=== PATIENT | male | born 1975 | race Caucasian/White ===

== ENCOUNTER → 2016-10-25 | Outpatient (REF) | payer OTHER ==
[2016-10-25 12:16] LABS: BASO % 0.5 % (0.0-1.0); EOS # 0.6 K/mm3 (0.0-0.50); EOS % 6.1 % (0.0-3.0); LARGE UNSTAINED CELL # 0.3 K/mm3 (0.0-0.4); LARGE UNSTAINED CELL % 3.2 % (0.0-4.0); LYMPH % 32.3 % (24.0-44.0); MEAN CORPUSCULAR HEMOGLOBIN 33.5 pg (27.0-33.0); MEAN CORPUSCULAR HGB CONC 34.2 g/dl (32.0-36.5); MEAN CORPUSCULAR VOLUME 98.1 fl (80.0-96.0); MONO # 0.6 K/mm3 (0.0-0.8); MONO % 6.5 % (0.0-5.0); NEUTROPHILS # 4.7 K/mm3 (1.8-7.7); NEUTROPHILS % 51.5 % (36.0-66.0); PLATELET COUNT, AUTOMATED 271 k/mm3 (150-450); RED CELL DISTRIBUTION WIDTH 12.9 % (11.5-14.5); WHITE BLOOD COUNT 9.1 K/mm3 (4.0-10.0)
[2016-10-25 12:41] LABS: ALBUMIN 3.9 GM/DL (3.2-5.2); ALBUMIN/GLOBULIN RATIO 1.11 (1.00-1.93); ALKALINE PHOSPHATASE 77 U/L (45-117); ALT/SGPT 35 U/L (12-78); ANION GAP 8 MEQ/L (8-16); AST/SGOT 20 U/L (15-37); BILIRUBIN,TOTAL 0.8 MG/DL (0.2-1.0); BLOOD UREA NITROGEN 13 MG/DL (7-18); CALCIUM LEVEL 8.9 MG/DL (8.5-10.1); CARBON DIOXIDE LEVEL 29 MEQ/L (21-32); CHLORIDE LEVEL 105 MEQ/L (98-107); CREATININE FOR GFR 0.96 MG/DL (0.70-1.30); GLOMERULAR FILTRATION RATE > 60.0 (>60); GLUCOSE, FASTING 80 MG/DL (70-105); POTASSIUM SERUM 4.5 MEQ/L (3.5-5.1); SODIUM LEVEL 142 MEQ/L (136-145); TOTAL PROTEIN 7.4 GM/DL (6.4-8.2)
== END ==
LOC: M SFHCPLAZ 08:46
PROVIDERS: ATTEND Internal Medicine Infectious Disease
DX: B00.9 Herpesviral infection, unspecified (principal)

== ENCOUNTER → 2017-03-18 | Outpatient (REF) | payer OTHER ==
[2017-03-20 00:08] LABS: HSV-1 DNA Negative (Negative); HSV-2 DNA Positive (Negative)
== END ==
LOC: M SFHCPLAZ 11:34
DX: B00.9 Herpesviral infection, unspecified (principal)
CPT/HCPCS: 87483

== ENCOUNTER → 2017-07-05 | Outpatient (CLI) | payer OTHER | LOC: M ADAMS 10:16 | DX: M25.561 Pain in right knee (principal) | CPT/HCPCS: 73564 ==

== ENCOUNTER → 2017-08-26 | Outpatient (CLI) | payer OTHER ==
[2017-08-26 20:20] LABS: BASO # 0.1 10^3/uL (0.0-0.2); BASO % 0.3 % (0.0-1.0); EOS # 0.1 10^3/uL (0.0-0.50); EOS % 0.4 % (0.0-3.0); HEMATOCRIT 44.8 % (42.0-52.0); HEMOGLOBIN 15.4 g/dl (13.5-17.5); IMMATURE GRANULOCYTE % 0.5 % (0-3.0); LYMPH # 1.8 10^3/uL (1.5-4.5); LYMPH % 11.1 % (24.0-44.0); MEAN CORPUSCULAR HEMOGLOBIN 32.7 pg (27.0-33.0); MEAN CORPUSCULAR HGB CONC 34.4 g/dl (32.0-36.5); MEAN CORPUSCULAR VOLUME 95.1 fl (80.0-96.0); MONO # 1.2 10^3/uL (0.0-0.8); MONO % 7.3 % (0.0-5.0); NEUTROPHILS # 12.9 10^3/uL (1.8-7.7); NEUTROPHILS % 80.4 % (36.0-66.0); PLATELET COUNT, AUTOMATED 238 10^3/uL (150-450); RED BLOOD COUNT 4.71 10^6/uL (4.30-6.10); RED CELL DISTRIBUTION WIDTH 13.5 % (11.5-14.5)
[2017-08-26 21:18] LABS: ALBUMIN 3.4 GM/DL (3.2-5.2); ALBUMIN/GLOBULIN RATIO 0.79 (1.00-1.93); ALKALINE PHOSPHATASE 99 U/L (45-117); ALT/SGPT 58 U/L (12-78); AMYLASE 51 U/L (25-115); ANION GAP 9 MEQ/L (8-16); AST/SGOT 46 U/L (7-37); BILIRUBIN,TOTAL 1.2 MG/DL (0.2-1.0); BLOOD UREA NITROGEN 13 MG/DL (7-18); CALCIUM LEVEL 8.4 MG/DL (8.5-10.1); CARBON DIOXIDE LEVEL 27 MEQ/L (21-32); CHLORIDE LEVEL 100 MEQ/L (98-107); GLOMERULAR FILTRATION RATE > 60.0 (>60); GLUCOSE, FASTING 101 MG/DL (70-100); LIPASE 86 U/L (73-393); POTASSIUM SERUM 4.2 MEQ/L (3.5-5.1); SODIUM LEVEL 136 MEQ/L (136-145); TOTAL PROTEIN 7.7 GM/DL (6.4-8.2)
== END ==
LOC: M ADAMS 18:22
DX: R91.8 Other nonspecific abnormal finding of lung field (principal); R14.0 Abdominal distension (gaseous); R19.7 Diarrhea, unspecified; R50.9 Fever, unspecified; R06.2 Wheezing
CPT/HCPCS: 82150

== ENCOUNTER 2018-04-04 10:34 | Emergency (ER) | payer MEDICAID, OTHER, SELFPAY ==
[~2018-04-04] VITALS: Ht 188 cm; Wt 159.1 kg
[2018-04-04 11:37] LABS: BASO % 0.3 % (0.0-1.0); EOS # 0.3 10^3/uL (0.0-0.50); EOS % 1.9 % (0.0-3.0); HEMATOCRIT 45.6 % (42.0-52.0); LYMPH # 2.6 10^3/uL (1.5-4.5); LYMPH % 16.7 % (24.0-44.0); MEAN CORPUSCULAR HEMOGLOBIN 32.3 pg (27.0-33.0); MEAN CORPUSCULAR HGB CONC 35.1 g/dl (32.0-36.5); MEAN CORPUSCULAR VOLUME 92.1 fl (80.0-96.0); MONO # 1.1 10^3/uL (0.0-0.8); MONO % 7.3 % (0.0-5.0); NEUTROPHILS # 11.3 10^3/uL (1.8-7.7); NEUTROPHILS % 73.4 % (36.0-66.0); PLATELET COUNT, AUTOMATED 128 10^3/uL (150-450); RED BLOOD COUNT 4.95 10^6/uL (4.30-6.10); WHITE BLOOD COUNT 15.4 10^3/uL (4.0-10.0)
[2018-04-04 11:47] LABS: INR 1.06; PROTHROMBIN TIME 13.9 SECONDS (12.1-14.4)
[2018-04-04 12:03] LABS: BLOOD UREA NITROGEN 11 MG/DL (7-18); CALCIUM LEVEL 8.7 MG/DL (8.5-10.1); CARBON DIOXIDE LEVEL 24 MEQ/L (21-32); CHLORIDE LEVEL 103 MEQ/L (98-107); CREATININE FOR GFR 0.92 MG/DL (0.70-1.30); GLOMERULAR FILTRATION RATE > 60.0 (>60); GLUCOSE, FASTING 131 MG/DL (70-100); SODIUM LEVEL 136 MEQ/L (136-145)
[2018-04-04] MEDS ORDERED: MORPHINE 4 MG/ML 1ML VIAL/SYRINGE (J2270) IV ONE (12:30)
[2018-04-04] MEDS ORDERED: ELIQ5TAB PO (12:57)
[2018-04-04] MEDS ORDERED: PERC5TAB12 PO (12:57)
[2018-04-04 13:10] VITALS: BP 114/67
[2018-04-04] MEDS ORDERED: APIXABAN 5 MG TAB (ELIQUIS) PO ONE (13:15)
--- NOTE | 2018-04-04 14:37 | REP ---
Clinical: Left lower extremity pain and swelling . Technique: Ferreira scale and color Doppler evaluation using linear high frequency transducer. Findings: Ultrasound examination of the left lower extremity deep venous structures from the common femoral vein to the popliteal vein demonstrates occlusive thrombus from the common femoral vein to the proximal superficial femoral vein with extension into the greater saphenous vein along with partially occlusive thrombus in the proximal to distal superficial femoral vein. Impression: Positive for acute occlusive/nonocclusive thrombus extending from the common femoral vein through the distal superficial femoral vein with extension into the proximal greater saphenous vein as well. Electronically Signed by Ricardo Adam MD 04/04/2018 12:07 P
== END 2018-04-04 13:16 | disposition home or self-care (01) ==
LOC: M ED 10:34
DX: I82.412 Acute embolism and thrombosis of left femoral vein (principal); Z88.0 Allergy status to penicillin
CPT/HCPCS: 80048; 85025; 85610; 85730; 93971; 96374; 99284; J2270

== ENCOUNTER 2018-04-07 00:45 | Inpatient (IN) | payer OTHER, SELFPAY ==
[~2018-04-07] VITALS: Ht 188 cm; Wt 157.1 kg
[~2018-04-07 00:45] MED LIST: ELIQ5TAB PO; PERC5TAB12 PO
[2018-04-07] MEDS ORDERED: VALA1TAB2 PO (00:51)
[2018-04-07] MEDS ORDERED: MORPHINE 10 MG/ML 1ML VIAL (J2270) IV ONE (01:15)
[2018-04-07 01:35] LABS: BASO % 0.3 % (0.0-1.0); EOS # 0.2 10^3/uL (0.0-0.50); EOS % 1.3 % (0.0-3.0); HEMATOCRIT 40.7 % (42.0-52.0); HEMOGLOBIN 14.2 g/dl (13.5-17.5); LYMPH # 2.4 10^3/uL (1.5-4.5); LYMPH % 15.6 % (24.0-44.0); MEAN CORPUSCULAR HEMOGLOBIN 32.5 pg (27.0-33.0); MEAN CORPUSCULAR HGB CONC 34.9 g/dl (32.0-36.5); MEAN CORPUSCULAR VOLUME 93.1 fl (80.0-96.0); MONO # 1.7 10^3/uL (0.0-0.8); MONO % 11.1 % (0.0-5.0); NEUTROPHILS # 11.1 10^3/uL (1.8-7.7); NEUTROPHILS % 70.9 % (36.0-66.0); PLATELET COUNT, AUTOMATED 167 10^3/uL (150-450); RED BLOOD COUNT 4.37 10^6/uL (4.30-6.10); WHITE BLOOD COUNT 15.7 10^3/uL (4.0-10.0)
[2018-04-07 02:10] LABS: BLOOD UREA NITROGEN 19 MG/DL (7-18); CALCIUM LEVEL 8.1 MG/DL (8.5-10.1); CARBON DIOXIDE LEVEL 26 MEQ/L (21-32); CHLORIDE LEVEL 100 MEQ/L (98-107); CREATININE FOR GFR 0.97 MG/DL (0.70-1.30); GLOMERULAR FILTRATION RATE > 60.0 (>60); GLUCOSE, FASTING 120 MG/DL (70-100); POTASSIUM SERUM 3.7 MEQ/L (3.5-5.1); SODIUM LEVEL 135 MEQ/L (136-145)
[2018-04-07] MEDS ORDERED: ISOVUE-370 76% 100ML VIAL (Q9967) As Ordered ONE (02:23)
[2018-04-07] MEDS ORDERED: NS 1,000 ML IV ONE (02:30)
--- NOTE | 2018-04-07 02:52 | REPVR ---
EXAM: CT Angiography Chest With Contrast EXAM DATE/TIME: 04/07/2018 2:35 AM CLINICAL HISTORY: 42 years old, male; Pain; Chest pain; Additional info: Eval for pe/dvt present TECHNIQUE: Axial computed tomographic angiography images of the chest with intravenous contrast using CT angiography protocol. All CT scans at this facility use at least one of these dose optimization techniques: automated exposure control; mA and/or kV adjustment per patient size (includes targeted exams where dose is matched to clinical indication); or iterative reconstruction. Coronal and sagittal reformatted images were created and reviewed. MIP reconstructed images were created and reviewed. CONTRAST: 75 ml of iso 370 administered intravenously. COMPARISON: DX CHEST 2 VIEW 08/26/2017 6:16 PM FINDINGS: Limitations: Examination is limited by motion artifact. Pulmonary arteries: Suboptimal opacification of the pulmonary arteries. Large pulmonary emboli in the right lower lobe. Suspect multifocal moderate pulmonary emboli in the left upper lobe, left lower lobe and lingula. No saddle pulmonary emboli. Evaluation of the segmental arteries are suboptimal. Aorta: Suboptimal contrast opacification of the aorta. No aortic aneurysm. No aortic dissection. Great vessels off aortic arch: Incidental aberrant right subclavian vein. Lungs: Scattered linear atelectasis. No acute consolidation. Few scattered lung nodules measuring up to 4 mm. Pleural space: Normal. No pneumothorax. No pleural effusion. Heart: Heart size is within normal limits. RV/LV ratio is 0.8. Liver: Fatty infiltration of the liver. Lymph nodes: Unremarkable. No enlarged lymph nodes. Bones/joints: Unremarkable. No acute fracture. Soft tissues: Unremarkable. IMPRESSION: Suboptimal evaluation. Positive for bilateral pulmonary emboli. No evidence of right ventricular cardiac strain. Few scattered lung nodules. For patients at low risk (minimal or absent history of smoking and of other known risk factors), no routine follow-up is indicated. For patients at high risk (history of smoking or of other known risk factors), consider optional CT at 12 months. (Brit et al., Fleischner Society, 2017) Fatty infiltration of the liver. Additional findings as described. COMMENT: THIS REPORT CONTAINS FINDINGS THAT MAY BE CRITICAL TO PATIENT CARE. The findings were verbally communicated via telephone conference with Dr. GUNDERSON at 2:49 AM EST on 04/07/2018. The findings were acknowledged and understood. Electronically signed by: Basim Ortiz On 04/07/2018 02:51:28 AM
--- NOTE | 2018-04-07 02:53 | REPVR ---
EXAM: US Duplex Left Lower Extremity Veins, Limited EXAM DATE/TIME: 04/07/2018 2:08 AM CLINICAL HISTORY: 42 years old, male; Condition or disease; Embolism or thrombosis; Lower extremity, left; Additional info: Reeval of dvt TECHNIQUE: Real-time Duplex ultrasound of the Left Lower Extremity with 2-D oliva scale, color Doppler flow and spectral waveform analysis. Limited exam focused on the left lower extremity veins. COMPARISON: US Duplex, Ext,LOWER veins,unilat 04/04/2018 11:55 AM FINDINGS: Left deep veins: Occlusive DVT in the left common femoral vein and femoral vein. Occlusive DVT in the left deep femoral vein. Proximal extent of the thrombus is not seen. Iliac veins are not imaged on this study. Left superficial veins: Occlusive DVT in the left greater saphenous vein in the proximal thigh. Soft tissues: Unremarkable. IMPRESSION: Diffuse occlusive DVT in left lower extremity. Unchanged from prior. COMMENT: THIS REPORT CONTAINS FINDINGS THAT MAY BE CRITICAL TO PATIENT CARE. The findings were verbally communicated via telephone conference with Dr. GUNDERSON at 2:52 AM EST on 04/07/2018. The findings were acknowledged and understood. Electronically signed by: Basim Ortiz On 04/07/2018 02:52:58 AM
[2018-04-07] MEDS ORDERED: HEPARIN DRIP 25,000 UNITS in APPROPRIATE DILUENT 1 EA IV SCH ×3 (03:13→09:00)
[2018-04-07] MEDS ORDERED: HEPARIN SOD (PORCINE) 5000 UNITS/ML VIAL IV ONE (03:15)
[2018-04-07 03:55] LABS: TROPONIN I < 0.02 NG/ML (< 0.10)
[2018-04-07 03:56] LABS: INR 1.37; PROTHROMBIN TIME 17.1 SECONDS (12.1-14.4)
[2018-04-07 03:57] LABS: PARTIAL THROMBOPLASTIN TIME 33.8 SECONDS (25.4-37.6)
[2018-04-07] MEDS ORDERED: ELIQ5TAB PO (04:07)
[2018-04-07] MEDS ORDERED: OXYC1TAB23 PO (04:07)
[2018-04-07] MEDS ORDERED: DOXY100T16 PO (04:07)
[2018-04-07] MEDS ORDERED: VENTAER INH (04:09)
[2018-04-07] MEDS ORDERED: NICOTINE 21MG/24HR 1 EA TRANSDERMAL TD PRN (04:15)
[2018-04-07] MEDS: PERCOCET 5MG/325MG TAB PO PRN ×3 (05:14→21:07)
[2018-04-07] MEDS: HEPARIN DRIP 25,000 UNITS in APPROPRIATE DILUENT 1 EA IV SCH ×2 (07:33→21:57)
[2018-04-07] MEDS: DOXYCYCLINE HYCLATE 100 MG TAB PO SCH ×2 (08:18→21:06)
[2018-04-07] MEDS: valACYclovir HCL 500 MG TAB PO SCH ×2 (08:20→21:06)
[2018-04-07] MEDS: IPRATROPIUM 0.5MG/ALBUTEROL 2.5MG INH SOL UD 3ML (DUONEB)(J7620) NEB SCH ×4 (08:49→20:00)
[2018-04-07 09:42] VITALS: BP 130/80
--- NOTE | 2018-04-07 11:03 | HPE ---
DATE OF ADMISSION: 04/07/2018 CHIEF COMPLAINT: Worsening swelling and pain in the left lower extremity and mild dyspnea on exertion. HISTORY OF PRESENT ILLNESS: The patient is a 43-year-old male. He has significant past medical history of morbid obesity, also ongoing treatment for herpetic lesion on his ear with possible skin fold bacterial infection. He is on Valtrex one a day and doxycycline. He is a heavy smoker. He presented to the emergency room with worsening pain, swelling, erythema in his left lower extremity and some mild dyspnea on exertion. He was recently seen in the emergency room here at [facility] on 04/04/2018 for lower extremity swelling and he as diagnosed with a deep vein thrombosis (DVT). He was discharged on Eliquis. He returns today with worsening pain and swelling of the left lower extremity and some mild dyspnea on exertion. Imaging in the emergency room, CT angio was completed, which showed positive bilateral pulmonary emboli. No evidence of right heart strain. Few scattered lung nodules. Ultrasound of the lower extremities showed occlusive DVT in the left common femoral vein and left femoral vein. Occlusive DVT in the left deep femoral vein. Iliac veins are not imaged in this study. Left superficial vein occlusive DVT in the left greater saphenous vein. 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 He denies any history of recent surgeries or immobility. Appropriate screening for this patient would be a low dose CT, which he already had performed. He had a CT angio for lung cancer. PAST MEDICAL HISTORY: See history of present illness. PAST SURGICAL HISTORY: He has had surgery for torsion of the testes. HOME MEDICATIONS: - Valtrex - doxycycline - albuterol as needed for what he states is an episode of bronchitis - Eliquis was recently started - Percocet ALLERGIES: PENICILLIN, he gets hives. SOCIAL HISTORY: He is a current smoker, smokes two to three packs a day. Denies alcohol or illicit drug use. FAMILY HISTORY: No family history of blood clots. REVIEW OF SYSTEMS: 12-point review of systems was completed, all of which are negative except those listed in the history of present illness. VITAL SIGNS: On admission, temperature 99.3, pulse 90, respiratory rate of 22, saturating 95% on room air. Blood pressure 135/77. PHYSICAL EXAMINATION: GENERAL: He is obese. No apparent distress. Head is normocephalic, atraumatic. Eyes: Extraocular movements are intact. Pupils are equal, round and reactive to light. NECK: Supple with no jugular venous distention (JVD). LUNGS: Clear to auscultation. No crackles, wheezes, rales or rhonchi. CARDIOVASCULAR: Regular rate and rhythm. Normal S1, S2. No murmurs, gallops or rubs. ABDOMEN: Soft, nontender, nondistended. Positive bowel sounds. No rebound or guarding. EXTREMITIES: Erythema on the left lower extremity with 1+ pitting edema extending up beyond his knee, up into the lower portion of his thigh. SKIN: Intact. No rashes, lesions or breakdown. NEUROLOGIC: Alert and oriented times three. No focal deficits. LABORATORIES/IMAGING: Completed in the emergency room: White count 15, hemoglobin and hematocrit 14/40, platelet count of 167. Coags: PT of 17, INR 1.37, PTT 33. BUN and creatinine of 19 and 0.97. Electrocardiogram (EKG) shows no ischemic changes. We will send a troponin and admit the patient to telemetry. ASSESSMENT AND PLAN: 1. Deep vein thrombosis (DVT) and pulmonary embolus, possibly failed anticoagulation. The patient did take his dose of Eliquis tonight and so we will defer starting heparin drip until right before his next dose of Eliquis is due. Eliquis has not been studied in patient's with a Body Mass Index (BMI) greater than 40, so this patient was likely under anticoagulated based on his body habitus. Indications for thrombectomy would be complete occlusion of the iliofemoral system, as per the DVT Doppler report, unable to access the iliac vein. We will consider a vascular consult in the morning to see if the patient may be a candidate for thrombectomy. We will place him on a heparin drip. He will likely need to be bridged with Coumadin. Oxygen as needed. Place the patient on telemetry. We will cycle his troponins. For his herpetic lesion, possible skin fold infection, we will continue his Valtrex and doxycycline. 2. Tobacco abuse. Nicotine replacement patch. The patient is also notably wheezing on examination. We will place him on DuoNeb standing. He is not officially diagnosed with obstructive lung disease, chronic obstructive pulmonary disease (COPD) or asthma, but he has a long-standing smoking history, possibly will need outpatient pulmonary function tests. 3. Lung nodules. The patient will need followup study. Based on Fleischner criteria, repeat CT in 6 to 12 months, as he has a strong smoking history. MTDD
[2018-04-07 11:30] VITALS: BP 145/82
[2018-04-07] MEDS: HEPARIN SOD (PORCINE) 5000 UNITS/ML VIAL IV PRN ×2 (14:48→21:55)
--- NOTE | 2018-04-07 17:54 | IPNPDOC ---
Subjective Date Seen The patient was seen on 04/07/18. Subjective Chief Complaint/HPI Worsening swelling and pain in left lower extremity Events since last encounter Patient notes he has had better pain control. Denies any changes since admission. Would like to discuss treatment options with vascular surgery. Denies fevers, palpitations or current shortness of breath. Denies chest pain. Constitutional: Denies: Chills, Fever ENT: Denies: Head Aches Pulmonary: Denies: Dyspnea, Cough Cardiovascular: Denies: Chest Pain Objective Physical Examination General Exam: Positive: Alert, Cooperative Eye Exam: Positive: PERRLA ENT Exam: Positive: Atraumatic Neck Exam: Positive: Supple; Negative: JVD Chest Exam: Positive: Wheezing Heart Exam: Positive: Rate Normal Abdomen Exam: Positive: Normal bowel sounds Extremity Exam: Positive: Clubbing, Edema (Left lower extremity swelling); Negative: Cyanosis Assessment /Plan Problems (1) Pulmonary emboli Status: Acute Problem Text: Multiple pulmonary emboli noted on CT scan chest. On heparin at this point. No chest pain, SOB currently. Monitor for now. (2) Deep vein thrombosis (DVT) of distal vein of left lower extremity Status: Acute Problem Text: Vascular surgery consult placed. Dr. Lino with discuss with patient later about options. On heparin at this point for treatment. Continue pain medication as needed. (3) Nicotine dependence Problem Text: Continue nicotine patch. (4) Lung nodules Problem Text: Noted on CT scan. May need follow up outpatient. (5) Recurrent HSV (herpes simplex virus) Problem Text: Last dose of 5 day course of doxycycline and Valtrex given today. Patient has history of recurrent episodes and takes a 5 days course when they occur. Plan/VTE VTE Prophylaxis Ordered?: Yes VS, I&O, 24H, Fishbone Vital Signs/I&O Vital Signs Date Time Temp Pulse Resp B/P (MAP) Pulse Ox O2 Delivery O2 Flow Rate FiO2 04/07/18 15:19 20 04/07/18 13:15 80 95 04/07/18 13:00 132/77 (95) Room Air 04/07/18 09:42 2.0 04/07/18 09:00 99.3 Laboratory Data 24H LABS Laboratory Tests 2 04/07/18 01:27: Immature Granulocyte % (Auto) 0.8, White Blood Count 15.7H, Red Blood Count 4.37, Hemoglobin 14.2, Hematocrit 40.7L, Mean Corpuscular Volume 93.1, Mean Corpuscular Hemoglobin 32.5, Mean Corpuscular Hemoglobin Concent 34.9, Red Cell Distribution Width 13.2, Platelet Count 167, Neutrophils (%) (Auto) 70.9H, Lymphocytes (%) (Auto) 15.6L, Monocytes (%) (Auto) 11.1H, Eosinophils (%) (Auto) 1.3, Basophils (%) (Auto) 0.3, Neutrophils # (Auto) 11.1H, Lymphocytes # (Auto) 2.4, Monocytes # (Auto) 1.7H, Eosinophils # (Auto) 0.2, Basophils # (Auto) 0.0, Nucleated Red Blood Cells % (auto) 0.0, Anion Gap 9, Glomerular Filtration Rate > 60.0, Blood Urea Nitrogen 19#H, Creatinine 0.97, Sodium Level 135L, Potassium Level 3.7, Chloride Level 100, Carbon Dioxide Level 26, Calcium Level 8.1L, Troponin I < 0.02 04/07/18 03:40: Prothrombin Time 17.1H, Prothromb Time International Ratio 1.37, Activated Partial Thromboplast Time 33.8 04/07/18 03:41: Troponin I < 0.02 04/07/18 09:42: Troponin I < 0.02, Activated Partial Thromboplast Time 36.5 04/07/18 13:15: Activated Partial Thromboplast Time 34.4 CBC/BMP Laboratory Tests 04/07/18 01:27 Red Blood Count 4.37, Mean Corpuscular Volume 93.1, Mean Corpuscular Hemoglobin 32.5, Mean Corpuscular Hemoglobin Concent 34.9, Red Cell Distribution Width 13.2, Neutrophils (%) (Auto) 70.9 H, Lymphocytes (%) (Auto) 15.6 L, Monocytes (%) (Auto) 11.1 H, Eosinophils (%) (Auto) 1.3, Basophils (%) (Auto) 0.3, Neutrophils # (Auto) 11.1 H, Lymphocytes # (Auto) 2.4, Monocytes # (Auto) 1.7 H, Eosinophils # (Auto) 0.2, Basophils # (Auto) 0.0, Calcium Level 8.1 L GME ATTESTATION GME ATTESTATION My faculty preceptor for this patient encounter was physically present during the encounter and was fully available. All aspects of the patient interview, examination, medical decision making process, and medical care plan development were reviewed and approved by the faculty preceptor. The faculty preceptor is aware and concurs with the plan as stated in the body of this note and will attest to such by his/her cosignature. MARYAM ESTRELLA DO Apr 07, 2018 17:26
--- NOTE | 2018-04-07 21:47 | CR.PDOC ---
General Date of Admission Apr 07, 2018 at 03:39 Chief Complaint Vascular surgical consultation was requested regarding this 42-year-old male adm itted with bilateral pulmonary embolus, left lower extremity swelling and pain secondary to diffuse left lower extremity deep venous thrombosis. Source: Patient, Family, Old records Exam Limitations: No limitations Severity: Severe History of Present Illness Patient is a 42-year-old male who was admitted with severe left lower extremity pain and swelling with a known history of extensive left lower extremity DVT. Patient was also found to have bilateral pulmonary embolus on a CT angiogram of his chest. Patient was initially seen and discharged on Eliquis and now on a second visit to the emergency room has been admitted and placed on heparin drip and request has been made to evaluate the patient for possible left lower extremity venous thrombolysis. CT scan of the chest and ultrasound of the left lower extremity were reviewed by myself. Home Medications Scheduled Enoxaparin Sodium (Lovenox) 40 Mg/0.4 Ml Inj, 150 MG SC BID Valacyclovir HCl (Valacyclovir HCl) 1 Gm Tab, 1 GM PO Q12H, (Reported) TAKE FOR 10 DAYS. STARTED 03/28/2018 Warfarin Sod (Coumadin) 5 Mg Tab, 10 MG PO DAILY@1700 Scheduled PRN Acetaminophen/Hydrocodone ([place], [place] 5/325) 1 Tab Tab, 2 TAB PO Q4HP PRN for SEVERE PAIN (PS 8-10) Albuterol Sulfate (Ventolin Hfa) 108 Mcg/Act Aer, 2 PUFF INH Q4-6HP PRN for wheezing, (Reported) Nicotine (Nicotine Transdermal Syst) 21 Mg/24 Hr Dis, 1 PATCH TD DAILYPRN PRN for NICOTINE WITHDRAWAL Allergies Coded Allergies: Penicillins (Verified Allergy, Intermediate, hives, 04/04/18) Past Medical History Medical History Herpetic lesions on his ear Tobacco use Surgical History Surgery for torsion of the testes Family History Significant Family History: No pertinent family hx No family history of DVT, pulmonary embolus or blood dyscrasias. Social History * Smoker: current smoker, greater than 1 pack/day Alcohol: Denies Drugs: denies Recent Travel/Sick Contacts: Denies: Recent travel, Recent sick contacts Psychosocial History: No pertinent psych hx Patient smokes approximately 2-3 packs per day Review of Systems Review of Systems General: Reports: Normal Appetite; Denies: Chills, Night Sweats, Fatigue, Malaise Constitutional: Denies: Chills, Fever, Malaise, Night Sweats, Weakness, Fatigue, Weight Loss, Lethargy Eyes: Denies: Pain, Vision change, Conjunctivae inflammation, Eyelid inflammation, Redness HEENT: Denies: Head Aches, Ear Pain, Dysphagia, Sinus Congestion, Post Nasal Drip, Sore Throat, Epistaxis Skin: Denies: Rash, Lesions, Jaundice, Bruising, Itching, Dry, Breakdown, Nail Changes Pulmonary: Reports: Dyspnea, Pleuritic Chest Pain; Denies: Cough Cardiovascular: Denies: Chest Pain, Palpitations, Orthopnea, Paroxysmal Noc. Dyspnea, Edema, Lt Headedness Gastrointestinal: Denies: Nausea, Vomiting, Abdominal Pain, Diarrhea, Constipation, Melena, Hematochezia Genitourinary: Denies: Dysuria, Frequency, Incontinence, Hematuria, Retention Hematologic: Denies: Bruising, Bleeding Excessively, Petecchia, Purpura, Enlarged Lymph Nodes ENDOCRINE: Reports: Other Endocrine Sx; Denies: Polydipsia, Polyphagia, Polyuria, Heat Intolerance, Cold Intolerance Musculoskeletal: Denies: Neck Pain, Back Pain, Shoulder Pain, Arm Pain, Hand Pain, Leg Pain, Foot Pain, Joint Pain, Muscle Pain, Spasms Neurological: Denies: Weakness, Numbness, Incoordination, Change in speech, Confusion, Seizures Psych: Reports: Mood Normal; Denies: Anxiety, Depression, Memory Issues, Thoughts of Self Harm, Anger, Thoughts of Harming Other VITAL SIGNS VITAL SIGNS Vital Signs Date Time Temp Pulse Resp B/P (MAP) Pulse Ox O2 Delivery O2 Flow Rate FiO2 04/07/18 21:07 18 04/07/18 15:19 20 04/07/18 14:49 18 04/07/18 13:15 80 95 04/07/18 13:00 76 18 132/77 (95) 95 Room Air 04/07/18 12:45 74 127/81 (96) 93 04/07/18 12:30 76 18 123/78 (93) 95 Room Air 04/07/18 12:15 71 132/82 (99) 96 Room Air 04/07/18 12:00 73 18 131/83 (99) 94 Room Air 04/07/18 11:45 72 122/75 (91) 99 04/07/18 11:30 97.7 84 18 145/82 (103) 94 04/07/18 11:30 76 16 127/79 (95) 95 Room Air 04/07/18 11:15 81 137/79 (98) 04/07/18 11:00 75 16 129/75 (93) 96 Room Air 04/07/18 10:45 73 129/78 (95) 96 04/07/18 10:30 74 16 127/71 (89) 96 Room Air 04/07/18 10:15 77 125/77 (93) 95 04/07/18 10:00 73 16 127/77 (94) 95 Room Air 04/07/18 09:45 77 135/75 (95) 95 04/07/18 09:42 76 14 130/80 96 2.0 04/07/18 09:30 76 14 130/81 (97) 95 Room Air 04/07/18 09:15 78 114/69 (84) 95 04/07/18 09:00 70 14 118/76 (90) 96 Room Air 04/07/18 09:00 99.3 04/07/18 08:45 71 123/81 (95) 96 04/07/18 08:30 65 14 122/77 (92) 96 Room Air 04/07/18 08:15 67 124/79 (94) 95 04/07/18 08:00 65 16 126/82 (97) 97 Room Air 04/07/18 07:45 76 132/86 (101) 93 04/07/18 07:30 75 131/80 (97) 96 04/07/18 07:15 67 115/67 (83) 96 04/07/18 07:00 69 120/70 (87) 96 04/07/18 06:45 70 19 135/78 (97) 96 04/07/18 06:30 73 18 131/69 (89) 97 04/07/18 06:15 71 17 128/68 (88) 95 04/07/18 06:00 71 18 125/63 (83) 96 04/07/18 05:45 75 18 121/58 (79) 95 04/07/18 05:30 74 19 133/63 (86) 96 04/07/18 05:16 138/67 (90) 04/07/18 05:15 75 96 04/07/18 05:14 16 04/07/18 05:00 79 18 142/61 (88) 95 04/07/18 04:45 81 19 141/66 (91) 94 04/07/18 04:30 82 19 139/69 (92) 96 04/07/18 04:15 88 18 139/63 (88) 97 04/07/18 04:00 87 17 154/73 (100) 96 04/07/18 03:45 91 18 147/69 (95) 94 04/07/18 03:30 85 18 151/70 (97) 96 04/07/18 03:15 90 19 154/69 (97) 95 04/07/18 03:00 85 20 145/75 (98) 95 04/07/18 02:45 82 18 142/62 (88) 96 04/07/18 02:37 143/76 (98) 04/07/18 01:43 18 04/07/18 01:30 87 17 129/60 (83) 93 04/07/18 01:15 20 04/07/18 01:15 85 18 134/72 (92) 96 04/07/18 01:02 04/07/18 01:00 94 19 148/78 (101) 96 04/07/18 00:59 137/79 (98) 04/07/18 00:45 99.3 22 90 135/77 (96) 95 Room Air Laboratory Tests 04/07/18 01:27: White Blood Count 15.7H, Red Blood Count 4.37, Hemoglobin 14.2, Hematocrit 40.7L, Mean Corpuscular Volume 93.1, Mean Corpuscular Hemoglobin 32.5, Mean Corpuscular Hemoglobin Concent 34.9, Red Cell Distribution Width 13.2, Platelet Count 167, Neutrophils (%) (Auto) 70.9H, Lymphocytes (%) (Auto) 15.6L, Monocytes (%) (Auto) 11.1H, Eosinophils (%) (Auto) 1.3, Basophils (%) (Auto) 0.3, Neutrophils # (Auto) 11.1H, Lymphocytes # (Auto) 2.4, Monocytes # (Auto) 1.7H, Eosinophils # (Auto) 0.2, Basophils # (Auto) 0.0, Immature Granulocyte % (Auto) 0.8, Nucleated Red Blood Cells % (auto) 0.0, Blood Urea Nitrogen 19#H, Creatinine 0.97, Sodium Level 135L, Potassium Level 3.7, Chloride Level 100, Carbon Dioxide Level 26, Calcium Level 8.1L, Anion Gap 9, Glomerular Filtration Rate > 60.0, Fasting Glucose 120H, Troponin I < 0.02 04/07/18 03:40: Prothrombin Time 17.1H, Prothromb Time International Ratio 1.37, Activated Partial Thromboplast Time 33.8 04/07/18 03:41: Troponin I < 0.02 04/07/18 09:42: Troponin I < 0.02, Activated Partial Thromboplast Time 36.5 04/07/18 13:15: Activated Partial Thromboplast Time 34.4 04/07/18 20:55: Activated Partial Thromboplast Time 45.0H Current Medications Medications (Trade) Dose Ordered Sig/Jer Route PRN Reason Start Time Stop Time Status Last Admin Dose Admin Albuterol/ Ipratropium (Duoneb (Ipr 0.5mg/Alb 2.5mg)) 3 ml RQ4H NEB 04/07/18 08:00 04/07/18 15:47 3 ML Heparin Sodium (Porcine) (Heparin) ASDIRECTED PRN IV SEE LABEL COMMENTS 04/07/18 03:45 04/07/18 14:48 11,932 UNITS Heparin Sodium (Porcine) 92266 units/IV Miscellaneous Supplies 250 ml @ 0 mls/hr Q0M IV 04/07/18 07:30 04/07/18 07:33 10 MLS/HR Non-Formulary Medication (Heparin Iv Rate Change Documentation ml/ Hr) ASDIRECTED XX 04/07/18 03:45 04/12/18 03:44 04/07/18 14:48 1,590 Oxycodone/ Acetaminophen (Percocet 5mg/ 325mg Tablet) 1 tab Q6H PRN PO PAIN 04/07/18 04:00 04/07/18 21:07 1 TAB Laboratory Tests 04/07/18 01:27 Red Blood Count 4.37, Mean Corpuscular Volume 93.1, Mean Corpuscular Hemoglobin 32.5, Mean Corpuscular Hemoglobin Concent 34.9, Red Cell Distribution Width 13.2, Neutrophils (%) (Auto) 70.9 H, Lymphocytes (%) (Auto) 15.6 L, Monocytes (%) (Auto) 11.1 H, Eosinophils (%) (Auto) 1.3, Basophils (%) (Auto) 0.3, Neutrophils # (Auto) 11.1 H, Lymphocytes # (Auto) 2.4, Monocytes # (Auto) 1.7 H, Eosinophils # (Auto) 0.2, Basophils # (Auto) 0.0, Calcium Level 8.1 L Objective Physical Examination General Exam: Positive: Alert, Cooperative, Mild Distress Eye Exam: Positive: PERRLA ENT Exam: Positive: Atraumatic, Mucous membr. moist/pink, Pharynx Normal, Tongue Midline, Nares Patent Neck Exam: Positive: Supple, +2 carotid pulse wo bruit; Negative: JVD Chest Exam: Positive: Clear to auscultation, Normal air movement, Wheezing Heart Exam: Positive: Rate Normal Telemetry: Positive: No significant arrhythmia Abdomen Exam: Positive: Normal bowel sounds, Soft Male Exam: Positive: Normal Genital Exam Extremity Exam: Positive: Clubbing, Edema (Left lower extremity swelling), Normal pulses; Negative: Cyanosis Skin Exam: Positive: Nl turgor and temperature Neuro Exam: Positive: Normal Gait, Normal Speech, Strength at 5/5 X4 ext, Normal Tone, Sensation Intact, Cranial Nerves 3-12 NL, Reflexes 2+ Psych Exam: Positive: Mental status NL, Mood NL, Memory Intact, Oriented x 3 NOTE NAME: JARAD LAI DATE OF : 1975 BUSINESS NUMBER: [id number] AGE: 42 SEX: M REPORT #: [id number] ROOM: M ED TECHNOLOGIST: GWEN DOCTOR: KOFI GUNDERSON DO Ordered for Date&Time: 04/07/18216 cc: [~ rep ct ivnm] Service Date&Time: 04/07/18 0235 EXAMINATION REQUESTED: CT ANGIO CHEST REASON FOR PATIENT VISIT: EXTREMIETY PAIN REASON FOR EXAMINATION: EVAL FOR PE/DVT PRESENT EXAM: CT Angiography Chest With Contrast EXAM DATE/TIME: 04/07/2018 2:35 AM CLINICAL HISTORY: 42 years old, male; Pain; Chest pain; Additional info: Eval for pe/dvt present TECHNIQUE: Axial computed tomographic angiography images of the chest with intravenous contrast using CT angiography protocol. All CT scans at this facility use at least one of these dose optimization techniques: automated exposure control; mA and/or kV adjustment per patient size (includes targeted exams where dose is matched to clinical indication); or iterative reconstruction. Coronal and sagittal reformatted images were created and reviewed. MIP reconstructed images were created and reviewed. CONTRAST: 75 ml of iso 370 administered intravenously. COMPARISON: DX CHEST 2 VIEW 08/26/2017 6:16 PM FINDINGS: Limitations: Examination is limited by motion artifact. Pulmonary arteries: Suboptimal opacification of the pulmonary arteries. Large pulmonary emboli in the right lower lobe. Suspect multifocal moderate pulmonary emboli in the left upper lobe, left lower lobe and lingula. No saddle pulmonary emboli. Evaluation of the segmental arteries are suboptimal. Aorta: Suboptimal contrast opacification of the aorta. No aortic aneurysm. No aortic dissection. Great vessels off aortic arch: Incidental aberrant right subclavian vein. Lungs: Scattered linear atelectasis. No acute consolidation. Few scattered lung nodules measuring up to 4 mm. Pleural space: Normal. No pneumothorax. No pleural effusion. Heart: Heart size is within normal limits. RV/LV ratio is 0.8. Liver: Fatty infiltration of the liver. Lymph nodes: Unremarkable. No enlarged lymph nodes. Bones/joints: Unremarkable. No acute fracture. Soft tissues: Unremarkable. IMPRESSION: Suboptimal evaluation. Positive for bilateral pulmonary emboli. No evidence of right ventricular cardiac strain. Few scattered lung nodules. For patients at low risk (minimal or absent history of smoking and of other known risk factors), no routine follow-up is indicated. For patients at high risk (history of smoking or of other known risk factors), consider optional CT at 12 months. (Brit et al., Fleischner Society, 2017) Fatty infiltration of the liver. Additional findings as described. COMMENT: THIS REPORT CONTAINS FINDINGS THAT MAY BE CRITICAL TO PATIENT CARE. The findings were verbally communicated via telephone conference with Dr. GUNDERSON at 2:49 AM EST on 04/07/2018. The findings were acknowledged and understood. Electronically signed by: Basim Ortiz On 04/07/2018 02:51:28 AM NAME: JARAD LAI DATE OF : 1975 BUSINESS NUMBER: [id number] AGE: 42 SEX: M REPORT #: [id number] ROOM: ED TECHNOLOGIST: ASHA DOCTOR: KOFI GUNDERSON DO Ordered for Date&Time: 04/07/18 0111 cc: [~ rep ct ivnm] Service Date&Time: 04/07/18 0208 EXAMINATION REQUESTED: Duplex, Ext,LOWER veins,unilat LEFT REASON FOR PATIENT VISIT: EXTREMIETY PAIN REASON FOR EXAMINATION: reeval of DVT EXAM: US Duplex Left Lower Extremity Veins, Limited EXAM DATE/TIME: 04/07/2018 2:08 AM CLINICAL HISTORY: 42 years old, male; Condition or disease; Embolism or thrombosis; Lower extremity, left; Additional info: Reeval of dvt TECHNIQUE: Real-time Duplex ultrasound of the Left Lower Extremity with 2-D ferreira scale, color Doppler flow and spectral waveform analysis. Limited exam focused on the left lower extremity veins. COMPARISON: US Duplex, Ext,LOWER veins,unilat 04/04/2018 11:55 AM FINDINGS: Left deep veins: Occlusive DVT in the left common femoral vein and femoral vein. Occlusive DVT in the left deep femoral vein. Proximal extent of the thrombus is not seen. Iliac veins are not imaged on this study. Left superficial veins: Occlusive DVT in the left greater saphenous vein in the proximal thigh. Soft tissues: Unremarkable. IMPRESSION: Diffuse occlusive DVT in left lower extremity. Unchanged from prior. COMMENT: THIS REPORT CONTAINS FINDINGS THAT MAY BE CRITICAL TO PATIENT CARE. The findings were verbally communicated via telephone conference with Dr. GUNDERSON at 2:52 AM EST on 04/07/2018. The findings were acknowledged and understood. Electronically signed by: Basim Ortiz On 04/07/2018 02:52:58 AM NAME: JARAD LAI DATE OF : 1975 AGE: 42 SEX: M REPORT #: [id number] ROOM: ED TECHNOLOGIST: JORDIN DOCTOR: STACY SIMPSON [employer] Ordered for Date&Time: 04/04/18 1058 cc: [~ rep ct ivnm] Service Date&Time: 04/04/18 1237 EXAMINATION REQUESTED: Duplex, Ext,LOWER veins,unilat LEFT REASON FOR PATIENT VISIT: LEG SWELLING REASON FOR EXAM/COMMENT: left lower leg swelling; r/o DVT Clinical: Left lower extremity pain and swelling . Technique: Ferreira scale and color Doppler evaluation using linear high frequency transducer. Findings: Ultrasound examination of the left lower extremity deep venous structures from the common femoral vein to the popliteal vein demonstrates occlusive thrombus from the common femoral vein to the proximal superficial femoral vein with extension into the greater saphenous vein along with partially occlusive thrombus in the proximal to distal superficial femoral vein. Impression: Positive for acute occlusive/nonocclusive thrombus extending from the common femoral vein through the distal superficial femoral vein with extension into the proximal greater saphenous vein as well. Electronically Signed by Ricardo Adam MD 04/04/2018 12:07 P Assessment/Plan Assessment 42-year-old male with extensive left lower extremity deep venous thrombosis and severe swelling and pain in the left lower extremity with skin changes in the left calf secondary to the swelling and DVT. Patient also has a CT angiogram showing bilateral pulmonary embolus. Plan Patient will continue on a heparin drip and will consider the possibility of performing a left lower extremity venous thrombolysis. Patient will discuss with his and decide whether he wishes to proceed with thrombolysis or continue with conservative treatment with heparin and conversion to Coumadin. Xander Lino MD Apr 07, 2018 21:47
[2018-04-07 22:00] VITALS: BP 129/86
[2018-04-08] MEDS: IPRATROPIUM 0.5MG/ALBUTEROL 2.5MG INH SOL UD 3ML (DUONEB)(J7620) NEB SCH ×7 (00:01→23:27)
[2018-04-08] MEDS: PERCOCET 5MG/325MG TAB PO PRN ×4 (03:27→20:32)
[2018-04-08 04:30] VITALS: BP 145/87
[2018-04-08] MEDS ORDERED: PERCOCET 5MG/325MG TAB PO ONE (04:45)
[2018-04-08 05:01] LABS: HEMATOCRIT 39.1 % (42.0-52.0); HEMOGLOBIN 13.8 g/dl (13.5-17.5); MEAN CORPUSCULAR HEMOGLOBIN 32.7 pg (27.0-33.0); MEAN CORPUSCULAR HGB CONC 35.3 g/dl (32.0-36.5); MEAN CORPUSCULAR VOLUME 92.7 fl (80.0-96.0); PLATELET COUNT, AUTOMATED 186 10^3/uL (150-450); RED BLOOD COUNT 4.22 10^6/uL (4.30-6.10); WHITE BLOOD COUNT 13.5 10^3/uL (4.0-10.0)
[2018-04-08 05:10] LABS: INR 1.12; PROTHROMBIN TIME 14.6 SECONDS (12.1-14.4)
[2018-04-08 05:12] LABS: PARTIAL THROMBOPLASTIN TIME 55.5 SECONDS (25.4-37.6)
[2018-04-08 05:23] LABS: BLOOD UREA NITROGEN 15 MG/DL (7-18); CALCIUM LEVEL 7.9 MG/DL (8.5-10.1); CARBON DIOXIDE LEVEL 26 MEQ/L (21-32); CHLORIDE LEVEL 101 MEQ/L (98-107); CREATININE FOR GFR 0.92 MG/DL (0.70-1.30); GLOMERULAR FILTRATION RATE > 60.0 (>60); GLUCOSE, FASTING 117 MG/DL (70-100); POTASSIUM SERUM 3.7 MEQ/L (3.5-5.1); SODIUM LEVEL 136 MEQ/L (136-145)
[2018-04-08] MEDS: HEPARIN SOD (PORCINE) 5000 UNITS/ML VIAL IV PRN ×2 (05:37→20:13)
[2018-04-08 06:00] VITALS: BP 145/87
[2018-04-08] MEDS: HEPARIN DRIP 25,000 UNITS in APPROPRIATE DILUENT 1 EA IV SCH ×2 (09:48→20:15)
[2018-04-08] MEDS ORDERED: PERCOCET 5MG/325MG TAB PO PRN (11:15)
[2018-04-08 11:50] LABS: INR 1.11; PROTHROMBIN TIME 14.5 SECONDS (12.1-14.4)
[2018-04-08 11:52] LABS: PARTIAL THROMBOPLASTIN TIME 66.4 SECONDS (25.4-37.6)
[2018-04-08 14:00] VITALS: BP 135/78
--- NOTE | 2018-04-08 16:09 | IPNPDOC ---
Subjective Date Seen The patient was seen on 04/08/18. Subjective Chief Complaint/HPI see HPI Constitutional: Denies: Chills ENT: Denies: Head Aches Pulmonary: Denies: Dyspnea Cardiovascular: Denies: Chest Pain, Orthopnea Gastrointestinal: Denies: Nausea, Vomiting Hematologic: Reports: Petecchia Musculoskeletal: Reports: Leg Pain (left medial thigh pain.); Denies: Neck Pain Psych: Reports: Mood Normal Objective Physical Examination General Exam: Positive: Alert, Cooperative, Mild Distress Eye Exam: Positive: PERRLA ENT Exam: Positive: Atraumatic Neck Exam: Positive: Supple; Negative: JVD Chest Exam: Positive: Wheezing Heart Exam: Positive: Rate Normal Abdomen Exam: Positive: Normal bowel sounds Extremity Exam: Positive: Clubbing, Edema (Left lower extremity swelling), Tenderness (left calf and left medial thigh); Negative: Cyanosis Skin Exam: Positive: Other skin issue (petechial rash on left calf) Assessment /Plan Problems (1) Pulmonary emboli Status: Acute Problem Text: Multiple pulmonary emboli noted on CT scan chest. On heparin at this point. No chest pain, SOB currently. Monitor for now. (2) Deep vein thrombosis (DVT) of distal vein of left lower extremity Status: Acute Problem Text: 04/08: to have thrombolysis tomorrow. delayed due to no available ICU bed. analgesic titrated up due to pain Vascular surgery consult placed. Dr. Lino with discuss with patient later about options. On heparin at this point for treatment. Continue pain medication as needed. (3) Nicotine dependence Problem Text: Continue nicotine patch. (4) Lung nodules Problem Text: Noted on CT scan. May need follow up outpatient. (5) Recurrent HSV (herpes simplex virus) Problem Text: Last dose of 5 day course of doxycycline and Valtrex given today. Patient has history of recurrent episodes and takes a 5 days course when they occur. Plan/VTE VTE Prophylaxis Ordered?: Yes VS, I&O, 24H, Fishbone Vital Signs/I&O Vital Signs Date Time Temp Pulse Resp B/P (MAP) Pulse Ox O2 Delivery O2 Flow Rate FiO2 04/08/18 14:00 97.9 80 18 135/78 (97) 93 04/07/18 13:00 Room Air 04/07/18 09:42 2.0 I&O- Last 24 Hours up to 6 AM 04/08/18 05:59 Intake Total 106.4 ml Output Total 375 ml Balance -268.6 ml Laboratory Data 24H LABS Laboratory Tests 2 04/07/18 20:55: Activated Partial Thromboplast Time 45.0H 04/08/18 04:37: Activated Partial Thromboplast Time 55.5H, Nucleated Red Blood Cells % (auto) 0.0, Prothrombin Time 14.6H, Prothromb Time International Ratio 1.12, Anion Gap 9, Glomerular Filtration Rate > 60.0, Blood Urea Nitrogen 15, Creatinine 0.92, Sodium Level 136, Potassium Level 3.7, Chloride Level 101, Carbon Dioxide Level 26, Calcium Level 7.9L, Magnesium Level 2.0, C-Reactive Protein, Quantitative 21.60H 04/08/18 11:30: Activated Partial Thromboplast Time 66.4H, Prothrombin Time 14.5H, Prothromb Time International Ratio 1.11 CBC/BMP Laboratory Tests 04/08/18 04:37 Red Blood Count 4.22 L, Mean Corpuscular Volume 92.7, Mean Corpuscular Hemog lobin 32.7, Mean Corpuscular Hemoglobin Concent 35.3, Red Cell Distribution Width 13.4, Calcium Level 7.9 L Osvaldo Acosta MD Apr 08, 2018 16:09
[2018-04-08 19:24] LABS: INR 1.09; PROTHROMBIN TIME 14.2 SECONDS (12.1-14.4)
[2018-04-08 19:25] LABS: PARTIAL THROMBOPLASTIN TIME 55.3 SECONDS (25.4-37.6)
--- NOTE | 2018-04-08 20:52 | IPNPDOC ---
Subjective General Date/Time Seen The patient was seen on 04/08/18 at 11:03. Subject Chief Complaint/History The patient is a 42-year-old male with bilateral pulmonary embolus and extensive left lower extremity DVT with severe left lower extremity pain and swelling. Patient continues to complain of 10 out of 10 pain in his left lower extremity even with substantial amount of narcotics for pain relief. Patient states that he has difficulty ambulating due to the pain in his left lower extremity. Patient has been on a heparin drip for 24 hours and has noted no real improvement in his symptoms in his left lower extremity since starting heparin. Patient denies nausea, vomiting, fevers, chills, chest pain, shortness of breath, headache or visual changes. Current Medications Current Medications Current Medications Albuterol/ Ipratropium (Duoneb (Ipr 0.5mg/Alb 2.5mg)) 3 ml RQ4H NEB Last administered on 04/08/18at 20:03; Start 04/07/18 at 08:00 Doxycycline Hyclate (Vibramycin) 100 mg BID PO Last administered on 04/07/18at 21:06; Start 04/07/18 at 09:00; Stop 04/07/18 at 21:01; Status DC Heparin Sodium (Porcine) (Heparin) ASDIRECTED PRN IV SEE LABEL COMMENTS Last administered on 04/08/18at 20:13; Start 04/07/18 at 03:45 Heparin Sodium (Porcine) 89223 units/IV Miscellaneous Supplies 250 ml @ 9.99 mls/hr Q24H IV ; Start 04/07/18 at 03:13; Stop 04/07/18 at 03:37; Status DC Heparin Sodium (Porcine) 99198 units/IV Miscellaneous Supplies 250 ml @ 0 mls/hr Q0M IV ; Start 04/07/18 at 03:31; Stop 04/07/18 at 04:05; Status DC Heparin Sodium (Porcine) 38315 units/IV Miscellaneous Supplies 250 ml @ 0 mls/hr Q0M IV Last administered on 04/08/18at 20:15; Start 04/07/18 at 07:30 Heparin Sodium (Porcine) 16856 units/IV Miscellaneous Supplies 250 ml @ 0 mls/hr Q0M IV ; Start 04/07/18 at 09:00; Stop 04/07/18 at 09:00; Status DC Home Med (Med Rec Complete!) ASDIRECTED XX ; Start 04/07/18 at 04:15; Stop 04/07/18 at 04:15; Status DC Nicotine (Nicoderm Cq 21mg) 1 patch DAILYPRN PRN TD NICOTINE WITHDRAWAL; Start 04/07/18 at 04:15 Non-Formulary Medication (Heparin Iv Rate Change Documentation ml/ Hr) ASDIRECTED XX Last administered on 04/08/18at 05:38; Start 04/07/18 at 03:45; Stop 04/12/18 at 03:44 Oxycodone/ Acetaminophen (Percocet 5mg/ 325mg Tablet) 1 tab Q4HP PRN PO MILD/MODERATE PAIN (PS 1-7); Start 04/08/18 at 16:15 Oxycodone/ Acetaminophen (Percocet 5mg/ 325mg Tablet) 1 tab Q6H PRN PO PAIN Last administered on 04/08/18at 10:57; Start 04/07/18 at 04:00; Stop 04/08/18 at 16:37; Status DC Oxycodone/ Acetaminophen (Percocet 5mg/ 325mg Tablet) 2 tab Q4HP PRN PO SEVERE PAIN (PS 8-10) Last administered on 04/08/18at 16:27; Start 04/08/18 at 16:15 Oxycodone/ Acetaminophen (Percocet 5mg/ 325mg Tablet) 2 tab Q6HP PRN PO SEVERE PAIN (PS 8-10); Start 04/08/18 at 11:15; Stop 04/08/18 at 16:10; Status DC Valacyclovir HCl (Valtrex) 1,000 mg Q12H PO Last administered on 04/07/18at 21:06; Start 04/07/18 at 09:00; Stop 04/07/18 at 21:01; Status DC Allergies Coded Allergies: Penicillins (Verified Allergy, Intermediate, hives, 04/04/18) VITAL SIGNS VITAL SIGNS Vital Signs Date Time Temp Pulse Resp B/P (MAP) Pulse Ox O2 Delivery O2 Flow Rate FiO2 04/08/18 17:00 20 04/08/18 16:27 28 04/08/18 14:00 97.9 80 18 135/78 (97) 93 04/08/18 11:30 20 04/08/18 10:57 24 04/08/18 06:00 96.8 87 16 145/87 (106) 97 04/08/18 05:29 18 04/08/18 04:59 19 04/08/18 04:30 97.0 87 18 145/87 (106) 97 04/08/18 03:27 19 04/07/18 22:00 99.3 99 19 129/86 (100) 95 04/07/18 21:07 18 Intake & Output 04/08/18 05:59 Intake Total 106.4 ml Output Total 375 ml Balance -268.6 ml Laboratory Tests 04/07/18 20:55: Activated Partial Thromboplast Time 45.0H 04/08/18 04:37: Activated Partial Thromboplast Time 55.5H, White Blood Count 13.5H, Red Blood C ount 4.22L, Hemoglobin 13.8, Hematocrit 39.1L, Mean Corpuscular Volume 92.7, Mean Corpuscular Hemoglobin 32.7, Mean Corpuscular Hemoglobin Concent 35.3, Red Cell Distribution Width 13.4, Platelet Count 186, Nucleated Red Blood Cells % (auto) 0.0, Prothrombin Time 14.6H, Prothromb Time International Ratio 1.12, Blood Urea Nitrogen 15, Creatinine 0.92, Sodium Level 136, Potassium Level 3.7, Chloride Level 101, Carbon Dioxide Level 26, Calcium Level 7.9L, Anion Gap 9, Glomerular Filtration Rate > 60.0, Fasting Glucose 117H, Magnesium Level 2.0, C- Reactive Protein, Quantitative 21.60H 04/08/18 11:30: Activated Partial Thromboplast Time 66.4H, Prothrombin Time 14.5H, Prothromb Time International Ratio 1.11 04/08/18 17:40: Activated Partial Thromboplast Time 55.3H, Prothrombin Time 14.2, Prothromb Time International Ratio 1.09 Current Medications Medications (Trade) Dose Ordered Sig/Jer Route PRN Reason Start Time Stop Time Status Last Admin Dose Admin Albuterol/ Ipratropium (Duoneb (Ipr 0.5mg/Alb 2.5mg)) 3 ml RQ4H NEB 04/07/18 08:00 04/08/18 20:03 Heparin Sodium (Porcine) (Heparin) ASDIRECTED PRN IV SEE LABEL COMMENTS 04/07/18 03:45 04/08/18 20:13 Heparin Sodium (Porcine) 74149 units/IV Miscellaneous Supplies 250 ml @ 0 mls/hr Q0M IV 04/07/18 07:30 04/08/18 20:15 Non-Formulary Medication (Heparin Iv Rate Change Documentation ml/ Hr) ASDIRECTED XX 04/07/18 03:45 04/12/18 03:44 04/08/18 05:38 Oxycodone/ Acetaminophen (Percocet 5mg/ 325mg Tablet) 2 tab Q4HP PRN PO SEVERE PAIN (PS 8-10) 04/08/18 16:15 04/08/18 16:27 Laboratory Tests 04/07/18 01:27 Red Blood Count 4.37, Mean Corpuscular Volume 93.1, Mean Corpuscular Hemoglobin 32.5, Mean Corpuscular Hemoglobin Concent 34.9, Red Cell Distribution Width 13.2, Neutrophils (%) (Auto) 70.9 H, Lymphocytes (%) (Auto) 15.6 L, Monocytes (%) (Auto) 11.1 H, Eosinophils (%) (Auto) 1.3, Basophils (%) (Auto) 0.3, Neutrophils # (Auto) 11.1 H, Lymphocytes # (Auto) 2.4, Monocytes # (Auto) 1.7 H, Eosinophils # (Auto) 0.2, Basophils # (Auto) 0.0, Calcium Level 8.1 L 04/08/18 04:37 Red Blood Count 4.22 L, Mean Corpuscular Volume 92.7, Mean Corpuscular H emoglobin 32.7, Mean Corpuscular Hemoglobin Concent 35.3, Red Cell Distribution Width 13.4, Calcium Level 7.9 L Objective Physical Examination General Exam: Positive: Alert, Cooperative, Moderate Distress Eye Exam: Positive: PERRLA, Conjunctiva & lids normal, EOMI ENT Exam: Positive: Atraumatic, Mucous membr. moist/pink, Pharynx Normal, Tongue Midline, Nares Patent, Ext Auditory Canal Nml, Pinna Normal Neck Exam: Positive: Supple, +2 carotid pulse wo bruit; Negative: JVD, thyromegaly, Lymphadenopathy Chest Exam: Positive: Clear to auscultation, Normal air movement, Wheezing; Negative: Rales, Rhonchi, Diminished Heart Exam: Positive: Rate Normal, Regular Rhythm; Negative: Tachycardic, Bradycardic, Irregular Rhythm, Gallops, Murmurs, Rubs Telemetry: Positive: No significant arrhythmia, Sinus Abdomen Exam: Positive: Normal bowel sounds, Soft; Negative: BS Hyperactive, BS Hypoactive, Tenderness, Hepatospenomegaly, Mass, Hernia Male Exam: Positive: Normal Genital Exam Extremity Exam: Positive: Cyanosis, Edema (Left lower extremity swelling), Normal pulses, Tenderness (left calf and left medial thigh), Swelling, Other; Negative: Clubbing Skin Exam: Positive: Nl turgor and temperature, Other skin issue (petechial rash on left calf) Neuro Exam: Positive: Normal Gait, Normal Speech, Strength at 5/5 X4 ext, Normal Tone, Sensation Intact, Cranial Nerves 3-12 NL, Reflexes 2+ Psych Exam: Positive: Mental status NL, Mood NL, Memory Intact, Oriented x 3; Negative: Anxiety Assessment/Plan Assessment 42-year-old male with extensive left lower extremity DVT with severe pain and swelling and inability to ambulate due to the swelling and pain in his left lower extremity. Patient also has bilateral pulmonary embolus. Plan Plan venous thrombolysis of the left lower extremity, IVC filter placement and right upper extremity PICC line placement for left lower extremity venous thrombolysis. The risks, benefits and alternative treatment options were discussed with the patient and his . The procedures were explained and described to the patient and his in detail including drawing of pictures de monstrating the procedures and pertinent anatomy. Alternative treatment options included but were not limited to no intervention. Risks included but were not limited to infection, bleeding, renal failure requiring hemodialysis, possible need for open surgical intervention, allergic and or adverse reaction to the prepping and draping materials, allergic and poor adverse reaction to the local and IV anesthetics, allergic and or adverse reaction to the contrast dye, nerve injury, bruising, scarring, intracerebral bleeding, cerebrovascular accident, myocardial infarction, pulmonary embolus, deep venous thrombosis, hemothorax, catastrophic life-threatening hemorrhage, loss of limb, loss of life, poor satisfaction, poor results, and poor outcome. Risks of not performing the procedure included but were not limited to continued left lower extremity swelling and pain with possibility of lifelong disability and ulcer formation. Benefits included but were not limited to reduction in pain and swelling in the left lower extremity. The patient and his 's questions were all answered. There were no guarantees or promises made to the patient or his regarding the procedure results and/or outcome. Patient voices acceptance and understanding of these risks benefits and alternative treatment options and wishes to proceed with a left lower extremity venous thrombolysis, placement of an inferior vena cava filter and placement of a right upper extremity PICC line. Plan was for thrombolysis today but the availability of ICU beds was limited and the procedure cannot be performed until an ICU bed is available. Attempts will be made to perform the left lower extremity venous thrombolysis, IVC filter and right upper extremity PICC line on 04/09/2018 if an ICU bed is available. Patient will continue on IV heparin drip and will be made nothing by mouth after midnight in preparation for procedure on 04/09/2018. Xander Lino MD Apr 08, 2018 20:52
[2018-04-08 22:00] VITALS: BP 131/70
[2018-04-09] VITALS (10 sets, daily range): BP systolic 106–137; BP diastolic 59–90
[2018-04-09] MEDS: PERCOCET 5MG/325MG TAB PO PRN ×6 (00:42→23:16)
[2018-04-09 02:22] LABS: INR 1.05; PROTHROMBIN TIME 13.8 SECONDS (12.1-14.4)
[2018-04-09 02:24] LABS: PARTIAL THROMBOPLASTIN TIME 74.6 SECONDS (25.4-37.6)
[2018-04-09] MEDS: IPRATROPIUM 0.5MG/ALBUTEROL 2.5MG INH SOL UD 3ML (DUONEB)(J7620) NEB SCH ×6 (04:00→23:14)
[2018-04-09] MEDS: HEPARIN DRIP 25,000 UNITS in APPROPRIATE DILUENT 1 EA IV SCH ×3 (06:06→17:20)
[2018-04-09 06:09] LABS: HEMATOCRIT 37.9 % (42.0-52.0); HEMOGLOBIN 12.9 g/dl (13.5-17.5); MEAN CORPUSCULAR HEMOGLOBIN 32.3 pg (27.0-33.0); MEAN CORPUSCULAR VOLUME 94.8 fl (80.0-96.0); PLATELET COUNT, AUTOMATED 208 10^3/uL (150-450); WHITE BLOOD COUNT 11.1 10^3/uL (4.0-10.0)
[2018-04-09 06:28] LABS: BLOOD UREA NITROGEN 13 MG/DL (7-18); CALCIUM LEVEL 8.2 MG/DL (8.5-10.1); CARBON DIOXIDE LEVEL 31 MEQ/L (21-32); CHLORIDE LEVEL 100 MEQ/L (98-107); CREATININE FOR GFR 0.92 MG/DL (0.70-1.30); GLOMERULAR FILTRATION RATE > 60.0 (>60); GLUCOSE, FASTING 88 MG/DL (70-100); MAGNESIUM LEVEL 2.1 MG/DL (1.8-2.4); POTASSIUM SERUM 3.7 MEQ/L (3.5-5.1); SODIUM LEVEL 137 MEQ/L (136-145)
[2018-04-09 06:30] LABS: INR 1.05; PROTHROMBIN TIME 13.8 SECONDS (12.1-14.4)
--- NOTE | 2018-04-09 08:34 | ECGEPIP ---
Stationary ECG Study [facility] - ED Test Date: 2018-04-07 Pat Name: JARAD LAI Department: Room: [facility] Gender: M [employer]: VAL : 1975 Requested By: KOFI GUNDERSON Order Number: [id number] Reading MD: Charley Reis Measurements Intervals [place] Rate: 89 P: 37 UT: 155 QRS: 21 QRSD: 104 T: 31 QT: 356 QTc: 433 Interpretive Statements SINUS RHYTHM POSSIBLE RIGHT VENTRICULAR CONDUCTION DELAY INCREASED RATE 07/18/11 Electronically Signed On 04-09-2018 8:34:11 EST by Charley Reis
[2018-04-09 09:30] LABS: INR 1.03; PROTHROMBIN TIME 13.6 SECONDS (12.1-14.4)
[2018-04-09 09:31] LABS: PARTIAL THROMBOPLASTIN TIME 66.8 SECONDS (25.4-37.6)
[2018-04-09] MEDS ORDERED: ISOVUE-300 61% 50ML VIAL (Q9967) As Ordered ONE (11:21)
[2018-04-09] MEDS ORDERED: LIDOCAINE 2% MDV 20 ML VIAL As Ordered ONE (11:21)
[2018-04-09] MEDS ORDERED: MIDAZOLAM INJ 2 MG/2 ML VIAL (J2250) As Ordered ONE (11:23)
[2018-04-09] MEDS ORDERED: HEPARIN 1,000 UNITS/ML 10ML VIAL (FOR RADIOLOGY& DIALYSIS ONLY) As Ordered ONE (11:23)
[2018-04-09] MEDS ORDERED: fentaNYL 100 MCG/2 ML INJECTION (J3010) As Ordered ONE (11:23)
[2018-04-09] MEDS ORDERED: ALTEPLASE 2 MG/2 ML VIAL (J2997 PER 1MG) As Ordered ONE (11:25)
[2018-04-09] MEDS: ALTEPLASE RECOMBINANT 25 MG in NS 225 ML IV SCH (14:45)
[2018-04-09 15:40] LABS: INR 1.04; PROTHROMBIN TIME 13.7 SECONDS (12.1-14.4)
[2018-04-09] MEDS ORDERED: fentaNYL 100 MCG/2 ML INJECTION (J3010) IV ONE (16:00)
[2018-04-09] MEDS ORDERED: MIDAZOLAM INJ 2 MG/2 ML VIAL (J2250) IV ONE (16:00)
[2018-04-09] MEDS: SODIUM CHLORIDE 0.9% INJ 10 ML SYR IV SCH (18:00)
[2018-04-09 18:05] LABS: HEMOGLOBIN 12.6 g/dl (13.5-17.5)
[2018-04-09 18:27] LABS: PARTIAL THROMBOPLASTIN TIME 35.4 SECONDS (25.4-37.6)
--- NOTE | 2018-04-09 22:06 | IPNPDOC ---
Subjective General Date/Time Seen The patient was seen on 04/09/18 at 8:04. Subject Chief Complaint/History The patient is a 42-year-old male admitted with bilateral pulmonary embolus and extensive left lower extremity DVT with severe swelling and pain in the left lower extremity. Patient notes he has had no change in the swelling in his left lower extremity since admission and being on heparin drip. Current Medications Current Medications Current Medications Albuterol/ Ipratropium (Duoneb (Ipr 0.5mg/Alb 2.5mg)) 3 ml RQ4H NEB Last administered on 04/09/18at 19:45; Start 04/07/18 at 08:00 Alteplase, Recombinant 25 mg/ Sodium Chloride 250 ml @ 10 mls/hr Q24H IV Last administered on 04/09/18at 14:45; Start 04/09/18 at 15:00 Doxycycline Hyclate (Vibramycin) 100 mg BID PO Last administered on 04/07/18at 21:06; Start 04/07/18 at 09:00; Stop 04/07/18 at 21:01; Status DC Heparin Sodium (Heparin (Flush)) 200 units ASDIRECTED PRN IV SEE LABEL COMMENTS; Start 04/09/18 at 15:15 Heparin Sodium (Heparin (Flush)) 200 units PICC IV Last administered on 04/09/18at 18:00; Start 04/09/18 at 18:00 Heparin Sodium (Porcine) (Heparin) ASDIRECTED PRN IV SEE LABEL COMMENTS Last administered on 04/08/18at 20:13; Start 04/07/18 at 03:45; Stop 04/09/18 at 13:20; Status DC Heparin Sodium (Porcine) 23474 units/IV Miscellaneous Supplies 250 ml @ 9.99 mls/hr Q24H IV ; Start 04/07/18 at 03:13; Stop 04/07/18 at 03:37; Status DC Heparin Sodium (Porcine) 83779 units/IV Miscellaneous Supplies 250 ml @ 16 mls/hr [id number] IV Last administered on 04/09/18at 17:20; Start 04/09/18 at 13:30 Heparin Sodium (Porcine) 36484 units/IV Miscellaneous Supplies 250 ml @ 0 mls/hr Q0M IV ; Start 04/07/18 at 03:31; Stop 04/07/18 at 04:05; Status DC Heparin Sodium (Porcine) 06650 units/IV Miscellaneous Supplies 250 ml @ 0 mls/hr Q0M IV Last administered on 04/09/18at 06:06; Start 04/07/18 at 07:30; Stop 04/09/18 at 13:20; Status DC Heparin Sodium (Porcine) 06619 units/IV Miscellaneous Supplies 250 ml @ 0 mls/hr Q0M IV ; Start 04/07/18 at 09:00; Stop 04/07/18 at 09:00; Status DC Home Med (Med Rec Complete!) ASDIRECTED XX ; Start 04/07/18 at 04:15; Stop 04/07/18 at 04:15; Status DC Nicotine (Nicoderm Cq 21mg) 1 patch DAILYPRN PRN TD NICOTINE WITHDRAWAL; Start 04/07/18 at 04:15 Non-Formulary Medication (Heparin Iv Rate Change Documentation ml/ Hr) ASDIRECTED XX Last administered on 04/08/18at 05:38; Start 04/07/18 at 03:45; Stop 04/09/18 at 13:20; Status DC Oxycodone/ Acetaminophen (Percocet 5mg/ 325mg Tablet) 1 tab Q4HP PRN PO MILD/MODERATE PAIN (PS 1-7); Start 04/08/18 at 16:15 Oxycodone/ Acetaminophen (Percocet 5mg/ 325mg Tablet) 1 tab Q6H PRN PO PAIN Last administered on 04/08/18at 10:57; Start 04/07/18 at 04:00; Stop 04/08/18 at 16:37; Status DC Oxycodone/ Acetaminophen (Percocet 5mg/ 325mg Tablet) 2 tab Q4HP PRN PO SEVERE PAIN (PS 8-10) Last administered on 04/09/18at 19:10; Start 04/08/18 at 16:15 Oxycodone/ Acetaminophen (Percocet 5mg/ 325mg Tablet) 2 tab Q6HP PRN PO SEVERE PAIN (PS 8-10); Start 04/08/18 at 11:15; Stop 04/08/18 at 16:10; Status DC Sodium Chloride (Saline Lock Flush) 10 ML PICC IV Last administered on 04/09/18at 18:00; Start 04/09/18 at 18:00 Sodium Chloride (Saline Lock Flush) 10ML ASDIRECTED PRN IV SEE LABEL COMMENTS; Start 04/09/18 at 15:15 Valacyclovir HCl (Valtrex) 1,000 mg Q12H PO Last administered on 04/07/18at 21:06; Start 04/07/18 at 09:00; Stop 04/07/18 at 21:01; Status DC Allergies Coded Allergies: Penicillins (Verified Allergy, Intermediate, hives, 04/04/18) VITAL SIGNS VITAL SIGNS Vital Signs Date Time Temp Pulse Resp B/P (MAP) Pulse Ox O2 Delivery O2 Flow Rate FiO2 04/09/18 22:00 78 20 114/72 (86) 93 04/09/18 21:00 84 20 109/60 (76) 92 04/09/18 20:00 98.0 81 20 106/64 (78) 92 04/09/18 19:40 20 04/09/18 19:10 21 95 04/09/18 19:00 70 20 116/64 (81) 94 04/09/18 17:00 81 22 131/63 (85) 94 04/09/18 16:00 79 22 125/70 (88) 95 04/09/18 15:30 71 22 137/90 (106) 95 04/09/18 15:17 18 96 04/09/18 15:00 98.9 63 20 121/78 (92) 96 04/09/18 09:27 18 04/09/18 06:00 96.1 63 18 111/59 (76) 98 04/09/18 04:57 18 04/09/18 00:42 20 Intake & Output 04/09/18 06:00 Intake Total 3288 ml Output Total 950 ml Balance 2338 ml Laboratory Tests 04/09/18 02:06: Prothrombin Time 13.8, Prothromb Time International Ratio 1.05, Activated Partial Thromboplast Time 74.6H 04/09/18 05:52: Prothrombin Time 13.8, Prothromb Time International Ratio 1.05, White Blood Count 11.1H, Red Blood Count 4.00L, Hemoglobin 12.9L, Hematocrit 37.9L, Mean Corpuscular Volume 94.8, Mean Corpuscular Hemoglobin 32.3, Mean Corpuscular Hemoglobin Concent 34.0, Red Cell Distribution Width 13.4, Platelet Count 208, Nucleated Red Blood Cells % (auto) 0.0, Blood Urea Nitrogen 13, Creatinine 0.92, Sodium Level 137, Potassium Level 3.7, Chloride Level 100, Carbon Dioxide Level 31, Calcium Level 8.2L, Anion Gap 6L, Glomerular Filtration Rate > 60.0, Fasting Glucose 88, Magnesium Level 2.1 04/09/18 08:07: Prothrombin Time 13.6, Prothromb Time International Ratio 1.03, Activated Partial Thromboplast Time 66.8H 04/09/18 15:05: Prothrombin Time 13.7, Prothromb Time International Ratio 1.04, Fibrinogen 738H 04/09/18 17:51: Hemoglobin 12.6L, Hematocrit 37.0L, Activated Partial Thromboplast Time 35.4, Fibrinogen 706H Current Medications Medications (Trade) Dose Ordered Sig/Jer Route PRN Reason Start Time Stop Time Status Last Admin Dose Admin Albuterol/ Ipratropium (Duoneb (Ipr 0.5mg/Alb 2.5mg)) 3 ml RQ4H NEB 04/07/18 08:00 04/09/18 19:45 Alteplase, Recombinant 25 mg/ Sodium Chloride 250 ml @ 10 mls/hr Q24H IV 04/09/18 15:00 04/09/18 14:45 Heparin Sodium (Heparin (Flush)) 200 units PICC IV 04/09/18 18:00 04/09/18 18:00 Heparin Sodium (Porcine) 28789 units/IV Miscellaneous Supplies 250 ml @ 16 mls/hr [id number] IV 04/09/18 13:30 04/09/18 17:20 Oxycodone/ Acetaminophen (Percocet 5mg/ 325mg Tablet) 2 tab Q4HP PRN PO SEVERE PAIN (PS 8-10) 04/08/18 16:15 04/09/18 19:10 Sodium Chloride (Saline Lock Flush) 10 ML PICC IV 04/09/18 18:00 04/09/18 18:00 Laboratory Tests 04/08/18 04:37 Red Blood Count 4.22 L, Mean Corpuscular Volume 92.7, Mean Corpuscular Hemoglobin 32.7, Mean Corpuscular Hemoglobin Concent 35.3, Red Cell Distribution Width 13.4, Calcium Level 7.9 L 04/09/18 05:52 Red Blood Count 4.00 L, Mean Corpuscular Volume 94.8, Mean Corpuscular Hemoglobin 32.3, Mean Corpuscular Hemoglobin Concent 34.0, Red Cell Distribution Width 13.4, Calcium Level 8.2 L 04/09/18 17:51 Laboratory Tests 04/07/18 01:27 Red Blood Count 4.37, Mean Corpuscular Volume 93.1, Mean Corpuscular Hemoglobin 32.5, Mean Corpuscular Hemoglobin Concent 34.9, Red Cell Distribution Width 13.2, Neutrophils (%) (Auto) 70.9, Lymphocytes (%) (Auto) 15.6, Monocytes (%) (Auto) 11.1, Eosinophils (%) (Auto) 1.3, Basophils (%) (Auto) 0.3, Neutrophils # (Auto) 11.1, Lymphocytes # (Auto) 2.4, Monocytes # (Auto) 1.7, Eosinophils # (Auto) 0.2, Basophils # (Auto) 0.0, Calcium Level 8.1 04/08/18 04:37 Red Blood Count 4.22, Mean Corpuscular Volume 92.7, Mean Corpuscular Hemoglobin 32.7, Mean Corpuscular Hemoglobin Concent 35.3, Red Cell Distribution Width 13.4, Calcium Level 7.9 04/09/18 05:52 Red Blood Count 4.00, Mean Corpuscular Volume 94.8, Mean Corpuscular Hemoglobin 32.3, Mean Corpuscular Hemoglobin Concent 34.0, Red Cell Distribution Width 13.4, Calcium Level 8.2 04/09/18 17:51 Objective Physical Examination General Exam: Positive: Alert, Cooperative, Mild Distress Eye Exam: Positive: PERRLA ENT Exam: Positive: Atraumatic Neck Exam: Positive: Supple; Negative: JVD Chest Exam: Positive: Wheezing Heart Exam: Positive: Rate Normal Telemetry: Positive: No significant arrhythmia, Sinus Abdomen Exam: Positive: Normal bowel sounds Male Exam: Positive: Normal Genital Exam Extremity Exam: Positive: Clubbing, Edema (Left lower extremity swelling); Negative: Cyanosis Skin Exam: Positive: Nl turgor and temperature, Other skin issue (petechial rash on left calf) Neuro Exam: Positive: Normal Gait, Normal Speech, Strength at 5/5 X4 ext, Normal Tone, Sensation Intact, Cranial Nerves 3-12 NL, Reflexes 2+ Psych Exam: Positive: Mental status NL, Mood NL, Memory Intact, Oriented x 3; Negative: Anxiety Assessment/Plan Assessment Patient with bilateral pulmonary embolus and extensive left lower extremity DVT with swelling and pain who is undergoing left lower extremity venous thrombolysis with placement of an inferior vena cava filter which is retrievable and a PICC line. Plan Patient will undergo a left lower extremity venous thrombolysis with placement of an inferior vena cava filter and PICC line. Patient will continue on heparin drip for now. Patient was counseled on the need to stop tobacco use. Xander Lino MD Apr 09, 2018 22:06
[2018-04-09] MEDS ORDERED: MORPHINE 4 MG/ML 1ML VIAL/SYRINGE (J2270) IV ONE (22:30)
[2018-04-10] VITALS (25 sets, daily range): BP systolic 116–140; BP diastolic 57–85
[2018-04-10] MEDS: SODIUM CHLORIDE 0.9% INJ 10 ML SYR IV PRN (00:22)
[2018-04-10 00:33] LABS: HEMATOCRIT 36.1 % (42.0-52.0); HEMOGLOBIN 12.5 g/dl (13.5-17.5)
[2018-04-10 00:45] LABS: PARTIAL THROMBOPLASTIN TIME 39.7 SECONDS (25.4-37.6)
[2018-04-10] MEDS: MORPHINE 4 MG/ML 1ML VIAL/SYRINGE (J2270) IV PRN ×6 (02:32→23:28)
[2018-04-10] MEDS: IPRATROPIUM 0.5MG/ALBUTEROL 2.5MG INH SOL UD 3ML (DUONEB)(J7620) NEB SCH ×6 (03:40→23:52)
[2018-04-10] MEDS: PERCOCET 5MG/325MG TAB PO PRN ×6 (03:46→22:15)
[2018-04-10] MEDS: SODIUM CHLORIDE 0.9% INJ 10 ML SYR IV SCH ×2 (05:28→17:54)
[2018-04-10 05:53] LABS: HEMATOCRIT 36.4 % (42.0-52.0); HEMOGLOBIN 12.5 g/dl (13.5-17.5); MEAN CORPUSCULAR HEMOGLOBIN 32.2 pg (27.0-33.0); MEAN CORPUSCULAR HGB CONC 34.3 g/dl (32.0-36.5); MEAN CORPUSCULAR VOLUME 93.8 fl (80.0-96.0); PLATELET COUNT, AUTOMATED 179 10^3/uL (150-450); RED BLOOD COUNT 3.88 10^6/uL (4.30-6.10); WHITE BLOOD COUNT 9.6 10^3/uL (4.0-10.0)
[2018-04-10 06:07] LABS: INR 1.23; PROTHROMBIN TIME 15.7 SECONDS (12.1-14.4)
[2018-04-10 06:08] LABS: PARTIAL THROMBOPLASTIN TIME 42.1 SECONDS (25.4-37.6)
[2018-04-10 06:14] LABS: BLOOD UREA NITROGEN 12 MG/DL (7-18); CALCIUM LEVEL 8.3 MG/DL (8.5-10.1); CARBON DIOXIDE LEVEL 29 MEQ/L (21-32); CHLORIDE LEVEL 100 MEQ/L (98-107); CREATININE FOR GFR 0.98 MG/DL (0.70-1.30); GLOMERULAR FILTRATION RATE > 60.0 (>60); GLUCOSE, FASTING 138 MG/DL (70-100); MAGNESIUM LEVEL 2.2 MG/DL (1.8-2.4); POTASSIUM SERUM 3.5 MEQ/L (3.5-5.1); SODIUM LEVEL 136 MEQ/L (136-145)
[2018-04-10] MEDS: HEPARIN DRIP 25,000 UNITS in APPROPRIATE DILUENT 1 EA IV SCH ×2 (08:32→22:18)
[2018-04-10 12:26] LABS: HEMATOCRIT 38.5 % (42.0-52.0); HEMOGLOBIN 13.2 g/dl (13.5-17.5)
--- NOTE | 2018-04-10 12:45 | IPNPDOC ---
Subjective Date Seen The patient was seen on 04/10/18. Subjective Chief Complaint/HPI leg pain and swelling, LEFT Constitutional: Denies: Chills ENT: Denies: Head Aches, Dysphagia Pulmonary: Denies: Dyspnea, Cough Cardiovascular: Denies: Chest Pain, Orthopnea Gastrointestinal: Denies: Nausea, Abdominal Pain Genitourinary: Denies: Dysuria, Frequency Hematologic: Denies: Bruising, Bleeding Excessively Neurological: Denies: Weakness, Numbness, Change in speech Psych: Reports: Mood Normal Objective Physical Examination General Exam: Positive: Alert, Cooperative, Mild Distress Eye Exam: Positive: PERRLA ENT Exam: Positive: Atraumatic Neck Exam: Positive: Supple; Negative: JVD Chest Exam: Positive: Wheezing Heart Exam: Positive: Rate Normal Telemetry: Positive: No significant arrhythmia, Sinus Abdomen Exam: Positive: Normal bowel sounds Male Exam: Positive: Normal Genital Exam Extremity Exam: Positive: Clubbing, Edema (Left lower extremity swelling), Tenderness (pain and tenderness in left thigh has essentially resolved. some tenderness and ache remains in calf); Negative: Cyanosis Skin Exam: Positive: Nl turgor and temperature, Other skin issue (petechial rash on left calf) Neuro Exam: Positive: Normal Gait, Normal Speech, Strength at 5/5 X4 ext, Normal Tone, Sensation Intact, Cranial Nerves 3-12 NL, Reflexes 2+ Psych Exam: Positive: Mental status NL, Mood NL, Memory Intact, Oriented x 3; Negative: Anxiety Assessment /Plan Problems (1) Pulmonary emboli Status: Acute Problem Text: Continue IV heparin and tPA as ordered by Dr. Lino (for DVT) Multiple pulmonary emboli noted on CT scan chest. On heparin at this point. No chest pain, SOB currently. (2) Deep vein thrombosis (DVT) of distal vein of left lower extremity Status: Acute Problem Text: 04/10: thrombolysis inititated. continues on IV tPA and heparin. 04/08: to have thrombolysis tomorrow. delayed due to no available ICU bed. analgesic titrated up due to pain Vascular surgery consult placed. Dr. Lino with discuss with patient later about options. On heparin at this point for treatment. Continue pain medication as needed. (3) Nicotine dependence Problem Text: Continue nicotine patch. (4) Lung nodules Problem Text: Noted on CT scan. May need follow up outpatient. 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 Patient has history of recurrent episodes and takes a 5 days course when they occur. Plan/VTE VTE Prophylaxis Ordered?: Yes Plan Anticipated Discharge: Home VS, I&O, 24H, Fishbone Vital Signs/I&O Vital Signs Date Time Temp Pulse Resp B/P (MAP) Pulse Ox O2 Delivery O2 Flow Rate FiO2 04/10/18 12:08 69 20 132/73 96 2.0 04/10/18 08:00 99.8 04/07/18 13:00 Room Air I&O- Last 24 Hours up to 6 AM 04/10/18 06:00 Intake Total 1718 ml Output Total 550 ml Balance 1168 ml Laboratory Data 24H LABS Laboratory Tests 2 04/09/18 15:05: Prothrombin Time 13.7, Prothromb Time International Ratio 1.04, Fibrinogen 738H 04/09/18 17:51: Fibrinogen 706H, Activated Partial Thromboplast Time 35.4 04/10/18 00:21: Fibrinogen 516H, Activated Partial Thromboplast Time 39.7H 04/10/18 05:30: Prothrombin Time 15.7H, Prothromb Time International Ratio 1.23, Fibrinogen 468H, Activated Partial Thromboplast Time 42.1H, Nucleated Red Blood Cells % (auto) 0.0, Anion Gap 7L, Glomerular Filtration Rate > 60.0, Blood Urea Nitrogen 12, Creatinine 0.98, Sodium Level 136, Potassium Level 3.5, Chloride Level 100, Carbon Dioxide Level 29, Calcium Level 8.3L, Magnesium Level 2.2 04/10/18 12:11: CBC/BMP Laboratory Tests 04/09/18 17:51 04/10/18 00:21 04/10/18 05:30 Red Blood Count 3.88 L, Mean Corpuscular Volume 93.8, Mean Corpuscular Hemoglobin 32.2, Mean Corpuscular Hemoglobin Concent 34.3, Red Cell Distribution Width 13.6, Calcium Level 8.3 L 04/10/18 12:11 Osvaldo Acosta MD Apr 10, 2018 12:44
[2018-04-10 12:50] LABS: PARTIAL THROMBOPLASTIN TIME 42.3 SECONDS (25.4-37.6)
[2018-04-10] MEDS: ALTEPLASE RECOMBINANT 25 MG in NS 225 ML IV SCH (13:29)
--- NOTE | 2018-04-10 17:50 | IPNPDOC ---
Subjective Date Seen The patient was seen on 04/10/18. Subjective Chief Complaint/HPI Patient had his procedure. Notes improvement in pain in his leg. Still swollen. Able to tolerate oral intake. Objective Physical Examination General Exam: Positive: Alert, Cooperative Eye Exam: Positive: PERRLA ENT Exam: Positive: Atraumatic Neck Exam: Positive: Supple; Negative: JVD Chest Exam: Positive: Clear to auscultation Heart Exam: Positive: Rate Normal; Negative: Tachycardic, Bradycardic Telemetry: Positive: No significant arrhythmia, Sinus Abdomen Exam: Positive: Normal bowel sounds Male Exam: Positive: Normal Genital Exam Extremity Exam: Positive: Clubbing, Edema (Left lower extremity swelling), Tenderness (pain and tenderness in left thigh has essentially resolved. some tenderness and ache remains in calf); Negative: Cyanosis Skin Exam: Positive: Nl turgor and temperature, Other skin issue (petechial rash on left calf) Neuro Exam: Positive: Normal Gait, Normal Tone Psych Exam: Positive: Mental status NL; Negative: Anxiety Assessment /Plan Problems (1) Pulmonary emboli Status: Acute Problem Text: Continue IV heparin and tPA as ordered by Dr. Lino (for DVT) Multiple pulmonary emboli noted on CT scan chest. On heparin at this point. No chest pain, SOB currently. (2) Deep vein thrombosis (DVT) of distal vein of left lower extremity Status: Acute Problem Text: 04/10: thrombolysis inititated. continues on IV tPA and heparin. 04/08: to have thrombolysis tomorrow. delayed due to no available ICU bed. analgesic titrated up due to pain Vascular surgery consult placed. Dr. Lino with discuss with patient later about options. On heparin at this point for treatment. Continue pain medication as needed. (3) Nicotine dependence Problem Text: Continue nicotine patch. (4) Lung nodules Problem Text: Noted on CT scan. May need follow up outpatient. 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 Patient has history of recurrent episodes and takes a 5 days course when they occur. Plan/VTE VTE Prophylaxis Ordered?: Yes Plan Anticipated Discharge: Home VS, I&O, 24H, Fishbone Vital Signs/I&O Vital Signs Date Time Temp Pulse Resp B/P (MAP) Pulse Ox O2 Delivery O2 Flow Rate FiO2 04/10/18 14:00 84 18 122/67 (85) 92 2.0 04/10/18 12:00 98.5 04/07/18 13:00 Room Air I&O- Last 24 Hours up to 6 AM 04/10/18 06:00 Intake Total 1718 ml Output Total 550 ml Balance 1168 ml Laboratory Data 24H LABS Laboratory Tests 2 04/09/18 17:51: Activated Partial Thromboplast Time 35.4, Fibrinogen 706H 04/10/18 00:21: Activated Partial Thromboplast Time 39.7H, Fibrinogen 516H 04/10/18 05:30: Activated Partial Thromboplast Time 42.1H, Fibrinogen 468H, Nucleated Red Blood Cells % (auto) 0.0, Prothrombin Time 15.7H, Prothromb Time International Ratio 1.23, Anion Gap 7L, Glomerular Filtration Rate > 60.0, Blood Urea Nitrogen 12, Creatinine 0.98, Sodium Level 136, Potassium Level 3.5, Chloride Level 100, Carbon Dioxide Level 29, Calcium Level 8.3L, Magnesium Level 2.2 04/10/18 12:11: Activated Partial Thromboplast Time 42.3H, Fibrinogen 371 CBC/BMP Laboratory Tests 04/09/18 17:51 04/10/18 00:21 04/10/18 05:30 Red Blood Count 3.88 L, Mean Corpuscular Volume 93.8, Mean Corpuscular Hemoglobin 32.2, Mean Corpuscular Hemoglobin Concent 34.3, Red Cell Distribution Width 13.6, Calcium Level 8.3 L 04/10/18 12:11 GME ATTESTATION GME ATTESTATION My faculty preceptor for this patient encounter was physically present during the encounter and was fully available. All aspects of the patient interview, examination, medical decision making process, and medical care plan development were reviewed and approved by the faculty preceptor. The faculty preceptor is aware and concurs with the plan as stated in the body of this note and will attest to such by his/her cosignature. MARYAM ESTRELLA DO Apr 10, 2018 15:10
[2018-04-10] MEDS: NYSTATIN 100,000 UNITS/GM TOPICAL PWD 15 GM TOP SCH ×2 (17:52→20:49)
[2018-04-10 18:13] LABS: HEMATOCRIT 37.5 % (42.0-52.0); HEMOGLOBIN 12.9 g/dl (13.5-17.5)
[2018-04-10 18:29] LABS: PARTIAL THROMBOPLASTIN TIME 36.2 SECONDS (25.4-37.6)
[2018-04-10] MEDS: SENOKOT S TAB PO SCH (20:49)
[2018-04-10] MEDS: MIRALAX *UNIT DOSE* 17GM PACKET PO SCH (20:49)
--- NOTE | 2018-04-10 22:01 | IPNPDOC ---
Subjective General Date/Time Seen The patient was seen on 04/10/18 at 22:00. Subject Chief Complaint/History The patient is a 42-year-old male admitted with bilateral pulmonary embolus and left lower extremity extensive DVT. Patient has been undergoing left lower extremity venous thrombolysis and notes that he does have some decreased swelling in his left lower extremity as well as decreased pain in his left lower extremity and hip region. Current Medications Current Medications Current Medications Albuterol/ Ipratropium (Duoneb (Ipr 0.5mg/Alb 2.5mg)) 3 ml RQ4H NEB Last administered on 04/10/18at 20:02; Start 04/07/18 at 08:00 Alteplase, Recombinant 25 mg/ Sodium Chloride 250 ml @ 10 mls/hr Q24H IV Last administered on 04/10/18 13:29; Start 04/09/18 at 15:00 Clotrimazole (Lotrimin) Apply to affected groin area. DAILY@0800 TOP ; Start 04/11/18 at 08:00 Doxycycline Hyclate (Vibramycin) 100 mg BID PO Last administered on 04/07/18at 21:06; Start 04/07/18 at 09:00; Stop 04/07/18 at 21:01; Status DC Heparin Sodium (Heparin (Flush)) 200 units ASDIRECTED PRN IV SEE LABEL COMMENTS Last administered on 04/10/18at 00:22; Start 04/09/18 at 15:15 Heparin Sodium (Heparin (Flush)) 200 units PICC IV Last administered on 04/10/18 17:52; Start 04/09/18 at 18:00 Heparin Sodium (Porcine) (Heparin) ASDIRECTED PRN IV SEE LABEL COMMENTS Last administered on 04/08/18at 20:13; Start 04/07/18 at 03:45; Stop 04/09/18 at 13:20; Status DC Heparin Sodium (Porcine) 81823 units/IV Miscellaneous Supplies 250 ml @ 9.99 mls/hr Q24H IV ; Start 04/07/18 at 03:13; Stop 04/07/18 at 03:37; Status DC Heparin Sodium (Porcine) 78350 units/IV Miscellaneous Supplies 250 ml @ 16 mls/hr [id number] IV Last administered on 04/10/18at 08:32; Start 04/09/18 at 13:30 Heparin Sodium (Porcine) 99614 units/IV Miscellaneous Supplies 250 ml @ 0 mls/hr Q0M IV ; Start 04/07/18 at 03:31; Stop 04/07/18 at 04:05; Status DC Heparin Sodium (Porcine) 17866 units/IV Miscellaneous Supplies 250 ml @ 0 mls/hr Q0M IV Last administered on 04/09/18at 06:06; Start 04/07/18 at 07:30; Stop 04/09/18 at 13:20; Status DC Heparin Sodium (Porcine) 43459 units/IV Miscellaneous Supplies 250 ml @ 0 mls/hr Q0M IV ; Start 04/07/18 at 09:00; Stop 04/07/18 at 09:00; Status DC Home Med (Med Rec Complete!) ASDIRECTED XX ; Start 04/07/18 at 04:15; Stop 04/07/18 at 04:15; Status DC Morphine Sulfate (Morphine Sulfate Inj) 2 mg Q30MP PRN IV PAIN Last administered on 04/10/18at 15:30; Start 04/09/18 at 22:30 Nicotine (Nicoderm Cq 21mg) 1 patch DAILYPRN PRN TD NICOTINE WITHDRAWAL; Start 04/07/18 at 04:15 Non-Formulary Medication (Heparin Iv Rate Change Documentation ml/ Hr) ASDIRECTED XX Last administered on 04/08/18at 05:38; Start 04/07/18 at 03:45; Stop 04/09/18 at 13:20; Status DC Nystatin (Mycostatin Powder, Nystop) To be applied to affec... QID TOP Last administered on 04/10/18at 20:49; Start 04/10/18 at 17:00 Oxycodone/ Acetaminophen (Percocet 5mg/ 325mg Tablet) 1 tab Q4HP PRN PO MILD/MODERATE PAIN (PS 1-7) Last administered on 04/10/18at 17:53; Start 04/08/18 at 16:15 Oxycodone/ Acetaminophen (Percocet 5mg/ 325mg Tablet) 1 tab Q6H PRN PO PAIN Last administered on 04/08/18at 10:57; Start 04/07/18 at 04:00; Stop 04/08/18 at 16:37; Status DC Oxycodone/ Acetaminophen (Percocet 5mg/ 325mg Tablet) 2 tab Q4HP PRN PO SEVERE PAIN (PS 8-10) Last administered on 04/10/18at 12:08; Start 04/08/18 at 16:15 Oxycodone/ Acetaminophen (Percocet 5mg/ 325mg Tablet) 2 tab Q6HP PRN PO SEVERE PAIN (PS 8-10); Start 04/08/18 at 11:15; Stop 04/08/18 at 16:10; Status DC Polyethylene Glycol (Miralax) 1 pkt BID PO Last administered on 04/10/18 20:49; Start 04/10/18 at 21:00 Senna/Docusate Sodium (Senokot S) 1 tab BID PO Last administered on 04/10/18 20:49; Start 04/10/18 at 21:00 Sodium Chloride (Saline Lock Flush) 10 ML PICC IV Last administered on 04/10/18 17:54; Start 04/09/18 at 18:00 Sodium Chloride (Saline Lock Flush) 10ML ASDIRECTED PRN IV SEE LABEL COMMENTS Last administered on 04/10/18 00:22; Start 04/09/18 at 15:15 Valacyclovir HCl (Valtrex) 1,000 mg Q12H PO Last administered on 04/07/18 21:06; Start 04/07/18 at 09:00; Stop 04/07/18 at 21:01; Status DC Allergies Coded Allergies: Penicillins (Verified Allergy, Intermediate, hives, 04/04/18) VITAL SIGNS VITAL SIGNS Vital Signs Date Time Temp Pulse Resp B/P (MAP) Pulse Ox O2 Delivery O2 Flow Rate FiO2 04/10/18 20:00 98.7 77 20 125/60 (81) 94 04/10/18 19:00 82 136/79 (98) 95 2.0 04/10/18 18:23 68 18 140/71 96 2.0 04/10/18 18:00 77 18 140/71 (94) 97 2.0 04/10/18 17:53 18 139/81 94 2.0 04/10/18 17:00 80 20 139/81 (100) 97 2.0 04/10/18 16:00 2.0 2/7/19 16:00 98.2 73 18 138/85 (102) 96 2.0 04/10/18 15:45 83 18 138/85 96 2.0 04/10/18 15:30 77 18 133/80 97 2.0 04/10/18 15:00 76 18 133/80 (97) 94 2.0 04/10/18 14:00 84 18 122/67 (85) 92 2.0 04/10/18 13:00 80 18 136/70 (92) 93 04/10/18 12:38 20 04/10/18 12:08 69 20 132/73 96 2.0 04/10/18 12:00 2.0 04/10/18 12:00 98.5 78 18 132/73 (92) 94 2.0 04/10/18 11:00 68 18 129/58 (81) 97 2.0 04/10/18 10:00 72 18 128/77 (94) 97 2.0 04/10/18 09:00 69 18 118/74 (89) 95 2.0 04/10/18 08:03 20 125/71 96 04/10/18 08:00 99.8 63 20 125/71 (89) 97 2.0 04/10/18 08:00 2.0 04/10/18 07:00 65 20 122/76 (91) 95 2.0 04/10/18 06:00 73 18 118/63 (81) 95 2.0 04/10/18 05:27 18 96 2.0 04/10/18 05:00 66 20 123/65 (84) 96 2.0 04/10/18 04:16 95 2.0 04/10/18 04:00 98.8 79 20 122/67 (85) 96 2.0 04/10/18 04:00 2.0 04/10/18 03:46 20 95 2.0 04/10/18 03:07 22 95 2.0 04/10/18 03:00 74 24 116/71 (86) 95 2.0 04/10/18 02:32 26 97 2.0 04/10/18 02:00 83 20 121/70 (87) 96 2.0 04/10/18 01:00 81 18 117/61 (79) 93 2.0 04/10/18 00:00 99.2 78 18 121/65 (83) 94 2.0 04/10/18 00:00 2.0 04/09/18 23:16 73 20 126/70 98 2.0 04/09/18 23:00 78 18 126/70 (88) 94 2.0 04/09/18 22:41 18 04/09/18 22:31 85 20 93 Intake & Output 04/10/18 06:00 Intake Total 1718 ml Output Total 550 ml Balance 1168 ml Laboratory Tests 04/10/18 00:21: Hemoglobin 12.5L, Hematocrit 36.1L, Activated Partial Thromboplast Time 39.7H, Fibrinogen 516H 04/10/18 05:30: Hemoglobin 12.5L, Hematocrit 36.4L, Activated Partial Thromboplast Time 42.1H, Fibrinogen 468H, White Blood Count 9.6, Red Blood Count 3.88L, Mean Corpuscular Volume 93.8, Mean Corpuscular Hemoglobin 32.2, Mean Corpuscular Hemoglobin Concent 34.3, Red Cell Distribution Width 13.6, Platelet Count 179, Nucleated Red Blood Cells % (auto) 0.0, Prothrombin Time 15.7H, Prothromb Time International Ratio 1.23, Blood Urea Nitrogen 12, Creatinine 0.98, Sodium Level 136, Potassium Level 3.5, Chloride Level 100, Carbon Dioxide Level 29, Calcium Level 8.3L, Anion Gap 7L, Glomerular Filtration Rate > 60.0, Fasting Glucose 138H, Magnesium Level 2.2 04/10/18 12:11: Hemoglobin 13.2L, Hematocrit 38.5L, Activated Partial Thromboplast Time 42.3H, Fibrinogen 371 04/10/18 17:56: Hemoglobin 12.9L, Hematocrit 37.5L, Activated Partial Thromboplast Time 36.2, Fibrinogen 319 Current Medications Medications (Trade) Dose Ordered Sig/Jer Route PRN Reason Start Time Stop Time Status Last Admin Dose Admin Albuterol/ Ipratropium (Duoneb (Ipr 0.5mg/Alb 2.5mg)) 3 ml RQ4H NEB 04/07/18 08:00 04/10/18 20:02 Alteplase, Recombinant 25 mg/ Sodium Chloride 250 ml @ 10 mls/hr Q24H IV 04/09/18 15:00 04/10/18 13:29 Heparin Sodium (Heparin (Flush)) 200 units ASDIRECTED PRN IV SEE LABEL COMMENTS 04/09/18 15:15 04/10/18 00:22 Heparin Sodium (Porcine) 69196 units/IV Miscellaneous Supplies 250 ml @ 16 mls/hr [id number] IV 04/09/18 13:30 04/10/18 08:32 Morphine Sulfate (Morphine Sulfate Inj) 2 mg Q30MP PRN IV PAIN 04/09/18 22:30 04/10/18 15:30 Nystatin (Mycostatin Powder, Nystop) To be applied to affec... QID TOP 04/10/18 17:00 04/10/18 20:49 Oxycodone/ Acetaminophen (Percocet 5mg/ 325mg Tablet) 2 tab Q4HP PRN PO SEVERE PAIN (PS 8-10) 04/08/18 16:15 04/10/18 12:08 Polyethylene Glycol (Miralax) 1 pkt BID PO 04/10/18 21:00 04/10/18 20:49 Senna/Docusate Sodium (Senokot S) 1 tab BID PO 04/10/18 21:00 04/10/18 20:49 Sodium Chloride (Saline Lock Flush) 10ML ASDIRECTED PRN IV SEE LABEL COMMENTS 04/09/18 15:15 04/10/18 00:22 Laboratory Tests 04/09/18 05:52 Red Blood Count 4.00 L, Mean Corpuscular Volume 94.8, Mean Corpuscular Hemoglobin 32.3, Mean Corpuscular Hemoglobin Concent 34.0, Red Cell Distribution Width 13.4, Calcium Level 8.2 L 04/09/18 17:51 04/10/18 00:21 04/10/18 05:30 Red Blood Count 3.88 L, Mean Corpuscular Volume 93.8, Mean Corpuscular Hemoglobin 32.2, Mean Corpuscular Hemoglobin Concent 34.3, Red Cell Distribution Width 13.6, Calcium Level 8.3 L 04/10/18 12:11 04/10/18 17:56 Objective Physical Examination General Exam: Positive: Alert, Cooperative Eye Exam: Positive: PERRLA ENT Exam: Positive: Atraumatic Neck Exam: Positive: Supple; Negative: JVD Chest Exam: Positive: Clear to auscultation Heart Exam: Positive: Rate Normal; Negative: Tachycardic, Bradycardic Telemetry: Positive: No significant arrhythmia, Sinus Abdomen Exam: Positive: Normal bowel sounds Male Exam: Positive: Normal Genital Exam Extremity Exam: Positive: Clubbing, Edema (Left lower extremity swelling), Tenderness (pain and tenderness in left thigh has essentially resolved. some tenderness and ache remains in calf); Negative: Cyanosis Skin Exam: Positive: Nl turgor and temperature, Other skin issue (petechial rash on left calf) Neuro Exam: Positive: Normal Gait, Normal Tone Psych Exam: Positive: Mental status NL; Negative: Anxiety Assessment/Plan Assessment Patient has slight improvement since beginning the left lower extremity venous thrombolysis. Patient's labs are stable. Plan Patient will continue with left lower extremity venous thrombolysis and ICU monitoring. TPA and heparin will continue to be adjusted based on his every six-hour labs. Xander Lino MD Apr 10, 2018 22:01
[2018-04-10 23:42] LABS: HEMATOCRIT 37.9 % (42.0-52.0)
[2018-04-10 23:56] LABS: PARTIAL THROMBOPLASTIN TIME 52.8 SECONDS (25.4-37.6)
[2018-04-11] VITALS (21 sets, daily range): BP systolic 123–145; BP diastolic 62–82
[2018-04-11] MEDS: diphenhydrAMINE 25 MG CAP PO PRN (00:13)
[2018-04-11] MEDS: PERCOCET 5MG/325MG TAB PO PRN ×7 (02:14→23:22)
[2018-04-11] MEDS: IPRATROPIUM 0.5MG/ALBUTEROL 2.5MG INH SOL UD 3ML (DUONEB)(J7620) NEB SCH ×6 (03:47→23:35)
[2018-04-11] MEDS: MORPHINE 4 MG/ML 1ML VIAL/SYRINGE (J2270) IV PRN ×8 (04:36→23:09)
[2018-04-11] MEDS: SODIUM CHLORIDE 0.9% INJ 10 ML SYR IV SCH ×2 (06:04→17:55)
[2018-04-11 06:35] LABS: HEMATOCRIT 37.3 % (42.0-52.0); HEMOGLOBIN 12.4 g/dl (13.5-17.5); MEAN CORPUSCULAR HGB CONC 33.2 g/dl (32.0-36.5); MEAN CORPUSCULAR VOLUME 96.4 fl (80.0-96.0); PLATELET COUNT, AUTOMATED 150 10^3/uL (150-450); RED BLOOD COUNT 3.87 10^6/uL (4.30-6.10); WHITE BLOOD COUNT 9.9 10^3/uL (4.0-10.0)
[2018-04-11 06:49] LABS: INR 1.19; PROTHROMBIN TIME 15.2 SECONDS (12.1-14.4)
[2018-04-11 06:50] LABS: PARTIAL THROMBOPLASTIN TIME 40.9 SECONDS (25.4-37.6)
[2018-04-11 06:53] LABS: BLOOD UREA NITROGEN 12 MG/DL (7-18); CALCIUM LEVEL 7.9 MG/DL (8.5-10.1); CARBON DIOXIDE LEVEL 30 MEQ/L (21-32); CHLORIDE LEVEL 100 MEQ/L (98-107); GLOMERULAR FILTRATION RATE > 60.0 (>60); GLUCOSE, FASTING 145 MG/DL (70-100); MAGNESIUM LEVEL 2.3 MG/DL (1.8-2.4); POTASSIUM SERUM 3.6 MEQ/L (3.5-5.1); SODIUM LEVEL 136 MEQ/L (136-145)
[2018-04-11] MEDS: NYSTATIN 100,000 UNITS/GM TOPICAL PWD 15 GM TOP SCH ×4 (09:18→21:02)
[2018-04-11] MEDS: SENOKOT S TAB PO SCH ×2 (09:18→21:01)
[2018-04-11] MEDS: MIRALAX *UNIT DOSE* 17GM PACKET PO SCH ×2 (09:18→21:01)
[2018-04-11] MEDS: CLOTRIMAZOLE 1% TOPICAL CREAM 30GM TOP SCH (09:18)
[2018-04-11] MEDS ORDERED: ISOVUE-300 61% 50ML VIAL (Q9967) As Ordered ONE (10:33)
[2018-04-11] MEDS ORDERED: HEPARIN 1,000 UNITS/ML 10ML VIAL (FOR RADIOLOGY& DIALYSIS ONLY) As Ordered ONE (10:33)
[2018-04-11] MEDS ORDERED: MIDAZOLAM INJ 2 MG/2 ML VIAL (J2250) As Ordered ONE ×2 (10:33→12:07)
[2018-04-11] MEDS ORDERED: fentaNYL 100 MCG/2 ML INJECTION (J3010) As Ordered ONE ×2 (10:38→12:07)
[2018-04-11] MEDS ORDERED: LIDOCAINE 2% MDV 20 ML VIAL As Ordered ONE (10:59)
[2018-04-11 13:45] LABS: HEMATOCRIT 37.2 % (42.0-52.0); HEMOGLOBIN 12.6 g/dl (13.5-17.5)
[2018-04-11 14:01] LABS: PARTIAL THROMBOPLASTIN TIME 49.4 SECONDS (25.4-37.6)
[2018-04-11] MEDS: HEPARIN DRIP 25,000 UNITS in APPROPRIATE DILUENT 1 EA IV SCH (14:38)
[2018-04-11] MEDS ORDERED: ALTEPLASE RECOMBINANT IV SCH (16:00)
[2018-04-11] MEDS ORDERED: NS IV SCH (16:00)
[2018-04-11 18:03] LABS: HEMATOCRIT 37.9 % (42.0-52.0); HEMOGLOBIN 12.7 g/dl (13.5-17.5)
[2018-04-11 18:21] LABS: PARTIAL THROMBOPLASTIN TIME 44.7 SECONDS (25.4-37.6)
[2018-04-11] MEDS ORDERED: SODIUM CHLORIDE NASAL 0.65% SPRAY BTL (OCEAN) PRN (21:30)
[2018-04-11 23:38] LABS: HEMATOCRIT 38.1 % (42.0-52.0); HEMOGLOBIN 12.7 g/dl (13.5-17.5)
[2018-04-11 23:55] LABS: PARTIAL THROMBOPLASTIN TIME 46.3 SECONDS (25.4-37.6)
[2018-04-12] VITALS (23 sets, daily range): BP systolic 109–148; BP diastolic 59–82
[2018-04-12] MEDS: MORPHINE 4 MG/ML 1ML VIAL/SYRINGE (J2270) IV PRN ×7 (00:30→23:57)
[2018-04-12] MEDS: PERCOCET 5MG/325MG TAB PO PRN ×6 (03:15→22:16)
[2018-04-12] MEDS: diphenhydrAMINE 25 MG CAP PO PRN (03:26)
[2018-04-12] MEDS: HEPARIN DRIP 25,000 UNITS in APPROPRIATE DILUENT 1 EA IV SCH ×2 (05:49→23:59)
[2018-04-12 06:10] LABS: HEMATOCRIT 36.9 % (42.0-52.0); HEMOGLOBIN 12.3 g/dl (13.5-17.5); MEAN CORPUSCULAR HEMOGLOBIN 32.2 pg (27.0-33.0); MEAN CORPUSCULAR HGB CONC 33.3 g/dl (32.0-36.5); MEAN CORPUSCULAR VOLUME 96.6 fl (80.0-96.0); PLATELET COUNT, AUTOMATED 156 10^3/uL (150-450); RED BLOOD COUNT 3.82 10^6/uL (4.30-6.10); WHITE BLOOD COUNT 10.3 10^3/uL (4.0-10.0)
[2018-04-12 06:23] LABS: INR 1.11; PROTHROMBIN TIME 14.5 SECONDS (12.1-14.4)
[2018-04-12 06:24] LABS: PARTIAL THROMBOPLASTIN TIME 48.5 SECONDS (25.4-37.6)
[2018-04-12 06:27] LABS: BLOOD UREA NITROGEN 11 MG/DL (7-18); CALCIUM LEVEL 7.8 MG/DL (8.5-10.1); CARBON DIOXIDE LEVEL 31 MEQ/L (21-32); CHLORIDE LEVEL 101 MEQ/L (98-107); CREATININE FOR GFR 0.84 MG/DL (0.70-1.30); GLOMERULAR FILTRATION RATE > 60.0 (>60); GLUCOSE, FASTING 96 MG/DL (70-100); MAGNESIUM LEVEL 2.2 MG/DL (1.8-2.4); POTASSIUM SERUM 3.9 MEQ/L (3.5-5.1); SODIUM LEVEL 137 MEQ/L (136-145)
[2018-04-12] MEDS: SODIUM CHLORIDE 0.9% INJ 10 ML SYR IV SCH ×2 (06:33→17:56)
[2018-04-12] MEDS: IPRATROPIUM 0.5MG/ALBUTEROL 2.5MG INH SOL UD 3ML (DUONEB)(J7620) NEB SCH ×4 (08:02→20:00)
[2018-04-12] MEDS: SENOKOT S TAB PO SCH ×2 (08:13→20:05)
[2018-04-12] MEDS: MIRALAX *UNIT DOSE* 17GM PACKET PO SCH ×2 (08:13→20:04)
[2018-04-12] MEDS: CLOTRIMAZOLE 1% TOPICAL CREAM 30GM TOP SCH (08:15)
[2018-04-12] MEDS: NYSTATIN 100,000 UNITS/GM TOPICAL PWD 15 GM TOP SCH ×4 (08:21→20:05)
[2018-04-12 12:46] LABS: HEMATOCRIT 37.6 % (42.0-52.0); HEMOGLOBIN 12.6 g/dl (13.5-17.5)
[2018-04-12] MEDS ORDERED: BISACODYL 10 MG SUPP PR ONE ×2 (13:00→16:00)
[2018-04-12] MEDS: ALVIMOPAN 12 MG CAPSULE (ENTEREG) PO SCH ×2 (13:19→20:04)
[2018-04-12] MEDS ORDERED: ALTEPLASE RECOMBINANT 10 MG in NS 90 ML IV SCH (16:00)
--- NOTE | 2018-04-12 17:59 | IPNPDOC ---
Subjective Date Seen The patient was seen on 04/11/18. Subjective Chief Complaint/HPI Patient reports improvement in pain. Swelling has improved some. Constitutional: Denies: Chills, Fever Pulmonary: Denies: Dyspnea Cardiovascular: Denies: Chest Pain Objective Physical Examination General Exam: Positive: Alert, Cooperative Eye Exam: Positive: PERRLA ENT Exam: Positive: Atraumatic Neck Exam: Positive: Supple; Negative: JVD Chest Exam: Positive: Clear to auscultation Heart Exam: Positive: Rate Normal; Negative: Tachycardic, Bradycardic Telemetry: Positive: No significant arrhythmia, Sinus Abdomen Exam: Positive: Normal bowel sounds Male Exam: Positive: Normal Genital Exam Extremity Exam: Positive: Clubbing, Edema (Left lower extremity swelling), Tenderness (pain and tenderness in left thigh has essentially resolved. some tenderness and ache remains in calf); Negative: Cyanosis Skin Exam: Positive: Nl turgor and temperature, Other skin issue (petechial rash on left calf) Neuro Exam: Positive: Normal Gait, Normal Tone Psych Exam: Positive: Mental status NL; Negative: Anxiety Assessment /Plan Problems (1) Pulmonary emboli Status: Acute Problem Text: Continue plan of IV heparin and tPA as ordered per Dr. Lino (for DVT) Multiple pulmonary emboli noted on CT scan chest. On heparin at this point. No chest pain, SOB currently. (2) Deep vein thrombosis (DVT) of distal vein of left lower extremity Status: Acute Problem Text: 04/10: thrombolysis inititated. continues on IV tPA and heparin. 04/08: to have thrombolysis tomorrow. delayed due to no available ICU bed. analg esic titrated up due to pain Vascular surgery consult placed. Dr. Lino with discuss with patient later about options. On heparin at this point for treatment. Continue pain medication as needed. (3) Nicotine dependence Problem Text: Continue nicotine patch. (4) Lung nodules Problem Text: Noted on CT scan. May need follow up outpatient. 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 Patient has history of recurrent episodes and takes a 5 days course when they occur. Plan/VTE VTE Prophylaxis Ordered?: Yes VS, I&O, 24H, Fishbone Vital Signs/I&O Vital Signs Date Time Temp Pulse Resp B/P (MAP) Pulse Ox O2 Delivery O2 Flow Rate FiO2 04/12/18 17:56 76 16 127/82 96 2.0 04/12/18 12:00 98.0 04/07/18 13:00 Room Air I&O- Last 24 Hours up to 6 AM 04/12/18 06:00 Intake Total 1859.5 ml Output Total 1800 ml Balance 59.5 ml Laboratory Data 24H LABS Laboratory Tests 2 04/11/18 23:20: Activated Partial Thromboplast Time 46.3H, Fibrinogen 348 04/12/18 05:53: Activated Partial Thromboplast Time 48.5H, Fibrinogen 298, Nucleated Red Blood Cells % (auto) 0.0, Prothrombin Time 14.5H, Prothromb Time International Ratio 1.11, Anion Gap 5L, Glomerular Filtration Rate > 60.0, Blood Urea Nitrogen 11, Creatinine 0.84, Sodium Level 137, Potassium Level 3.9, Chloride Level 101, Carbon Dioxide Level 31, Calcium Level 7.8L, Magnesium Level 2.2 04/12/18 12:35: Activated Partial Thromboplast Time 43.6H, Fibrinogen 330 CBC/BMP Laboratory Tests 04/11/18 23:20 04/12/18 05:53 Red Blood Count 3.82 L, Mean Corpuscular Volume 96.6 H, Mean Corpuscular Hemoglobin 32.2, Mean Corpuscular Hemoglobin Concent 33.3, Red Cell Distribution Width 13.6, Calcium Level 7.8 L 04/12/18 12:35 GME ATTESTATION GME ATTESTATION My faculty preceptor for this patient encounter was physically present during the encounter and was fully available. All aspects of the patient interview, examination, medical decision making process, and medical care plan development were reviewed and approved by the faculty preceptor. The faculty preceptor is aware and concurs with the plan as stated in the body of this note and will attest to such by his/her cosignature. MARYAM ESTRELLA DO Apr 12, 2018 17:59
[2018-04-12 18:15] LABS: HEMATOCRIT 38.1 % (42.0-52.0); HEMOGLOBIN 12.7 g/dl (13.5-17.5)
--- NOTE | 2018-04-12 21:59 | IPNPDOC ---
Subjective General Date/Time Seen The patient was seen on 04/11/18 at 11:59. Subject Chief Complaint/History The patient is a 42-year-old male admitted with bilateral pulmonary embolus and extensive left lower extremity DVT with swelling and pain. Patientthat his left lower extremity swelling and pain has decreased albeit slowly. Patient has no chest pain and no headache. Current Medications Current Medications Current Medications Albuterol/ Ipratropium (Duoneb (Ipr 0.5mg/Alb 2.5mg)) 3 ml RQ4H NEB Last administered on 04/12/18at 15:03; Start 04/07/18 at 08:00 Alteplase, Recombinant 10 mg/ Sodium Chloride 100 ml @ 2.5 mls/hr Q24H IV ; Start 04/12/18 at 16:00 Alteplase, Recombinant 10 mg/ Sodium Chloride 110 ml @ 2.5 mls/hr Q24H IV Last administered on 04/11/18at 15:24; Start 04/11/18 at 16:00; Stop 04/12/18 at 15:59; Status DC Alteplase, Recombinant 25 mg/ Sodium Chloride 250 ml @ 2.5 mls/hr Q24H IV Last administered on 04/10/18 13:29; Start 04/09/18 at 15:00; Stop 04/11/18 at 14:29; Status DC Alvimopan (Entereg) 12 mg BID PO Last administered on 04/12/18 20:04; Start 04/12/18 at 09:00; Stop 04/19/18 at 08:59 Clotrimazole (Lotrimin) Apply to affected groin area. DAILY@0800 TOP Last administered on 04/12/18at 08:15; Start 04/11/18 at 08:00 Diphenhydramine HCl (Benadryl) 25 mg Q6HP PRN PO RASH/ITCHING Last administered on 04/12/18 03:26; Start 04/11/18 at 00:15 Doxycycline Hyclate (Vibramycin) 100 mg BID PO Last administered on 04/07/18 21:06; Start 04/07/18 at 09:00; Stop 04/07/18 at 21:01; Status DC Heparin Sodium (Heparin (Flush)) 200 units ASDIRECTED PRN IV SEE LABEL COMMENTS Last administered on 04/10/18at 00:22; Start 04/09/18 at 15:15 Heparin Sodium (Heparin (Flush)) 200 units PICC IV Last administered on 04/12/18at 17:56; Start 04/09/18 at 18:00 Heparin Sodium (Porcine) (Heparin) ASDIRECTED PRN IV SEE LABEL COMMENTS Last administered on 04/08/18at 20:13; Start 04/07/18 at 03:45; Stop 04/09/18 at 13:20; Status DC Heparin Sodium (Porcine) 81313 units/IV Miscellaneous Supplies 250 ml @ 9.99 mls/hr Q24H IV ; Start 04/07/18 at 03:13; Stop 04/07/18 at 03:37; Status DC Heparin Sodium (Porcine) 71984 units/IV Miscellaneous Supplies 250 ml @ 16 mls/hr [id number] IV Last administered on 04/12/18at 05:49; Start 04/09/18 at 13:30 Heparin Sodium (Porcine) 78389 units/IV Miscellaneous Supplies 250 ml @ 0 mls/hr Q0M IV ; Start 04/07/18 at 03:31; Stop 04/07/18 at 04:05; Status DC Heparin Sodium (Porcine) 58539 units/IV Miscellaneous Supplies 250 ml @ 0 mls/hr Q0M IV Last administered on 04/09/18at 06:06; Start 04/07/18 at 07:30; Stop 04/09/18 at 13:20; Status DC Heparin Sodium (Porcine) 51117 units/IV Miscellaneous Supplies 250 ml @ 0 mls/hr Q0M IV ; Start 04/07/18 at 09:00; Stop 04/07/18 at 09:00; Status DC Home Med (Med Rec Complete!) ASDIRECTED XX ; Start 04/07/18 at 04:15; Stop 04/07/18 at 04:15; Status DC Morphine Sulfate (Morphine Sulfate Inj) 2 mg Q30MP PRN IV PAIN Last administered on 04/11/18at 21:48; Start 04/09/18 at 22:30; Stop 04/11/18 at 21:57; Status DC Morphine Sulfate (Morphine Sulfate Inj) 4 mg Q30MP PRN IV PAIN Last administered on 04/12/18at 17:56; Start 04/11/18 at 22:00 Nicotine (Nicoderm Cq 21mg) 1 patch DAILYPRN PRN TD NICOTINE WITHDRAWAL; Start 04/07/18 at 04:15 Non-Formulary Medication (Heparin Iv Rate Change Documentation ml/ Hr) ASDIRECTED XX Last administered on 04/08/18 05:38; Start 04/07/18 at 03:45; Stop 04/09/18 at 13:20; Status DC Nystatin (Mycostatin Powder, Nystop) To be applied to affec... QID TOP Last administered on 04/12/18 20:05; Start 04/10/18 at 17:00 Oxycodone/ Acetaminophen (Percocet 5mg/ 325mg Tablet) 1 tab Q4HP PRN PO MILD/MODERATE PAIN (PS 1-7) Last administered on 04/11/18at 10:37; Start 04/08/18 at 16:15 Oxycodone/ Acetaminophen (Percocet 5mg/ 325mg Tablet) 1 tab Q6H PRN PO PAIN Last administered on 04/08/18 10:57; Start 04/07/18 at 04:00; Stop 04/08/18 at 16:37; Status DC Oxycodone/ Acetaminophen (Percocet 5mg/ 325mg Tablet) 2 tab Q4HP PRN PO SEVERE PAIN (PS 8-10) Last administered on 04/12/18 16:50; Start 04/08/18 at 16:15 Oxycodone/ Acetaminophen (Percocet 5mg/ 325mg Tablet) 2 tab Q6HP PRN PO SEVERE PAIN (PS 8-10); Start 04/08/18 at 11:15; Stop 04/08/18 at 16:10; Status DC Polyethylene Glycol (Miralax) 1 pkt BID PO Last administered on 04/12/18 20:04; Start 04/10/18 at 21:00 Senna/Docusate Sodium (Senokot S) 1 tab BID PO Last administered on 04/12/18 08:13; Start 04/10/18 at 21:00; Stop 04/12/18 at 12:52; Status DC Senna/Docusate Sodium (Senokot S) 2 tab BID PO Last administered on 04/12/18 20:05; Start 04/12/18 at 21:00 Sodium Chloride ([place] Nasal [place]) 2 spray Q1HP PRN NA NASAL DRYNESS; Start 04/11/18 at 21:30 Sodium Chloride (Saline Lock Flush) 10 ML PICC IV Last administered on 04/12/18at 17:56; Start 04/09/18 at 18:00 Sodium Chloride (Saline Lock Flush) 10ML ASDIRECTED PRN IV SEE LABEL COMMENTS Last administered on 04/10/18at 00:22; Start 04/09/18 at 15:15 Valacyclovir HCl (Valtrex) 1,000 mg Q12H PO Last administered on 04/07/18at 21:06; Start 04/07/18 at 09:00; Stop 04/07/18 at 21:01; Status DC Allergies Coded Allergies: Penicillins (Verified Allergy, Intermediate, hives, 04/04/18) Objective Physical Examination General Exam: Positive: Alert, Cooperative Eye Exam: Positive: PERRLA ENT Exam: Positive: Atraumatic Neck Exam: Positive: Supple; Negative: JVD Chest Exam: Positive: Clear to auscultation Heart Exam: Positive: Rate Normal; Negative: Tachycardic, Bradycardic Telemetry: Positive: No significant arrhythmia, Sinus Abdomen Exam: Positive: Normal bowel sounds Male Exam: Positive: Normal Genital Exam Extremity Exam: Positive: Clubbing, Edema (Left lower extremity swelling), Tenderness (pain and tenderness in left thigh has essentially resolved. some tenderness and ache remains in calf); Negative: Cyanosis Skin Exam: Positive: Nl turgor and temperature, Other skin issue (petechial rash on left calf) Neuro Exam: Positive: Normal Gait, Normal Tone Psych Exam: Positive: Mental status NL; Negative: Anxiety Assessment/Plan Assessment Patient has been undergoing left lower extremity venous thrombolysis with improvement in his symptoms. Patient's fibrinogen and hematocrit and hemoglobin have been stable. Plan Plan for left lower extremity venous thrombolysis follow-up today. Xander Lino MD Apr 12, 2018 21:59
--- NOTE | 2018-04-12 22:01 | IPNPDOC ---
Subjective General Date/Time Seen The patient was seen on 04/12/18 at 22:00. Subject Chief Complaint/History The patient is a 42-year-old male admitted with bilateral pulmonary emboli and extensive left lower extremity DVT with swelling and pain. Patient has no complaints and notices that his left lower extremity is slightly improved today. Patient has been out of bed and is been able to ambulate better. Current Medications Current Medications Current Medications Albuterol/ Ipratropium (Duoneb (Ipr 0.5mg/Alb 2.5mg)) 3 ml RQ4H NEB Last administered on 04/12/18at 15:03; Start 04/07/18 at 08:00 Alteplase, Recombinant 10 mg/ Sodium Chloride 100 ml @ 2.5 mls/hr Q24H IV ; Start 04/12/18 at 16:00 Alteplase, Recombinant 10 mg/ Sodium Chloride 110 ml @ 2.5 mls/hr Q24H IV Last administered on 04/11/18at 15:24; Start 04/11/18 at 16:00; Stop 04/12/18 at 15:59; Status DC Alteplase, Recombinant 25 mg/ Sodium Chloride 250 ml @ 2.5 mls/hr Q24H IV Last administered on 04/10/18 13:29; Start 04/09/18 at 15:00; Stop 04/11/18 at 14:29; Status DC Alvimopan (Entereg) 12 mg BID PO Last administered on 04/12/18 20:04; Start 04/12/18 at 09:00; Stop 04/19/18 at 08:59 Clotrimazole (Lotrimin) Apply to affected groin area. DAILY@0800 TOP Last administered on 04/12/18at 08:15; Start 04/11/18 at 08:00 Diphenhydramine HCl (Benadryl) 25 mg Q6HP PRN PO RASH/ITCHING Last administered on 04/12/18at 03:26; Start 04/11/18 at 00:15 Doxycycline Hyclate (Vibramycin) 100 mg BID PO Last administered on 04/07/18at 21:06; Start 04/07/18 at 09:00; Stop 04/07/18 at 21:01; Status DC Heparin Sodium (Heparin (Flush)) 200 units ASDIRECTED PRN IV SEE LABEL COMMENTS Last administered on 04/10/18at 00:22; Start 04/09/18 at 15:15 Heparin Sodium (Heparin (Flush)) 200 units PICC IV Last administered on 04/12/18at 17:56; Start 04/09/18 at 18:00 Heparin Sodium (Porcine) (Heparin) ASDIRECTED PRN IV SEE LABEL COMMENTS Last administered on 04/08/18at 20:13; Start 04/07/18 at 03:45; Stop 04/09/18 at 13:20; Status DC Heparin Sodium (Porcine) 37586 units/IV Miscellaneous Supplies 250 ml @ 9.99 mls/hr Q24H IV ; Start 04/07/18 at 03:13; Stop 04/07/18 at 03:37; Status DC Heparin Sodium (Porcine) 67706 units/IV Miscellaneous Supplies 250 ml @ 16 mls/hr [id number] IV Last administered on 04/12/18at 05:49; Start 04/09/18 at 13:30 Heparin Sodium (Porcine) 08600 units/IV Miscellaneous Supplies 250 ml @ 0 mls/hr Q0M IV ; Start 04/07/18 at 03:31; Stop 04/07/18 at 04:05; Status DC Heparin Sodium (Porcine) 60403 units/IV Miscellaneous Supplies 250 ml @ 0 mls/hr Q0M IV Last administered on 04/09/18at 06:06; Start 04/07/18 at 07:30; Stop 04/09/18 at 13:20; Status DC Heparin Sodium (Porcine) 07661 units/IV Miscellaneous Supplies 250 ml @ 0 mls/hr Q0M IV ; Start 04/07/18 at 09:00; Stop 04/07/18 at 09:00; Status DC Home Med (Med Rec Complete!) ASDIRECTED XX ; Start 04/07/18 at 04:15; Stop 04/07/18 at 04:15; Status DC Morphine Sulfate (Morphine Sulfate Inj) 2 mg Q30MP PRN IV PAIN Last administered on 04/11/18at 21:48; Start 04/09/18 at 22:30; Stop 04/11/18 at 21:57; Status DC Morphine Sulfate (Morphine Sulfate Inj) 4 mg Q30MP PRN IV PAIN Last administered on 04/12/18 17:56; Start 04/11/18 at 22:00 Nicotine (Nicoderm Cq 21mg) 1 patch DAILYPRN PRN TD NICOTINE WITHDRAWAL; Start 04/07/18 at 04:15 Non-Formulary Medication (Heparin Iv Rate Change Documentation ml/ Hr) ASDIRECTED XX Last administered on 04/08/18 05:38; Start 04/07/18 at 03:45; Stop 04/09/18 at 13:20; Status DC Nystatin (Mycostatin Powder, Nystop) To be applied to affec... QID TOP Last administered on 04/12/18 20:05; Start 04/10/18 at 17:00 Oxycodone/ Acetaminophen (Percocet 5mg/ 325mg Tablet) 1 tab Q4HP PRN PO MILD/MODERATE PAIN (PS 1-7) Last administered on 04/11/18 10:37; Start 04/08/18 at 16:15 Oxycodone/ Acetaminophen (Percocet 5mg/ 325mg Tablet) 1 tab Q6H PRN PO PAIN Last administered on 04/08/18 10:57; Start 04/07/18 at 04:00; Stop 04/08/18 at 16:37; Status DC Oxycodone/ Acetaminophen (Percocet 5mg/ 325mg Tablet) 2 tab Q4HP PRN PO SEVERE PAIN (PS 8-10) Last administered on 04/12/18 16:50; Start 04/08/18 at 16:15 Oxycodone/ Acetaminophen (Percocet 5mg/ 325mg Tablet) 2 tab Q6HP PRN PO SEVERE PAIN (PS 8-10); Start 04/08/18 at 11:15; Stop 04/08/18 at 16:10; Status DC Polyethylene Glycol (Miralax) 1 pkt BID PO Last administered on 04/12/18 20:04; Start 04/10/18 at 21:00 Senna/Docusate Sodium (Senokot S) 1 tab BID PO Last administered on 04/12/18 08:13; Start 04/10/18 at 21:00; Stop 04/12/18 at 12:52; Status DC Senna/Docusate Sodium (Senokot S) 2 tab BID PO Last administered on 2/9/19at 20:05; Start 04/12/18 at 21:00 Sodium Chloride ([place] Nasal [place]) 2 spray Q1HP PRN NA NASAL DRYNESS; Start 04/11/18 at 21:30 Sodium Chloride (Saline Lock Flush) 10 ML PICC IV Last administered on 04/12/18at 17:56; Start 04/09/18 at 18:00 Sodium Chloride (Saline Lock Flush) 10ML ASDIRECTED PRN IV SEE LABEL COMMENTS Last administered on 04/10/18at 00:22; Start 04/09/18 at 15:15 Valacyclovir HCl (Valtrex) 1,000 mg Q12H PO Last administered on 04/07/18at 21:06; Start 04/07/18 at 09:00; Stop 04/07/18 at 21:01; Status DC Allergies Coded Allergies: Penicillins (Verified Allergy, Intermediate, hives, 04/04/18) VITAL SIGNS VITAL SIGNS Vital Signs Date Time Temp Pulse Resp B/P (MAP) Pulse Ox O2 Delivery O2 Flow Rate FiO2 04/12/18 20:00 2.0 04/12/18 20:00 97.8 80 17 144/68 (93) 97 2.0 04/12/18 18:00 76 18 125/63 (83) 96 2.0 04/12/18 17:56 76 16 127/82 96 2.0 04/12/18 17:00 86 18 127/82 (97) 93 2.0 04/12/18 16:50 92 18 120/75 96 2.0 04/12/18 16:00 91 18 120/75 (90) 93 2.0 04/12/18 16:00 2.0 04/12/18 15:44 87 18 123/73 94 04/12/18 15:34 18 123/73 96 2.0 04/12/18 15:00 73 18 123/73 (90) 92 2.0 04/12/18 14:00 78 19 137/66 (89) 95 2.0 04/12/18 13:00 87 18 130/72 (91) 94 2.0 04/12/18 12:56 71 18 126/71 94 2.0 04/12/18 12:26 79 18 126/75 94 2.0 04/12/18 12:00 2.0 04/12/18 12:00 98.0 75 18 126/75 (92) 94 2.0 04/12/18 11:00 71 18 121/66 (84) 97 2.0 04/12/18 10:21 2.0 04/12/18 10:11 18 116/75 94 2.0 04/12/18 10:00 69 18 116/75 (89) 94 2.0 04/12/18 09:00 73 16 114/66 (82) 92 2.0 04/12/18 08:15 16 111/88 98 04/12/18 08:00 2.0 04/12/18 08:00 2.0 04/12/18 08:00 99.0 68 16 111/68 (82) 93 2.0 04/12/18 07:00 78 18 111/71 (84) 93 2.0 04/12/18 06:00 80 115/59 (77) 2.0 04/12/18 05:50 68 24 107/69 04/12/18 05:00 71 113/64 (80) 92 2.0 04/12/18 04:00 98.2 64 23 115/77 (90) 93 2.0 04/12/18 04:00 2.0 04/12/18 03:15 72 25 109/61 96 04/12/18 03:00 73 109/61 (77) 92 2.0 04/12/18 02:45 78 26 125/69 95 2.0 04/12/18 02:00 77 120/68 (85) 93 2.0 04/12/18 01:00 77 115/65 (82) 92 2.0 04/12/18 00:30 83 25 125/70 95 2.0 04/12/18 00:00 97.9 81 25 125/70 (88) 93 2.0 04/12/18 00:00 2.0 04/11/18 23:22 85 26 135/71 95 2.0 04/11/18 23:09 77 25 124/71 93 2.0 04/11/18 23:00 82 124/71 (88) 92 2.0 04/11/18 22:31 77 24 118/70 94 2.0 Intake & Output 04/12/18 06:00 Intake Total 1859.5 ml Output Total 1800 ml Balance 59.5 ml Laboratory Tests 04/11/18 23:20: Hemoglobin 12.7L, Hematocrit 38.1L, Activated Partial Thromboplast Time 46.3H, Fibrinogen 348 04/12/18 05:53: Hemoglobin 12.3L, Hematocrit 36.9L, Activated Partial Thromboplast Time 48.5H, Fibrinogen 298, White Blood Count 10.3H, Red Blood Count 3.82L, Mean Corpuscular Volume 96.6H, Mean Corpuscular Hemoglobin 32.2, Mean Corpuscular Hemoglobin Concent 33.3, Red Cell Distribution Width 13.6, Platelet Count 156, Nucleated Red Blood Cells % (auto) 0.0, Prothrombin Time 14.5H, Prothromb Time International Ratio 1.11, Blood Urea Nitrogen 11, Creatinine 0.84, Sodium Level 137, Potassium Level 3.9, Chloride Level 101, Carbon Dioxide Level 31, Calcium Level 7.8L, Anion Gap 5L, Glomerular Filtration Rate > 60.0, Fasting Glucose 96, Magnesium Level 2.2 04/12/18 12:35: Hemoglobin 12.6L, Hematocrit 37.6L, Activated Partial Thromboplast Time 43.6H, Fibrinogen 330 04/12/18 17:47: Hemoglobin 12.7L, Hematocrit 38.1L, Activated Partial Thromboplast Time 40.3H, Fibrinogen 327, Coagulation Factor V Leiden [Pending], Factor II (Prothrombin) Mutation [Pending], Wrsn-[id number]-Glycoprotein I IgG Ab [Pending], Anti -rsnh-9-Kcggfsqhdbca I IgA Ab [Pending], Drew-bkqa-8-Glycoprotein I IgM Ab [Pending], Anti-Cardiolipin IgG Antibody [Pending], Anti-Cardiolipin IgA Antibody [Pending], Anti-Cardiolipin IgM Antibody [Pending] Microbiology 04/12/18 Stool Occult Blood (BELLA) - Final, Complete Current Medications Medications (Trade) Dose Ordered Sig/Jer Route PRN Reason Start Time Stop Time Status Last Admin Dose Admin Albuterol/ Ipratropium (Duoneb (Ipr 0.5mg/Alb 2.5mg)) 3 ml RQ4H NEB 04/07/18 08:00 04/12/18 15:03 Alvimopan (Entereg) 12 mg BID PO 04/12/18 09:00 04/19/18 08:59 04/12/18 20:04 Clotrimazole (Lotrimin) Apply to affected groin area. DAILY@0800 TOP 04/11/18 08:00 04/12/18 08:15 Diphenhydramine HCl (Benadryl) 25 mg Q6HP PRN PO RASH/ITCHING 04/11/18 00:15 04/12/18 03:26 Heparin Sodium (Heparin (Flush)) 200 units ASDIRECTED PRN IV SEE LABEL COMMENTS 04/09/18 15:15 04/10/18 00:22 Heparin Sodium (Porcine) 66276 units/IV Miscellaneous Supplies 250 ml @ 16 mls/hr [id number] IV 04/09/18 13:30 04/12/18 05:49 Morphine Sulfate (Morphine Sulfate Inj) 4 mg Q30MP PRN IV PAIN 04/11/18 22:00 04/12/18 17:56 Nystatin (Mycostatin Powder, Nystop) To be applied to affec... QID TOP 04/10/18 17:00 04/12/18 20:05 Oxycodone/ Acetaminophen (Percocet 5mg/ 325mg Tablet) 2 tab Q4HP PRN PO SEVERE PAIN (PS 8-10) 04/08/18 16:15 04/12/18 16:50 Polyethylene Glycol (Miralax) 1 pkt BID PO 04/10/18 21:00 04/12/18 20:04 Senna/Docusate Sodium (Senokot S) 2 tab BID PO 04/12/18 21:00 04/12/18 20:05 Sodium Chloride (Saline Lock Flush) 10ML ASDIRECTED PRN IV SEE LABEL COMMENTS 04/09/18 15:15 04/10/18 00:22 Laboratory Tests 04/10/18 23:35 04/11/18 06:03 Red Blood Count 3.87 L, Mean Corpuscular Volume 96.4 H, Mean Corpuscular Hemoglobin 32.0, Mean Corpuscular Hemoglobin Concent 33.2, Red Cell Distribution Width 13.8, Calcium Level 7.9 L 04/11/18 13:07 04/11/18 17:48 04/11/18 23:20 04/12/18 05:53 Red Blood Count 3.82 L, Mean Corpuscular Volume 96.6 H, Mean Corpuscular Hemoglobin 32.2, Mean Corpuscular Hemoglobin Concent 33.3, Red Cell Distribution Width 13.6, Calcium Level 7.8 L 04/12/18 12:35 04/12/18 17:47 Microbiology 04/12/18 Stool Occult Blood (BELLA) - Final, Complete Objective Physical Examination General Exam: Positive: Alert, Cooperative Eye Exam: Positive: PERRLA ENT Exam: Positive: Atraumatic Neck Exam: Positive: Supple; Negative: JVD Chest Exam: Positive: Clear to auscultation Heart Exam: Positive: Rate Normal; Negative: Tachycardic, Bradycardic Telemetry: Positive: No significant arrhythmia, Sinus Abdomen Exam: Positive: Normal bowel sounds Male Exam: Positive: Normal Genital Exam Extremity Exam: Positive: Clubbing, Edema (Left lower extremity swelling), Tenderness (pain and tenderness in left thigh has essentially resolved. some tenderness and ache remains in calf); Negative: Cyanosis Skin Exam: Positive: Nl turgor and temperature, Other skin issue (petechial rash on left calf) Neuro Exam: Positive: Normal Gait, Normal Tone Psych Exam: Positive: Mental status NL; Negative: Anxiety Assessment/Plan Assessment Patient is a 42-year-old male with bilateral pulmonary embolus and extensive left lower extremity DVT who has been undergoing a left lower extremity venous thrombolysis. Patient underwent a lysis follow-up yesterday which resulted in angioplasty of his left external iliac vein, left common femoral vein and left superficial femoral vein due to occlusion and high-grade stenosis. Patient has slight improvement in his left lower extremity swelling and discomfort. Plan Patient will continue with left lower extremity venous thrombolysis. Patient's fibrinogen, hematocrit and hemoglobin have been stable. Patient will continue with out of bed as tolerated. Patient's heparin and TPA will be monitored every 6 hours and adjusted based on laboratory values. Xander Lino MD Apr 12, 2018 22:01
[2018-04-13] VITALS (20 sets, daily range): BP systolic 107–151; BP diastolic 59–91
[2018-04-13 00:41] LABS: HEMATOCRIT 36.1 % (42.0-52.0); HEMOGLOBIN 12.3 g/dl (13.5-17.5)
[2018-04-13] MEDS: PERCOCET 5MG/325MG TAB PO PRN ×5 (03:29→23:59)
[2018-04-13] MEDS: MORPHINE 4 MG/ML 1ML VIAL/SYRINGE (J2270) IV PRN ×4 (03:31→21:48)
[2018-04-13] MEDS: IPRATROPIUM 0.5MG/ALBUTEROL 2.5MG INH SOL UD 3ML (DUONEB)(J7620) NEB SCH ×7 (04:28→23:43)
[2018-04-13] MEDS: SODIUM CHLORIDE 0.9% INJ 10 ML SYR IV SCH ×2 (06:32→18:20)
[2018-04-13 06:54] LABS: HEMATOCRIT 37.2 % (42.0-52.0); HEMOGLOBIN 12.6 g/dl (13.5-17.5); MEAN CORPUSCULAR HEMOGLOBIN 32.4 pg (27.0-33.0); MEAN CORPUSCULAR HGB CONC 33.9 g/dl (32.0-36.5); MEAN CORPUSCULAR VOLUME 95.6 fl (80.0-96.0); PLATELET COUNT, AUTOMATED 161 10^3/uL (150-450); RED BLOOD COUNT 3.89 10^6/uL (4.30-6.10); WHITE BLOOD COUNT 11.6 10^3/uL (4.0-10.0)
[2018-04-13 07:12] LABS: INR 1.03; PROTHROMBIN TIME 13.6 SECONDS (12.1-14.4)
[2018-04-13 07:13] LABS: PARTIAL THROMBOPLASTIN TIME 37.9 SECONDS (25.4-37.6)
[2018-04-13 07:15] LABS: BLOOD UREA NITROGEN 11 MG/DL (7-18); CALCIUM LEVEL 8.9 MG/DL (8.5-10.1); CARBON DIOXIDE LEVEL 31 MEQ/L (21-32); CHLORIDE LEVEL 97 MEQ/L (98-107); CREATININE FOR GFR 0.88 MG/DL (0.70-1.30); GLOMERULAR FILTRATION RATE > 60.0 (>60); GLUCOSE, FASTING 113 MG/DL (70-100); MAGNESIUM LEVEL 2.2 MG/DL (1.8-2.4); POTASSIUM SERUM 3.9 MEQ/L (3.5-5.1); SODIUM LEVEL 134 MEQ/L (136-145)
[2018-04-13] MEDS: CLOTRIMAZOLE 1% TOPICAL CREAM 30GM TOP SCH (08:00)
[2018-04-13] MEDS: SENOKOT S TAB PO SCH ×2 (08:15→20:58)
[2018-04-13] MEDS: MIRALAX *UNIT DOSE* 17GM PACKET PO SCH (08:20)
[2018-04-13] MEDS: ALVIMOPAN 12 MG CAPSULE (ENTEREG) PO SCH ×2 (08:20→20:58)
[2018-04-13] MEDS ORDERED: CALCIUM CARBONATE 500 MG CHEW U/D PO SCH (09:00)
[2018-04-13] MEDS ORDERED: PANTOPRAZOLE 40MG TAB (PROTONIX) PO ONE (11:00)
[2018-04-13 13:14] LABS: HEMATOCRIT 36.9 % (42.0-52.0); HEMOGLOBIN 12.3 g/dl (13.5-17.5)
--- NOTE | 2018-04-13 14:39 | IPNPDOC ---
Subjective Date Seen The patient was seen on 04/13/18. Subjective Chief Complaint/HPI Dyspnea to baseline, decreased LLE edema Constitutional: Denies: Chills Eyes: Reports: Pain ENT: Denies: Head Aches Skin: Denies: Rash (LLE controlled), Lesions Pulmonary: Denies: Dyspnea, Cough Cardiovascular: Denies: Chest Pain, Palpitations Gastrointestinal: Denies: Nausea, Vomiting Objective Physical Examination General Exam: Positive: Alert, Cooperative Eye Exam: Positive: PERRLA ENT Exam: Positive: Atraumatic Neck Exam: Positive: Supple; Negative: JVD Chest Exam: Positive: Clear to auscultation Heart Exam: Positive: Rate Normal; Negative: Tachycardic, Bradycardic Telemetry: Positive: No significant arrhythmia, Sinus Abdomen Exam: Positive: Normal bowel sounds Male Exam: Positive: Normal Genital Exam Extremity Exam: Positive: Clubbing, Edema (Left lower extremity swelling), Tenderness (pain and tenderness in left thigh has essentially resolved. some tenderness and ache remains in calf); Negative: Cyanosis Skin Exam: Positive: Nl turgor and temperature, Other skin issue (petechial rash on left calf) Neuro Exam: Positive: Normal Gait, Normal Tone Psych Exam: Positive: Mental status NL; Negative: Anxiety Assessment /Plan Problems (1) Pulmonary emboli Status: Acute Problem Text: No recurrent sx on IV heparin-plan transition to DOAC(x at least 6M) p DVT thrombolysis (2) Deep vein thrombosis (DVT) of distal vein of left lower extremity Status: Acute Problem Text: Stable hgb/plt q6H on IV alteplase thrombolysis s decreased LLE edema since 04/[address] Lino probably provoked 2 immobility, 3 PPD, morbid obesity hypercoag panel P (3) Nicotine dependence Problem Text: Stable off 3 PPD s replacement! (4) Lung nodules Problem Text: 04/[address] chest, plan repeat CT chest 10/2018 given 3 PPD and new onset VTE (5) Recurrent HSV (herpes simplex virus) Status: Chronic Problem Text: No recurrent sx (6) Constipation Status: Acute Problem Text: acute 2 immobility/opioids-baseline QD BM 04/13 large BM yesterday c alvimopan, doc/sen, PG-regimen decreased Plan/VTE VTE Prophylaxis Ordered?: Yes Plan Anticipated Discharge: Home VS, I&O, 24H, Fishbone Vital Signs/I&O Vital Signs Date Time Temp Pulse Resp B/P (MAP) Pulse Ox O2 Delivery O2 Flow Rate FiO2 04/13/18 12:57 73 16 110/65 2.0 04/13/18 11:00 94 04/13/18 05:00 97.4 04/13/18 03:59 96 04/07/18 13:00 Room Air I&O- Last 24 Hours up to 6 AM 04/13/18 06:00 Intake Total 2674.5 ml Output Total 1540 ml Balance 1134.5 ml Laboratory Data 24H LABS Laboratory Tests 2 04/12/18 17:47: Activated Partial Thromboplast Time 40.3H, Fibrinogen 327 04/13/18 00:10: Activated Partial Thromboplast Time 37.1, Fibrinogen 315 04/13/18 06:16: Activated Partial Thromboplast Time 37.9H, Fibrinogen 315, Nucleated Red Blood Cells % (auto) 0.0, Prothrombin Time 13.6, Prothromb Time International Ratio 1.03, Anion Gap 6L, Glomerular Filtration Rate > 60.0, Blood Urea Nitrogen 11, Creatinine 0.88, Sodium Level 134L, Potassium Level 3.9, Chloride Level 97L, Carbon Dioxide Level 31, Calcium Level 8.9, Magnesium Level 2.2 04/13/18 13:07: Activated Partial Thromboplast Time 40.3H, Fibrinogen 315 CBC/BMP Laboratory Tests 04/12/18 17:47 04/13/18 00:10 04/13/18 06:16 Red Blood Count 3.89 L, Mean Corpuscular Volume 95.6, Mean Corpuscular Hemoglobin 32.4, Mean Corpuscular Hemoglobin Concent 33.9, Red Cell Distribution Width 13.5, Calcium Level 8.9 04/13/18 13:07 Microbiology Microbiology 04/12/18 Stool Occult Blood (BELLA) - Final, Complete Nicola Moore M.D. Apr 13, 2018 14:39
[2018-04-13] MEDS: diphenhydrAMINE 25 MG CAP PO PRN (18:21)
[2018-04-13 18:59] LABS: HEMOGLOBIN 12.5 g/dl (13.5-17.5)
--- NOTE | 2018-04-13 19:41 | IPNPDOC ---
Subjective General Date/Time Seen The patient was seen on 04/13/18 at 19:40. Subject Chief Complaint/History The patient is a 42-year-old male admitted with bilateral pulmonary emboli and extensive left lower extremity DVT with swelling and pain. Patient has been undergoing left lower extremity venous thrombolysis with some improvement in his symptoms. Patient has no new complaints. Current Medications Current Medications Current Medications Albuterol/ Ipratropium (Duoneb (Ipr 0.5mg/Alb 2.5mg)) 3 ml RQ4H NEB Last administered on 04/13/18at 15:21; Start 04/07/18 at 08:00 Alteplase, Recombinant 10 mg/ Sodium Chloride 100 ml @ 2.5 mls/hr Q24H IV Last administered on 04/12/18at 23:57; Start 04/12/18 at 16:00 Alteplase, Recombinant 10 mg/ Sodium Chloride 110 ml @ 2.5 mls/hr Q24H IV Last administered on 04/11/18at 15:24; Start 04/11/18 at 16:00; Stop 04/12/18 at 15:59; Status DC Alteplase, Recombinant 25 mg/ Sodium Chloride 250 ml @ 2.5 mls/hr Q24H IV Last administered on 04/10/18at 13:29; Start 04/09/18 at 15:00; Stop 04/11/18 at 14:29; Status DC Alvimopan (Entereg) 12 mg BID PO Last administered on 04/12/18at 20:04; Start 04/12/18 at 09:00; Stop 04/14/18 at 06:00 Calcium Carbonate (Tums) 1,000 mg TID PO Last administered on 04/13/18at 11:13; Start 04/13/18 at 09:00; Stop 04/13/18 at 13:31; Status DC Calcium Carbonate (Tums) 1,000 mg TIDP PRN PO HEARTBURN/INDIGESTION; Start 04/14/18 at 09:00 Clotrimazole (Lotrimin) Apply to affected groin area. DAILY@0800 TOP Last administered on 04/12/18at 08:15; Start 04/11/18 at 08:00; Stop 04/13/18 at 10:54; Status DC Diphenhydramine HCl (Benadryl) 25 mg Q6HP PRN PO RASH/ITCHING Last administered on 04/13/18at 18:21; Start 04/11/18 at 00:15 Doxycycline Hyclate (Vibramycin) 100 mg BID PO Last administered on 04/07/18at 21:06; Start 04/07/18 at 09:00; Stop 04/07/18 at 21:01; Status DC Heparin Sodium (Heparin (Flush)) 200 units ASDIRECTED PRN IV SEE LABEL COMMENTS Last administered on 04/10/18at 00:22; Start 04/09/18 at 15:15 Heparin Sodium (Heparin (Flush)) 200 units PICC IV Last administered on 04/13/18 18:19; Start 04/09/18 at 18:00 Heparin Sodium (Porcine) (Heparin) ASDIRECTED PRN IV SEE LABEL COMMENTS Last administered on 04/08/18at 20:13; Start 04/07/18 at 03:45; Stop 04/09/18 at 13:20; Status DC Heparin Sodium (Porcine) 59375 units/IV Miscellaneous Supplies 250 ml @ 9.99 mls/hr Q24H IV ; Start 04/07/18 at 03:13; Stop 04/07/18 at 03:37; Status DC Heparin Sodium (Porcine) 29086 units/IV Miscellaneous Supplies 250 ml @ 16 mls/hr [id number] IV Last administered on 04/12/18at 23:59; Start 04/09/18 at 13:30 Heparin Sodium (Porcine) 02358 units/IV Miscellaneous Supplies 250 ml @ 0 mls/hr Q0M IV ; Start 04/07/18 at 03:31; Stop 04/07/18 at 04:05; Status DC Heparin Sodium (Porcine) 94022 units/IV Miscellaneous Supplies 250 ml @ 0 mls/hr Q0M IV Last administered on 04/09/18at 06:06; Start 04/07/18 at 07:30; Stop 04/09/18 at 13:20; Status DC Heparin Sodium (Porcine) 51517 units/IV Miscellaneous Supplies 250 ml @ 0 mls/hr Q0M IV ; Start 04/07/18 at 09:00; Stop 04/07/18 at 09:00; Status DC Home Med (Med Rec Complete!) ASDIRECTED XX ; Start 04/07/18 at 04:15; Stop 04/07/18 at 04:15; Status DC Morphine Sulfate (Morphine Sulfate Inj) 2 mg Q30MP PRN IV PAIN Last administered on 04/11/18at 21:48; Start 04/09/18 at 22:30; Stop 04/11/18 at 21:57; Status DC Morphine Sulfate (Morphine Sulfate Inj) 4 mg Q30MP PRN IV PAIN Last administered on 04/13/18at 18:21; Start 04/11/18 at 22:00 Nicotine (Nicoderm Cq 21mg) 1 patch DAILYPRN PRN TD NICOTINE WITHDRAWAL; Start 04/07/18 at 04:15 Non-Formulary Medication (Heparin Iv Rate Change Documentation ml/ Hr) ASDIRECTED XX Last administered on 04/08/18at 05:38; Start 04/07/18 at 03:45; Stop 04/09/18 at 13:20; Status DC Nystatin (Mycostatin Powder, Nystop) To be applied to affec... BID TOP ; Start 04/13/18 at 21:00 Nystatin (Mycostatin Powder, Nystop) To be applied to affec... QID TOP Last administered on 04/12/18at 20:05; Start 04/10/18 at 17:00; Stop 04/13/18 at 10:54; Status DC Oxycodone/ Acetaminophen (Percocet 5mg/ 325mg Tablet) 1 tab Q4HP PRN PO MILD/M ODERATE PAIN (PS 1-7) Last administered on 04/11/18at 10:37; Start 04/08/18 at 16:15 Oxycodone/ Acetaminophen (Percocet 5mg/ 325mg Tablet) 1 tab Q6H PRN PO PAIN Last administered on 04/08/18 10:57; Start 04/07/18 at 04:00; Stop 04/08/18 at 16:37; Status DC Oxycodone/ Acetaminophen (Percocet 5mg/ 325mg Tablet) 2 tab Q4HP PRN PO SEVERE PAIN (PS 8-10) Last administered on 04/13/18at 19:19; Start 04/08/18 at 16:15 Oxycodone/ Acetaminophen (Percocet 5mg/ 325mg Tablet) 2 tab Q6HP PRN PO SEVERE PAIN (PS 8-10); Start 04/08/18 at 11:15; Stop 04/08/18 at 16:10; Status DC Polyethylene Glycol (Miralax) 1 pkt BID PO Last administered on 04/12/18at 20:04; Start 04/10/18 at 21:00; Stop 04/13/18 at 10:54; Status DC Senna/Docusate Sodium (Senokot S) 1 tab BID PO Last administered on 04/12/18at 08:13; Start 04/10/18 at 21:00; Stop 04/12/18 at 12:52; Status DC Senna/Docusate Sodium (Senokot S) 2 tab BID PO Last administered on 04/13/18at 08:15; Start 04/12/18 at 21:00 Sodium Chloride ([place] Nasal [place]) 2 spray Q1HP PRN NA NASAL DRYNESS; Start 04/11/18 at 21:30 Sodium Chloride (Saline Lock Flush) 10 ML PICC IV Last administered on 04/13/18at 18:20; Start 04/09/18 at 18:00 Sodium Chloride (Saline Lock Flush) 10ML ASDIRECTED PRN IV SEE LABEL COMMENTS Last administered on 04/10/18at 00:22; Start 04/09/18 at 15:15 Valacyclovir HCl (Valtrex) 1,000 mg Q12H PO Last administered on 04/07/18at 21:06; Start 04/07/18 at 09:00; Stop 04/07/18 at 21:01; Status DC Allergies Coded Allergies: Penicillins (Verified Allergy, Intermediate, hives, 04/04/18) VITAL SIGNS VITAL SIGNS Vital Signs Date Time Temp Pulse Resp B/P (MAP) Pulse Ox O2 Delivery O2 Flow Rate FiO2 04/13/18 19:19 18 04/13/18 18:31 18 127/61 94 04/13/18 18:21 18 127/61 94 04/13/18 18:00 87 18 127/61 (83) 04/13/18 17:00 84 18 125/70 (88) 94 04/13/18 16:00 97.2 81 18 118/65 (82) 93 04/13/18 16:00 2.0 04/13/18 14:00 72 18 123/72 (89) 95 04/13/18 13:27 18 123/72 95 04/13/18 13:00 74 18 116/69 (85) 94 04/13/18 12:57 73 16 110/65 2.0 04/13/18 12:46 70 17 110/65 (80) 97 2.0 04/13/18 12:00 2.0 04/13/18 12:00 98.0 80 18 127/62 (83) 97 04/13/18 11:00 75 04/13/18 11:00 75 18 127/62 (83) 94 2.0 04/13/18 10:00 83 18 148/60 (89) 94 2.0 04/13/18 09:00 75 18 141/73 (95) 96 2.0 04/13/18 08:56 2.0 04/13/18 08:17 78 17 131/72 96 04/13/18 08:00 2.0 04/13/18 08:00 72 18 131/72 (91) 99 04/13/18 08:00 2.0 04/13/18 07:00 78 18 138/64 (88) 95 2.0 04/13/18 06:41 2.0 04/13/18 06:31 17 2 2.0 04/13/18 06:00 70 18 151/74 (99) 93 2.0 04/13/18 05:00 97.4 78 18 143/91 (108) 95 2.0 04/13/18 04:00 2.0 04/13/18 04:00 97.6 71 19 139/62 (87) 94 2.0 04/13/18 03:59 96 04/13/18 03:31 18 2.0 04/13/18 03:29 19 93 2.0 04/13/18 03:00 79 18 133/70 (91) 95 2.0 04/13/18 02:00 84 17 107/61 (76) 92 2.0 04/13/18 01:00 82 19 131/65 (87) 95 2.0 04/13/18 00:00 2.0 04/13/18 00:00 98.0 78 17 129/59 (82) 96 2.0 04/12/18 23:57 20 148/65 97 2.0 2/9/19 23:00 79 18 148/65 (92) 95 2.0 04/12/18 22:16 84 20 139/65 96 2.0 04/12/18 22:00 82 17 139/65 (89) 93 2.0 04/12/18 21:00 89 18 139/68 (91) 95 2.0 04/12/18 20:00 2.0 04/12/18 20:00 97.8 80 17 144/68 (93) 97 2.0 Intake & Output 04/13/18 06:00 Intake Total 2674.5 ml Output Total 1540 ml Balance 1134.5 ml Laboratory Tests 04/13/18 00:10: Hemoglobin 12.3L, Hematocrit 36.1L, Activated Partial Thromboplast Time 37.1, Fibrinogen 315 04/13/18 06:16: Hemoglobin 12.6L, Hematocrit 37.2L, Activated Partial Thromboplast Time 37.9H, Fibrinogen 315, White Blood Count 11.6H, Red Blood Count 3.89L, Mean Corpuscular Volume 95.6, Mean Corpuscular Hemoglobin 32.4, Mean Corpuscular Hemoglobin Concent 33.9, Red Cell Distribution Width 13.5, Platelet Count 161, Nucleated Red Blood Cells % (auto) 0.0, Prothrombin Time 13.6, Prothromb Time International Ratio 1.03, Blood Urea Nitrogen 11, Creatinine 0.88, Sodium Level 134L, Potassium Level 3.9, Chloride Level 97L, Carbon Dioxide Level 31, Calcium Level 8.9, Anion Gap 6L, Glomerular Filtration Rate > 60.0, Fasting Glucose 113H, Magnesium Level 2.2 04/13/18 13:07: Hemoglobin 12.3L, Hematocrit 36.9L, Activated Partial Thromboplast Time 40.3H, Fibrinogen 315 04/13/18 18:33: Hemoglobin 12.5L, Hematocrit 37.0L 04/13/18 18:34: Activated Partial Thromboplast Time 39.1H, Fibrinogen 291 Microbiology 04/12/18 Stool Occult Blood (BELLA) - Final, Complete Current Medications Medications (Trade) Dose Ordered Sig/Jer Route PRN Reason Start Time Stop Time Status Last Admin Dose Admin Albuterol/ Ipratropium (Duoneb (Ipr 0.5mg/Alb 2.5mg)) 3 ml RQ4H NEB 04/07/18 08:00 04/13/18 15:21 Alteplase, Recombinant 10 mg/ Sodium Chloride 100 ml @ 2.5 mls/hr Q24H IV 04/12/18 16:00 04/12/18 23:57 Alvimopan (Entereg) 12 mg BID PO 04/12/18 09:00 04/14/18 06:00 04/12/18 20:04 Diphenhydramine HCl (Benadryl) 25 mg Q6HP PRN PO RASH/ITCHING 04/11/18 00:15 04/13/18 18:21 Heparin Sodium (Heparin (Flush)) 200 units ASDIRECTED PRN IV SEE LABEL COMMENTS 04/09/18 15:15 04/10/18 00:22 Heparin Sodium (Porcine) 63213 units/IV Miscellaneous Supplies 250 ml @ 16 mls/hr [id number] IV 04/09/18 13:30 04/12/18 23:59 Morphine Sulfate (Morphine Sulfate Inj) 4 mg Q30MP PRN IV PAIN 04/11/18 22:00 04/13/18 18:21 Oxycodone/ Acetaminophen (Percocet 5mg/ 325mg Tablet) 2 tab Q4HP PRN PO SEVERE PAIN (PS 8-10) 04/08/18 16:15 04/13/18 19:19 Senna/Docusate Sodium (Senokot S) 2 tab BID PO 04/12/18 21:00 04/13/18 08:15 Sodium Chloride (Saline Lock Flush) 10ML ASDIRECTED PRN IV SEE LABEL COMMENTS 04/09/18 15:15 04/10/18 00:22 Laboratory Tests 04/11/18 23:20 04/12/18 05:53 Red Blood Count 3.82 L, Mean Corpuscular Volume 96.6 H, Mean Corpuscular Hemoglobin 32.2, Mean Corpuscular Hemoglobin Concent 33.3, Red Cell Distribution Width 13.6, Calcium Level 7.8 L 04/12/18 12:35 04/12/18 17:47 04/13/18 00:10 04/13/18 06:16 Red Blood Count 3.89 L, Mean Corpuscular Volume 95.6, Mean Corpuscular Hemoglobin 32.4, Mean Corpuscular Hemoglobin Concent 33.9, Red Cell Distribution Width 13.5, Calcium Level 8.9 04/13/18 13:07 04/13/18 18:33 Microbiology 04/12/18 Stool Occult Blood (BELLA) - Final, Complete Objective Physical Examination General Exam: Positive: Alert, Cooperative Eye Exam: Positive: PERRLA ENT Exam: Positive: Atraumatic Neck Exam: Positive: Supple; Negative: JVD Chest Exam: Positive: Clear to auscultation Heart Exam: Positive: Rate Normal; Negative: Tachycardic, Bradycardic Telemetry: Positive: No significant arrhythmia, Sinus Abdomen Exam: Positive: Normal bowel sounds Male Exam: Positive: Normal Genital Exam Extremity Exam: Positive: Clubbing, Edema (Left lower extremity swelling), Tenderness (pain and tenderness in left thigh has essentially resolved. some tenderness and ache remains in calf); Negative: Cyanosis Skin Exam: Positive: Nl turgor and temperature, Other skin issue (petechial rash on left calf) Neuro Exam: Positive: Normal Gait, Normal Tone Psych Exam: Positive: Mental status NL; Negative: Anxiety Assessment/Plan Assessment Patient continues with left lower extremity venous from lysis and is stable with slight improvement in his symptoms. Plan Patient will continue with left lower extremity venous thrombolysis with follow- up the next 24-48 hours. Xander Lino MD Apr 13, 2018 19:41
[2018-04-13] MEDS: NYSTATIN 100,000 UNITS/GM TOPICAL PWD 15 GM TOP SCH (20:58)
[2018-04-13] MEDS: HEPARIN DRIP 25,000 UNITS in APPROPRIATE DILUENT 1 EA IV SCH (21:00)
[2018-04-14] VITALS (23 sets, daily range): BP systolic 113–160; BP diastolic 65–93
[2018-04-14 00:14] LABS: HEMATOCRIT 35.6 % (42.0-52.0); HEMOGLOBIN 12.1 g/dl (13.5-17.5)
[2018-04-14 00:16] LABS: PARTIAL THROMBOPLASTIN TIME 43.3 SECONDS (25.4-37.6)
[2018-04-14] MEDS: diphenhydrAMINE 25 MG CAP PO PRN (03:16)
[2018-04-14] MEDS: MORPHINE 4 MG/ML 1ML VIAL/SYRINGE (J2270) IV PRN ×6 (03:16→23:50)
[2018-04-14] MEDS: IPRATROPIUM 0.5MG/ALBUTEROL 2.5MG INH SOL UD 3ML (DUONEB)(J7620) NEB SCH ×5 (03:56→20:43)
[2018-04-14] MEDS: PERCOCET 5MG/325MG TAB PO PRN ×3 (05:33→22:02)
[2018-04-14] MEDS: SODIUM CHLORIDE 0.9% INJ 10 ML SYR IV SCH ×2 (05:34→18:00)
[2018-04-14 05:59] LABS: HEMATOCRIT 36.4 % (42.0-52.0); HEMOGLOBIN 12.2 g/dl (13.5-17.5)
[2018-04-14 06:29] LABS: BLOOD UREA NITROGEN 11 MG/DL (7-18); CALCIUM LEVEL 8.2 MG/DL (8.5-10.1); CARBON DIOXIDE LEVEL 30 MEQ/L (21-32); CHLORIDE LEVEL 101 MEQ/L (98-107); CREATININE FOR GFR 0.93 MG/DL (0.70-1.30); GLOMERULAR FILTRATION RATE > 60.0 (>60); GLUCOSE, FASTING 110 MG/DL (70-100); POTASSIUM SERUM 3.9 MEQ/L (3.5-5.1); SODIUM LEVEL 137 MEQ/L (136-145)
[2018-04-14 06:35] LABS: INR 1.04; PROTHROMBIN TIME 13.7 SECONDS (12.1-14.4)
[2018-04-14 06:37] LABS: PARTIAL THROMBOPLASTIN TIME 45.8 SECONDS (25.4-37.6)
[2018-04-14] MEDS: SENOKOT S TAB PO SCH (08:54)
[2018-04-14] MEDS: NYSTATIN 100,000 UNITS/GM TOPICAL PWD 15 GM TOP SCH ×2 (08:55→20:38)
[2018-04-14] MEDS ORDERED: CALCIUM CARBONATE 500 MG CHEW U/D PO PRN (09:00)
[2018-04-14] MEDS: HEPARIN DRIP 25,000 UNITS in APPROPRIATE DILUENT 1 EA IV SCH (12:01)
[2018-04-14 12:10] LABS: HEMATOCRIT 35.6 % (42.0-52.0); HEMOGLOBIN 12.1 g/dl (13.5-17.5)
[2018-04-14] MEDS ORDERED: SENOKOT S TAB PO PRN (12:30)
--- NOTE | 2018-04-14 14:42 | IPNPDOC ---
Subjective Date Seen The patient was seen on 04/14/18. Subjective Chief Complaint/HPI Patient reports improved pain. There is decreased swelling. Objective Physical Examination General Exam: Positive: Alert, Cooperative Eye Exam: Positive: PERRLA ENT Exam: Positive: Atraumatic Neck Exam: Positive: Supple; Negative: JVD Chest Exam: Positive: Clear to auscultation Heart Exam: Positive: Rate Normal; Negative: Tachycardic, Bradycardic Telemetry: Positive: No significant arrhythmia, Sinus Abdomen Exam: Positive: Normal bowel sounds Male Exam: Positive: Normal Genital Exam Extremity Exam: Positive: Clubbing, Edema (Left lower extremity swelling), Tenderness (pain and tenderness in left thigh has essentially resolved. some tenderness and ache remains in calf); Negative: Cyanosis Skin Exam: Positive: Nl turgor and temperature, Other skin issue (petechial rash on left calf) Neuro Exam: Positive: Normal Gait, Normal Tone Psych Exam: Positive: Mental status NL; Negative: Anxiety Assessment /Plan Problems (1) Pulmonary emboli Status: Acute Problem Text: Continue plan of IV heparin and tPA as ordered per Dr. Lino (for DVT) Multiple pulmonary emboli noted on CT scan chest. On heparin at this point. No chest pain, SOB currently. (2) Deep vein thrombosis (DVT) of distal vein of left lower extremity Status: Acute Problem Text: 04/10: thrombolysis inititated. continues on IV tPA and heparin. 04/08: to have thrombolysis tomorrow. delayed due to no available ICU bed. analgesic titrated up due to pain Vascular surgery consult placed. Dr. Lino with discuss with patient later about options. On heparin at this point for treatment. Continue pain medication as needed. (3) Nicotine dependence Problem Text: Continue nicotine patch. (4) Lung nodules Problem Text: Noted on CT scan. May need follow up outpatient. Plan/VTE VTE Prophylaxis Ordered?: Yes VS, I&O, 24H, Fishbone Vital Signs/I&O Vital Signs Date Time Temp Pulse Resp B/P (MAP) Pulse Ox O2 Delivery O2 Flow Rate FiO2 04/14/18 14:26 80 20 144/88 96 04/14/18 12:13 98.1 04/14/18 04:00 2.0 04/13/18 03:59 96 I&O- Last 24 Hours up to 6 AM 04/14/18 06:00 Intake Total 2102 ml Output Total 2110 ml Balance -8 ml Laboratory Data 24H LABS Laboratory Tests 2 04/13/18 18:34: Activated Partial Thromboplast Time 39.1H, Fibrinogen 291 04/13/18 23:49: Activated Partial Thromboplast Time 43.3H, Fibrinogen 309 04/14/18 05:36: Activated Partial Thromboplast Time 45.8H, Fibrinogen 288, Prothrombin Time 13.7, Prothromb Time International Ratio 1.04, Anion Gap 6L, Glomerular Filtration Rate > 60.0, Blood Urea Nitrogen 11, Creatinine 0.93, Sodium Level 137, Potassium Level 3.9, Chloride Level 101, Carbon Dioxide Level 30, Calcium Level 8.2L, Magnesium Level 2.3 04/14/18 11:46: Activated Partial Thromboplast Time 43.4H, Fibrinogen 252 CBC/BMP Laboratory Tests 04/13/18 18:33 04/13/18 23:49 04/14/18 05:36 Calcium Level 8.2 L 04/14/18 05:45 04/14/18 11:46 Microbiology Microbiology 04/12/18 Stool Occult Blood (BELLA) - Final, Complete GME ATTESTATION ATTENDING NOTE Family Medicine Attending Note: I was present on site to supervise Maryam Estrella D.O. (OGME-3). We discussed the history and exam. I confirmed the beverly elements during my [id number] encounter with the patient. We conferred on the ass essment and plan; I agree with the note as documented. As well as swelling in his left leg may be decreased, it is still substantial. It is anticipated he'll be going to the OR again with Dr. Lino for repeat thrombo-lysis. I'm not sure how many times, much longer he will need this. Once he is stable from a surgical standpoint, we plan on putting him back on a direct acting oral anticoagulant. Shortly after that he may be discharged home. 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
[2018-04-14] MEDS ORDERED: HEPARIN 1,000 UNITS/ML 10ML VIAL (FOR RADIOLOGY& DIALYSIS ONLY) As Ordered ONE (15:23)
[2018-04-14] MEDS ORDERED: LIDOCAINE 2% MDV 20 ML VIAL As Ordered ONE (15:23)
[2018-04-14] MEDS ORDERED: ISOVUE-300 61% 50ML VIAL (Q9967) As Ordered ONE (15:23)
[2018-04-14] MEDS ORDERED: fentaNYL 100 MCG/2 ML INJECTION (J3010) As Ordered ONE ×2 (17:08→17:19)
[2018-04-14] MEDS ORDERED: MIDAZOLAM INJ 2 MG/2 ML VIAL (J2250) As Ordered ONE ×2 (17:08→17:19)
[2018-04-14 19:08] LABS: HEMATOCRIT 35.9 % (42.0-52.0); HEMOGLOBIN 12.3 g/dl (13.5-17.5)
--- NOTE | 2018-04-14 20:48 | IPNPDOC ---
Subjective General Date/Time Seen The patient was seen on 04/14/18 at 12:47. Subject Chief Complaint/History The patient is a 42-year-old male admitted with bilateral pulmonary embolus and left lower extremity extensive DVT with swelling and pain. Patient has been undergoing left lower extremity venous thrombolysis with slow progress and slight improvement in his left lower extremity symptoms. Patient has no new co mplaints. Current Medications Current Medications Current Medications Albuterol/ Ipratropium (Duoneb (Ipr 0.5mg/Alb 2.5mg)) 3 ml RQ4H NEB Last administered on 04/14/18at 20:43; Start 04/07/18 at 08:00 Alteplase, Recombinant 10 mg/ Sodium Chloride 100 ml @ 0.5 mls/hr Q24H IV Last administered on 04/12/18at 23:57; Start 04/12/18 at 16:00 Alteplase, Recombinant 10 mg/ Sodium Chloride 110 ml @ 2.5 mls/hr Q24H IV Last administered on 04/11/18at 15:24; Start 04/11/18 at 16:00; Stop 04/12/18 at 15:59; Status DC Alteplase, Recombinant 25 mg/ Sodium Chloride 250 ml @ 2.5 mls/hr Q24H IV Last administered on 04/10/18at 13:29; Start 04/09/18 at 15:00; Stop 04/11/18 at 14:29; Status DC Alvimopan (Entereg) 12 mg BID PO Last administered on 04/13/18at 20:58; Start 04/12/18 at 09:00; Stop 04/14/18 at 06:00; Status DC Calcium Carbonate (Tums) 1,000 mg TID PO Last administered on 04/13/18at 11:13; Start 04/13/18 at 09:00; Stop 04/13/18 at 13:31; Status DC Calcium Carbonate (Tums) 1,000 mg TIDP PRN PO HEARTBURN/INDIGESTION; Start 04/14/18 at 09:00 Clotrimazole (Lotrimin) Apply to affected groin area. DAILY@0800 TOP Last administered on 04/12/18at 08:15; Start 04/11/18 at 08:00; Stop 04/13/18 at 10:54; Status DC Diphenhydramine HCl (Benadryl) 25 mg Q6HP PRN PO RASH/ITCHING Last administered on 04/14/18at 03:16; Start 04/11/18 at 00:15 Doxycycline Hyclate (Vibramycin) 100 mg BID PO Last administered on 04/07/18at 21:06; Start 04/07/18 at 09:00; Stop 04/07/18 at 21:01; Status DC Heparin Sodium (Heparin (Flush)) 200 units ASDIRECTED PRN IV SEE LABEL COMMENTS Last administered on 04/10/18at 00:22; Start 04/09/18 at 15:15 Heparin Sodium (Heparin (Flush)) 200 units PICC IV Last administered on 04/14/18at 05:34; Start 04/09/18 at 18:00 Heparin Sodium (Porcine) (Heparin) ASDIRECTED PRN IV SEE LABEL COMMENTS Last administered on 04/08/18at 20:13; Start 04/07/18 at 03:45; Stop 04/09/18 at 13:20; Status DC Heparin Sodium (Porcine) 38158 units/IV Miscellaneous Supplies 250 ml @ 9.99 mls/hr Q24H IV ; Start 04/07/18 at 03:13; Stop 04/07/18 at 03:37; Status DC Heparin Sodium (Porcine) 95566 units/IV Miscellaneous Supplies 250 ml @ 20 mls/hr [id number] IV Last administered on 04/14/18at 12:01; Start 04/09/18 at 13:30 Heparin Sodium (Porcine) 06872 units/IV Miscellaneous Supplies 250 ml @ 0 mls/hr Q0M IV ; Start 04/07/18 at 03:31; Stop 04/07/18 at 04:05; Status DC Heparin Sodium (Porcine) 00453 units/IV Miscellaneous Supplies 250 ml @ 0 mls/hr Q0M IV Last administered on 04/09/18at 06:06; Start 04/07/18 at 07:30; Stop 04/09/18 at 13:20; Status DC Heparin Sodium (Porcine) 46731 units/IV Miscellaneous Supplies 250 ml @ 0 mls/hr Q0M IV ; Start 04/07/18 at 09:00; Stop 04/07/18 at 09:00; Status DC Home Med (Med Rec Complete!) ASDIRECTED XX ; Start 04/07/18 at 04:15; Stop 04/07/18 at 04:15; Status DC Miscellaneous (Unresolved Clarification Entry) SEE LABEL COMMENTS DAILY XX ; Start 04/14/18 at 09:00; Stop 04/14/18 at 20:45; Status DC Morphine Sulfate (Morphine Sulfate Inj) 2 mg Q30MP PRN IV PAIN Last administered on 04/11/18at 21:48; Start 04/09/18 at 22:30; Stop 04/11/18 at 21:57; Status DC Morphine Sulfate (Morphine Sulfate Inj) 4 mg Q30MP PRN IV PAIN Last administered on 04/14/18at 20:38; Start 04/11/18 at 22:00 Nicotine (Nicoderm Cq 21mg) 1 patch DAILYPRN PRN TD NICOTINE WITHDRAWAL; Start 04/07/18 at 04:15 Non-Formulary Medication (Heparin Iv Rate Change Documentation ml/ Hr) ASDIRECTED XX Last administered on 04/08/18at 05:38; Start 04/07/18 at 03:45; Stop 04/09/18 at 13:20; Status DC Nystatin (Mycostatin Powder, Nystop) To be applied to affec... BID TOP Last administered on 04/14/18at 20:38; Start 04/13/18 at 21:00 Nystatin (Mycostatin Powder, Nystop) To be applied to affec... QID TOP Last administered on 04/12/18at 20:05; Start 04/10/18 at 17:00; Stop 04/13/18 at 10:54; Status DC Oxycodone/ Acetaminophen (Percocet 5mg/ 325mg Tablet) 1 tab Q4HP PRN PO MILD/MODERATE PAIN (PS 1-7) Last administered on 04/11/18 10:37; Start 04/08/18 at 16:15 Oxycodone/ Acetaminophen (Percocet 5mg/ 325mg Tablet) 1 tab Q6H PRN PO PAIN Last administered on 04/08/18 10:57; Start 04/07/18 at 04:00; Stop 04/08/18 at 16:37; Status DC Oxycodone/ Acetaminophen (Percocet 5mg/ 325mg Tablet) 2 tab Q4HP PRN PO SEVERE PAIN (PS 8-10) Last administered on 04/14/18at 14:26; Start 04/08/18 at 16:15 Oxycodone/ Acetaminophen (Percocet 5mg/ 325mg Tablet) 2 tab Q6HP PRN PO SEVERE PAIN (PS 8-10); Start 04/08/18 at 11:15; Stop 04/08/18 at 16:10; Status DC Polyethylene Glycol (Miralax) 1 pkt BID PO Last administered on 04/12/18at 20:04; Start 04/10/18 at 21:00; Stop 04/13/18 at 10:54; Status DC Senna/Docusate Sodium (Senokot S) 1 tab BID PO Last administered on 04/12/18at 08:13; Start 04/10/18 at 21:00; Stop 04/12/18 at 12:52; Status DC Senna/Docusate Sodium (Senokot S) 2 tab BID PO Last administered on 04/14/18at 08:54; Start 04/12/18 at 21:00; Stop 04/14/18 at 12:23; Status DC Senna/Docusate Sodium (Senokot S) 2 tab BIDP PRN PO CONSTIPATION; Start 04/14 at 12:30 Sodium Chloride ([place] Nasal Lester) 2 spray Q1HP PRN NA NASAL DRYNESS; Start 04/11/18 at 21:30 Sodium Chloride (Saline Lock Flush) 10 ML PICC IV Last administered on 04/14/18at 05:34; Start 04/09/18 at 18:00 Sodium Chloride (Saline Lock Flush) 10ML ASDIRECTED PRN IV SEE LABEL COMMENTS L ast administered on 04/10/18at 00:22; Start 04/09/18 at 15:15 Valacyclovir HCl (Valtrex) 1,000 mg Q12H PO Last administered on 04/07/18at 21:06; Start 04/07/18 at 09:00; Stop 04/07/18 at 21:01; Status DC Allergies Coded Allergies: Penicillins (Verified Allergy, Intermediate, hives, 04/04/18) VITAL SIGNS VITAL SIGNS Vital Signs Date Time Temp Pulse Resp B/P (MAP) Pulse Ox O2 Delivery O2 Flow Rate FiO2 04/14/18 20:38 18 04/14/18 20:26 18 04/14/18 19:23 18 04/14/18 18:32 87 18 144/81 95 04/14/18 18:30 97.7 80 20 144/81 (102) 93 04/14/18 15:00 80 18 95 04/14/18 15:00 86 20 158/84 (108) 96 04/14/18 14:26 80 20 144/88 96 04/14/18 14:00 81 18 144/83 (103) 95 04/14/18 13:00 84 20 143/86 (105) 95 04/14/18 12:13 98.1 94 141/71 95 04/14/18 12:00 97.8 93 20 141/71 (94) 95 04/14/18 11:09 79 20 139/68 92 04/14/18 11:00 78 18 139/68 (91) 96 04/14/18 10:00 79 18 146/74 (98) 95 04/14/18 09:00 82 18 150/77 (101) 95 04/14/18 08:00 98.0 80 20 149/68 (95) 96 04/14/18 07:00 77 18 136/65 (88) 95 04/14/18 05:33 18 04/14/18 04:00 2.0 04/14/18 04:00 97.9 93 18 136/79 (98) 96 04/14/18 03:16 18 04/14/18 03:00 78 113/85 (94) 04/14/18 02:06 89 125/65 (85) 04/14/18 01:00 87 143/68 (93) 04/14/18 00:00 98.0 88 18 145/78 (100) 96 04/14/18 00:00 86 145/78 (100) 95 04/14/18 00:00 2.0 04/13/18 23:59 18 04/13/18 21:48 26 04/13/18 21:00 132/77 Intake & Output 04/14/18 06:00 Intake Total 2102 ml Output Total 2110 ml Balance -8 ml Laboratory Tests 04/13/18 23:49: Hemoglobin 12.1L, Hematocrit 35.6L, Activated Partial Thromboplast Time 43.3H, Fibrinogen 309 04/14/18 05:36: Activated Partial Thromboplast Time 45.8H, Fibrinogen 288, Prothrombin Time 13.7, Prothromb Time International Ratio 1.04, Blood Urea Nitrogen 11, Creatinine 0.93, Sodium Level 137, Potassium Level 3.9, Chloride Level 101, Carbon Dioxide Level 30, Calcium Level 8.2L, Anion Gap 6L, Glomerular Filtration Rate > 60.0, Fasting Glucose 110H, Magnesium Level 2.3 04/14/18 05:45: Hemoglobin 12.2L, Hematocrit 36.4L 04/14/18 11:46: Hemoglobin 12.1L, Hematocrit 35.6L, Activated Partial Thromboplast Time 43.4H, Fibrinogen 252 04/14/18 18:50: Activated Partial Thromboplast Time 54.9H, Fibrinogen 277 04/14/18 18:51: Hemoglobin 12.3L, Hematocrit 35.9L Microbiology 04/12/18 Stool Occult Blood (BELLA) - Final, Complete Current Medications Medications (Trade) Dose Ordered Sig/Jer Route PRN Reason Start Time Stop Time Status Last Admin Dose Admin Albuterol/ Ipratropium (Duoneb (Ipr 0.5mg/Alb 2.5mg)) 3 ml RQ4H NEB 04/07/18 08:00 04/14/18 20:43 Alteplase, Recombinant 10 mg/ Sodium Chloride 100 ml @ 0.5 mls/hr Q24H IV 04/12/18 16:00 04/12/18 23:57 Diphenhydramine HCl (Benadryl) 25 mg Q6HP PRN PO RASH/ITCHING 04/11/18 00:15 04/14/18 03:16 Heparin Sodium (Heparin (Flush)) 200 units ASDIRECTED PRN IV SEE LABEL COMMENTS 04/09/18 15:15 04/10/18 00:22 Heparin Sodium (Porcine) 37354 units/IV Miscellaneous Supplies 250 ml @ 20 mls/hr [id number] IV 04/09/18 13:30 04/14/18 12:01 Morphine Sulfate (Morphine Sulfate Inj) 4 mg Q30MP PRN IV PAIN 04/11/18 22:00 04/14/18 20:38 Nystatin (Mycostatin Powder, Nystop) To be applied to affec... BID TOP 04/13/18 21:00 04/14/18 20:38 Oxycodone/ Acetaminophen (Percocet 5mg/ 325mg Tablet) 2 tab Q4HP PRN PO SEVERE PAIN (PS 8-10) 04/08/18 16:15 04/14/18 14:26 Sodium Chloride (Saline Lock Flush) 10ML ASDIRECTED PRN IV SEE LABEL COMMENTS 04/09/18 15:15 04/10/18 00:22 Laboratory Tests 04/13/18 00:10 04/13/18 06:16 Red Blood Count 3.89 L, Mean Corpuscular Volume 95.6, Mean Corpuscular Hemoglobin 32.4, Mean Corpuscular Hemoglobin Concent 33.9, Red Cell Distribution Width 13.5, Calcium Level 8.9 04/13/18 13:07 04/13/18 18:33 04/13/18 23:49 04/14/18 05:36 Calcium Level 8.2 L 04/14/18 05:45 04/14/18 11:46 04/14/18 18:51 Microbiology 04/12/18 Stool Occult Blood (BELLA) - Final, Complete Objective Physical Examination General Exam: Positive: Alert, Cooperative Eye Exam: Positive: PERRLA ENT Exam: Positive: Atraumatic Neck Exam: Positive: Supple; Negative: JVD Chest Exam: Positive: Clear to auscultation Heart Exam: Positive: Rate Normal; Negative: Tachycardic, Bradycardic Telemetry: Positive: No significant arrhythmia, Sinus Abdomen Exam: Positive: Normal bowel sounds Male Exam: Positive: Normal Genital Exam Extremity Exam: Positive: Clubbing, Edema (Left lower extremity swelling), Tenderness (pain and tenderness in left thigh has essentially resolved. some tenderness and ache remains in calf); Negative: Cyanosis Skin Exam: Positive: Nl turgor and temperature, Other skin issue (petechial rash on left calf) Neuro Exam: Positive: Normal Gait, Normal Tone Psych Exam: Positive: Mental status NL; Negative: Anxiety Assessment/Plan Assessment Extensive left lower extremity DVT currently undergoing a left lower extremity venous thrombolysis. Plan Patient will undergo a lysis follow-up later today. Xander Lino MD Apr 14, 2018 20:48
[2018-04-15] VITALS (30 sets, daily range): BP systolic 113–152; BP diastolic 55–98
[2018-04-15 00:13] LABS: PARTIAL THROMBOPLASTIN TIME 43.4 SECONDS (25.4-37.6)
[2018-04-15 00:46] LABS: HEMATOCRIT 36.3 % (42.0-52.0); HEMOGLOBIN 12.4 g/dl (13.5-17.5)
[2018-04-15] MEDS: HEPARIN DRIP 25,000 UNITS in APPROPRIATE DILUENT 1 EA IV SCH (00:57)
[2018-04-15] MEDS: IPRATROPIUM 0.5MG/ALBUTEROL 2.5MG INH SOL UD 3ML (DUONEB)(J7620) NEB SCH ×6 (01:01→20:35)
[2018-04-15] MEDS: MORPHINE 4 MG/ML 1ML VIAL/SYRINGE (J2270) IV PRN ×7 (02:05→23:41)
[2018-04-15] MEDS: SODIUM CHLORIDE 0.9% INJ 10 ML SYR IV SCH ×2 (05:17→18:18)
[2018-04-15 06:01] LABS: HEMATOCRIT 35.8 % (42.0-52.0); HEMOGLOBIN 11.9 g/dl (13.5-17.5); MEAN CORPUSCULAR HEMOGLOBIN 31.4 pg (27.0-33.0); MEAN CORPUSCULAR HGB CONC 33.2 g/dl (32.0-36.5); MEAN CORPUSCULAR VOLUME 94.5 fl (80.0-96.0); PLATELET COUNT, AUTOMATED 212 10^3/uL (150-450); RED BLOOD COUNT 3.79 10^6/uL (4.30-6.10)
[2018-04-15 06:11] LABS: ALBUMIN 2.8 GM/DL (3.2-5.2); ALT/SGPT 41 U/L (12-78); BILIRUBIN,TOTAL 0.3 MG/DL (0.2-1.0); BLOOD UREA NITROGEN 10 MG/DL (7-18); CALCIUM LEVEL 8.1 MG/DL (8.5-10.1); CARBON DIOXIDE LEVEL 30 MEQ/L (21-32); CHLORIDE LEVEL 102 MEQ/L (98-107); CREATININE FOR GFR 0.99 MG/DL (0.70-1.30); GLOMERULAR FILTRATION RATE > 60.0 (>60); GLUCOSE, FASTING 113 MG/DL (70-100); SODIUM LEVEL 138 MEQ/L (136-145); TOTAL PROTEIN 6.4 GM/DL (6.4-8.2)
[2018-04-15 06:13] LABS: PARTIAL THROMBOPLASTIN TIME 48.6 SECONDS (25.4-37.6)
[2018-04-15] MEDS: PERCOCET 5MG/325MG TAB PO PRN ×5 (07:52→20:33)
[2018-04-15] MEDS: NYSTATIN 100,000 UNITS/GM TOPICAL PWD 15 GM TOP SCH ×2 (09:00→21:00)
--- NOTE | 2018-04-15 11:59 | IPNPDOC ---
Subjective Date Seen The patient was seen on 04/15/18. Subjective Chief Complaint/HPI Pt this morning without ne concerns. He has not been out of bed much d/t increased pain nad swelling of LLE. anticipated another procedure today if materials arrive at hospital with Dr Lino. General: Denies: Fatigue Constitutional: Denies: Chills, Fever Pulmonary: Denies: Dyspnea, Cough Cardiovascular: Reports: Edema (BLE, worse on the L); Denies: Chest Pain, Palpitations Gastrointestinal: Denies: Nausea, Vomiting, Diarrhea Objective Physical Examination General Exam: Positive: Alert, Cooperative Neck Exam: Positive: Supple; Negative: JVD Chest Exam: Positive: Clear to auscultation Heart Exam: Positive: Rate Normal; Negative: Tachycardic, Bradycardic Telemetry: Positive: No significant arrhythmia, Sinus Abdomen Exam: Positive: Normal bowel sounds Male Exam: Positive: Normal Genital Exam Extremity Exam: Positive: Clubbing, Edema (Left lower extremity swelling), Tenderness (pain and tenderness in left thigh has essentially resolved. some tenderness and ache remains in calf); Negative: Cyanosis Skin Exam: Positive: Nl turgor and temperature, Other skin issue (petechial rash on left calf) Neuro Exam: Positive: Normal Gait, Normal Tone Psych Exam: Positive: Mental status NL; Negative: Anxiety Assessment /Plan Problems (1) Pulmonary emboli Status: Acute Problem Text: 04/15 Current plan to continue until Dr Lino has completed procedures, then can transition back to [facility]. 04/14 Continue plan of IV heparin and tPA as ordered per Dr. Lino (for DVT) Multiple pulmonary emboli noted on CT scan chest. On heparin at this point. No chest pain, SOB currently. (2) Deep vein thrombosis (DVT) of distal vein of left lower extremity Status: Acute Problem Text: 04/15 see above. 04/10: thrombolysis inititated. continues on IV tPA and heparin. 04/08: to have thrombolysis tomorrow. delayed due to no available ICU bed. analgesic titrated up due to pain Vascular surgery consult placed. Dr. Lino with discuss with patient later about options. On heparin at this point for treatment. Continue pain medication as needed. (3) Nicotine dependence Status: Chronic Problem Text: Continue nicotine patch. (4) Lung nodules Problem Text: Noted on CT scan. May need follow up outpatient. Plan/VTE VTE Prophylaxis Ordered?: Yes Plan Family Medicine Attending Note: I saw and examined Mr. Parmar, discussed with LIZBETH Owusu. Agree with her note as documented. He did have another balloon angioplasty procedure today with Dr. Lino. It sounds like something was left in to stent his vein open, but it was not the final product that is desired by the surgeon. It seems as if he may have another procedure tomorrow. We will continue to follow along with Dr. Lino until the procedures are done. At that point the patient may be transitioned off intravenous heparin and onto a DAOC to be discharged home. 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, 24H, Fishbone Vital Signs/I&O Vital Signs Date Time Temp Pulse Resp B/P (MAP) Pulse Ox O2 Delivery O2 Flow Rate FiO2 04/15/18 11:45 22 138/84 04/15/18 11:00 74 92 04/15/18 07:52 97.6 04/15/18 05:28 99 04/14/18 04:00 2.0 I&O- Last 24 Hours up to 6 AM 04/15/18 06:00 Intake Total 2675 ml Output Total 2375 ml Balance 300 ml Laboratory Data 24H LABS Laboratory Tests 2 04/14/18 18:50: Activated Partial Thromboplast Time 54.9H, Fibrinogen 277 04/14/18 23:52: Activated Partial Thromboplast Time 43.4H, Fibrinogen 300 04/15/18 05:31: Activated Partial Thromboplast Time 48.6H, Fibrinogen 285, Nucleated Red Blood Cells % (auto) 0.0, Anion Gap 6L, Glomerular Filtration Rate > 60.0, Blood Urea Nitrogen 10, Creatinine 0.99, Sodium Level 138, Potassium Level 4.0, Chloride Level 102, Carbon Dioxide Level 30, Calcium Level 8.1L, Aspartate Amino Transf ( AST/SGOT) 25, Alanine Aminotransferase (ALT/SGPT) 41, Alkaline Phosphatase 93, Total Bilirubin 0.3, Total Protein 6.4, Albumin 2.8L, Albumin/Globulin Ratio 0.78L CBC/BMP Laboratory Tests 04/14/18 18:51 04/14/18 23:52 04/15/18 05:31 Red Blood Count 3.79 L, Mean Corpuscular Volume 94.5, Mean Corpuscular Hemoglobin 31.4, Mean Corpuscular Hemoglobin Concent 33.2, Red Cell Distribution Width 13.7, Calcium Level 8.1 L, Aspartate Amino Transf (AST/SGOT) 25, Alanine Aminotransferase (ALT/SGPT) 41, Alkaline Phosphatase 93, Total Bilirubin 0.3, Total Protein 6.4, Albumin 2.8 L Microbiology Microbiology 04/12/18 Stool Occult Blood (BELLA) - Final, Complete STONEY MCCULLOUGH PA-C Apr 15, 2018 11:59 am Ross Ahumada MD Apr 15, 2018 8:54 pm
[2018-04-15] MEDS ORDERED: MIDAZOLAM INJ 2 MG/2 ML VIAL (J2250) As Ordered ONE ×3 (13:30→14:19)
[2018-04-15] MEDS ORDERED: LIDOCAINE 2% MDV 20 ML VIAL As Ordered ONE (13:30)
[2018-04-15] MEDS ORDERED: HEPARIN 1,000 UNITS/ML 10ML VIAL (FOR RADIOLOGY& DIALYSIS ONLY) As Ordered ONE (13:30)
[2018-04-15] MEDS ORDERED: fentaNYL 100 MCG/2 ML INJECTION (J3010) As Ordered ONE ×3 (13:30→14:19)
[2018-04-15] MEDS ORDERED: ISOVUE-300 61% 50ML VIAL (Q9967) As Ordered ONE (13:30)
[2018-04-15] MEDS ORDERED: HEPARIN 25,000 UNITS/250 ML D5W BAG (100 UNITS/ML) As Ordered ONE (15:07)
[2018-04-15 18:34] LABS: HEMATOCRIT 36.3 % (42.0-52.0); HEMOGLOBIN 12.1 g/dl (13.5-17.5)
[2018-04-15] MEDS: diphenhydrAMINE 25 MG CAP PO PRN (20:31)
[2018-04-16] VITALS (9 sets, daily range): BP systolic 129–143; BP diastolic 62–84
[2018-04-16] LABS: HEMATOCRIT 35.8 % (42.0-52.0); HEMOGLOBIN 12.2 g/dl (13.5-17.5)
[2018-04-16 00:11] LABS: CARDIOLIPIN IGA ANTIBODY <9 APL U/mL (0-11); CARDIOLIPIN IGG ANTIBODY <9 GPL U/mL (0-14); CARDIOLIPIN IGM ANTIBODY 12 MPL U/mL (0-12)
[2018-04-16 00:25] LABS: PARTIAL THROMBOPLASTIN TIME 60.1 SECONDS (25.4-37.6)
[2018-04-16] MEDS: MORPHINE 4 MG/ML 1ML VIAL/SYRINGE (J2270) IV PRN ×9 (00:36→22:34)
[2018-04-16] MEDS: HEPARIN DRIP 25,000 UNITS in APPROPRIATE DILUENT 1 EA IV SCH ×4 (01:35→22:40)
[2018-04-16] MEDS: IPRATROPIUM 0.5MG/ALBUTEROL 2.5MG INH SOL UD 3ML (DUONEB)(J7620) NEB SCH ×6 (04:00→21:06)
[2018-04-16] MEDS: SODIUM CHLORIDE 0.9% INJ 10 ML SYR IV SCH ×2 (05:44→18:48)
[2018-04-16 05:53] LABS: HEMATOCRIT 35.4 % (42.0-52.0); HEMOGLOBIN 11.9 g/dl (13.5-17.5); MEAN CORPUSCULAR HEMOGLOBIN 31.8 pg (27.0-33.0); MEAN CORPUSCULAR HGB CONC 33.6 g/dl (32.0-36.5); MEAN CORPUSCULAR VOLUME 94.7 fl (80.0-96.0); PLATELET COUNT, AUTOMATED 211 10^3/uL (150-450); RED BLOOD COUNT 3.74 10^6/uL (4.30-6.10)
[2018-04-16 06:15] LABS: ALBUMIN 2.8 GM/DL (3.2-5.2); ALT/SGPT 34 U/L (12-78); BILIRUBIN,TOTAL 0.3 MG/DL (0.2-1.0); BLOOD UREA NITROGEN 13 MG/DL (7-18); CALCIUM LEVEL 8.2 MG/DL (8.5-10.1); CARBON DIOXIDE LEVEL 30 MEQ/L (21-32); CHLORIDE LEVEL 101 MEQ/L (98-107); CREATININE FOR GFR 0.97 MG/DL (0.70-1.30); GLOMERULAR FILTRATION RATE > 60.0 (>60); GLUCOSE, FASTING 94 MG/DL (70-100); SODIUM LEVEL 139 MEQ/L (136-145); TOTAL PROTEIN 6.3 GM/DL (6.4-8.2)
[2018-04-16] MEDS ORDERED: HEPARIN SOD (PORCINE) 5000 UNITS/ML VIAL IV ONE ×2 (07:00→14:45)
[2018-04-16] MEDS: PERCOCET 5MG/325MG TAB PO PRN ×4 (07:46→23:22)
[2018-04-16] MEDS: NYSTATIN 100,000 UNITS/GM TOPICAL PWD 15 GM TOP SCH ×2 (09:11→21:07)
[2018-04-16] MEDS ORDERED: fentaNYL 100 MCG/2 ML INJECTION (J3010) As Ordered ONE ×2 (11:07→12:29)
[2018-04-16] MEDS ORDERED: HEPARIN 1,000 UNITS/ML 10ML VIAL (FOR RADIOLOGY& DIALYSIS ONLY) As Ordered ONE (11:07)
[2018-04-16] MEDS ORDERED: LIDOCAINE 2% MDV 20 ML VIAL As Ordered ONE (11:07)
[2018-04-16] MEDS ORDERED: MIDAZOLAM INJ 2 MG/2 ML VIAL (J2250) As Ordered ONE ×2 (11:07→12:29)
[2018-04-16] MEDS ORDERED: ISOVUE-300 61% 50ML VIAL (Q9967) As Ordered ONE (11:08)
[2018-04-16] MEDS ORDERED: MIDAZOLAM INJ 2 MG/2 ML VIAL (J2250) IV PRN (14:30)
[2018-04-16] MEDS ORDERED: fentaNYL 100 MCG/2 ML INJECTION (J3010) IV PRN (14:30)
--- NOTE | 2018-04-16 17:55 | IPNPDOC ---
Subjective Date Seen The patient was seen on 04/16/18. Subjective Chief Complaint/HPI Patient reported some increased pain overnight. Constitutional: Denies: Chills, Fever ENT: Denies: Head Aches Pulmonary: Denies: Dyspnea, Cough Cardiovascular: Denies: Chest Pain Objective Physical Examination General Exam: Positive: Alert, Cooperative Neck Exam: Positive: Supple; Negative: JVD Chest Exam: Positive: Clear to auscultation Heart Exam: Positive: Rate Normal; Negative: Tachycardic, Bradycardic Telemetry: Positive: No significant arrhythmia, Sinus Abdomen Exam: Positive: Normal bowel sounds Male Exam: Positive: Normal Genital Exam Extremity Exam: Positive: Clubbing, Edema (Left lower extremity swelling), Tenderness (pain and tenderness in left thigh has essentially resolved. some tenderness and ache remains in calf); Negative: Cyanosis Skin Exam: Positive: Nl turgor and temperature, Rash (Closer examination of the lesion on his heel today reveals a linear cluster of pustules on a background of mild erythema and some hyperkeretosis. Importantly, the pustules seem to be welling up from inside the skin. Clinically, this seems most consistent with a contact dermatitis, or sub-acute eczema at this time.), Other skin issue (petechial rash on left calf) Neuro Exam: Positive: Normal Gait, Normal Tone Psych Exam: Positive: Mental status NL; Negative: Anxiety Assessment /Plan Problems (1) Pulmonary emboli Status: Acute Problem Text: 04/[address] Lino. 04/15 Current plan to continue until Dr Lino has completed procedures, then can transition back to [facility]. 04/14 Continue plan of IV heparin and tPA as ordered per Dr. Lino (for DVT) Multiple pulmonary emboli noted on CT scan chest. On heparin at this point. No chest pain, SOB currently. (2) Deep vein thrombosis (DVT) of distal vein of left lower extremity Status: Acute Problem Text: 04/15 see above. 04/10: thrombolysis inititated. continues on IV tPA and heparin. 04/08: to have thrombolysis tomorrow. delayed due to no available ICU bed. analgesic titrated up due to pain Vascular surgery consult placed. Dr. Lino with discuss with patient later about options. On heparin at this point for treatment. Continue pain medication as needed. (3) Skin lesion Problem Text: Patient has some skin lesions noted on left heal and left lateral lower extremity. They appear eczematous at this time. Viral swab taken, viral culture pending. 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 Wait for culture. (4) Nicotine dependence Status: Chronic Problem Text: Continue nicotine patch. (5) Lung nodules Problem Text: Noted on CT scan. May need follow up outpatient. Plan/VTE VTE Prophylaxis Ordered?: Yes Plan Family Medicine Attending Note: I was present on site to supervise Maryam Estrella D.O. (OGME-3). We discussed the history and exam. I confirmed the beverly elements during my [id number] encounter with the patient. We conferred on the assessment and plan; I agree with the note as documented. Dr. Lino to continue for another procedure today and it seems that he may a planning another procedure in 2 days. Closer evaluation of the patient's skin reveals what is likely a mild eczematous outbreak on his left heel. It is also possible this is related to a contact dermatitis. On his left lateral thigh he also has scattered follicular lesions consistent with staph aureus. None of these are forming a cellulitis or abscess. Nursing gave him chlorhexidine wipes to use for his hygiene today. We'll continue to monitor these lesions. If they seem to get worse we may consider topical mupirocin. 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, I&O, 24H, Fishbone Vital Signs/I&O Vital Signs Date Time Temp Pulse Resp B/P (MAP) Pulse Ox O2 Delivery O2 Flow Rate FiO2 04/16/18 17:13 83 95 04/16/18 14:00 89 143/79 (100) 04/16/18 08:00 97.5 04/15/18 17:01 2.0 04/15/18 05:28 99 I&O- Last 24 Hours up to 6 AM 04/16/18 06:00 Intake Total 2465.5 ml Output Total 2201 ml Balance 264.5 ml Laboratory Data 24H LABS Laboratory Tests 2 04/15/18 18:14: Activated Partial Thromboplast Time 65.4H, Fibrinogen 345 04/15/18 23:52: Activated Partial Thromboplast Time 60.1H, Fibrinogen 358 04/16/18 05:30: Activated Partial Thromboplast Time 56.0H, Fibrinogen 358, Nucleated Red Blood Cells % (auto) 0.0, Anion Gap 8, Glomerular Filtration Rate > 60.0, Blood Urea Nitrogen 13, Creatinine 0.97, Sodium Level 139, Potassium Level 4.0, Chloride Level 101, Carbon Dioxide Level 30, Calcium Level 8.2L, Aspartate Amino Transf (AST/SGOT) 20, Alanine Aminotransferase (ALT/SGPT) 34, Alkaline Phosphatase 95, Total Bilirubin 0.3, Total Protein 6.3L, Albumin 2.8L, Albumin/Globulin Ratio 0.80L CBC/BMP Laboratory Tests 04/15/18 18:14 04/15/18 23:52 04/16/18 05:30 Red Blood Count 3.74 L, Mean Corpuscular Volume 94.7, Mean Corpuscular Hemo globin 31.8, Mean Corpuscular Hemoglobin Concent 33.6, Red Cell Distribution Width 13.8, Calcium Level 8.2 L, Aspartate Amino Transf (AST/SGOT) 20, Alanine Aminotransferase (ALT/SGPT) 34, Alkaline Phosphatase 95, Total Bilirubin 0.3, Total Protein 6.3 L, Albumin 2.8 L Microbiology Microbiology 04/12/18 Stool Occult Blood (BELLA) - Final, Complete 04/15/18 Viral Culture, Received Pending GME ATTESTATION GME ATTESTATION My faculty preceptor for this patient encounter was physically present during the encounter and was fully available. All aspects of the patient interview, examination, medical decision making process, and medical care plan development were reviewed and approved by the faculty preceptor. The faculty preceptor is aware and concurs with the plan as stated in the body of this note and will attest to such by his/her cosignature. MARYAM ESTRELLA DO Apr 16, 2018 17:55 Ross Ahumada MD Apr 16, 2018 21:03
[2018-04-16 19:29] LABS: HEMATOCRIT 35.8 % (42.0-52.0); HEMOGLOBIN 12.1 g/dl (13.5-17.5)
[2018-04-17] VITALS (22 sets, daily range): BP systolic 115–162; BP diastolic 60–94
[2018-04-17] MEDS: IPRATROPIUM 0.5MG/ALBUTEROL 2.5MG INH SOL UD 3ML (DUONEB)(J7620) NEB SCH ×6 (00:35→20:28)
[2018-04-17] MEDS: MORPHINE 4 MG/ML 1ML VIAL/SYRINGE (J2270) IV PRN (00:35)
[2018-04-17 00:58] LABS: HEMATOCRIT 35.6 % (42.0-52.0); HEMOGLOBIN 11.8 g/dl (13.5-17.5)
[2018-04-17] MEDS: SODIUM CHLORIDE 0.9% INJ 10 ML SYR IV PRN (01:05)
[2018-04-17 01:34] LABS: PARTIAL THROMBOPLASTIN TIME 61.5 SECONDS (25.4-37.6)
[2018-04-17] MEDS ORDERED: ONDANSETRON 4MG/2ML VIAL (J2405) IV PRN (01:45)
[2018-04-17] MEDS ORDERED: NALOXONE INJ 0.4 MG/1 ML VIAL (J2310) IV PRN (01:45)
[2018-04-17] MEDS ORDERED: NALBUPHINE HCL 10 MG/ML AMP (J2300) IV PRN (01:45)
[2018-04-17] MEDS ORDERED: EPIDURAL/PCA KEYS XX PRN (01:45)
[2018-04-17] MEDS ORDERED: diphenhydrAMINE INJ 50MG/ML VIAL (J1200) IV PRN (01:45)
[2018-04-17] MEDS: NS 1,000 ML IV SCH (03:57)
[2018-04-17] MEDS: MORPHINE 1MG/ML IN 0.9% NACL 100ML IV BAG IV PRN (03:58)
[2018-04-17] MEDS: SODIUM CHLORIDE 0.9% INJ 10 ML SYR IV SCH ×2 (06:08→18:00)
[2018-04-17 06:26] LABS: HEMATOCRIT 36.4 % (42.0-52.0); MEAN CORPUSCULAR HEMOGLOBIN 31.8 pg (27.0-33.0); MEAN CORPUSCULAR VOLUME 96.6 fl (80.0-96.0); PLATELET COUNT, AUTOMATED 227 10^3/uL (150-450); RED BLOOD COUNT 3.77 10^6/uL (4.30-6.10); WHITE BLOOD COUNT 12.2 10^3/uL (4.0-10.0)
[2018-04-17 06:49] LABS: BLOOD UREA NITROGEN 12 MG/DL (7-18); CALCIUM LEVEL 8.5 MG/DL (8.5-10.1); CARBON DIOXIDE LEVEL 29 MEQ/L (21-32); CHLORIDE LEVEL 100 MEQ/L (98-107); CREATININE FOR GFR 1.03 MG/DL (0.70-1.30); GLOMERULAR FILTRATION RATE > 60.0 (>60); GLUCOSE, FASTING 112 MG/DL (70-100); POTASSIUM SERUM 3.9 MEQ/L (3.5-5.1); SODIUM LEVEL 136 MEQ/L (136-145)
[2018-04-17 06:52] LABS: PARTIAL THROMBOPLASTIN TIME 68.2 SECONDS (25.4-37.6)
[2018-04-17] MEDS: HEPARIN DRIP 25,000 UNITS in APPROPRIATE DILUENT 1 EA IV SCH ×2 (08:23→17:58)
[2018-04-17] MEDS: NYSTATIN 100,000 UNITS/GM TOPICAL PWD 15 GM TOP SCH ×2 (08:23→21:14)
[2018-04-17 12:31] LABS: HEMATOCRIT 34.6 % (42.0-52.0); HEMOGLOBIN 11.7 g/dl (13.5-17.5)
[2018-04-17 12:45] LABS: PARTIAL THROMBOPLASTIN TIME 57.7 SECONDS (25.4-37.6)
[2018-04-17] MEDS ORDERED: HEPARIN SOD (PORCINE) 5000 UNITS/ML VIAL IV ONE (14:15)
[2018-04-17 18:17] LABS: HEMATOCRIT 35.1 % (42.0-52.0); HEMOGLOBIN 11.8 g/dl (13.5-17.5)
[2018-04-17 18:49] LABS: PARTIAL THROMBOPLASTIN TIME 58.7 SECONDS (25.4-37.6)
--- NOTE | 2018-04-17 21:24 | IPNPDOC ---
Subjective Date Seen The patient was seen on 04/17/18. Subjective Chief Complaint/HPI Patient's pain has been improving with different pain control. No other changes. Constitutional: Denies: Chills, Fever ENT: Denies: Head Aches Pulmonary: Denies: Dyspnea Cardiovascular: Denies: Chest Pain Objective Physical Examination General Exam: Positive: Alert, Cooperative Neck Exam: Positive: Supple; Negative: JVD Chest Exam: Positive: Clear to auscultation Heart Exam: Positive: Rate Normal; Negative: Tachycardic, Bradycardic Telemetry: Positive: No significant arrhythmia, Sinus Abdomen Exam: Positive: Normal bowel sounds Male Exam: Positive: Normal Genital Exam Extremity Exam: Positive: Clubbing, Edema (Left lower extremity swelling), Tenderness (pain and tenderness in left thigh has essentially resolved. some tenderness and ache remains in calf); Negative: Cyanosis Skin Exam: Positive: Nl turgor and temperature, Rash (Closer examination of the lesion on his heel today reveals a linear cluster of pustules on a background of mild erythema and some hyperkeretosis. Importantly, the pustules seem to be welling up from inside the skin. Clinically, this seems most consistent with a contact dermatitis, or sub-acute eczema at this time.), Other skin issue (petechial rash on left calf) Neuro Exam: Positive: Normal Gait, Normal Tone Psych Exam: Positive: Mental status NL; Negative: Anxiety Assessment /Plan Problems (1) Pulmonary emboli Status: Acute Problem Text: 04/[address] Lino. 04/15 Current plan to continue until Dr Lino has completed procedures, then can transition back to [facility]. 04/14 Continue plan of IV heparin and tPA as ordered per Dr. Lino (for DVT) Multiple pulmonary emboli noted on CT scan chest. On heparin at this point. No chest pain, SOB currently. (2) Deep vein thrombosis (DVT) of distal vein of left lower extremity Status: Acute Problem Text: 04/15 see above. 04/10: thrombolysis inititated. continues on IV tPA and heparin. 04/08: to have thrombolysis tomorrow. delayed due to no available ICU bed. analgesic titrated up due to pain Vascular surgery consult placed. Dr. Lino with discuss with patient later about options. On heparin at this point for treatment. Continue pain medication as needed. (3) Skin lesion Problem Text: Patient has some skin lesions noted on left heal and left lateral lower extremity. They appear eczematous at this time. Viral swab taken, viral culture pending. 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 Wait for culture. (4) Nicotine dependence Status: Chronic Problem Text: Continue nicotine patch. (5) Lung nodules Problem Text: Noted on CT scan. May need follow up outpatient. Plan/VTE VTE Prophylaxis Ordered?: Yes VS, I&O, 24H, Fishbone Vital Signs/I&O Vital Signs Date Time Temp Pulse Resp B/P (MAP) Pulse Ox O2 Delivery O2 Flow Rate FiO2 04/17/18 18:00 85 18 138/60 (86) 92 04/17/18 16:00 97.3 04/17/18 05:00 2.0 04/15/18 05:28 99 I&O- Last 24 Hours up to 6 AM 04/17/18 06:00 Intake Total 2862 ml Output Total 2975 ml Balance -113 ml Laboratory Data 24H LABS Laboratory Tests 2 04/17/18 00:39: Activated Partial Thromboplast Time 61.5H, Fibrinogen 363 04/17/18 06:12: Activated Partial Thromboplast Time 68.2H, Fibrinogen 376, Nucleated Red Blood Cells % (auto) 0.0, Anion Gap 7L, Glomerular Filtration Rate > 60.0, Blood Urea Nitrogen 12, Creatinine 1.03, Sodium Level 136, Potassium Level 3.9, Chloride Level 100, Carbon Dioxide Level 29, Calcium Level 8.5 04/17/18 12:15: Activated Partial Thromboplast Time 57.7H, Fibrinogen 376 04/17/18 18:06: Activated Partial Thromboplast Time 58.7H, Fibrinogen 424 CBC/BMP Laboratory Tests 04/17/18 00:39 04/17/18 06:12 Red Blood Count 3.77 L, Mean Corpuscular Volume 96.6 H, Mean Corpuscular Hemoglobin 31.8, Mean Corpuscular Hemoglobin Concent 33.0, Red Cell Distribution Width 13.8, Calcium Level 8.5 04/17/18 12:15 04/17/18 18:06 Microbiology Microbiology 04/12/18 Stool Occult Blood (BELLA) - Final, Complete 04/15/18 Viral Culture, Received Pending GME ATTESTATION ATTENDING NOTE Family Medicine Attending Note: I was present on site to supervise Maryam Estrella D.O. (OGME-3). We discussed the history and exam. I confirmed the beverly elements during my [id number] encounter with the patient. We conferred on the assessment and plan; I agree with the note as documented. Overall he has been doing well. The skin lesions that are under consideration do not appear herpetic to me and frankly I don't think he is sick enough to have disseminated zoster; will continue to monitor. Dr. Lino is planning on taking him for another proce dure tomorrow. My understanding is the hope is that this will be the last one. 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
--- NOTE | 2018-04-17 23:42 | IPNPDOC ---
Subjective General Date/Time Seen The patient was seen on 04/17/18 at 23:41. Subject Chief Complaint/History The patient is a 42-year-old male admitted with bilateral pulmonary embolus and extensive left lower extremity DVT. Patient has no new complaints and notices that his left lower extremity swelling is decreasing as well as the swelling in his left hip and flank region. Current Medications Current Medications Current Medications Albuterol/ Ipratropium (Duoneb (Ipr 0.5mg/Alb 2.5mg)) 3 ml RQ4H NEB Last administered on 04/17/18at 20:28; Start 04/07/18 at 08:00 Alteplase, Recombinant 10 mg/ Sodium Chloride 100 ml @ 0.5 mls/hr Q24H IV Last administered on 04/12/18at 23:57; Start 04/12/18 at 16:00; Stop 04/15/18 at 15:14; Status DC Alteplase, Recombinant 10 mg/ Sodium Chloride 110 ml @ 2.5 mls/hr Q24H IV Last administered on 04/11/18at 15:24; Start 04/11/18 at 16:00; Stop 04/12/18 at 15:59; Status DC Alteplase, Recombinant 25 mg/ Sodium Chloride 250 ml @ 2.5 mls/hr Q24H IV Last administered on 04/10/18at 13:29; Start 04/09/18 at 15:00; Stop 04/11/18 at 14:29; Status DC Alvimopan (Entereg) 12 mg BID PO Last administered on 04/13/18at 20:58; Start at 09:00; Stop 04/14/18 at 06:00; Status DC Calcium Carbonate (Tums) 1,000 mg TID PO Last administered on 04/13/18at 11:13; Start 04/13/18 at 09:00; Stop 04/13/18 at 13:31; Status DC Calcium Carbonate (Tums) 1,000 mg TIDP PRN PO HEARTBURN/INDIGESTION; Start 04/14/18 at 09:00 Clotrimazole (Lotrimin) Apply to affected groin area. DAILY@0800 TOP Last administered on 04/12/18at 08:15; Start 04/11/18 at 08:00; Stop 04/13/18 at 10:54; Status DC Diphenhydramine HCl (Benadryl) 12.5 mg Q4HP PRN IV ITCHING; Start 04/17/18 at 01:45 Diphenhydramine HCl (Benadryl) 25 mg Q6HP PRN PO RASH/ITCHING Last administered on 04/15/18at 20:31; Start 04/11/18 at 00:15 Doxycycline Hyclate (Vibramycin) 100 mg BID PO Last administered on 04/07/18at 21:06; Start 04/07/18 at 09:00; Stop 04/07/18 at 21:01; Status DC Fentanyl Citrate (Sublimaze) 50 mcg ASDIRECTED PRN IV FOR PROCEDURE; Start 04/16/18 at 14:30 Heparin Sodium (Heparin (Flush)) 200 units ASDIRECTED PRN IV SEE LABEL COMMENTS Last administered on 04/17/18at 01:05; Start 04/09/18 at 15:15 Heparin Sodium (Heparin (Flush)) 200 units PICC IV Last administered on 04/17/18at 18:00; Start 04/09/18 at 18:00 Heparin Sodium (Porcine) (Heparin) ASDIRECTED PRN IV SEE LABEL COMMENTS Last administered on 04/08/18at 20:13; Start 04/07/18 at 03:45; Stop 04/09/18 at 13:20; Status DC Heparin Sodium (Porcine) 83501 units/IV Miscellaneous Supplies 250 ml @ 9.99 m ls/hr Q24H IV ; Start 04/07/18 at 03:13; Stop 04/07/18 at 03:37; Status DC Heparin Sodium (Porcine) 08592 units/IV Miscellaneous Supplies 250 ml @ 28 mls/hr Q8H56M IV Last administered on 04/17/18at 17:58; Start 04/09/18 at 13:30 Heparin Sodium (Porcine) 38420 units/IV Miscellaneous Supplies 250 ml @ 0 mls/hr Q0M IV ; Start 04/07/18 at 03:31; Stop 04/07/18 at 04:05; Status DC Heparin Sodium (Porcine) 80969 units/IV Miscellaneous Supplies 250 ml @ 0 mls/hr Q0M IV Last administered on 04/09/18at 06:06; Start 04/07/18 at 07:30; Stop 04/09/18 at 13:20; Status DC Heparin Sodium (Porcine) 85511 units/IV Miscellaneous Supplies 250 ml @ 0 mls/hr Q0M IV ; Start 04/07/18 at 09:00; Stop 04/07/18 at 09:00; Status DC Home Med (Med Rec Complete!) ASDIRECTED XX ; Start 04/07/18 at 04:15; Stop 04/07/18 at 04:15; Status DC Midazolam HCl (Versed) 1 mg ASDIRECTED PRN IV FOR PROCEDURE; Start 04/16/18 at 14:30 Miscellaneous (Unresolved Clarification Entry) SEE LABEL COMMENTS DAILY XX ; Start 04/14/18 at 09:00; Stop 04/14/18 at 20:45; Status DC Morphine Sulfate (Morphine Sulfate In 0.9%Nacl Iv Bag) Concentration 1 mg/ml ASDIRECTED PRN IV SEE LABEL COMMENTS Last administered on 04/17/18at 03:58; Start 04/17/18 at 01:45 Morphine Sulfate (Morphine Sulfate Inj) 2 mg Q30MP PRN IV PAIN Last administered on 04/11/18at 21:48; Start 04/09/18 at 22:30; Stop 04/11/18 at 21:57; Status DC Morphine Sulfate (Morphine Sulfate Inj) 4 mg Q30MP PRN IV PAIN Last administered on 04/17/18at 00:35; Start 04/11/18 at 22:00; Stop 04/17/18 at 01:49; Status DC Nalbuphine HCl (Nubain) 2.5 mg Q6HP PRN IV PRURITIS; Start 04/17/18 at 01:45; Stop 04/24/18 at 01:44 Naloxone HCl (Narcan) 0.1 mg Q5MP PRN IV SEE LABEL COMMENTS; Start 04/17/18 at 01:45 Nicotine (Nicoderm Cq 21mg) 1 patch DAILYPRN PRN TD NICOTINE WITHDRAWAL; Start 04/07/18 at 04:15 Non-Formulary Medication (Epidural/SERVICE ORDER TAKER [place]) USE THIS ENTRY TO VEND ... Q1M PRN XX SEE LABEL COMMENTS; Start 04/17/18 at 01:45 Non-Formulary Medication (Heparin Iv Rate Change Documentation ml/ Hr) ASDIRECTED XX Last administered on 04/08/18at 05:38; Start 04/07/18 at 03:45; Stop 04/09/18 at 13:20; Status DC Nystatin (Mycostatin Powder, Nystop) To be applied to affec... BID TOP Last administered on 04/17/18at 21:14; Start 04/13/18 at 21:00 Nystatin (Mycostatin Powder, Nystop) To be applied to affec... QID TOP Last administered on 04/12/18at 20:05; Start 04/10/18 at 17:00; Stop 04/13/18 at 10:54; Status DC Ondansetron HCl (ZOFRAN INJection) 4 mg Q6HP PRN IV NAUSEA; Start 04/17/18 at 01:45 Oxycodone/ Acetaminophen (Percocet 5mg/ 325mg Tablet) 1 tab Q4HP PRN PO MILD/MODERATE PAIN (PS 1-7) Last administered on 04/15/18 07:52; Start 04/08/18 at 16:15; Stop 04/17/18 at 14:13; Status DC Oxycodone/ Acetaminophen (Percocet 5mg/ 325mg Tablet) 1 tab Q6H PRN PO PAIN Last administered on 04/08/18 10:57; Start 04/07/18 at 04:00; Stop 04/08/18 at 16:37; Status DC Oxycodone/ Acetaminophen (Percocet 5mg/ 325mg Tablet) 2 tab Q4HP PRN PO SEVERE PAIN (PS 8-10) Last administered on 04/16/18at 23:22; Start 04/08/18 at 16:15; Stop 04/17/18 at 14:13; Status DC Oxycodone/ Acetaminophen (Percocet 5mg/ 325mg Tablet) 2 tab Q6HP PRN PO SEVERE PAIN (PS 8-10); Start 04/08/18 at 11:15; Stop 04/08/18 at 16:10; Status DC Polyethylene Glycol (Miralax) 1 pkt BID PO Last administered on 04/12/18at 20:04; Start 04/10/18 at 21:00; Stop 04/13/18 at 10:54; Status DC Senna/Docusate Sodium (Senokot S) 1 tab BID PO Last administered on 2/9/19at 08:13; Start 04/10/18 at 21:00; Stop 04/12/18 at 12:52; Status DC Senna/Docusate Sodium (Senokot S) 2 tab BID PO Last administered on 04/14/18at 08:54; Start 04/12/18 at 21:00; Stop 04/14/18 at 12:23; Status DC Senna/Docusate Sodium (Senokot S) 2 tab BIDP PRN PO CONSTIPATION; Start 04/14/18 at 12:30 Sodium Chloride 1,000 ml @ 15 mls/hr Q24H IV Last administered on 04/17/18at 03:57; Start 04/17/18 at 01:41 Sodium Chloride ([place] Nasal [place]) 2 spray Q1HP PRN NA NASAL DRYNESS; Start 04/11/18 at 21:30 Sodium Chloride (Saline Lock Flush) 10 ML PICC IV Last administered on 04/17/18at 18:00; Start 04/09/18 at 18:00 Sodium Chloride (Saline Lock Flush) 10ML ASDIRECTED PRN IV SEE LABEL COMMENTS Last administered on 04/17/18at 01:05; Start 04/09/18 at 15:15 Valacyclovir HCl (Valtrex) 1,000 mg Q12H PO Last administered on 04/07/18at 21:06; Start 04/07/18 at 09:00; Stop 04/07/18 at 21:01; Status DC Allergies Coded Allergies: Penicillins (Verified Allergy, Intermediate, hives, 04/04/18) VITAL SIGNS VITAL SIGNS Vital Signs Date Time Temp Pulse Resp B/P (MAP) Pulse Ox O2 Delivery O2 Flow Rate FiO2 04/17/18 18:00 85 18 138/60 (86) 92 04/17/18 17:00 86 18 148/94 (112) 95 04/17/18 16:00 97.3 87 18 149/74 (99) 93 04/17/18 15:00 85 18 130/71 (90) 94 04/17/18 14:00 89 18 146/81 (102) 94 04/17/18 13:00 85 20 135/78 (97) 90 04/17/18 12:00 97.9 93 20 134/65 (88) 94 04/17/18 11:00 93 18 156/83 (107) 92 04/17/18 10:00 102 18 143/77 (99) 92 04/17/18 09:00 97 18 162/75 (104) 92 04/17/18 08:00 98.2 86 18 120/85 (97) 92 04/17/18 07:00 81 18 124/74 (91) 91 04/17/18 06:00 90 16 137/63 (87) 93 04/17/18 05:00 90 18 134/81 (98) 92 2.0 04/17/18 04:00 97.4 92 18 126/81 (96) 91 2.0 04/17/18 03:00 96 18 115/74 (88) 90 2.0 04/17/18 02:00 93 16 126/63 (84) 96 2.0 04/17/18 01:00 85 18 150/67 (94) 91 04/17/18 00:45 20 04/17/18 00:35 18 04/17/18 00:00 97.5 88 18 135/80 (98) 91 04/16/18 23:52 20 Intake & Output 04/17/18 06:00 Intake Total 2862 ml Output Total 2975 ml Balance -113 ml Laboratory Tests 04/17/18 00:39: Hemoglobin 11.8L, Hematocrit 35.6L, Activated Partial Thromboplast Time 61.5H, Fibrinogen 363 04/17/18 06:12: Hemoglobin 12.0L, Hematocrit 36.4L, Activated Partial Thromboplast Time 68.2H, Fibrinogen 376, White Blood Count 12.2H, Red Blood Count 3.77L, Mean Corpuscular Volume 96.6H, Mean Corpuscular Hemoglobin 31.8, Mean Corpuscular Hemoglobin Concent 33.0, Red Cell Distribution Width 13.8, Platelet Count 227, Nucleated Red Blood Cells % (auto) 0.0, Blood Urea Nitrogen 12, Creatinine 1.03, Sodium Level 136, Potassium Level 3.9, Chloride Level 100, Carbon Dioxide Level 29, Calcium Level 8.5, Anion Gap 7L, Glomerular Filtration Rate > 60.0, Fasting Glucose 112H 04/17/18 12:15: Hemoglobin 11.7L, Hematocrit 34.6L, Activated Partial Thromboplast Time 57.7H, Fibrinogen 376 04/17/18 18:06: Hemoglobin 11.8L, Hematocrit 35.1L, Activated Partial Thromboplast Time 58.7H, Fibrinogen 424 Microbiology 04/12/18 Stool Occult Blood (BELLA) - Final, Complete Current Medications Medications (Trade) Dose Ordered Sig/Jer Route PRN Reason Start Time Stop Time Status Last Admin Dose Admin Albuterol/ Ipratropium (Duoneb (Ipr 0.5mg/Alb 2.5mg)) 3 ml RQ4H NEB 04/07/18 08:00 04/17/18 20:28 Diphenhydramine HCl (Benadryl) 25 mg Q6HP PRN PO RASH/ITCHING 04/11/18 00:15 04/15/18 20:31 Heparin Sodium (Heparin (Flush)) 200 units ASDIRECTED PRN IV SEE LABEL COMMENTS 04/09/18 15:15 04/17/18 01:05 Heparin Sodium (Porcine) 45875 units/IV Miscellaneous Supplies 250 ml @ 28 mls/hr Q8H56M IV 04/09/18 13:30 04/17/18 17:58 Morphine Sulfate (Morphine Sulfate In 0.9%Nacl Iv Bag) Concentration 1 mg/ml ASDIRECTED PRN IV SEE LABEL COMMENTS 04/17/18 01:45 04/17/18 03:58 Nystatin (Mycostatin Powder, Nystop) To be applied to affec... BID TOP 04/13/18 21:00 04/17/18 21:14 Sodium Chloride 1,000 ml @ 15 mls/hr Q24H IV 04/17/18 01:41 04/17/18 03:57 Sodium Chloride (Saline Lock Flush) 10ML ASDIRECTED PRN IV SEE LABEL COMMENTS 04/09/18 15:15 04/17/18 01:05 Laboratory Tests 04/15/18 23:52 04/16/18 05:30 Red Blood Count 3.74 L, Mean Corpuscular Volume 94.7, Mean Corpuscular Hemoglobin 31.8, Mean Corpuscular Hemoglobin Concent 33.6, Red Cell Distribution Width 13.8, Calcium Level 8.2 L, Aspartate Amino Transf (AST/SGOT) 20, Alanine Aminotransferase (ALT/SGPT) 34, Alkaline Phosphatase 95, Total Bilirubin 0.3, Total Protein 6.3 L, Albumin 2.8 L 04/16/18 19:20 04/17/18 00:39 04/17/18 06:12 Red Blood Count 3.77 L, Mean Corpuscular Volume 96.6 H, Mean Corpuscular Hemoglobin 31.8, Mean Corpuscular Hemoglobin Concent 33.0, Red Cell Distribution Width 13.8, Calcium Level 8.5 04/17/18 12:15 04/17/18 18:06 Microbiology 04/12/18 Stool Occult Blood (BELLA) - Final, Complete 04/15/18 Viral Culture, Received Pending Objective Physical Examination General Exam: Positive: Alert, Cooperative Neck Exam: Positive: Supple; Negative: JVD Chest Exam: Positive: Clear to auscultation Heart Exam: Positive: Rate Normal; Negative: Tachycardic, Bradycardic Telemetry: Positive: No significant arrhythmia, Sinus Abdomen Exam: Positive: Normal bowel sounds Male Exam: Positive: Normal Genital Exam Extremity Exam: Positive: Clubbing, Edema (Left lower extremity swelling), Tenderness (pain and tenderness in left thigh has essentially resolved. some tenderness and ache remains in calf); Negative: Cyanosis Skin Exam: Positive: Nl turgor and temperature, Rash (Closer examination of the lesion on his heel today reveals a linear cluster of pustules on a background of mild erythema and some hyperkeretosis. Importantly, the pustules seem to be welling up from inside the skin. Clinically, this seems most consistent with a contact dermatitis, or sub-acute eczema at this time.), Other skin issue (petechial rash on left calf) Neuro Exam: Positive: Normal Gait, Normal Tone Psych Exam: Positive: Mental status NL; Negative: Anxiety Assessment/Plan Assessment Patient is stable and doing well with regression of the swelling in his left lower extremity and hip and flank region. Plan Plan to continue with left lower extremity venous thrombolysis with follow-up the next 24 hours. Xander Lino MD Apr 17, 2018 23:42
[2018-04-18] VITALS (22 sets, daily range): BP systolic 123–172; BP diastolic 63–99
[2018-04-18] MEDS: IPRATROPIUM 0.5MG/ALBUTEROL 2.5MG INH SOL UD 3ML (DUONEB)(J7620) NEB SCH ×7 (00:07→23:30)
[2018-04-18 00:18] LABS: HEMATOCRIT 34.5 % (42.0-52.0); HEMOGLOBIN 11.7 g/dl (13.5-17.5)
[2018-04-18 00:23] LABS: PARTIAL THROMBOPLASTIN TIME 73.6 SECONDS (25.4-37.6)
[2018-04-18] MEDS: HEPARIN DRIP 25,000 UNITS in APPROPRIATE DILUENT 1 EA IV SCH ×3 (03:04→20:53)
[2018-04-18] MEDS: MORPHINE 1MG/ML IN 0.9% NACL 100ML IV BAG IV PRN (03:04)
[2018-04-18] MEDS: NS 1,000 ML IV SCH (03:05)
[2018-04-18] MEDS: SODIUM CHLORIDE 0.9% INJ 10 ML SYR IV SCH ×2 (05:01→17:04)
[2018-04-18 05:22] LABS: HEMATOCRIT 34.5 % (42.0-52.0); HEMOGLOBIN 11.7 g/dl (13.5-17.5); MEAN CORPUSCULAR HEMOGLOBIN 32.2 pg (27.0-33.0); MEAN CORPUSCULAR HGB CONC 33.9 g/dl (32.0-36.5); PLATELET COUNT, AUTOMATED 239 10^3/uL (150-450); RED BLOOD COUNT 3.63 10^6/uL (4.30-6.10); WHITE BLOOD COUNT 12.5 10^3/uL (4.0-10.0)
[2018-04-18 05:39] LABS: BLOOD UREA NITROGEN 10 MG/DL (7-18); CALCIUM LEVEL 8.2 MG/DL (8.5-10.1); CARBON DIOXIDE LEVEL 28 MEQ/L (21-32); CHLORIDE LEVEL 102 MEQ/L (98-107); GLOMERULAR FILTRATION RATE > 60.0 (>60); GLUCOSE, FASTING 103 MG/DL (70-100); PARTIAL THROMBOPLASTIN TIME 63.8 SECONDS (25.4-37.6); SODIUM LEVEL 136 MEQ/L (136-145)
[2018-04-18] MEDS: NYSTATIN 100,000 UNITS/GM TOPICAL PWD 15 GM TOP SCH ×2 (09:00→20:53)
[2018-04-18 12:16] LABS: HEMATOCRIT 34.7 % (42.0-52.0); HEMOGLOBIN 11.8 g/dl (13.5-17.5)
[2018-04-18 12:31] LABS: PARTIAL THROMBOPLASTIN TIME 71.7 SECONDS (25.4-37.6)
[2018-04-18] MEDS ORDERED: LIDOCAINE 2% MDV 20 ML VIAL As Ordered ONE (14:42)
[2018-04-18] MEDS ORDERED: ISOVUE-300 61% 50ML VIAL (Q9967) As Ordered ONE (14:42)
[2018-04-18] MEDS: ALTEPLASE RECOMBINANT 25 MG in NS 225 ML IV SCH (17:04)
--- NOTE | 2018-04-18 19:17 | IPNPDOC ---
Subjective Date Seen The patient was seen on 04/18/18. Subjective Chief Complaint/HPI No other concerns or problems overnight. Pain is better managed. Swelling about the same or improved in right leg. Constitutional: Denies: Chills, Fever Objective Physical Examination General Exam: Positive: Alert, Cooperative Neck Exam: Positive: Supple; Negative: JVD Chest Exam: Positive: Clear to auscultation Heart Exam: Positive: Rate Normal; Negative: Tachycardic, Bradycardic Telemetry: Positive: No significant arrhythmia, Sinus Abdomen Exam: Positive: Normal bowel sounds Male Exam: Positive: Normal Genital Exam Extremity Exam: Positive: Clubbing, Edema (Left lower extremity swelling), Tenderness (pain and tenderness in left thigh has essentially resolved. some tenderness and ache remains in calf); Negative: Cyanosis Skin Exam: Positive: Nl turgor and temperature, Rash (Closer examination of the lesion on his heel today reveals a linear cluster of pustules on a background of mild erythema and some hyperkeretosis. Importantly, the pustules seem to be welling up from inside the skin. Clinically, this seems most consistent with a contact dermatitis, or sub-acute eczema at this time.), Other skin issue (petechial rash on left calf) Neuro Exam: Positive: Normal Gait, Normal Tone Psych Exam: Positive: Mental status NL; Negative: Anxiety Assessment /Plan Problems (1) Pulmonary emboli Status: Acute Problem Text: 04/18 Continue at this time. Dr. Ahumada had discussion with Dr. Lnio today. Signing off for Dr. Lino at this time. 04/[address] Lino. 04/15 Current plan to continue until Dr Lino has completed procedures, then can transition back to [facility]. 04/14 Continue plan of IV heparin and tPA as ordered per Dr. Lino (for DVT) Multiple pulmonary emboli noted on CT scan chest. On heparin at this point. No chest pain, SOB currently. (2) Deep vein thrombosis (DVT) of distal vein of left lower extremity Status: Acute Problem Text: 04/18 likely switch to [facility] closer to discharge. 04/15 see above. 04/10: thrombolysis inititated. continues on IV tPA and heparin. 04/08: to have thrombolysis tomorrow. delayed due to no available ICU bed. analge sic titrated up due to pain Vascular surgery consult placed. Dr. Lino with discuss with patient later about options. On heparin at this point for treatment. Continue pain medication as needed. (3) Skin lesion Problem Text: 04/18 viral culture pending. Rash improved with sensitive sheets. May be more eczematous. Will await culture. Patient has some skin lesions noted on left heal and left lateral lower extremity. They appear eczematous at this time. Viral swab taken, viral culture pending. 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 Wait for culture. (4) Nicotine dependence Status: Chronic Problem Text: Continue nicotine patch. (5) Lung nodules Problem Text: Noted on CT scan. May need follow up outpatient. Plan/VTE VTE Prophylaxis Ordered?: Yes VS, I&O, 24H, Fishbone Vital Signs/I&O Vital Signs Date Time Temp Pulse Resp B/P (MAP) Pulse Ox O2 Delivery O2 Flow Rate FiO2 04/18/18 05:00 94 150/78 (102) 04/18/18 04:00 98.3 16 91 04/17/18 05:00 2.0 04/15/18 05:28 99 I&O- Last 24 Hours up to 6 AM 04/18/18 06:00 Intake Total 4315 ml Output Total 3850 ml Balance 465 ml Laboratory Data 24H LABS Laboratory Tests 2 04/17/18 12:15: Activated Partial Thromboplast Time 57.7H, Fibrinogen 376 04/17/18 18:06: Activated Partial Thromboplast Time 58.7H, Fibrinogen 424 04/17/18 23:50: Activated Partial Thromboplast Time 73.6H, Fibrinogen 443 04/18/18 05:01: Activated Partial Thromboplast Time 63.8H, Fibrinogen 443, Nucleated Red Blood Cells % (auto) 0.0, Anion Gap 6L, Glomerular Filtration Rate > 60.0, Blood Urea Nitrogen 10, Creatinine 1.00, Sodium Level 136, Potassium Level 4.0, Chloride Level 102, Carbon Dioxide Level 28, Calcium Level 8.2L CBC/BMP Laboratory Tests 04/17/18 12:15 04/17/18 18:06 04/17/18 23:50 04/18/18 05:01 Red Blood Count 3.63 L, Mean Corpuscular Volume 95.0, Mean Corpuscular Hemoglobin 32.2, Mean Corpuscular Hemoglobin Concent 33.9, Red Cell Distribution Width 13.9, Calcium Level 8.2 L Microbiology Microbiology 04/12/18 Stool Occult Blood (BELLA) - Final, Complete 04/15/18 Viral Culture, Received Pending GME ATTESTATION ATTENDING NOTE Family Medicine Attending Note: I was present on site to supervise Maryam Estrella D.O. (OGME-3). We discussed the history and exam. I confirmed the beverly elements during my [id number] encounter with the patient. We conferred on the assessment and plan; I agree with the note as documented. I believe that the patient can be removed from airborne isolation. I spoke to Dr. Lino today. He indicates that, unfortunately, the patient had some new clot that had developed. He reported to me that he is willing to become the attending on this case, as there is not much for us to do (the patient is medically stable) and it's unclear how much longer Dr. Lino will need to treat his clot. I'm willing to transfer care and have put the orders and today. We're certainly willing to participate in his care if needed. Dr. Lino will let us know if this is the case. 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
[2018-04-18] MEDS: SODIUM CHLORIDE 0.9% INJ 10 ML SYR IV PRN (23:49)
[2018-04-18 23:59] LABS: HEMATOCRIT 35.3 % (42.0-52.0); HEMOGLOBIN 11.9 g/dl (13.5-17.5)
[2018-04-19] VITALS (19 sets, daily range): BP systolic 115–146; BP diastolic 59–107; O2SAT 96
[2018-04-19 00:08] LABS: BETA-2 GLYCOPROTEIN I ABY IGA <9 (0-25); BETA-2 GLYCOPROTEIN I ABY IGG <9 (0-20); BETA-2 GLYCOPROTEIN I ABY IGM <9 (0-32)
[2018-04-19 00:21] LABS: PARTIAL THROMBOPLASTIN TIME 65.1 SECONDS (25.4-37.6)
[2018-04-19] MEDS: NS 1,000 ML IV SCH (04:00)
[2018-04-19] MEDS: MORPHINE 1MG/ML IN 0.9% NACL 100ML IV BAG IV PRN (04:08)
[2018-04-19] MEDS: IPRATROPIUM 0.5MG/ALBUTEROL 2.5MG INH SOL UD 3ML (DUONEB)(J7620) NEB SCH ×6 (04:10→23:46)
[2018-04-19] MEDS: HEPARIN DRIP 25,000 UNITS in APPROPRIATE DILUENT 1 EA IV SCH ×3 (06:01→19:02)
[2018-04-19] MEDS: SODIUM CHLORIDE 0.9% INJ 10 ML SYR IV SCH ×2 (06:02→18:22)
[2018-04-19 06:24] LABS: HEMATOCRIT 28.1 % (42.0-52.0); MEAN CORPUSCULAR HEMOGLOBIN 32.4 pg (27.0-33.0); MEAN CORPUSCULAR HGB CONC 33.5 g/dl (32.0-36.5); MEAN CORPUSCULAR VOLUME 96.9 fl (80.0-96.0); PLATELET COUNT, AUTOMATED 191 10^3/uL (150-450); WHITE BLOOD COUNT 10.6 10^3/uL (4.0-10.0)
[2018-04-19 06:32] LABS: HEMOGLOBIN 9.4 g/dl (13.5-17.5)
[2018-04-19 06:38] LABS: PARTIAL THROMBOPLASTIN TIME 60.2 SECONDS (25.4-37.6)
[2018-04-19 06:46] LABS: BLOOD UREA NITROGEN 11 MG/DL (7-18); CALCIUM LEVEL 8.5 MG/DL (8.5-10.1); CARBON DIOXIDE LEVEL 30 MEQ/L (21-32); CHLORIDE LEVEL 101 MEQ/L (98-107); CREATININE FOR GFR 0.94 MG/DL (0.70-1.30); GLOMERULAR FILTRATION RATE > 60.0 (>60); GLUCOSE, FASTING 98 MG/DL (70-100); POTASSIUM SERUM 3.9 MEQ/L (3.5-5.1); SODIUM LEVEL 138 MEQ/L (136-145)
[2018-04-19] MEDS: NYSTATIN 100,000 UNITS/GM TOPICAL PWD 15 GM TOP SCH ×2 (11:52→21:00)
[2018-04-19 12:26] LABS: HEMATOCRIT 36.5 % (42.0-52.0)
[2018-04-19 12:35] LABS: HEMOGLOBIN 12.1 g/dl (13.5-17.5)
[2018-04-19 12:42] LABS: PARTIAL THROMBOPLASTIN TIME 60.8 SECONDS (25.4-37.6)
[2018-04-19] MEDS: ALTEPLASE RECOMBINANT 25 MG in NS 225 ML IV SCH (15:06)
[2018-04-19 18:27] LABS: HEMOGLOBIN 11.7 g/dl (13.5-17.5)
[2018-04-19 18:52] LABS: PARTIAL THROMBOPLASTIN TIME 55.3 SECONDS (25.4-37.6)
--- NOTE | 2018-04-19 19:40 | IPNPDOC ---
Subjective General Date/Time Seen The patient was seen on 04/19/18 at 19:38. Subject Chief Complaint/History The patient is a 42-year-old male admitted with bilateral pulmonary embolus and left lower extremity extensive DVT. Patient has no new complaints. Patient notes that his left lower extremity is stable and slightly improved. Current Medications Current Medications Current Medications Albuterol/ Ipratropium (Duoneb (Ipr 0.5mg/Alb 2.5mg)) 3 ml RQ4H NEB Last administered on 04/19/18at 15:20; Start 04/07/18 at 08:00 Alteplase, Recombinant 10 mg/ Sodium Chloride 100 ml @ 0.5 mls/hr Q24H IV Last administered on 04/12/18at 23:57; Start 04/12/18 at 16:00; Stop 04/15/18 at 15:14; Status DC Alteplase, Recombinant 10 mg/ Sodium Chloride 110 ml @ 2.5 mls/hr Q24H IV Last administered on 04/11/18at 15:24; Start 04/11/18 at 16:00; Stop 04/12/18 at 15:59; Status DC Alteplase, Recombinant 25 mg/ Sodium Chloride 250 ml @ 2.5 mls/hr Q24H IV Last administered on 04/10/18at 13:29; Start 04/09/18 at 15:00; Stop 04/11/18 at 14:29; Status DC Alteplase, Recombinant 25 mg/ Sodium Chloride 250 ml @ 10 mls/hr Q24H IV Last administered on 04/19/18at 15:06; Start 04/18/18 at 16:00 Alvimopan (Entereg) 12 mg BID PO Last administered on 04/13/18at 20:58; Start 04/12/18 at 09:00; Stop 04/14/18 at 06:00; Status DC Calcium Carbonate (Tums) 1,000 mg TID PO Last administered on 04/13/18at 11:13; Start 04/13/18 at 09:00; Stop 04/13/18 at 13:31; Status DC Calcium Carbonate (Tums) 1,000 mg TIDP PRN PO HEARTBURN/INDIGESTION; Start 04/14/18 at 09:00 Clotrimazole (Lotrimin) Apply to affected groin area. DAILY@0800 TOP Last administered on 04/12/18at 08:15; Start 04/11/18 at 08:00; Stop 04/13/18 at 10:54; Status DC Diphenhydramine HCl (Benadryl) 12.5 mg Q4HP PRN IV ITCHING; Start 04/17/18 at 01:45 Diphenhydramine HCl (Benadryl) 25 mg Q6HP PRN PO RASH/ITCHING Last administered on 04/15/18at 20:31; Start 04/11/18 at 00:15 Doxycycline Hyclate (Vibramycin) 100 mg BID PO Last administered on 04/07/18 21:06; Start 04/07/18 at 09:00; Stop 04/07/18 at 21:01; Status DC Fentanyl Citrate (Sublimaze) 50 mcg ASDIRECTED PRN IV FOR PROCEDURE; Start 04/16/18 at 14:30 Heparin Sodium (Heparin (Flush)) 200 units ASDIRECTED PRN IV SEE LABEL COMMENTS Last administered on 04/18/18at 23:49; Start 04/09/18 at 15:15 Heparin Sodium (Heparin (Flush)) 200 units PICC IV Last administered on 04/19/18 18:21; Start 04/09/18 at 18:00 Heparin Sodium (Porcine) (Heparin) ASDIRECTED PRN IV SEE LABEL COMMENTS Last administered on 04/08/18at 20:13; Start 04/07/18 at 03:45; Stop 04/09/18 at 13:20; Status DC Heparin Sodium (Porcine) 59825 units/IV Miscellaneous Supplies 250 ml @ 9.99 mls/hr Q24H IV ; Start 04/07/18 at 03:13; Stop 04/07/18 at 03:37; Status DC Heparin Sodium (Porcine) 42548 units/IV Miscellaneous Supplies 250 ml @ 30 mls/hr Q8H20M IV Last administered on 04/19/18at 19:02; Start 04/09/18 at 13:30 Heparin Sodium (Porcine) 06490 units/IV Miscellaneous Supplies 250 ml @ 0 mls/hr Q0M IV ; Start 04/07/18 at 03:31; Stop 04/07/18 at 04:05; Status DC Heparin Sodium (Porcine) 34108 units/IV Miscellaneous Supplies 250 ml @ 0 mls/hr Q0M IV Last administered on 04/09/18at 06:06; Start 04/07/18 at 07:30; Stop 04/09/18 at 13:20; Status DC Heparin Sodium (Porcine) 71452 units/IV Miscellaneous Supplies 250 ml @ 0 mls/hr Q0M IV ; Start 04/07/18 at 09:00; Stop 04/07/18 at 09:00; Status DC Home Med (Med Rec Complete!) ASDIRECTED XX ; Start 04/07/18 at 04:15; Stop 04/07/18 at 04:15; Status DC Midazolam HCl (Versed) 1 mg ASDIRECTED PRN IV FOR PROCEDURE; Start 04/16/18 at 14:30 Miscellaneous (Unresolved Clarification Entry) SEE LABEL COMMENTS DAILY XX ; Start 04/14/18 at 09:00; Stop 04/14/18 at 20:45; Status DC Morphine Sulfate (Morphine Sulfate In 0.9%Nacl Iv Bag) Concentration 1 mg/ml ASDIRECTED PRN IV SEE LABEL COMMENTS Last administered on 04/19/18at 04:08; Start 04/17/18 at 01:45 Morphine Sulfate (Morphine Sulfate Inj) 2 mg Q30MP PRN IV PAIN Last administered on 04/11/18at 21:48; Start 04/09/18 at 22:30; Stop 04/11/18 at 21:57; Status DC Morphine Sulfate (Morphine Sulfate Inj) 4 mg Q30MP PRN IV PAIN Last administered on 04/17/18at 00:35; Start 04/11/18 at 22:00; Stop 04/17/18 at 01:49; Status DC Nalbuphine HCl (Nubain) 2.5 mg Q6HP PRN IV PRURITIS; Start 04/17/18 at 01:45; Stop 04/24/18 at 01:44 Naloxone HCl (Narcan) 0.1 mg Q5MP PRN IV SEE LABEL COMMENTS; Start 04/17/18 at 01:45 Nicotine (Nicoderm Cq 21mg) 1 patch DAILYPRN PRN TD NICOTINE WITHDRAWAL; Start 04/07/18 at 04:15 Non-Formulary Medication (Epidural/ICING COATER [place]) USE THIS ENTRY TO VEND ... Q1M PRN XX SEE LABEL COMMENTS; Start 04/17/18 at 01:45 Non-Formulary Medication (Heparin Iv Rate Change Documentation ml/ Hr) ASDIRECTED XX Last administered on 04/08/18at 05:38; Start 04/07/18 at 03:45; Stop 04/09/18 at 13:20; Status DC Nystatin (Mycostatin Powder, Nystop) To be applied to affec... BID TOP Last ad ministered on 04/19/18at 11:52; Start 04/13/18 at 21:00 Nystatin (Mycostatin Powder, Nystop) To be applied to affec... QID TOP Last administered on 04/12/18at 20:05; Start 04/10/18 at 17:00; Stop 04/13/18 at 10:54; Status DC Ondansetron HCl (ZOFRAN INJection) 4 mg Q6HP PRN IV NAUSEA; Start 04/17/18 at 01:45 Oxycodone/ Acetaminophen (Percocet 5mg/ 325mg Tablet) 1 tab Q4HP PRN PO MILD/MODERATE PAIN (PS 1-7) Last administered on 04/15/18at 07:52; Start 04/08/18 at 16:15; Stop 04/17/18 at 14:13; Status DC Oxycodone/ Acetaminophen (Percocet 5mg/ 325mg Tablet) 1 tab Q6H PRN PO PAIN Last administered on 04/08/18at 10:57; Start 04/07/18 at 04:00; Stop 04/08/18 at 16:37; Status DC Oxycodone/ Acetaminophen (Percocet 5mg/ 325mg Tablet) 2 tab Q4HP PRN PO SEVERE PAIN (PS 8-10) Last administered on 04/16/18 23:22; Start 04/08/18 at 16:15; Stop 04/17/18 at 14:13; Status DC Oxycodone/ Acetaminophen (Percocet 5mg/ 325mg Tablet) 2 tab Q6HP PRN PO SEVERE PAIN (PS 8-10); Start 04/08/18 at 11:15; Stop 04/08/18 at 16:10; Status DC Polyethylene Glycol (Miralax) 1 pkt BID PO Last administered on 04/12/18at 20:04; Start 04/10/18 at 21:00; Stop 04/13/18 at 10:54; Status DC Senna/Docusate Sodium (Senokot S) 1 tab BID PO Last administered on 04/12/18at 08:13; Start 04/10/18 at 21:00; Stop 04/12/18 at 12:52; Status DC Senna/Docusate Sodium (Senokot S) 2 tab BID PO Last administered on 04/14/18at 08:54; Start 04/12/18 at 21:00; Stop 04/14/18 at 12:23; Status DC Senna/Docusate Sodium (Senokot S) 2 tab BIDP PRN PO CONSTIPATION; Start 04/14/18 at 12:30 Sodium Chloride 1,000 ml @ 15 mls/hr Q24H IV Last administered on 04/19/18at 04:00; Start 04/17/18 at 01:41 Sodium Chloride ([place] Nasal [place]) 2 spray Q1HP PRN NA NASAL DRYNESS; Start 04/11/18 at 21:30 Sodium Chloride (Saline Lock Flush) 10 ML PICC IV Last administered on 04/19/18at 18:22; Start 04/09/18 at 18:00 Sodium Chloride (Saline Lock Flush) 10ML ASDIRECTED PRN IV SEE LABEL COMMENTS Last administered on 04/18/18at 23:49; Start 04/09/18 at 15:15 Valacyclovir HCl (Valtrex) 1,000 mg Q12H PO Last administered on 04/07/18at 21:06; Start 04/07/18 at 09:00; Stop 04/07/18 at 21:01; Status DC Allergies Coded Allergies: Penicillins (Verified Allergy, Intermediate, hives, 04/04/18) VITAL SIGNS VITAL SIGNS Vital Signs Date Time Temp Pulse Resp B/P (MAP) Pulse Ox O2 Delivery O2 Flow Rate FiO2 04/19/18 18:00 84 18 125/60 (81) 95 04/19/18 16:00 98.5 88 18 127/73 (91) 97 04/19/18 14:00 82 16 135/79 (97) 95 04/19/18 12:00 98.3 95 18 136/89 (105) 97 04/19/18 11:00 85 20 133/73 (93) 95 04/19/18 09:00 80 20 136/64 (88) 94 04/19/18 08:14 96 Nasal Cannula 2.0 04/19/18 08:00 98.6 78 18 115/59 (77) 99 2.0 04/19/18 06:00 77 124/72 (89) 04/19/18 05:00 79 122/59 (80) 04/19/18 04:00 97.1 78 18 126/67 (86) 92 2.0 04/19/18 04:00 2.0 04/19/18 03:00 85 125/72 (89) 93 2.0 04/19/18 02:00 90 125/84 (98) 92 2.0 04/19/18 01:00 90 132/84 (100) 94 2.0 04/19/18 00:20 92 2.0 04/19/18 00:15 88 04/19/18 00:00 97.5 86 20 141/80 (100) 91 04/18/18 23:00 90 132/74 (93) 94 04/18/18 22:00 99 167/99 (121) 94 04/18/18 21:00 90 150/81 (104) 94 04/18/18 20:00 97.7 81 20 147/84 (105) 99 Intake & Output 04/19/18 06:00 Intake Total 4499 ml Output Total 2875 ml Balance 1624 ml Laboratory Tests 04/18/18 23:48: Hemoglobin 11.9L, Hematocrit 35.3L, Activated Partial Thromboplast Time 65.1H, Fibrinogen 439 04/19/18 05:54: Hemoglobin 9.4#L, Hematocrit 28.1L, Activated Partial Thromboplast Time 60.2H, Fibrinogen 388, White Blood Count 10.6H, Red Blood Count 2.90L, Mean Corpuscular Volume 96.9H, Mean Corpuscular Hemoglobin 32.4, Mean Corpuscular Hemoglobin Concent 33.5, Red Cell Distribution Width 13.7, Platelet Count 191, Nucleated Red Blood Cells % (auto) 0.0, Blood Urea Nitrogen 11, Creatinine 0.94, Sodium Level 138, Potassium Level 3.9, Chloride Level 101, Carbon Dioxide Level 30, Calcium Level 8.5, Anion Gap 7L, Glomerular Filtration Rate > 60.0, Fasting Glucose 98 04/19/18 12:14: Hemoglobin 12.1#L, Hematocrit 36.5L, Activated Partial Thromboplast Time 60.8H, Fibrinogen 410 04/19/18 18:15: Hemoglobin 11.7L, Hematocrit 35.0L, Activated Partial Thromboplast Time 55.3H, Fibrinogen 394 Microbiology 04/18/18 Stool Occult Blood (BELLA) - Final, Complete 04/12/18 Stool Occult Blood (BELLA) - Final, Complete Current Medications Medications (Trade) Dose Ordered Sig/Jer Route PRN Reason Start Time Stop Time Status Last Admin Dose Admin Albuterol/ Ipratropium (Duoneb (Ipr 0.5mg/Alb 2.5mg)) 3 ml RQ4H NEB 04/07/18 08:00 04/19/18 15:20 Alteplase, Recombinant 25 mg/ Sodium Chloride 250 ml @ 10 mls/hr Q24H IV 04/18/18 16:00 04/19/18 15:06 Diphenhydramine HCl (Benadryl) 25 mg Q6HP PRN PO RASH/ITCHING 04/11/18 00:15 04/15/18 20:31 Heparin Sodium (Heparin (Flush)) 200 units ASDIRECTED PRN IV SEE LABEL COMMENTS 04/09/18 15:15 04/18/18 23:49 Heparin Sodium (Porcine) 45833 units/IV Miscellaneous Supplies 250 ml @ 30 mls/hr Q8H20M IV 04/09/18 13:30 04/19/18 19:02 Morphine Sulfate (Morphine Sulfate In 0.9%Nacl Iv Bag) Concentration 1 mg/ml ASDIRECTED PRN IV SEE LABEL COMMENTS 04/17/18 01:45 04/19/18 04:08 Nystatin (Mycostatin Powder, Nystop) To be applied to affec... BID TOP 04/13/18 21:00 04/19/18 11:52 Sodium Chloride 1,000 ml @ 15 mls/hr Q24H IV 04/17/18 01:41 04/19/18 04:00 Sodium Chloride (Saline Lock Flush) 10ML ASDIRECTED PRN IV SEE LABEL COMMENTS 04/09/18 15:15 04/18/18 23:49 Laboratory Tests 04/17/18 23:50 04/18/18 05:01 Red Blood Count 3.63 L, Mean Corpuscular Volume 95.0, Mean Corpuscular Hemoglobin 32.2, Mean Corpuscular Hemoglobin Concent 33.9, Red Cell Distribution Width 13.9, Calcium Level 8.2 L 04/18/18 11:45 04/18/18 23:48 04/19/18 05:54 Red Blood Count 2.90 L, Mean Corpuscular Volume 96.9 H, Mean Corpuscular Hemoglobin 32.4, Mean Corpuscular Hemoglobin Concent 33.5, Red Cell Distribution Width 13.7, Calcium Level 8.5 04/19/18 12:14 04/19/18 18:15 Microbiology 04/18/18 Stool Occult Blood (BELLA) - Final, Complete 04/12/18 Stool Occult Blood (BELLA) - Final, Complete 04/15/18 Viral Culture, Received Pending Objective Physical Examination General Exam: Positive: Alert, Cooperative Neck Exam: Positive: Supple; Negative: JVD Chest Exam: Positive: Clear to auscultation Heart Exam: Positive: Rate Normal; Negative: Tachycardic, Bradycardic Telemetry: Positive: No significant arrhythmia, Sinus Abdomen Exam: Positive: Normal bowel sounds Male Exam: Positive: Normal Genital Exam Extremity Exam: Positive: Clubbing, Edema (Left lower extremity swelling), Tenderness (pain and tenderness in left thigh has essentially resolved. some tenderness and ache remains in calf); Negative: Cyanosis Skin Exam: Positive: Nl turgor and temperature, Rash (Closer examination of the lesion on his heel today reveals a linear cluster of pustules on a background of mild erythema and some hyperkeretosis. Importantly, the pustules seem to be welling up from inside the skin. Clinically, this seems most consistent with a contact dermatitis, or sub-acute eczema at this time.), Other skin issue (petechial rash on left calf) Neuro Exam: Positive: Normal Gait, Normal Tone Psych Exam: Positive: Mental status NL; Negative: Anxiety Assessment/Plan Assessment Patient is a 42-year-old male with bilateral pulmonary embolus and extensive left lower extremity DVT who is been undergoing left lower extremity venous thrombosis. Patient has required angioplasty of his left external iliac vein common femoral vein and superficial femoral vein due to occluded vision and high-grade stenosis. Plan Patient is stable and will continue with left lower extremity venous thrombolys is. Xander Lino MD Apr 19, 2018 19:40
[2018-04-20] VITALS (24 sets, daily range): BP systolic 114–158; BP diastolic 53–91
[2018-04-20] MEDS: HEPARIN DRIP 25,000 UNITS in APPROPRIATE DILUENT 1 EA IV SCH ×2 (00:08→09:14)
[2018-04-20 00:38] LABS: PARTIAL THROMBOPLASTIN TIME 68.3 SECONDS (25.4-37.6)
[2018-04-20 00:40] LABS: HEMATOCRIT 35.3 % (42.0-52.0); HEMOGLOBIN 11.7 g/dl (13.5-17.5)
[2018-04-20] MEDS: IPRATROPIUM 0.5MG/ALBUTEROL 2.5MG INH SOL UD 3ML (DUONEB)(J7620) NEB SCH ×6 (04:16→23:47)
[2018-04-20] MEDS: NS 1,000 ML IV SCH (04:19)
[2018-04-20] MEDS: MORPHINE 1MG/ML IN 0.9% NACL 100ML IV BAG IV PRN (04:22)
[2018-04-20] MEDS: SODIUM CHLORIDE 0.9% INJ 10 ML SYR IV SCH ×2 (06:16→18:10)
[2018-04-20 06:34] LABS: HEMATOCRIT 34.1 % (42.0-52.0); HEMOGLOBIN 11.2 g/dl (13.5-17.5); MEAN CORPUSCULAR HEMOGLOBIN 31.9 pg (27.0-33.0); MEAN CORPUSCULAR HGB CONC 32.8 g/dl (32.0-36.5); MEAN CORPUSCULAR VOLUME 97.2 fl (80.0-96.0); PLATELET COUNT, AUTOMATED 205 10^3/uL (150-450); RED BLOOD COUNT 3.51 10^6/uL (4.30-6.10); WHITE BLOOD COUNT 11.9 10^3/uL (4.0-10.0)
[2018-04-20 06:53] LABS: PARTIAL THROMBOPLASTIN TIME 74.3 SECONDS (25.4-37.6)
[2018-04-20 07:00] LABS: BLOOD UREA NITROGEN 11 MG/DL (7-18); CALCIUM LEVEL 8.2 MG/DL (8.5-10.1); CARBON DIOXIDE LEVEL 30 MEQ/L (21-32); CHLORIDE LEVEL 102 MEQ/L (98-107); CREATININE FOR GFR 0.95 MG/DL (0.70-1.30); GLOMERULAR FILTRATION RATE > 60.0 (>60); GLUCOSE, FASTING 96 MG/DL (70-100); POTASSIUM SERUM 3.8 MEQ/L (3.5-5.1); SODIUM LEVEL 139 MEQ/L (136-145)
[2018-04-20] MEDS: NYSTATIN 100,000 UNITS/GM TOPICAL PWD 15 GM TOP SCH ×2 (09:53→21:00)
[2018-04-20 12:19] LABS: HEMATOCRIT 35.5 % (42.0-52.0); HEMOGLOBIN 11.9 g/dl (13.5-17.5)
[2018-04-20] MEDS: ALTEPLASE RECOMBINANT 25 MG in NS 225 ML IV SCH (13:41)
[2018-04-20 18:20] LABS: HEMATOCRIT 34.8 % (42.0-52.0); HEMOGLOBIN 11.7 g/dl (13.5-17.5)
[2018-04-20 23:50] LABS: HEMATOCRIT 34.5 % (42.0-52.0); HEMOGLOBIN 11.3 g/dl (13.5-17.5)
[2018-04-21] VITALS (18 sets, daily range): BP systolic 118–157; BP diastolic 58–97
[2018-04-21 00:01] LABS: PARTIAL THROMBOPLASTIN TIME 53.7 SECONDS (25.4-37.6)
[2018-04-21] MEDS: NS 1,000 ML IV SCH (01:41)
[2018-04-21] MEDS: HEPARIN DRIP 25,000 UNITS in APPROPRIATE DILUENT 1 EA IV SCH ×3 (04:08→16:21)
[2018-04-21] MEDS: IPRATROPIUM 0.5MG/ALBUTEROL 2.5MG INH SOL UD 3ML (DUONEB)(J7620) NEB SCH ×6 (05:16→23:09)
[2018-04-21] MEDS: SODIUM CHLORIDE 0.9% INJ 10 ML SYR IV SCH ×2 (06:00→18:11)
[2018-04-21 06:27] LABS: HEMATOCRIT 35.6 % (42.0-52.0); HEMOGLOBIN 11.8 g/dl (13.5-17.5); MEAN CORPUSCULAR HEMOGLOBIN 31.5 pg (27.0-33.0); MEAN CORPUSCULAR HGB CONC 33.1 g/dl (32.0-36.5); MEAN CORPUSCULAR VOLUME 94.9 fl (80.0-96.0); PLATELET COUNT, AUTOMATED 199 10^3/uL (150-450); RED BLOOD COUNT 3.75 10^6/uL (4.30-6.10)
[2018-04-21 06:33] LABS: PARTIAL THROMBOPLASTIN TIME 37.1 SECONDS (25.4-37.6)
[2018-04-21 06:51] LABS: BLOOD UREA NITROGEN 10 MG/DL (7-18); CALCIUM LEVEL 8.7 MG/DL (8.5-10.1); CARBON DIOXIDE LEVEL 31 MEQ/L (21-32); CHLORIDE LEVEL 102 MEQ/L (98-107); CREATININE FOR GFR 1.09 MG/DL (0.70-1.30); GLOMERULAR FILTRATION RATE > 60.0 (>60); GLUCOSE, FASTING 97 MG/DL (70-100); POTASSIUM SERUM 3.9 MEQ/L (3.5-5.1); SODIUM LEVEL 138 MEQ/L (136-145)
[2018-04-21] MEDS ORDERED: HEPARIN SOD (PORCINE) 5000 UNITS/ML VIAL As Ordered ONE (07:07)
[2018-04-21] MEDS ORDERED: HEPARIN SOD (PORCINE) 5000 UNITS/ML VIAL IV ONE (07:15)
[2018-04-21] MEDS: MORPHINE 1MG/ML IN 0.9% NACL 100ML IV BAG IV PRN (07:16)
[2018-04-21] MEDS: NYSTATIN 100,000 UNITS/GM TOPICAL PWD 15 GM TOP SCH ×2 (09:16→20:30)
[2018-04-21 12:38] LABS: HEMATOCRIT 35.6 % (42.0-52.0); HEMOGLOBIN 11.6 g/dl (13.5-17.5)
[2018-04-21 12:43] LABS: PARTIAL THROMBOPLASTIN TIME 58.1 SECONDS (25.4-37.6)
[2018-04-21] MEDS: ALTEPLASE RECOMBINANT 25 MG in NS 225 ML IV SCH (12:56)
[2018-04-21 18:09] LABS: HEMATOCRIT 34.9 % (42.0-52.0); HEMOGLOBIN 11.5 g/dl (13.5-17.5)
[2018-04-21 18:21] LABS: PARTIAL THROMBOPLASTIN TIME 68.5 SECONDS (25.4-37.6)
[2018-04-21 23:54] LABS: PARTIAL THROMBOPLASTIN TIME 79.7 SECONDS (25.4-37.6)
[2018-04-22] VITALS: BP 143/84
[2018-04-22 00:11] LABS: HEMATOCRIT 35.6 % (42.0-52.0)
[2018-04-22] MEDS ORDERED: HEPARIN 25,000 UNITS/250 ML D5W BAG (100 UNITS/ML) As Ordered ONE (00:56)
[2018-04-22] MEDS ORDERED: HEPARIN DRIP 25,000 UNITS in APPROPRIATE DILUENT 1 EA IV SCH (00:59)
[2018-04-22] MEDS: NS 1,000 ML IV SCH (01:41)
[2018-04-22 04:00] VITALS: BP 132/92
[2018-04-22] MEDS: IPRATROPIUM 0.5MG/ALBUTEROL 2.5MG INH SOL UD 3ML (DUONEB)(J7620) NEB SCH ×5 (04:17→20:48)
[2018-04-22 05:10] LABS: HEMATOCRIT 34.3 % (42.0-52.0); HEMOGLOBIN 11.3 g/dl (13.5-17.5); MEAN CORPUSCULAR HGB CONC 32.9 g/dl (32.0-36.5); MEAN CORPUSCULAR VOLUME 97.2 fl (80.0-96.0); PLATELET COUNT, AUTOMATED 177 10^3/uL (150-450); RED BLOOD COUNT 3.53 10^6/uL (4.30-6.10); WHITE BLOOD COUNT 12.2 10^3/uL (4.0-10.0)
[2018-04-22 05:23] LABS: BLOOD UREA NITROGEN 11 MG/DL (7-18); CALCIUM LEVEL 8.5 MG/DL (8.5-10.1); CARBON DIOXIDE LEVEL 31 MEQ/L (21-32); CHLORIDE LEVEL 101 MEQ/L (98-107); CREATININE FOR GFR 1.09 MG/DL (0.70-1.30); GLOMERULAR FILTRATION RATE > 60.0 (>60); GLUCOSE, FASTING 103 MG/DL (70-100); PARTIAL THROMBOPLASTIN TIME 39.4 SECONDS (25.4-37.6); POTASSIUM SERUM 3.9 MEQ/L (3.5-5.1); SODIUM LEVEL 139 MEQ/L (136-145)
[2018-04-22] MEDS: SODIUM CHLORIDE 0.9% INJ 10 ML SYR IV SCH ×2 (06:00→17:46)
[2018-04-22] MEDS: MORPHINE 1MG/ML IN 0.9% NACL 100ML IV BAG IV PRN (06:39)
[2018-04-22 08:00] VITALS: BP 111/57
[2018-04-22] MEDS ORDERED: LIDOCAINE 2% MDV 20 ML VIAL As Ordered ONE (08:07)
[2018-04-22] MEDS ORDERED: fentaNYL 100 MCG/2 ML INJECTION (J3010) As Ordered ONE (08:07)
[2018-04-22] MEDS ORDERED: HEPARIN 1,000 UNITS/ML 10ML VIAL (FOR RADIOLOGY& DIALYSIS ONLY) As Ordered ONE (08:07)
[2018-04-22] MEDS ORDERED: MIDAZOLAM INJ 2 MG/2 ML VIAL (J2250) As Ordered ONE (08:07)
[2018-04-22] MEDS ORDERED: ISOVUE-300 61% 50ML VIAL (Q9967) As Ordered ONE (08:08)
[2018-04-22] MEDS: NYSTATIN 100,000 UNITS/GM TOPICAL PWD 15 GM TOP SCH ×2 (10:23→20:38)
[2018-04-22] MEDS ORDERED: NORCO, ANEXSIA 5/325MG TABLET (HYDROcodone/ACETAMINOPHEN) As Ordered ONE (10:55)
[2018-04-22] MEDS: NORCO, ANEXSIA 5/325MG TABLET (HYDROcodone/ACETAMINOPHEN) PO PRN ×3 (11:01→20:57)
[2018-04-22] MEDS: HEPARIN DRIP 25,000 UNITS in APPROPRIATE DILUENT 1 EA IV SCH ×2 (11:26→18:25)
[2018-04-22 12:00] VITALS: BP 132/68
[2018-04-22] MEDS ORDERED: NORCO, ANEXSIA 5/325MG TABLET (HYDROcodone/ACETAMINOPHEN) PO ONE (12:00)
[2018-04-22 16:00] VITALS: BP 143/78
[2018-04-22] MEDS ORDERED: MORPHINE 4 MG/ML 1ML VIAL/SYRINGE (J2270) As Ordered ONE (16:53)
[2018-04-22] MEDS: MORPHINE 4 MG/ML 1ML VIAL/SYRINGE (J2270) IV PRN ×3 (16:57→22:15)
[2018-04-22 20:00] VITALS: BP 134/74
[2018-04-23] VITALS (7 sets, daily range): BP systolic 125–159; BP diastolic 62–87
[2018-04-23] MEDS: NORCO, ANEXSIA 5/325MG TABLET (HYDROcodone/ACETAMINOPHEN) PO PRN ×4 (01:10→17:34)
[2018-04-23] MEDS: HEPARIN DRIP 25,000 UNITS in APPROPRIATE DILUENT 1 EA IV SCH ×3 (01:41→17:27)
[2018-04-23] MEDS: IPRATROPIUM 0.5MG/ALBUTEROL 2.5MG INH SOL UD 3ML (DUONEB)(J7620) NEB SCH ×6 (04:00→20:59)
[2018-04-23] MEDS: SODIUM CHLORIDE 0.9% INJ 10 ML SYR IV SCH ×2 (04:17→17:39)
[2018-04-23] MEDS: MORPHINE 4 MG/ML 1ML VIAL/SYRINGE (J2270) IV PRN ×2 (04:17→08:17)
[2018-04-23 06:32] LABS: HEMATOCRIT 33.9 % (42.0-52.0); MEAN CORPUSCULAR HEMOGLOBIN 31.5 pg (27.0-33.0); MEAN CORPUSCULAR HGB CONC 32.4 g/dl (32.0-36.5); MEAN CORPUSCULAR VOLUME 97.1 fl (80.0-96.0); PLATELET COUNT, AUTOMATED 185 10^3/uL (150-450); RED BLOOD COUNT 3.49 10^6/uL (4.30-6.10); WHITE BLOOD COUNT 12.5 10^3/uL (4.0-10.0)
[2018-04-23 06:59] LABS: BLOOD UREA NITROGEN 9 MG/DL (7-18); CALCIUM LEVEL 8.7 MG/DL (8.5-10.1); CARBON DIOXIDE LEVEL 29 MEQ/L (21-32); CHLORIDE LEVEL 96 MEQ/L (98-107); CREATININE FOR GFR 1.15 MG/DL (0.70-1.30); GLOMERULAR FILTRATION RATE > 60.0 (>60); GLUCOSE, FASTING 261 MG/DL (70-100); POTASSIUM SERUM 3.8 MEQ/L (3.5-5.1); SODIUM LEVEL 134 MEQ/L (136-145)
[2018-04-23] MEDS: NYSTATIN 100,000 UNITS/GM TOPICAL PWD 15 GM TOP SCH ×2 (08:10→21:35)
[2018-04-23 16:43] LABS: INR 1.02; PROTHROMBIN TIME 13.5 SECONDS (12.1-14.4)
[2018-04-23 17:24] LABS: PARTIAL THROMBOPLASTIN TIME 88.2 SECONDS (25.4-37.6)
[2018-04-23] MEDS: WARFARIN SOD 5 MG TAB PO SCH (17:33)
--- NOTE | 2018-04-23 20:35 | IPNPDOC ---
Subjective General Date/Time Seen The patient was seen on 04/23/18 at 20:33. Subject Chief Complaint/History The patient is a 42-year-old male admitted with bilateral pulmonary embolus and extensive left lower extremity DVT. Patient has completed his left lower extremity venous thrombolysis and is doing well. Patient has no new complaints. Current Medications Current Medications Current Medications Acetaminophen/ Hydrocodone Bitart ([place], [place] 5/325) 1 tab Q4HP PRN PO MILD/MODERATE PAIN (PS 1-7) Last administered on 04/23/18at 01:10; Start 04/22/18 at 10:45 Acetaminophen/ Hydrocodone Bitart ([place], [place] 5/325) 2 tab Q4HP PRN PO SEVERE PAIN (PS 8-10) Last administered on 04/23/18at 17:34; Start 04/22/18 at 11:45 Albuterol/ Ipratropium (Duoneb (Ipr 0.5mg/Alb 2.5mg)) 3 ml RQ4H NEB Last administered on 04/23/18at 11:47; Start 04/07/18 at 08:00 Alteplase, Recombinant 10 mg/ Sodium Chloride 100 ml @ 0.5 mls/hr Q24H IV Last administered on 04/12/18at 23:57; Start 04/12/18 at 16:00; Stop 04/15/18 at 15:14; Status DC Alteplase, Recombinant 10 mg/ Sodium Chloride 110 ml @ 2.5 mls/hr Q24H IV Last administered on 04/11/18at 15:24; Start 04/11/18 at 16:00; Stop 04/12/18 at 15:59; Status DC Alteplase, Recombinant 25 mg/ Sodium Chloride 250 ml @ 2.5 mls/hr Q24H IV Last administered on 04/10/18at 13:29; Start 04/09/18 at 15:00; Stop 04/11/18 at 14:29; Status DC Alteplase, Recombinant 25 mg/ Sodium Chloride 250 ml @ 10 mls/hr Q24H IV Last administered on 04/21/18at 12:56; Start 04/18/18 at 16:00; Stop 04/22/18 at 10:36; Status DC Alvimopan (Entereg) 12 mg BID PO Last administered on 04/13/18at 20:58; Start 04/12/18 at 09:00; Stop 04/14/18 at 06:00; Status DC Calcium Carbonate (Tums) 1,000 mg TID PO Last administered on 04/13/18at 11:13; Start 04/13/18 at 09:00; Stop 04/13/18 at 13:31; Status DC Calcium Carbonate (Tums) 1,000 mg TIDP PRN PO HEARTBURN/INDIGESTION; Start 04/14/18 at 09:00 Clotrimazole (Lotrimin) Apply to affected groin area. DAILY@0800 TOP Last administered on 04/12/18at 08:15; Start 04/11/18 at 08:00; Stop 04/13/18 at 10:54; Status DC Diphenhydramine HCl (Benadryl) 12.5 mg Q4HP PRN IV ITCHING Last administered on 04/22/18at 02:00; Start 04/17/18 at 01:45; Stop 04/22/18 at 10:36; Status DC Diphenhydramine HCl (Benadryl) 25 mg Q6HP PRN PO RASH/ITCHING Last administered on 04/15/18at 20:31; Start 04/11/18 at 00:15 Doxycycline Hyclate (Vibramycin) 100 mg BID PO Last administered on 04/07/18at 21:06; Start 04/07/18 at 09:00; Stop 04/07/18 at 21:01; Status DC Fentanyl Citrate (Sublimaze) 50 mcg ASDIRECTED PRN IV FOR PROCEDURE; Start 04/16/18 at 14:30; Stop 04/21/18 at 07:24; Status DC Heparin Sodium (Heparin (Flush)) 200 units ASDIRECTED PRN IV SEE LABEL COMMENTS Last administered on 04/18/18at 23:49; Start 04/09/18 at 15:15 Heparin Sodium (Heparin (Flush)) 200 units PICC IV Last administered on 04/23/18at 04:17; Start 04/09/18 at 18:00 Heparin Sodium (Porcine) (Heparin) ASDIRECTED PRN IV SEE LABEL COMMENTS; Start 04/22/18 at 10:45 Heparin Sodium (Porcine) (Heparin) ASDIRECTED PRN IV SEE LABEL COMMENTS Last administered on 04/08/18at 20:13; Start 04/07/18 at 03:45; Stop 04/09/18 at 13:20; Status DC Heparin Sodium (Porcine) 26661 units/IV Miscellaneous Supplies 250 ml @ 9.99 mls/hr Q24H IV ; Start 04/07/18 at 03:13; Stop 04/07/18 at 03:37; Status DC Heparin Sodium (Porcine) 76596 units/IV Miscellaneous Supplies 250 ml @ 35 mls/hr Q7H9M IV Last administered on 04/22/18at 00:59; Start 04/22/18 at 00:59; Stop 04/22/18 at 10:59; Status DC Heparin Sodium (Porcine) 75479 units/IV Miscellaneous Supplies 250 ml @ 35 mls/hr Q7H9M IV Last administered on 04/21/18at 16:21; Start 04/09/18 at 13:30; Stop 04/21/18 at 20:19; Status DC Heparin Sodium (Porcine) 49395 units/IV Miscellaneous Supplies 250 ml @ 0 mls/hr Q0M IV Last administered on 04/23/18at 17:27; Start 04/22/18 at 10:41 Heparin Sodium (Porcine) 92354 units/IV Miscellaneous Supplies 250 ml @ 0 mls/hr Q0M IV ; Start 04/07/18 at 03:31; Stop 04/07/18 at 04:05; Status DC Heparin Sodium (Porcine) 01539 units/IV Miscellaneous Supplies 250 ml @ 0 mls/hr Q0M IV Last administered on 04/09/18at 06:06; Start 04/07/18 at 07:30; Stop 04/09/18 at 13:20; Status DC Heparin Sodium (Porcine) 06567 units/IV Miscellaneous Supplies 250 ml @ 0 mls/hr Q0M IV ; Start 04/07/18 at 09:00; Stop 04/07/18 at 09:00; Status DC Home Med (Med Rec Complete!) ASDIRECTED XX ; Start 04/07/18 at 04:15; Stop 04/07/18 at 04:15; Status DC Midazolam HCl (Versed) 1 mg ASDIRECTED PRN IV FOR PROCEDURE; Start 04/16/18 at 14:30; Stop 04/21/18 at 07:24; Status DC Miscellaneous (Unresolved Clarification Entry) SEE LABEL COMMENTS DAILY XX ; Start 04/14/18 at 09:00; Stop 04/14/18 at 20:45; Status DC Morphine Sulfate (Morphine Sulfate In 0.9%Nacl Iv Bag) Concentration 1 mg/ml DIRECTED PRN IV SEE LABEL COMMENTS Last administered on 04/22/18at 06:39; Start 04/17/18 at 01:45; Stop 04/22/18 at 10:36; Status DC Morphine Sulfate (Morphine Sulfate Inj) 2 mg Q30MP PRN IV PAIN Last administered on 04/11/18at 21:48; Start 04/09/18 at 22:30; Stop 04/11/18 at 21:57; Status DC Morphine Sulfate (Morphine Sulfate Inj) 4 mg Q15MP PRN IV SEVERE PAIN (PS 8-10) Last administered on 04/23/18at 08:17; Start 04/22/18 at 17:00 Morphine Sulfate (Morphine Sulfate Inj) 4 mg Q30MP PRN IV PAIN Last administered on 04/17/18at 00:35; Start 04/11/18 at 22:00; Stop 04/17/18 at 01:49; Status DC Nalbuphine HCl (Nubain) 2.5 mg Q6HP PRN IV PRURITIS; Start 04/17/18 at 01:45; Stop 04/22/18 at 10:36; Status DC Naloxone HCl (Narcan) 0.1 mg Q5MP PRN IV SEE LABEL COMMENTS; Start 04/17/18 at 01:45; Stop 04/22/18 at 10:36; Status DC Nicotine (Nicoderm Cq 21mg) 1 patch DAILYPRN PRN TD NICOTINE WITHDRAWAL; Start 04/07/18 at 04:15 Non-Formulary Medication (Epidural/INSIGHT LEADER [place]) USE THIS ENTRY TO VEND ... Q1M PRN XX SEE LABEL COMMENTS; Start 04/17/18 at 01:45; Stop 04/22/18 at 10:36; Status DC Non-Formulary Medication (Heparin Iv Rate Change Documentation ml/ Hr) ASDIRECTED XX Last administered on 04/23/18at 08:40; Start 04/22/18 at 10:45; Stop 04/27/18 at 10:44 Non-Formulary Medication (Heparin Iv Rate Change Documentation ml/ Hr) ASDIRECTED XX Last administered on 04/08/18at 05:38; Start 04/07/18 at 03:45; Stop 04/09/18 at 13:20; Status DC Nystatin (Mycostatin Powder, Nystop) To be applied to affec... BID TOP Last administered on 04/23/18at 08:10; Start 04/13/18 at 21:00 Nystatin (Mycostatin Powder, Nystop) To be applied to affec... QID TOP Last administered on 04/12/18at 20:05; Start 04/10/18 at 17:00; Stop 04/13/18 at 10:54; Status DC Ondansetron HCl (ZOFRAN INJection) 4 mg Q6HP PRN IV NAUSEA; Start 04/17/18 at 01:45; Stop 04/22/18 at 10:36; Status DC Oxycodone/ Acetaminophen (Percocet 5mg/ 325mg Tablet) 1 tab Q4HP PRN PO MILD/MODERATE PAIN (PS 1-7) Last administered on 04/15/18at 07:52; Start 04/08/18 at 16:15; Stop 04/17/18 at 14:13; Status DC Oxycodone/ Acetaminophen (Percocet 5mg/ 325mg Tablet) 1 tab Q6H PRN PO PAIN Last administered on 04/08/18at 10:57; Start 04/07/18 at 04:00; Stop 04/08/18 at 16:37; Status DC Oxycodone/ Acetaminophen (Percocet 5mg/ 325mg Tablet) 2 tab Q4HP PRN PO SEVERE PAIN (PS 8-10) Last administered on 04/16/18at 23:22; Start 04/08/18 at 16:15; Stop 04/17/18 at 14:13; Status DC Oxycodone/ Acetaminophen (Percocet 5mg/ 325mg Tablet) 2 tab Q6HP PRN PO SEVERE PAIN (PS 8-10); Start 04/08/18 at 11:15; Stop 04/08/18 at 16:10; Status DC Polyethylene Glycol (Miralax) 1 pkt BID PO Last administered on 04/12/18at 20:04; Start 04/10/18 at 21:00; Stop 04/13/18 at 10:54; Status DC Senna/Docusate Sodium (Senokot S) 1 tab BID PO Last administered on 04/12/18 08:13; Start 04/10/18 at 21:00; Stop 04/12/18 at 12:52; Status DC Senna/Docusate Sodium (Senokot S) 2 tab BID PO Last administered on 04/14/18 08:54; Start 04/12/18 at 21:00; Stop 04/14/18 at 12:23; Status DC Senna/Docusate Sodium (Senokot S) 2 tab BIDP PRN PO CONSTIPATION Last administered on 04/22/18 20:39; Start 04/14/18 at 12:30 Sodium Chloride 1,000 ml @ 15 mls/hr Q24H IV Last administered on 04/22/18 01:41; Start 04/17/18 at 01:41; Stop 04/22/18 at 10:36; Status DC Sodium Chloride ([place]) 2 spray Q1HP PRN NA NASAL DRYNESS Last administered on 04/21/18 09:15; Start 04/11/18 at 21:30 Sodium Chloride (Saline Lock Flush) 10 ML PICC IV Last administered on 04/23/18 at 04:17; Start 04/09/18 at 18:00 Sodium Chloride (Saline Lock Flush) 10ML ASDIRECTED PRN IV SEE LABEL COMMENTS Last administered on 04/18/18 23:49; Start 04/09/18 at 15:15 Valacyclovir HCl (Valtrex) 1,000 mg Q12H PO Last administered on 04/07/18 21:06; Start 04/07/18 at 09:00; Stop 04/07/18 at 21:01; Status DC Warfarin Sodium (Coumadin) 10 mg DAILY@1700 PO Last administered on 04/23/18 17:33; Start 04/23/18 at 17:00 Allergies Coded Allergies: Penicillins (Verified Allergy, Intermediate, hives, 04/04/18) VITAL SIGNS VITAL SIGNS Vital Signs Date Time Temp Pulse Resp B/P (MAP) Pulse Ox O2 Delivery O2 Flow Rate FiO2 04/23/18 18:13 20 04/23/18 18:00 97.5 76 22 142/80 (100) 96 04/23/18 17:34 20 04/23/18 14:43 97.5 79 20 143/70 (94) 96 04/23/18 12:00 98.1 88 16 141/62 (88) 95 04/23/18 10:35 16 04/23/18 08:27 16 04/23/18 08:17 16 04/23/18 08:00 97.6 82 16 138/78 (98) 94 04/23/18 06:45 18 04/23/18 04:17 18 04/23/18 04:00 97.3 178 16 125/69 (87) 95 04/23/18 01:40 18 04/23/18 01:10 18 04/23/18 00:00 98.0 101 16 136/87 (103) 95 04/22/18 22:15 18 04/22/18 20:57 18 04/22/18 20:38 18 Intake & Output 04/23/18 06:00 Intake Total 2465 ml Output Total 2200 ml Balance 265 ml Laboratory Tests 04/22/18 22:00: Activated Partial Thromboplast Time 93.6H 04/23/18 06:09: White Blood Count 12.5H, Red Blood Count 3.49L, Hemoglobin 11.0L, Hematocrit 33.9L, Mean Corpuscular Volume 97.1H, Mean Corpuscular Hemoglobin 31.5, Mean Corpuscular Hemoglobin Concent 32.4, Red Cell Distribution Width 13.7, Platelet Count 185, Nucleated Red Blood Cells % (auto) 0.0, Blood Urea Nitrogen 9, Creatinine 1.15, Sodium Level 134L, Potassium Level 3.8, Chloride Level 96L, Carbon Dioxide Level 29, Calcium Level 8.7, Anion Gap 9, Glomerular Filtration Rate > 60.0, Fasting Glucose 261H 04/23/18 07:47: Activated Partial Thromboplast Time 116.1H 04/23/18 15:52: Activated Partial Thromboplast Time 88.2H, Prothrombin Time 13.5, Prothromb Time International Ratio 1.02 Microbiology 04/22/18 Stool Occult Blood (BELLA) - Final, Complete 04/21/18 Stool Occult Blood (BELLA) - Final, Complete 04/18/18 Stool Occult Blood (BELLA) - Final, Complete 04/15/18 Viral Culture - Final, Complete Current Medications Medications (Trade) Dose Ordered Sig/Jer Route PRN Reason Start Time Stop Time Status Last Admin Dose Admin Acetaminophen/ Hydrocodone Bitart ([place], [place] 5/325) 2 tab Q4HP PRN PO SEVERE PAIN (PS 8-10) 04/22/18 11:45 04/23/18 17:34 Albuterol/ Ipratropium (Duoneb (Ipr 0.5mg/Alb 2.5mg)) 3 ml RQ4H NEB 04/07/18 08:00 04/23/18 11:47 Diphenhydramine HCl (Benadryl) 25 mg Q6HP PRN PO RASH/ITCHING 04/11/18 00:15 04/15/18 20:31 Heparin Sodium (Heparin (Flush)) 200 units ASDIRECTED PRN IV SEE LABEL COMMENTS 04/09/18 15:15 04/18/18 23:49 Heparin Sodium (Porcine) 80578 units/IV Miscellaneous Supplies 250 ml @ 0 mls/hr Q0M IV 04/22/18 10:41 04/23/18 17:27 Morphine Sulfate (Morphine Sulfate Inj) 4 mg Q15MP PRN IV SEVERE PAIN (PS 8-10) 04/22/18 17:00 04/23/18 08:17 Non-Formulary Medication (Heparin Iv Rate Change Documentation ml/ Hr) ASDIRECTED XX 04/22/18 10:45 04/27/18 10:44 04/23/18 08:40 Nystatin (Mycostatin Powder, Nystop) To be applied to affec... BID TOP 04/13/18 21:00 04/23/18 08:10 Senna/Docusate Sodium (Senokot S) 2 tab BIDP PRN PO CONSTIPATION 04/14/18 12:30 04/22/18 20:39 Sodium Chloride ([place] Nasal [place]) 2 spray Q1HP PRN NA NASAL DRYNESS 04/11/18 21:30 04/21/18 09:15 Sodium Chloride (Saline Lock Flush) 10ML ASDIRECTED PRN IV SEE LABEL COMMENTS 04/09/18 15:15 04/18/18 23:49 Warfarin Sodium (Coumadin) 10 mg DAILY@1700 PO 04/23/18 17:00 04/23/18 17:33 Laboratory Tests 04/21/18 23:29 04/22/18 04:54 Red Blood Count 3.53 L, Mean Corpuscular Volume 97.2 H, Mean Corpuscular Hemoglobin 32.0, Mean Corpuscular Hemoglobin Concent 32.9, Red Cell Distribution Width 13.8, Calcium Level 8.5 04/23/18 06:09 Red Blood Count 3.49 L, Mean Corpuscular Volume 97.1 H, Mean Corpuscular Hemoglobin 31.5, Mean Corpuscular Hemoglobin Concent 32.4, Red Cell Distribution Width 13.7, Calcium Level 8.7 Microbiology 04/22/18 Stool Occult Blood (BELLA) - Final, Complete 04/21/18 Stool Occult Blood (BELAL) - Final, Complete 04/18/18 Stool Occult Blood (BELLA) - Final, Complete 04/15/18 Viral Culture - Final, Complete Objective Physical Examination General Exam: Positive: Alert, Cooperative Neck Exam: Positive: Supple; Negative: JVD Chest Exam: Positive: Clear to auscultation Heart Exam: Positive: Rate Normal; Negative: Tachycardic, Bradycardic Telemetry: Positive: No significant arrhythmia, Sinus Abdomen Exam: Positive: Normal bowel sounds Male Exam: Positive: Normal Genital Exam Extremity Exam: Positive: Clubbing, Edema (Left lower extremity swelling), Tenderness (pain and tenderness in left thigh has essentially resolved. some tenderness and ache remains in calf); Negative: Cyanosis Skin Exam: Positive: Nl turgor and temperature, Rash (Closer examination of the lesion on his heel today reveals a linear cluster of pustules on a background of mild erythema and some hyperkeretosis. Importantly, the pustules seem to be welling up from inside the skin. Clinically, this seems most consistent with a contact dermatitis, or sub-acute eczema at this time.), Other skin issue (petechial rash on left calf) Neuro Exam: Positive: Normal Gait, Normal Tone Psych Exam: Positive: Mental status NL; Negative: Anxiety Assessment/Plan Assessment Patient is stable and has improvement in his left lower extremity swelling and will now continue on a heparin drip and transitioned to Coumadin therapy. Plan Patient will continue on heparin drip until his INR is 2-3. Patient was offered the option of being discharged home on Lovenox while transitioning to Coumadin but does not think he will be only give himself the shots. Patient will continue with physical therapy. Patient was again counseled on the need to not smoke once he is discharged home. Xander Lino MD Apr 23, 2018 20:35
[2018-04-23 22:39] LABS: INR 0.97
[2018-04-23 22:41] LABS: PARTIAL THROMBOPLASTIN TIME 78.1 SECONDS (25.4-37.6)
[2018-04-24] MEDS: HEPARIN DRIP 25,000 UNITS in APPROPRIATE DILUENT 1 EA IV SCH ×3 (01:03→18:46)
[2018-04-24 02:00] VITALS: BP 139/64
[2018-04-24] MEDS: IPRATROPIUM 0.5MG/ALBUTEROL 2.5MG INH SOL UD 3ML (DUONEB)(J7620) NEB SCH ×6 (03:30→20:00)
[2018-04-24 04:55] LABS: HEMATOCRIT 35.2 % (42.0-52.0); HEMOGLOBIN 11.8 g/dl (13.5-17.5); MEAN CORPUSCULAR HEMOGLOBIN 32.2 pg (27.0-33.0); MEAN CORPUSCULAR HGB CONC 33.5 g/dl (32.0-36.5); MEAN CORPUSCULAR VOLUME 95.9 fl (80.0-96.0); PLATELET COUNT, AUTOMATED 192 10^3/uL (150-450); RED BLOOD COUNT 3.67 10^6/uL (4.30-6.10); WHITE BLOOD COUNT 11.5 10^3/uL (4.0-10.0)
[2018-04-24 05:05] LABS: BLOOD UREA NITROGEN 9 MG/DL (7-18); CALCIUM LEVEL 8.5 MG/DL (8.5-10.1); CARBON DIOXIDE LEVEL 29 MEQ/L (21-32); CHLORIDE LEVEL 104 MEQ/L (98-107); GLOMERULAR FILTRATION RATE > 60.0 (>60); GLUCOSE, FASTING 92 MG/DL (70-100); POTASSIUM SERUM 4.1 MEQ/L (3.5-5.1); SODIUM LEVEL 141 MEQ/L (136-145)
[2018-04-24 05:16] LABS: INR 0.99; PROTHROMBIN TIME 13.2 SECONDS (12.1-14.4)
[2018-04-24 05:18] LABS: PARTIAL THROMBOPLASTIN TIME 92.5 SECONDS (25.4-37.6)
[2018-04-24 06:00] VITALS: BP 145/88
[2018-04-24] MEDS: NYSTATIN 100,000 UNITS/GM TOPICAL PWD 15 GM TOP SCH ×2 (09:15→21:37)
[2018-04-24 10:00] VITALS: BP 128/82
[2018-04-24] MEDS: HEPARIN SOD (PORCINE) 5000 UNITS/ML VIAL IV PRN ×2 (10:03→18:47)
--- NOTE | 2018-04-24 10:26 | NOCOX ---
DATE OF STUDY: 04/22/2018 INTERPRETATION: Nocturnal recording oximetry was performed on room air. A total of 6 hours and 59 minutes of data was reviewed. Mean oxygen saturation for the study was 93% with a minimum recorded value, per the print out, of 79%, though that appears to be artifact. The true minimum is more likely in the mid 80s. There was significant fluctuation of the SpO2 waveform suggestive of sleep disordered breathing. He spent 4.5% of the night with saturations 88% or lower with the longest sustained period of time 38 seconds. IMPRESSION: 1. Patient spent greater than 5 minutes of the night with saturations less than or equal to 88% but no sustained period of time with saturations in that range (38 seconds longest continuous period of time). 2. Significant fluctuations in the SpO2 waveform suggestive of sleep disordered breathing. Clinical correlation will be necessary. MILLI
[2018-04-24 14:00] VITALS: BP 136/83
[2018-04-24] MEDS: WARFARIN SOD 5 MG TAB PO SCH (17:00)
[2018-04-24 18:00] VITALS: BP 122/80
--- NOTE | 2018-04-24 20:27 | IPNPDOC ---
Subjective General Date/Time Seen The patient was seen on 04/24/18 at 20:26. Subject Chief Complaint/History The patient is a 42-year-old male admitted with bilateral pulmonary embolus and extensive left lower extremity DVT who is undergone left lower extremity venous thrombolysis. Patient has no new complaints. Current Medications Current Medications Current Medications Acetaminophen/ Hydrocodone Bitart (Belk, Anexsia 5/325) 1 tab Q4HP PRN PO MILD/MODERATE PAIN (PS 1-7) Last administered on 04/23/18at 01:10; Start 04/22/18 at 10:45 Acetaminophen/ Hydrocodone Bitart (Belk, [place]nex[place]ia 5/325) 2 tab Q4HP PRN PO SEVERE PAIN (PS 8-10) Last administered on 04/23/18at 17:34; Start 04/22/18 at 11:45 Albuterol/ Ipratropium (Duoneb (Ipr 0.5mg/Alb 2.5mg)) 3 ml RQ4H NEB Last administered on 04/24/18at 15:17; Start 04/07/18 at 08:00 Alteplase, Recombinant 10 mg/ Sodium Chloride 100 ml @ 0.5 mls/hr Q24H IV Last administered on 04/12/18at 23:57; Start 04/12/18 at 16:00; Stop 04/15/18 at 15:14; Status DC Alteplase, Recombinant 10 mg/ Sodium Chloride 110 ml @ 2.5 mls/hr Q24H IV Last administered on 04/11/18at 15:24; Start 04/11/18 at 16:00; Stop 04/12/18 at 15:59; Status DC Alteplase, Recombinant 25 mg/ Sodium Chloride 250 ml @ 2.5 mls/hr Q24H IV Last administered on 04/10/18at 13:29; Start 04/09/18 at 15:00; Stop 04/11/18 at 14:29; Status DC Alteplase, Recombinant 25 mg/ Sodium Chloride 250 ml @ 10 mls/hr Q24H IV Last administered on 04/21/18at 12:56; Start 04/18/18 at 16:00; Stop 04/22/18 at 10:36; Status DC Alvimopan (Entereg) 12 mg BID PO Last administered on 04/13/18at 20:58; Start 04/12/18 at 09:00; Stop 04/14/18 at 06:00; Status DC Calcium Carbonate (Tums) 1,000 mg TID PO Last administered on 04/13/18at 11:13; Start 04/13/18 at 09:00; Stop 04/13/18 at 13:31; Status DC Calcium Carbonate (Tums) 1,000 mg TIDP PRN PO HEARTBURN/INDIGESTION; Start 04/14/18 at 09:00 Clotrimazole (Lotrimin) Apply to affected groin area. DAILY@0800 TOP Last admin istered on 04/12/18at 08:15; Start 04/11/18 at 08:00; Stop 04/13/18 at 10:54; Status DC Diphenhydramine HCl (Benadryl) 12.5 mg Q4HP PRN IV ITCHING Last administered on 04/22/18at 02:00; Start 04/17/18 at 01:45; Stop 04/22/18 at 10:36; Status DC Diphenhydramine HCl (Benadryl) 25 mg Q6HP PRN PO RASH/ITCHING Last administered on 04/15/18at 20:31; Start 04/11/18 at 00:15 Doxycycline Hyclate (Vibramycin) 100 mg BID PO Last administered on 04/07/18at 21:06; Start 04/07/18 at 09:00; Stop 04/07/18 at 21:01; Status DC Fentanyl Citrate (Sublimaze) 50 mcg ASDIRECTED PRN IV FOR PROCEDURE; Start 04/16/18 at 14:30; Stop 04/21/18 at 07:24; Status DC Heparin Sodium (Heparin (Flush)) 200 units ASDIRECTED PRN IV SEE LABEL COMMENTS Last administered on 04/18/18at 23:49; Start 04/09/18 at 15:15; Stop 04/24/18 at 00:03; Status DC Heparin Sodium (Heparin (Flush)) 200 units PICC IV Last administered on 04/23/18at 04:17; Start 04/09/18 at 18:00; Stop 04/24/18 at 00:03; Status DC Heparin Sodium (Porcine) (Heparin) ASDIRECTED PRN IV SEE LABEL COMMENTS Last administered on 04/24/18at 18:47; Start 04/22/18 at 10:45 Heparin Sodium (Porcine) (Heparin) ASDIRECTED PRN IV SEE LABEL COMMENTS Last administered on 04/08/18at 20:13; Start 04/07/18 at 03:45; Stop 04/09/18 at 13:20; Status DC Heparin Sodium (Porcine) 27431 units/IV Miscellaneous Supplies 250 ml @ 9.99 mls/hr Q24H IV ; Start 04/07/18 at 03:13; Stop 04/07/18 at 03:37; Status DC Heparin Sodium (Porcine) 73607 units/IV Miscellaneous Supplies 250 ml @ 35 mls/hr Q7H9M IV Last administered on 04/22/18at 00:59; Start 04/22/18 at 00:59; Stop 04/22/18 at 10:59; Status DC Heparin Sodium (Porcine) 90233 units/IV Miscellaneous Supplies 250 ml @ 35 mls/hr Q7H9M IV Last administered on 04/21/18at 16:21; Start 04/09/18 at 13:30; Stop 04/21/18 at 20:19; Status DC Heparin Sodium (Porcine) 68996 units/IV Miscellaneous Supplies 250 ml @ 0 mls/hr Q0M IV Last administered on 04/24/18at 18:46; Start 04/22/18 at 10:41 Heparin Sodium (Porcine) 41191 units/IV Miscellaneous Supplies 250 ml @ 0 mls/hr Q0M IV ; Start 04/07/18 at 03:31; Stop 04/07/18 at 04:05; Status DC Heparin Sodium (Porcine) 22210 units/IV Miscellaneous Supplies 250 ml @ 0 mls/hr Q0M IV Last administered on 04/09/18at 06:06; Start 04/07/18 at 07:30; Stop 04/09/18 at 13:20; Status DC Heparin Sodium (Porcine) 51405 units/IV Miscellaneous Supplies 250 ml @ 0 mls/hr Q0M IV ; Start 04/07/18 at 09:00; Stop 04/07/18 at 09:00; Status DC Home Med (Med Rec Complete!) ASDIRECTED XX ; Start 04/07/18 at 04:15; Stop 04/07/18 at 04:15; Status DC Midazolam HCl (Versed) 1 mg ASDIRECTED PRN IV FOR PROCEDURE; Start 04/16/18 at 14:30; Stop 04/21/18 at 07:24; Status DC Miscellaneous (Unresolved Clarification Entry) SEE LABEL COMMENTS DAILY XX ; Start 04/14/18 at 09:00; Stop 04/14/18 at 20:45; Status DC Morphine Sulfate (Morphine Sulfate In 0.9%Nacl Iv Bag) Concentration 1 mg/ml ASDIRECTED PRN IV SEE LABEL COMMENTS Last administered on 04/22/18at 06:39; Start 04/17/18 at 01:45; Stop 04/22/18 at 10:36; Status DC Morphine Sulfate (Morphine Sulfate Inj) 2 mg Q30MP PRN IV PAIN Last administered on 04/11/18at 21:48; Start 04/09/18 at 22:30; Stop 04/11/18 at 21:57; Status DC Morphine Sulfate (Morphine Sulfate Inj) 4 mg Q15MP PRN IV SEVERE PAIN (PS 8-10) Last administered on 04/23/18at 08:17; Start 04/22/18 at 17:00 Morphine Sulfate (Morphine Sulfate Inj) 4 mg Q30MP PRN IV PAIN Last administered on 04/17/18at 00:35; Start 04/11/18 at 22:00; Stop 04/17/18 at 01:49; Status DC Nalbuphine HCl (Nubain) 2.5 mg Q6HP PRN IV PRURITIS; Start 04/17/18 at 01:45; Stop 04/22/18 at 10:36; Status DC Naloxone HCl (Narcan) 0.1 mg Q5MP PRN IV SEE LABEL COMMENTS; Start 04/17/18 at 01:45; Stop 04/22/18 at 10:36; Status DC Nicotine (Nicoderm Cq 21mg) 1 patch DAILYPRN PRN TD NICOTINE WITHDRAWAL; Start 04/07/18 at 04:15 Non-Formulary Medication (Epidural/STEM ASSEMBLER Pease) USE THIS ENTRY TO VEND ... Q1M PRN XX SEE LABEL COMMENTS; Start 04/17/18 at 01:45; Stop 04/22/18 at 10:36; Status DC Non-Formulary Medication (Heparin Iv Rate Change Documentation ml/ Hr) ASDIRECTED XX Last administered on 04/24/18at 12:33; Start 04/22/18 at 10:45; Stop 04/27/18 at 10:44 Non-Formulary Medication (Heparin Iv Rate Change Documentation ml/ Hr) ASDIRECTED XX Last administered on 04/08/18at 05:38; Start 04/07/18 at 03:45; Stop 04/09/18 at 13:20; Status DC Nystatin (Mycostatin Powder, Nystop) To be applied to affec... BID TOP Last administered on 04/24/18at 09:15; Start 04/13/18 at 21:00 Nystatin (Mycostatin Powder, Nystop) To be applied to affec... QID TOP Last administered on 04/12/18at 20:05; Start 04/10/18 at 17:00; Stop 04/13/18 at 10:54; Status DC Ondansetron HCl (ZOFRAN INJection) 4 mg Q6HP PRN IV NAUSEA; Start 04/17/18 at 01:45; Stop 04/22/18 at 10:36; Status DC Oxycodone/ Acetaminophen (Percocet 5mg/ 325mg Tablet) 1 tab Q4HP PRN PO MILD/MODERATE PAIN (PS 1-7) Last administered on 04/15/18at 07:52; Start 04/08/18 at 16:15; Stop 04/17/18 at 14:13; Status DC Oxycodone/ Acetaminophen (Percocet 5mg/ 325mg Tablet) 1 tab Q6H PRN PO PAIN Last administered on 04/08/18at 10:57; Start 04/07/18 at 04:00; Stop 04/08/18 at 16:37; Status DC Oxycodone/ Acetaminophen (Percocet 5mg/ 325mg Tablet) 2 tab Q4HP PRN PO SEVERE PAIN (PS 8-10) Last administered on 04/16/18at 23:22; Start 04/08/18 at 16:15; Stop 04/17/18 at 14:13; Status DC Oxycodone/ Acetaminophen (Percocet 5mg/ 325mg Tablet) 2 tab Q6HP PRN PO SEVERE PAIN (PS 8-10); Start 04/08/18 at 11:15; Stop 04/08/18 at 16:10; Status DC Polyethylene Glycol (Miralax) 1 pkt BID PO Last administered on 04/12/18 20:04; Start 04/10/18 at 21:00; Stop 04/13/18 at 10:54; Status DC Senna/Docusate Sodium (Senokot S) 1 tab BID PO Last administered on 04/12/18 08:13; Start 04/10/18 at 21:00; Stop 04/12/18 at 12:52; Status DC Senna/Docusate Sodium (Senokot S) 2 tab BID PO Last administered on 04/14/18 08:54; Start 04/12/18 at 21:00; Stop 04/14/18 at 12:23; Status DC Senna/Docusate Sodium (Senokot S) 2 tab BIDP PRN PO CONSTIPATION Last administered on 04/22/18 20:39; Start 04/14/18 at 12:30 Sodium Chloride 1,000 ml @ 15 mls/hr Q24H IV Last administered on 04/22/18 01:41; Start 04/17/18 at 01:41; Stop 04/22/18 at 10:36; Status DC Sodium Chloride ([place] Nasal [place]) 2 spray Q1HP PRN NA NASAL DRYNESS Last administered on 04/21/18 09:15; Start 04/11/18 at 21:30 Sodium Chloride (Saline Lock Flush) 10 ML PICC IV Last administered on 04/23/18 04:17; Start 04/09/18 at 18:00; Stop 04/24/18 at 00:03; Status DC Sodium Chloride (Saline Lock Flush) 10ML ASDIRECTED PRN IV SEE LABEL COMMENTS Last administered on 04/18/18 23:49; Start 04/09/18 at 15:15; Stop 04/24/18 at 00:03; Status DC Valacyclovir HCl (Valtrex) 1,000 mg Q12H PO Last administered on 04/07/18 21:06; Start 04/07/18 at 09:00; Stop 04/07/18 at 21:01; Status DC Warfarin Sodium (Coumadin) 10 mg DAILY@1700 PO Last administered on 04/24/18at 17:00; Start 04/23/18 at 17:00 Allergies Coded Allergies: Penicillins (Verified Allergy, Intermediate, hives, 04/04/18) VITAL SIGNS VITAL SIGNS Vital Signs Date Time Temp Pulse Resp B/P (MAP) Pulse Ox O2 Delivery O2 Flow Rate FiO2 04/24/18 18:00 97.2 81 18 122/80 (94) 97 04/24/18 14:00 97.2 84 18 136/83 (100) 95 04/24/18 10:00 97.0 71 18 128/82 (97) 98 04/24/18 06:00 98.4 79 19 145/88 (107) 93 04/24/18 02:00 98.5 85 18 139/64 (89) 94 04/23/18 22:00 97.8 86 18 159/71 (100) 97 Intake & Output 04/24/18 06:00 Intake Total 1666 ml Output Total 3000 ml Balance -1334 ml Laboratory Tests 04/23/18 22:14: Prothrombin Time 13.0, Prothromb Time International Ratio 0.97, Activated Partial Thromboplast Time 78.1H 04/24/18 04:31: Prothrombin Time 13.2, Prothromb Time International Ratio 0.99, Activated Partial Thromboplast Time 92.5H, White Blood Count 11.5H, Red Blood Count 3.67L, Hemoglobin 11.8L, Hematocrit 35.2L, Mean Corpuscular Volume 95.9, Mean Corpuscular Hemoglobin 32.2, Mean Corpuscular Hemoglobin Concent 33.5, Red Cell Distribution Width 13.8, Platelet Count 192, Nucleated Red Blood Cells % (auto) 0.0, Blood Urea Nitrogen 9, Creatinine 1.00, Sodium Level 141#, Potassium Level 4.1, Chloride Level 104, Carbon Dioxide Level 29, Calcium Level 8.5, Anion Gap 8, Glomerular Filtration Rate > 60.0, Fasting Glucose 92 04/24/18 10:35: Activated Partial Thromboplast Time 139.7*H 04/24/18 17:21: Activated Partial Thromboplast Time 52.6H Microbiology 04/22/18 Stool Occult Blood (BELLA) - Final, Complete 04/21/18 Stool Occult Blood (BELLA) - Final, Complete 04/18/18 Stool Occult Blood (BELLA) - Final, Complete 04/15/18 Viral Culture - Final, Complete Current Medications Medications (Trade) Dose Ordered Sig/Jer Route PRN Reason Start Time Stop Time Status Last Admin Dose Admin Acetaminophen/ Hydrocodone Bitart (Belk, Anexsia 5/325) 2 tab Q4HP PRN PO SEVERE PAIN (PS 8-10) 04/22/18 11:45 04/23/18 17:34 Albuterol/ Ipratropium (Duoneb (Ipr 0.5mg/Alb 2.5mg)) 3 ml RQ4H NEB 04/07/18 08:00 04/24/18 15:17 Diphenhydramine HCl (Benadryl) 25 mg Q6HP PRN PO RASH/ITCHING 04/11/18 00:15 04/15/18 20:31 Heparin Sodium (Porcine) (Heparin) ASDIRECTED PRN IV SEE LABEL COMMENTS 04/22/18 10:45 04/24/18 18:47 Heparin Sodium (Porcine) 10607 units/IV Miscellaneous Supplies 250 ml @ 0 mls/hr Q0M IV 04/22/18 10:41 04/24/18 18:46 Morphine Sulfate (Morphine Sulfate Inj) 4 mg Q15MP PRN IV SEVERE PAIN (PS 8-10) 04/22/18 17:00 04/23/18 08:17 Non-Formulary Medication (Heparin Iv Rate Change Documentation ml/ Hr) ASDIRECTED XX 04/22/18 10:45 04/27/18 10:44 04/24/18 12:33 Nystatin (Mycostatin Powder, Nystop) To be applied to affec... BID TOP 04/13/18 21:00 04/24/18 09:15 Senna/Docusate Sodium (Senokot S) 2 tab BIDP PRN PO CONSTIPATION 04/14/18 12:30 04/22/18 20:39 Sodium Chloride ([place] Nasal [place]) 2 spray Q1HP PRN NA NASAL DRYNESS 04/11/18 21:30 04/21/18 09:15 Warfarin Sodium (Coumadin) 10 mg DAILY@1700 PO 04/23/18 17:00 04/24/18 17:00 Laboratory Tests 04/23/18 06:09 Red Blood Count 3.49 L, Mean Corpuscular Volume 97.1 H, Mean Corpuscular Hemoglobin 31.5, Mean Corpuscular Hemoglobin Concent 32.4, Red Cell Distribution Width 13.7, Calcium Level 8.7 2/21/19 04:31 Red Blood Count 3.67 L, Mean Corpuscular Volume 95.9, Mean Corpuscular Hemoglobin 32.2, Mean Corpuscular Hemoglobin Concent 33.5, Red Cell Distribution Width 13.8, Calcium Level 8.5 Microbiology 04/22/18 Stool Occult Blood (BELLA) - Final, Complete 04/21/18 Stool Occult Blood (BELLA) - Final, Complete 04/18/18 Stool Occult Blood (BELLA) - Final, Complete 04/15/18 Viral Culture - Final, Complete Objective Physical Examination General Exam: Positive: Alert, Cooperative Neck Exam: Positive: Supple; Negative: JVD Chest Exam: Positive: Clear to auscultation Heart Exam: Positive: Rate Normal; Negative: Tachycardic, Bradycardic Telemetry: Positive: No significant arrhythmia, Sinus Abdomen Exam: Positive: Normal bowel sounds Male Exam: Positive: Normal Genital Exam Extremity Exam: Positive: Clubbing, Edema (Left lower extremity swelling), Tenderness (pain and tenderness in left thigh has essentially resolved. some tenderness and ache remains in calf); Negative: Cyanosis Skin Exam: Positive: Nl turgor and temperature, Rash (Closer examination of the lesion on his heel today reveals a linear cluster of pustules on a background of mild erythema and some hyperkeretosis. Importantly, the pustules seem to be welling up from inside the skin. Clinically, this seems most consistent with a contact dermatitis, or sub-acute eczema at this time.), Other skin issue (petechial rash on left calf) Neuro Exam: Positive: Normal Gait, Normal Speech, Normal Tone Psych Exam: Positive: Mental status NL, Mood NL; Negative: Anxiety Assessment/Plan Assessment Patient is stable and is awaiting therapeutic INR on Coumadin with a range of 2- 3. Plan Patient will continue heparin drip and be discharged once his Coumadin level is therapeutic with an INR of between 2 and 3. Patient was again counseled on the need to not smoke once he is discharged home. Patient will continue to work with physical therapy. Xander Lino MD Apr 24, 2018 20:27
[2018-04-24 22:00] VITALS: BP 149/82
[2018-04-25] MEDS: IPRATROPIUM 0.5MG/ALBUTEROL 2.5MG INH SOL UD 3ML (DUONEB)(J7620) NEB SCH ×6 (04:00→18:21)
[2018-04-25] MEDS: HEPARIN DRIP 25,000 UNITS in APPROPRIATE DILUENT 1 EA IV SCH (04:15)
[2018-04-25 06:00] VITALS: BP 135/69
[2018-04-25 06:38] LABS: HEMATOCRIT 36.3 % (42.0-52.0); HEMOGLOBIN 12.3 g/dl (13.5-17.5); MEAN CORPUSCULAR HEMOGLOBIN 31.9 pg (27.0-33.0); MEAN CORPUSCULAR HGB CONC 33.9 g/dl (32.0-36.5); MEAN CORPUSCULAR VOLUME 94.3 fl (80.0-96.0); PLATELET COUNT, AUTOMATED 234 10^3/uL (150-450); RED BLOOD COUNT 3.85 10^6/uL (4.30-6.10); WHITE BLOOD COUNT 13.3 10^3/uL (4.0-10.0)
[2018-04-25 06:56] LABS: INR 1.04; PROTHROMBIN TIME 13.7 SECONDS (12.1-14.4)
[2018-04-25 06:57] LABS: PARTIAL THROMBOPLASTIN TIME 73.6 SECONDS (25.4-37.6)
[2018-04-25 06:58] LABS: BLOOD UREA NITROGEN 8 MG/DL (7-18); CALCIUM LEVEL 8.9 MG/DL (8.5-10.1); CARBON DIOXIDE LEVEL 28 MEQ/L (21-32); CHLORIDE LEVEL 104 MEQ/L (98-107); CREATININE FOR GFR 1.03 MG/DL (0.70-1.30); GLOMERULAR FILTRATION RATE > 60.0 (>60); GLUCOSE, FASTING 102 MG/DL (70-100); POTASSIUM SERUM 4.2 MEQ/L (3.5-5.1); SODIUM LEVEL 139 MEQ/L (136-145)
[2018-04-25] MEDS: NYSTATIN 100,000 UNITS/GM TOPICAL PWD 15 GM TOP SCH ×2 (09:01→21:10)
[2018-04-25 10:00] VITALS: BP 128/80
[2018-04-25] MEDS ORDERED: HYDR-3715 PO (12:14)
[2018-04-25] MEDS ORDERED: LOVE1INJ SC (12:14)
[2018-04-25] MEDS ORDERED: NICO21PAT TD (12:14)
[2018-04-25] MEDS ORDERED: COUM1TAB17 PO (12:14)
[2018-04-25] MEDS ORDERED: ENOXAPARIN 150 MG/ML SYR (J1650) SC ONE (13:00)
[2018-04-25 14:00] VITALS: BP 148/89
[2018-04-25] MEDS: WARFARIN SOD 5 MG TAB PO SCH (16:26)
--- NOTE | 2018-04-25 16:28 | IPNPDOC ---
Subjective General Date/Time Seen The patient was seen on 04/25/18 at 16:28. Subject Chief Complaint/History The patient is a 42-year-old male admitted with bilateral pulmonary and was and left lower extremity extensive DVT who is now undergone left lower extremity venous thrombolysis. Patient is currently on a heparin drip and being transitioned to Coumadin. Patient has no new complaints. Patient states he is ambulating well but does have some swelling in the left lower extremity when he ambulates. Current Medications Current Medications Current Medications Acetaminophen/ Hydrocodone Bitart ([place], Anexsia 5/325) 1 tab Q4HP PRN PO MILD/MODERATE PAIN (PS 1-7) Last administered on 04/23/18at 01:10; Start 04/22/18 at 10:45 Acetaminophen/ Hydrocodone Bitart ([place], Anexsia 5/325) 2 tab Q4HP PRN PO SEVERE PAIN (PS 8-10) Last administered on 04/23/18at 17:34; Start 04/22/18 at 11:45 Albuterol/ Ipratropium (Duoneb (Ipr 0.5mg/Alb 2.5mg)) 3 ml RQ4H NEB Last administered on 04/25/18at 15:08; Start 04/07/18 at 08:00 Alteplase, Recombinant 10 mg/ Sodium Chloride 100 ml @ 0.5 mls/hr Q24H IV Last administered on 04/12/18at 23:57; Start 04/12/18 at 16:00; Stop 04/15/18 at 15:14; Status DC Alteplase, Recombinant 10 mg/ Sodium Chloride 110 ml @ 2.5 mls/hr Q24H IV Last administered on 04/11/18at 15:24; Start 04/11/18 at 16:00; Stop 04/12/18 at 15:59; Status DC Alteplase, Recombinant 25 mg/ Sodium Chloride 250 ml @ 2.5 mls/hr Q24H IV Last administered on 04/10/18at 13:29; Start 04/09/18 at 15:00; Stop 04/11/18 at 14:29; Status DC Alteplase, Recombinant 25 mg/ Sodium Chloride 250 ml @ 10 mls/hr Q24H IV Last administered on 04/21/18at 12:56; Start 04/18/18 at 16:00; Stop 04/22/18 at 10:36; Status DC Alvimopan (Entereg) 12 mg BID PO Last administered on 04/13/18at 20:58; Start 04/12/18 at 09:00; Stop 04/14/18 at 06:00; Status DC Calcium Carbonate (Tums) 1,000 mg TID PO Last administered on 04/13/18at 11:13; Start 04/13/18 at 09:00; Stop 04/13/18 at 13:31; Status DC Calcium Carbonate (Tums) 1,000 mg TIDP PRN PO HEARTBURN/INDIGESTION; Start 04/14/18 at 09:00 Clotrimazole (Lotrimin) Apply to affected groin area. DAILY@0800 TOP Last administered on 04/12/18at 08:15; Start 04/11/18 at 08:00; Stop 04/13/18 at 10:54; Status DC Diphenhydramine HCl (Benadryl) 12.5 mg Q4HP PRN IV ITCHING Last administered on 04/22/18at 02:00; Start 04/17/18 at 01:45; Stop 04/22/18 at 10:36; Status DC Diphenhydramine HCl (Benadryl) 25 mg Q6HP PRN PO RASH/ITCHING Last administered on 04/15/18at 20:31; Start 04/11/18 at 00:15 Doxycycline Hyclate (Vibramycin) 100 mg BID PO Last administered on 04/07/18at 21:06; Start 04/07/18 at 09:00; Stop 04/07/18 at 21:01; Status DC Enoxaparin Sodium (Lovenox) 150 mg Q12H SC ; Start 04/25/18 at 21:00 Fentanyl Citrate (Sublimaze) 50 mcg ASDIRECTED PRN IV FOR PROCEDURE; Start 04/16/18 at 14:30; Stop 04/21/18 at 07:24; Status DC Heparin Sodium (Heparin (Flush)) 200 units ASDIRECTED PRN IV SEE LABEL COMMENTS Last administered on 04/18/18at 23:49; Start 04/09/18 at 15:15; Stop 04/24/18 at 00:03; Status DC Heparin Sodium (Heparin (Flush)) 200 units PICC IV Last administered on 04/23/18at 04:17; Start 04/09/18 at 18:00; Stop 04/24/18 at 00:03; Status DC Heparin Sodium (Porcine) (Heparin) ASDIRECTED PRN IV SEE LABEL COMMENTS Last administered on 04/24/18at 18:47; Start 04/22/18 at 10:45; Stop 04/25/18 at 12:11; Status DC Heparin Sodium (Porcine) (Heparin) ASDIRECTED PRN IV SEE LABEL COMMENTS Last administered on 04/08/18at 20:13; Start 04/07/18 at 03:45; Stop 04/09/18 at 13:20; Status DC Heparin Sodium (Porcine) 85447 units/IV Miscellaneous Supplies 250 ml @ 9.99 mls/hr Q24H IV ; Start 04/07/18 at 03:13; Stop 04/07/18 at 03:37; Status DC Heparin Sodium (Porcine) 34029 units/IV Miscellaneous Supplies 250 ml @ 35 mls/hr Q7H9M IV Last administered on 04/22/18at 00:59; Start 04/22/18 at 00:59; Stop 04/22/18 at 10:59; Status DC Heparin Sodium (Porcine) 35149 units/IV Miscellaneous Supplies 250 ml @ 35 mls/hr Q7H9M IV Last administered on 04/21/18at 16:21; Start 04/09/18 at 13:30; Stop 04/21/18 at 20:19; Status DC Heparin Sodium (Porcine) 18188 units/IV Miscellaneous Supplies 250 ml @ 0 mls/hr Q0M IV Last administered on 04/25/18at 04:15; Start 04/22/18 at 10:41; Stop 04/25/18 at 12:11; Status DC Heparin Sodium (Porcine) 85380 units/IV Miscellaneous Supplies 250 ml @ 0 mls/hr Q0M IV ; Start 04/07/18 at 03:31; Stop 04/07/18 at 04:05; Status DC Heparin Sodium (Porcine) 68460 units/IV Miscellaneous Supplies 250 ml @ 0 mls/hr Q0M IV Last administered on 04/09/18at 06:06; Start 04/07/18 at 07:30; Stop 04/09/18 at 13:20; Status DC Heparin Sodium (Porcine) 30224 units/IV Miscellaneous Supplies 250 ml @ 0 mls/hr Q0M IV ; Start 04/07/18 at 09:00; Stop 04/07/18 at 09:00; Status DC Home Med (Med Rec Complete!) ASDIRECTED XX ; Start 04/07/18 at 04:15; Stop 04/07/18 at 04:15; Status DC Midazolam HCl (Versed) 1 mg ASDIRECTED PRN IV FOR PROCEDURE; Start 04/16/18 at 14:30; Stop 04/21/18 at 07:24; Status DC Miscellaneous (Unresolved Clarification Entry) SEE LABEL COMMENTS DAILY XX ; Start 04/14/18 at 09:00; Stop 04/14/18 at 20:45; Status DC Morphine Sulfate (Morphine Sulfate In 0.9%Nacl Iv Bag) Concentration 1 mg/ml ASDIRECTED PRN IV SEE LABEL COMMENTS Last administered on 04/22/18at 06:39; Start 04/17/18 at 01:45; Stop 04/22/18 at 10:36; Status DC Morphine Sulfate (Morphine Sulfate Inj) 2 mg Q30MP PRN IV PAIN Last administered on 04/11/18at 21:48; Start 04/09/18 at 22:30; Stop 04/11/18 at 21:57; Status DC Morphine Sulfate (Morphine Sulfate Inj) 4 mg Q15MP PRN IV SEVERE PAIN (PS 8-10) Last administered on 04/23/18at 08:17; Start 04/22/18 at 17:00; Stop 04/25/18 at 12:11; Status DC Morphine Sulfate (Morphine Sulfate Inj) 4 mg Q30MP PRN IV PAIN Last administered on 04/17/18at 00:35; Start 04/11/18 at 22:00; Stop 04/17/18 at 01:49; Status DC Nalbuphine HCl (Nubain) 2.5 mg Q6HP PRN IV PRURITIS; Start 04/17/18 at 01:45; Stop 04/22/18 at 10:36; Status DC Naloxone HCl (Narcan) 0.1 mg Q5MP PRN IV SEE LABEL COMMENTS; Start 04/17/18 at 01:45; Stop 04/22/18 at 10:36; Status DC Nicotine (Nicoderm Cq 21mg) 1 patch DAILYPRN PRN TD NICOTINE WITHDRAWAL; Start 04/07/18 at 04:15 Non-Formulary Medication (Epidural/[employer]PER [place]) USE THIS ENTRY TO VEND ... Q1M PRN XX SEE LABEL COMMENTS; Start 04/17/18 at 01:45; Stop 04/22/18 at 10:36; Status DC Non-Formulary Medication (Heparin Iv Rate Change Documentation ml/ Hr) ASDIRECTED XX Last administered on 04/24/18at 12:33; Start 04/22/18 at 10:45; Stop 04/25/18 at 12:11; Status DC Non-Formulary Medication (Heparin Iv Rate Change Documentation ml/ Hr) ASDIRECTED XX Last administered on 04/08/18at 05:38; Start 04/07/18 at 03:45; Stop 04/09/18 at 13:20; Status DC Nystatin (Mycostatin Powder, Nystop) To be applied to affec... BID TOP Last administered on 04/25/18at 09:01; Start 04/13/18 at 21:00 Nystatin (Mycostatin Powder, Nystop) To be applied to affec... QID TOP Last administered on 04/12/18at 20:05; Start 04/10/18 at 17:00; Stop 04/13/18 at 10:54; Status DC Ondansetron HCl (ZOFRAN INJection) 4 mg Q6HP PRN IV NAUSEA; Start 04/17/18 at 01:45; Stop 04/22/18 at 10:36; Status DC Oxycodone/ Acetaminophen (Percocet 5mg/ 325mg Tablet) 1 tab Q4HP PRN PO MILD/MODERATE PAIN (PS 1-7) Last administered on 04/15/18at 07:52; Start 04/08/18 at 16:15; Stop 04/17/18 at 14:13; Status DC Oxycodone/ Acetaminophen (Percocet 5mg/ 325mg Tablet) 1 tab Q6H PRN PO PAIN Last administered on 04/08/18at 10:57; Start 04/07/18 at 04:00; Stop 04/08/18 at 16:37; Status DC Oxycodone/ Acetaminophen (Percocet 5mg/ 325mg Tablet) 2 tab Q4HP PRN PO SEVERE PAIN (PS 8-10) Last administered on 04/16/18 23:22; Start 04/08/18 at 16:15; Stop 04/17/18 at 14:13; Status DC Oxycodone/ Acetaminophen (Percocet 5mg/ 325mg Tablet) 2 tab Q6HP PRN PO SEVERE PAIN (PS 8-10); Start 04/08/18 at 11:15; Stop 04/08/18 at 16:10; Status DC Polyethylene Glycol (Miralax) 1 pkt BID PO Last administered on 04/12/18 20:04; Start 04/10/18 at 21:00; Stop 04/13/18 at 10:54; Status DC Senna/Docusate Sodium (Senokot S) 1 tab BID PO Last administered on 04/12/18 08:13; Start 04/10/18 at 21:00; Stop 04/12/18 at 12:52; Status DC Senna/Docusate Sodium (Senokot S) 2 tab BID PO Last administered on 04/14/18at 08:54; Start 04/12/18 at 21:00; Stop 04/14/18 at 12:23; Status DC Senna/Docusate Sodium (Senokot S) 2 tab BIDP PRN PO CONSTIPATION Last administered on 04/22/18 20:39; Start 04/14/18 at 12:30 Sodium Chloride 1,000 ml @ 15 mls/hr Q24H IV Last administered on 04/22/18 01:41; Start 04/17/18 at 01:41; Stop 04/22/18 at 10:36; Status DC Sodium Chloride ([place] Nasal [place]) 2 spray Q1HP PRN NA NASAL DRYNESS Last administered on 04/21/18 09:15; Start 04/11/18 at 21:30 Sodium Chloride (Saline Lock Flush) 10 ML PICC IV Last administered on 04/23/18 04:17; Start 04/09/18 at 18:00; Stop 04/24/18 at 00:03; Status DC Sodium Chloride (Saline Lock Flush) 10ML ASDIRECTED PRN IV SEE LABEL COMMENTS Last administered on 04/18/18 23:49; Start 04/09/18 at 15:15; Stop 2/21/19 at 00:03; Status DC Valacyclovir HCl (Valtrex) 1,000 mg Q12H PO Last administered on 04/07/18at 21:06; Start 04/07/18 at 09:00; Stop 04/07/18 at 21:01; Status DC Warfarin Sodium (Coumadin) 10 mg DAILY@1700 PO Last administered on 04/25/18at 16:26; Start 04/23/18 at 17:00 Allergies Coded Allergies: Penicillins (Verified Allergy, Intermediate, hives, 04/04/18) VITAL SIGNS VITAL SIGNS Afebrile vital signs stable Objective Physical Examination General Exam: Positive: Alert, Cooperative Neck Exam: Positive: Supple; Negative: JVD Chest Exam: Positive: Clear to auscultation Heart Exam: Positive: Rate Normal; Negative: Tachycardic, Bradycardic Telemetry: Positive: No significant arrhythmia, Sinus Abdomen Exam: Positive: Normal bowel sounds Male Exam: Positive: Normal Genital Exam Extremity Exam: Positive: Clubbing, Edema (Left lower extremity swelling), Tenderness (pain and tenderness in left thigh has essentially resolved. some tenderness and ache remains in calf); Negative: Cyanosis Skin Exam: Positive: Nl turgor and temperature, Rash (Closer examination of the lesion on his heel today reveals a linear cluster of pustules on a background of mild erythema and some hyperkeretosis. Importantly, the pustules seem to be well ing up from inside the skin. Clinically, this seems most consistent with a contact dermatitis, or sub-acute eczema at this time.), Other skin issue (petechial rash on left calf) Neuro Exam: Positive: Normal Gait, Normal Speech, Normal Tone Psych Exam: Positive: Mental status NL, Mood NL; Negative: Anxiety Assessment/Plan Assessment Patient is a 42-year-old male with bilateral pulmonary embolus and extensive left lower extremity DVT who underwent a left lower extremity venous thrombolysis. Patient is being transitioned to Coumadin and initially did not wish to give himself shots of Lovenox but has now agreed to be discharged home on Lovenox while continuing with Coumadin and awaiting a therapeutic INR of between 2 and 3. Plan Plan for the patient to be discharged on Lovenox 1 mg/kg twice daily and continue with Coumadin. Lovenox will be stopped once the INR is between 2 and 3. Xander Lino MD Apr 25, 2018 16:28
[2018-04-25] MEDS: ENOXAPARIN 150 MG/ML SYR (J1650) SC SCH (21:10)
[2018-04-25 22:00] VITALS: BP 148/82
[2018-04-26] MEDS: IPRATROPIUM 0.5MG/ALBUTEROL 2.5MG INH SOL UD 3ML (DUONEB)(J7620) NEB SCH ×4 (00:13→11:13)
[2018-04-26 06:00] VITALS: BP 136/88
[2018-04-26 06:26] LABS: HEMATOCRIT 35.4 % (42.0-52.0); HEMOGLOBIN 11.9 g/dl (13.5-17.5); MEAN CORPUSCULAR HEMOGLOBIN 31.8 pg (27.0-33.0); MEAN CORPUSCULAR HGB CONC 33.6 g/dl (32.0-36.5); MEAN CORPUSCULAR VOLUME 94.7 fl (80.0-96.0); PLATELET COUNT, AUTOMATED 235 10^3/uL (150-450); RED BLOOD COUNT 3.74 10^6/uL (4.30-6.10); WHITE BLOOD COUNT 13.3 10^3/uL (4.0-10.0)
[2018-04-26 06:46] LABS: INR 1.16
[2018-04-26 06:54] LABS: BLOOD UREA NITROGEN 8 MG/DL (7-18); CALCIUM LEVEL 9.2 MG/DL (8.5-10.1); CARBON DIOXIDE LEVEL 28 MEQ/L (21-32); CHLORIDE LEVEL 103 MEQ/L (98-107); CREATININE FOR GFR 1.03 MG/DL (0.70-1.30); GLOMERULAR FILTRATION RATE > 60.0 (>60); GLUCOSE, FASTING 95 MG/DL (70-100); SODIUM LEVEL 140 MEQ/L (136-145)
[2018-04-26] MEDS: ENOXAPARIN 150 MG/ML SYR (J1650) SC SCH (09:00)
[2018-04-26] MEDS: NYSTATIN 100,000 UNITS/GM TOPICAL PWD 15 GM TOP SCH (09:00)
[2018-04-26] MEDS: NORCO, ANEXSIA 5/325MG TABLET (HYDROcodone/ACETAMINOPHEN) PO PRN (09:46)
--- NOTE | 2018-04-26 12:26 | IPNPDOC ---
Subjective General Date/Time Seen The patient was seen on 04/26/18 at 12:19. Subject Chief Complaint/History The patient is a 42-year-old male admitted with bilateral pulmonary embolus and extensive left lower extremity DVT and was now undergone left lower extremity venous thrombolysis. Patient is currently on Lovenox while awaiting therapeutic INR on his Coumadin. Patient was to be discharged yesterday but there are short insurance issues with his Lovenox and once these are resolved he will be discharged home. Patient has no new complaints. Current Medications Current Medications Current Medications Acetaminophen/ Hydrocodone Bitart ([place], Anexsia 5/325) 1 tab Q4HP PRN PO MILD/MODERATE PAIN (PS 1-7) Last administered on 04/23/18at 01:10; Start 04/22/18 at 10:45 Acetaminophen/ Hydrocodone Bitart ([place], Anexsia 5/325) 2 tab Q4HP PRN PO SEVERE PAIN (PS 8-10) Last administered on 04/26/18at 09:46; Start 04/22/18 at 11:45 Albuterol/ Ipratropium (Duoneb (Ipr 0.5mg/Alb 2.5mg)) 3 ml RQ4H NEB Last administered on 04/26/18at 11:13; Start 04/07/18 at 08:00 Alteplase, Recombinant 10 mg/ Sodium Chloride 100 ml @ 0.5 mls/hr Q24H IV Last administered on 04/12/18at 23:57; Start 04/12/18 at 16:00; Stop 04/15/18 at 15:14; Status DC Alteplase, Recombinant 10 mg/ Sodium Chloride 110 ml @ 2.5 mls/hr Q24H IV Last administered on 04/11/18at 15:24; Start 04/11/18 at 16:00; Stop 04/12/18 at 15:59; Status DC Alteplase, Recombinant 25 mg/ Sodium Chloride 250 ml @ 2.5 mls/hr Q24H IV Last administered on 04/10/18at 13:29; Start 04/09/18 at 15:00; Stop 04/11/18 at 14:29; Status DC Alteplase, Recombinant 25 mg/ Sodium Chloride 250 ml @ 10 mls/hr Q24H IV Last administered on 04/21/18at 12:56; Start 04/18/18 at 16:00; Stop 04/22/18 at 10:36; Status DC Alvimopan (Entereg) 12 mg BID PO Last administered on 04/13/18 20:58; Start 04/12/18 at 09:00; Stop 04/14/18 at 06:00; Status DC Calcium Carbonate (Tums) 1,000 mg TID PO Last administered on 04/13/18 11:13; Start 04/13/18 at 09:00; Stop 04/13/18 at 13:31; Status DC Calcium Carbonate (Tums) 1,000 mg TIDP PRN PO HEARTBURN/INDIGESTION; Start 04/14/18 at 09:00 Clotrimazole (Lotrimin) Apply to affected groin area. DAILY@0800 TOP Last administered on 04/12/18 08:15; Start 04/11/18 at 08:00; Stop 04/13/18 at 10:54; Status DC Diphenhydramine HCl (Benadryl) 12.5 mg Q4HP PRN IV ITCHING Last administered on 04/22/18 02:00; Start 04/17/18 at 01:45; Stop 04/22/18 at 10:36; Status DC Diphenhydramine HCl (Benadryl) 25 mg Q6HP PRN PO RASH/ITCHING Last administered on 04/15/18at 20:31; Start 04/11/18 at 00:15 Doxycycline Hyclate (Vibramycin) 100 mg BID PO Last administered on 04/07/18 21:06; Start 04/07/18 at 09:00; Stop 04/07/18 at 21:01; Status DC Enoxaparin Sodium (Lovenox) 150 mg Q12H SC Last administered on 04/26/18 09:00; Start 04/25/18 at 21:00 Fentanyl Citrate (Sublimaze) 50 mcg ASDIRECTED PRN IV FOR PROCEDURE; Start 04/16/18 at 14:30; Stop 04/21/18 at 07:24; Status DC Heparin Sodium (Heparin (Flush)) 200 units ASDIRECTED PRN IV SEE LABEL COMMENTS Last administered on 04/18/18at 23:49; Start 04/09/18 at 15:15; Stop 04/24/18 at 00:03; Status DC Heparin Sodium (Heparin (Flush)) 200 units PICC IV Last administered on 04/23/18at 04:17; Start 04/09/18 at 18:00; Stop 04/24/18 at 00:03; Status DC Heparin Sodium (Porcine) (Heparin) ASDIRECTED PRN IV SEE LABEL COMMENTS Last administered on 04/24/18at 18:47; Start 04/22/18 at 10:45; Stop 04/25/18 at 12:11; Status DC Heparin Sodium (Porcine) (Heparin) ASDIRECTED PRN IV SEE LABEL COMMENTS Last administered on 04/08/18at 20:13; Start 04/07/18 at 03:45; Stop 04/09/18 at 13:20; Status DC Heparin Sodium (Porcine) 53515 units/IV Miscellaneous Supplies 250 ml @ 9.99 mls/hr Q24H IV ; Start 04/07/18 at 03:13; Stop 04/07/18 at 03:37; Status DC Heparin Sodium (Porcine) 94857 units/IV Miscellaneous Supplies 250 ml @ 35 mls/hr Q7H9M IV Last administered on 04/22/18at 00:59; Start 04/22/18 at 00:59; Stop 04/22/18 at 10:59; Status DC Heparin Sodium (Porcine) 72396 units/IV Miscellaneous Supplies 250 ml @ 35 mls/hr Q7H9M IV Last administered on 04/21/18at 16:21; Start 04/09/18 at 13:30; Stop 04/21/18 at 20:19; Status DC Heparin Sodium (Porcine) 38816 units/IV Miscellaneous Supplies 250 ml @ 0 mls/hr Q0M IV Last administered on 04/25/18at 04:15; Start 04/22/18 at 10:41; Stop 04/25/18 at 12:11; Status DC Heparin Sodium (Porcine) 09146 units/IV Miscellaneous Supplies 250 ml @ 0 mls/hr Q0M IV ; Start 04/07/18 at 03:31; Stop 04/07/18 at 04:05; Status DC Heparin Sodium (Porcine) 46087 units/IV Miscellaneous Supplies 250 ml @ 0 mls/hr Q0M IV Last administered on 04/09/18at 06:06; Start 04/07/18 at 07:30; Stop 04/09/18 at 13:20; Status DC Heparin Sodium (Porcine) 72887 units/IV Miscellaneous Supplies 250 ml @ 0 mls/hr Q0M IV ; Start 04/07/18 at 09:00; Stop 04/07/18 at 09:00; Status DC Home Med (Med Rec Complete!) ASDIRECTED XX ; Start 04/07/18 at 04:15; Stop 04/07/18 at 04:15; Status DC Midazolam HCl (Versed) 1 mg ASDIRECTED PRN IV FOR PROCEDURE; Start 04/16/18 at 14:30; Stop 04/21/18 at 07:24; Status DC Miscellaneous (Unresolved Clarification Entry) SEE LABEL COMMENTS DAILY XX ; Start 04/14/18 at 09:00; Stop 04/14/18 at 20:45; Status DC Morphine Sulfate (Morphine Sulfate In 0.9%Nacl Iv Bag) Concentration 1 mg/ml ASDIRECTED PRN IV SEE LABEL COMMENTS Last administered on 04/22/18at 06:39; Start 04/17/18 at 01:45; Stop 04/22/18 at 10:36; Status DC Morphine Sulfate (Morphine Sulfate Inj) 2 mg Q30MP PRN IV PAIN Last adm inistered on 04/11/18at 21:48; Start 04/09/18 at 22:30; Stop 04/11/18 at 21:57; Status DC Morphine Sulfate (Morphine Sulfate Inj) 4 mg Q15MP PRN IV SEVERE PAIN (PS 8-10) Last administered on 04/23/18at 08:17; Start 04/22/18 at 17:00; Stop 04/25/18 at 12:11; Status DC Morphine Sulfate (Morphine Sulfate Inj) 4 mg Q30MP PRN IV PAIN Last administered on 04/17/18at 00:35; Start 04/11/18 at 22:00; Stop 04/17/18 at 01:49; Status DC Nalbuphine HCl (Nubain) 2.5 mg Q6HP PRN IV PRURITIS; Start 04/17/18 at 01:45; Stop 04/22/18 at 10:36; Status DC Naloxone HCl (Narcan) 0.1 mg Q5MP PRN IV SEE LABEL COMMENTS; Start 04/17/18 at 01:45; Stop 04/22/18 at 10:36; Status DC Nicotine (Nicoderm Cq 21mg) 1 patch DAILYPRN PRN TD NICOTINE WITHDRAWAL; Start 04/07/18 at 04:15 Non-Formulary Medication (Epidural/CUTTER PLASTICS ROLLS [place]) USE THIS ENTRY TO VEND ... Q1M PRN XX SEE LABEL COMMENTS; Start 04/17/18 at 01:45; Stop 04/22/18 at 10:36; Status DC Non-Formulary Medication (Heparin Iv Rate Change Documentation ml/ Hr) ASDI RECTED XX Last administered on 04/24/18at 12:33; Start 04/22/18 at 10:45; Stop 04/25/18 at 12:11; Status DC Non-Formulary Medication (Heparin Iv Rate Change Documentation ml/ Hr) ASDIRECTED XX Last administered on 04/08/18at 05:38; Start 04/07/18 at 03:45; Stop 04/09/18 at 13:20; Status DC Nystatin (Mycostatin Powder, Nystop) To be applied to affec... BID TOP Last administered on 04/26/18at 09:00; Start 04/13/18 at 21:00 Nystatin (Mycostatin Powder, Nystop) To be applied to affec... QID TOP Last administered on 04/12/18at 20:05; Start 04/10/18 at 17:00; Stop 04/13/18 at 10:54; Status DC Ondansetron HCl (ZOFRAN INJection) 4 mg Q6HP PRN IV NAUSEA; Start 04/17/18 at 01:45; Stop 04/22/18 at 10:36; Status DC Oxycodone/ Acetaminophen (Percocet 5mg/ 325mg Tablet) 1 tab Q4HP PRN PO MILD/MODERATE PAIN (PS 1-7) Last administered on 04/15/18at 07:52; Start 04/08/18 at 16:15; Stop 04/17/18 at 14:13; Status DC Oxycodone/ Acetaminophen (Percocet 5mg/ 325mg Tablet) 1 tab Q6H PRN PO PAIN Last administered on 04/08/18at 10:57; Start 04/07/18 at 04:00; Stop 04/08/18 at 16:37; Status DC Oxycodone/ Acetaminophen (Percocet 5mg/ 325mg Tablet) 2 tab Q4HP PRN PO SEVERE PAIN (PS 8-10) Last administered on 04/16/18 23:22; Start 04/08/18 at 16:15; Stop 04/17/18 at 14:13; Status DC Oxycodone/ Acetaminophen (Percocet 5mg/ 325mg Tablet) 2 tab Q6HP PRN PO SEVERE PAIN (PS 8-10); Start 04/08/18 at 11:15; Stop 04/08/18 at 16:10; Status DC Polyethylene Glycol (Miralax) 1 pkt BID PO Last administered on 04/12/18 20:04; Start 04/10/18 at 21:00; Stop 04/13/18 at 10:54; Status DC Senna/Docusate Sodium (Senokot S) 1 tab BID PO Last administered on 04/12/18 08:13; Start 04/10/18 at 21:00; Stop 04/12/18 at 12:52; Status DC Senna/Docusate Sodium (Senokot S) 2 tab BID PO Last administered on 04/14/18 08:54; Start 04/12/18 at 21:00; Stop 04/14/18 at 12:23; Status DC Senna/Docusate Sodium (Senokot S) 2 tab BIDP PRN PO CONSTIPATION Last administered on 04/22/18 20:39; Start 04/14/18 at 12:30 Sodium Chloride 1,000 ml @ 15 mls/hr Q24H IV Last administered on 04/22/18 01:41; Start 04/17/18 at 01:41; Stop 04/22/18 at 10:36; Status DC Sodium Chloride ([place] Nasal [place]) 2 spray Q1HP PRN NA NASAL DRYNESS Last administered on 04/21/18 09:15; Start 04/11/18 at 21:30 Sodium Chloride (Saline Lock Flush) 10 ML PICC IV Last administered on 04/23/18 04:17; Start 04/09/18 at 18:00; Stop 04/24/18 at 00:03; Status DC Sodium Chloride (Saline Lock Flush) 10ML ASDIRECTED PRN IV SEE LABEL COMMENTS Last administered on 2/15/19at 23:49; Start 04/09/18 at 15:15; Stop 04/24/18 at 00:03; Status DC Valacyclovir HCl (Valtrex) 1,000 mg Q12H PO Last administered on 04/07/18at 21:06; Start 04/07/18 at 09:00; Stop 04/07/18 at 21:01; Status DC Warfarin Sodium (Coumadin) 10 mg DAILY@1700 PO Last administered on 04/25/18at 16:26; Start 04/23/18 at 17:00 Allergies Coded Allergies: Penicillins (Verified Allergy, Intermediate, hives, 04/04/18) VITAL SIGNS VITAL SIGNS Vital Signs Date Time Temp Pulse Resp B/P (MAP) Pulse Ox O2 Delivery O2 Flow Rate FiO2 04/26/18 10:16 18 04/26/18 09:46 19 04/26/18 06:00 98.7 89 18 136/88 (104) 97 04/25/18 22:00 98.2 85 18 148/82 (104) 94 Intake & Output 04/26/18 06:00 Intake Total 1440 ml Output Total 1050 ml Balance 390 ml Laboratory Tests 04/26/18 06:06: White Blood Count 13.3H, Red Blood Count 3.74L, Hemoglobin 11.9L, Hematocrit 35.4L, Mean Corpuscular Volume 94.7, Mean Corpuscular Hemoglobin 31.8, Mean Corpuscular Hemoglobin Concent 33.6, Red Cell Distribution Width 13.6, Platelet Count 235, Nucleated Red Blood Cells % (auto) 0.0, Prothrombin Time 15.0H, Prothromb Time International Ratio 1.16, Blood Urea Nitrogen 8, Creatinine 1.03, Sodium Level 140, Potassium Level 4.0, Chloride Level 103, Carbon Dioxide Level 28, Calcium Level 9.2, Anion Gap 9, Glomerular Filtration Rate > 60.0, Fasting Glucose 95 Microbiology 04/22/18 Stool Occult Blood (BELLA) - Final, Complete 04/21/18 Stool Occult Blood (BELLA) - Final, Complete 04/18/18 Stool Occult Blood (BELLA) - Final, Complete Laboratory Tests 04/25/18 06:24 Red Blood Count 3.85 L, Mean Corpuscular Volume 94.3, Mean Corpuscular Hemoglobin 31.9, Mean Corpuscular Hemoglobin Concent 33.9, Red Cell Distribution Width 13.6, Calcium Level 8.9 04/26/18 06:06 Red Blood Count 3.74 L, Mean Corpuscular Volume 94.7, Mean Corpuscular Hemoglobin 31.8, Mean Corpuscular Hemoglobin Concent 33.6, Red Cell Distribution Width 13.6, Calcium Level 9.2 Microbiology 04/22/18 Stool Occult Blood (BELLA) - Final, Complete 04/21/18 Stool Occult Blood (BELLA) - Final, Complete 04/18/18 Stool Occult Blood (BELLA) - Final, Complete Objective Physical Examination General Exam: Positive: Alert, Cooperative Neck Exam: Positive: Supple; Negative: JVD Chest Exam: Positive: Clear to auscultation Heart Exam: Positive: Rate Normal; Negative: Tachycardic, Bradycardic Telemetry: Positive: No significant arrhythmia, Sinus Abdomen Exam: Positive: Normal bowel sounds Male Exam: Positive: Normal Genital Exam Extremity Exam: Positive: Clubbing, Edema (Left lower extremity swelling), Tenderness (pain and tenderness in left thigh has essentially resolved. some tenderness and ache remains in calf); Negative: Cyanosis Skin Exam: Positive: Nl turgor and temperature, Rash (Closer examination of the lesion on his heel today reveals a linear cluster of pustules on a background of mild erythema and some hyperkeretosis. Importantly, the pustules seem to be welling up from inside the skin. Clinically, this seems most consistent with a contact dermatitis, or sub-acute eczema at this time.), Other skin issue (petechial rash on left calf) Neuro Exam: Positive: Normal Gait, Normal Speech, Normal Tone Psych Exam: Positive: Mental status NL, Mood NL; Negative: Anxiety Assessment/Plan Assessment 42-year-old male with extensive left lower extremity DVT status post left lower extremity venous thrombolysis with angioplasty and stenting of the left superficial femoral and common femoral vein. Patient is currently on Lovenox and Coumadin and awaiting discharge home. Plan will be for Coumadin be therapeutic with an INR between 2 and 3 and the patient will continue on Lovenox 1 mg/kg twice daily until his INR is therapeutic. Patient was again counseled on the need to stop tobacco use once discharged home. Plan Discharged home on Lovenox once insurance issues are resolved. Patient will continue with Coumadin with a goal INR of 2-3. Xander Lino MD Apr 26, 2018 12:26
--- NOTE | 2018-04-26 20:51 | DS.PDOC ---
Discharge Summary General Date of Admission Apr 07, 2018 at 03:39 Date of Discharge 04/26/2018 Attending Physician: Xander Lino MD Discharge Summary PROCEDURES PERFORMED DURING STAY: Left lower extremity venous thrombolysis with multiple lysis follow-ups, inferior vena cava filter placement and angioplasty and stenting of the left common femoral and superficial femoral veins. ADMITTING DIAGNOSES: 1. Bilateral pulmonary embolus and extensive left lower extremity DVT with pain and swelling. DISCHARGE DIAGNOSES: 1. Bilateral pulmonary embolus and extensive left lower extremity DVT with pain and swelling. COMPLICATIONS/CHIEF COMPLAINT: Pulmonary Emboli. Extensive left lower extremity DVT with pain and swelling. HISTORY OF PRESENT ILLNESS: Patient is a 42-year-old male who was admitted with extensive left lower extremity DVT with pain and swelling and also found to have bilateral pulmonary embolus. HOSPITAL COURSE: Patient was admitted and started on a heparin drip and subsequently underwent left lower extremity venous thrombolysis with multiple lysis follow-ups and eventual angioplasty and stenting of the left common femoral vein and left superficial femoral vein with improvement in his left lower extremity swelling and pain. Patient was started on Coumadin once the left lower extremity venous thrombolysis was completed. Patient was then transitioned from heparin to Lovenox and is now being discharged home on Lovenox and Coumadin and will remain on Lovenox at 1 mg/kg twice daily until his INR is therapeutic in the range between 2 and 3. DISCHARGE MEDICATIONS: Please see below. ALLERGIES: Please see below. PHYSICAL EXAMINATION ON DISCHARGE: VITAL SIGNS: Please see below. GENERAL: No apparent distress HEENT: Normal NECK: Supple with no carotid bruits CARDIOVASCULAR EXAMINATION: Regular rate and rhythm RESPIRATORY EXAMINATION: Clear to auscultation bilaterally ABDOMINAL EXAMINATION: Soft, nontender, nondistended with no palpable pulsatile masses. EXTREMITIES: Warm and well perfused. Left lower extremity continues to be edematous and swelling but is significantly improved when compared to status on admission. SKIN: Warm and well-perfused NEUROLOGICAL EXAMINATION: No focal deficits PSYCHIATRIC EXAMINATION: Normal LABORATORY DATA: Please see below. IMAGING: CT angiogram showing bilateral pulmonary embolus. PROGNOSIS: Good ACTIVITY: As tolerated. DIET: Regular Coumadin diet DISCHARGE PLAN: Patient will be discharged home DISPOSITION: 01 Home, Self-Care. DISCHARGE INSTRUCTIONS: 1. Continue Coumadin and Lovenox until notified by my office that he should stop the Lovenox. Patient will have follow-up laboratory evaluation of his Coumadin therapy as an outpatient. ITEMS TO FOLLOWUP ON ON OUTPATIENT: 1. Tobacco cessation. DISCHARGE CONDITION: Stable. TIME SPENT ON DISCHARGE: Greater than 45 minutes. Vital Signs/I&Os Vital Signs Date Time Temp Pulse Resp B/P (MAP) Pulse Ox O2 Delivery O2 Flow Rate FiO2 04/26/18 10:16 18 04/26/18 06:00 98.7 89 136/88 (104) 97 04/20/18 07:00 2.0 I&O- Last 24 Hours up to 6 AM 04/26/18 05:59 Intake Total 1380 ml Output Total 1050 ml Balance 330 ml Laboratory Data Labs 24H Laboratory Tests 2 04/26/18 06:06: Nucleated Red Blood Cells % (auto) 0.0, Prothrombin Time 15.0H, Prothromb Time International Ratio 1.16, Anion Gap 9, Glomerular Filtration Rate > 60.0, Blood Urea Nitrogen 8, Creatinine 1.03, Sodium Level 140, Potassium Level 4.0, Chloride Level 103, Carbon Dioxide Level 28, Calcium Level 9.2 CBC/BMP Laboratory Tests 04/26/18 06:06 Red Blood Count 3.74 L, Mean Corpuscular Volume 94.7, Mean Corpuscular Hemoglobin 31.8, Mean Corpuscular Hemoglobin Concent 33.6, Red Cell Distribution Width 13.6, Calcium Level 9.2 Microbiology Microbiology 04/22/18 Stool Occult Blood (BELLA) - Final, Complete 04/21/18 Stool Occult Blood (BELLA) - Final, Complete 04/18/18 Stool Occult Blood (BELLA) - Final, Complete Discharge Medications Scheduled Enoxaparin Sodium (Lovenox) 40 Mg/0.4 Ml Inj, 150 MG SC BID Valacyclovir HCl (Valacyclovir HCl) 1 Gm Tab, 1 GM PO Q12H, (Reported) TAKE FOR 10 DAYS. STARTED 03/28/2018 Warfarin Sod (Coumadin) 5 Mg Tab, 10 MG PO DAILY@1700 Scheduled PRN Acetaminophen/Hydrocodone ([place], Anexsia 5/325) 1 Tab Tab, 2 TAB PO Q4HP PRN for SEVERE PAIN (PS 8-10) Albuterol Sulfate (Ventolin Hfa) 108 Mcg/Act Aer, 2 PUFF INH Q4-6HP PRN for wheezing, (Reported) Nicotine (Nicotine Transdermal Syst) 21 Mg/24 Hr Dis, 1 PATCH TD DAILYPRN PRN for NICOTINE WITHDRAWAL Allergies Coded Allergies: Penicillins (Verified Allergy, Intermediate, hives, 04/04/18) Xander Lino MD Apr 26, 2018 20:51
--- NOTE | 2018-04-30 17:01 | REPIR ---
DATE OF PROCEDURE: 04/09/2018 PREPROCEDURE DIAGNOSES: Bilateral pulmonary embolus, left lower extremity extensive deep venous thrombosis (DVT), left lower extremity swelling, left lower extremity pain. POSTPROCEDURE DIAGNOSES: Bilateral pulmonary embolus, left lower extremity extensive deep venous thrombosis (DVT), left lower extremity swelling, left lower extremity pain. PROCEDURE: Ultrasound guided left cephalic vein cannulation. Inferior vena cava catheter placement with venogram. Inferior vena cava filter placement with an Option Elite filter. Fluoroscopic guided left basilic vein 50 cm PICC line. SURGEON: Dr. Alethea Lino. INVESTIGATION SPECIALIST: Kenya Sullivan and Angella Hopson. INDICATION: The patient is a 42-year-old male with left lower extremity DVT who will undergo thrombolysis due to extensive left lower extremity DVT, swelling and pain. Risks, benefits and alternative options have been discussed with the patient. ANESTHESIA: Local with 10 mL of 2% lidocaine. FLUORO TIME: 1.8 minutes. CONTRAST: 8 mL. HEPARIN: None. COMPLICATIONS: None. DRAINS: None. SPECIMENS: None. IMPLANT: Inferior vena cava filter with an argon retrievable option Elite filter. PROCEDURE: The patient was taken to the angiography suite, placed supine on the angiography room table and the left upper extremity was prepped and draped in a standard surgical fashion. The left basilic vein was cannulated with a micropuncture needle using ultrasound guidance. The catheter placed in the inferior vena cava and an inferior venacavogram was performed showing the position of the renal veins. The filter was then placed below the level of renal veins using fluoroscopic guidance. The catheter was removed and a 50 cm PICC line was placed under fluoroscopic guidance. Both ports of the PICC were aspirated and noted to aspirate easily and then flushed with heparinized saline. Dressings were applied. The patient tolerated the procedure well. All instrument, sponge and needle counts were correct at the end of the case. There were no complications. Dr. Lino was present for and directed the entire case. The patient was transferred to the ICU for left lower extremity venous thrombolysis.
--- NOTE | 2018-04-30 17:12 | REPIR ---
DATE OF PROCEDURE: 04/09/2018 PREPROCEDURE DIAGNOSES: Left lower extremity deep venous thrombosis (DVT), left lower extremity swelling, left lower extremity pain, bilateral pulmonary embolus. POSTPROCEDURE DIAGNOSES: Left lower extremity deep venous thrombosis (DVT), left lower extremity swelling, left lower extremity pain, bilateral pulmonary embolus. PROCEDURE: Ultrasound guided lesser saphenous vein cannulation, left lower extremity venogram, placement of a 40 cm infusion catheter with initiation of venous thrombolysis. SURGEON: Dr. Alethea Lino. COMPUTER GAME TESTER: Angella Hopson and Kenya Sullivan. INDICATION: The patient is a 42-year-old male with left lower extremity extensive deep venous thrombosis and venous thrombus with extensive swelling and pain. The patient will undergo a left lower extremity venous thrombolysis. Risks, benefits, and alternative options were discussed with the patient. ANESTHESIA: Local with sedation with 1 mg Versed, 50 mcg of fentanyl and 10 mL of 2% lidocaine. FLUORO TIME: 3.1 minutes. CONTRAST: 3 mL. SEDATION TIME: From 1325 to 1408 p.m. for a total of 47 minutes. COMPLICATIONS: None. DRAINS: None. SPECIMEN: None. IMPLANTS: None. PROCEDURE: The patient was taken to the angiography suite, placed supine on the angiography room table and prepped and draped in a standard surgical fashion. The lesser saphenous vein was cannulated using ultrasound guidance. A wire was advanced through the micropuncture needle which was upsized to a micropuncture sheath. A venogram was performed showing occlusion of the superficial femoral vein, common femoral vein and external iliac vein with no visualization proximally. A 40 cm infusion catheter was placed and initiation of thrombolysis was begun in the left lower extremity venous system. Dressings were applied. The patient tolerated the procedure well. All instrument, sponge and needle counts were correct at the end of the case. There were no complications. Dr. Lino was present for and directed the entire case. The patient was transferred to the ICU for left lower extremity venous thrombolysis.
--- NOTE | 2018-05-01 07:01 | REPIR ---
DATE OF PROCEDURE: 04/11/2018 PREPROCEDURE DIAGNOSES: Left lower extremity deep venous thrombosis (DVT), pulmonary embolus bilaterally. POSTPROCEDURE DIAGNOSES: Left lower extremity deep venous thrombosis (DVT), pulmonary embolus bilaterally. PROCEDURE: Left lower extremity venous thrombolysis followup, left superficial femoral vein angioplasty with 8 x 200 balloon, left common femoral vein angioplasty with 8 x 200 balloon, left external iliac vein angioplasty with 8 x 200 balloon. SURGEON: Dr. Alethea Lino. UPPER EXTREMITY SURGEON: Kenya Sullivan and Angella Hopson. INDICATION: The patient is a 42-year-old male with left lower extremity deep venous thrombosis who has been undergoing venous thrombolysis. The patient will undergo a thrombolysis followup with possibly angioplasty, stent and/or atherectomy. Risks, benefits, and alternative treatment options were discussed with the patient. ANESTHESIA: Local with sedation with 1 mg of Versed, 50 mcg of fentanyl and 10 mL of 2% lidocaine. FLUORO TIME: 1.9 minutes. CONTRAST: 8 mL of Isovue 300. SEDATION TIME: From 12:02 p.m. to 12:38 p.m. for a total of 36 minutes. COMPLICATIONS: None. DRAINS: None. SPECIMENS: None. IMPLANTS: None. PROCEDURE: The patient was taken to the angiography suite, placed supine on the angiography room table and then prepped and draped in a standard surgical fashion. A left lower extremity venous thrombolysis followup was performed showing continued stenosis and thrombosis of the superficial femoral vein, femoral and external iliac vein. These were angioplastied with an 8 x 200 balloon and an infusion catheter was replaced with reinitiation of thrombolysis. Dressings were applied. The patient tolerated the procedure well. All instrument, sponge and needle counts were correct at the end of the case. There were no complications. Dr. Lino was present for and directed the entire case. The patient was transferred to the ICU for continued left lower extremity venous thrombolysis.
--- NOTE | 2018-05-01 07:04 | REPIR ---
DATE OF PROCEDURE: 04/14/2018 ATTENDING SURGEON: Dr. Alethea Lino SLURRY CONTROL OPERATOR HELPER: Citlali Castillo and Angella Hopson PREOPERATIVE DIAGNOSIS: Left lower extremity deep vein thrombosis (DVT), bilateral pulmonary embolus. POSTOPERATIVE DIAGNOSIS: Left lower extremity deep vein thrombosis (DVT), bilateral pulmonary embolus. PROCEDURE: Lysis followup left superficial femoral vein, common femoral vein and external iliac vein angioplasty with 10 x 8, 12 x 8 and 14 x 6 balloons. INDICATION: The patient is a 42-year-old male with left lower extremity DVT and swelling who has undergone left lower extremity venous thrombolysis. The patient will undergo a lysis followup with possible angioplasty stent and/or atherectomy. Risks, benefits and alternative treatment options were discussed with the patient. ANESTHESIA: Local with sedation with 4 mg of Versed, 20 mcg of fentanyl and 10 mL of 2% lidocaine. CONTRAST: 10 mL. SEDATION TIME: From 1710 to 1757 for a total of 47 minutes. HEPARIN: 5000 units. COMPLICATIONS: None. DRAINS: None. SPECIMENS: None. IMPLANTS: None. DESCRIPTION OF PROCEDURE: The patient was taken to the angiography suite, placed supine on the angiography table and then prepped and draped in a standard surgical fashion. The left lower extremity venogram was performed showing continued stenosis and thrombosis in the left superficial femoral, common femoral and external iliac vein. These were angioplastied with 10 x 8, 12 x 8, and 14 x 6 balloons with followup venogram showing continued stenosis and thrombosis. The infusion catheter was replaced and thrombolysis reinitiated. Dressings were then applied. The patient tolerated the procedure well. All instrument, sponge and needle counts were correct at the end of the case. There were no complications. Dr. Lino was present for and directed the entire case. The patient was transferred to the ICU for continued left lower extremity venous thrombolysis.
--- NOTE | 2018-05-01 07:06 | REPIR ---
DATE OF PROCEDURE: 04/16/2018 PREPROCEDURE DIAGNOSIS: Left lower extremity deep venous thrombosis (DVT). POSTPROCEDURE DIAGNOSIS: Left lower extremity deep venous thrombosis (DVT). PROCEDURE: Left lower extremity venous lysis followup. Infusion catheter exchange. SURGEON: Dr. Alethea Lino. ELECTRICAL INTEGRATOR: Oscar Majano and Kenya Sullivan. ANESTHESIA: Local with sedation with 2 mg Versed, 100 mcg Fentanyl and 20 mL of 2% lidocaine. CONTRAST: 3 mL. SEDATION TIME: From 12:19 p.m. to 1:14 p.m. HEPARIN: 7000 units. INDICATION: The patient is a 42-year-old male with left lower extremity deep venous thrombosis who has been undergoing venous thrombolysis. PROCEDURE: The patient was taken to the angiography suite, placed supine on the angiography room table and then prepped and draped in a standard surgical fashion. A venous thrombolysis followup was performed which showed continued thrombus and the infusion catheter was changed and thrombolysis reinitiated. Dressings were then applied. The patient tolerated the procedure well. All instrument, sponge and needle counts were correct at the end of the case. There were no complications. Dr. Lino was present for and directed the entire case. The patient was transferred to the ICU for continued left lower extremity venous thrombolysis followup.
--- NOTE | 2018-05-01 07:08 | REPIR ---
DATE OF PROCEDURE: 04/15/2018 ATTENDING SURGEON: Dr. Alethea Lino SEAM PRESSER: Kenya Sullivan and Angella Hopson PREOPERATIVE DIAGNOSIS: Left lower extremity deep vein thrombosis (DVT). POSTOPERATIVE DIAGNOSES Left lower extremity deep vein thrombosis (DVT). PROCEDURE: Left lower extremity venous thrombolysis. Left common femoral vein angioplasty and stent. Left superficial femoral vein angioplasty and stent. INDICATION: The patient is a 42 old male with left lower extremity DVT who has been undergoing thrombolysis with continued stenosis and occlusion of his left superficial femoral and common femoral vein. The patient has undergone angioplasty but these continue to be resistant and will now undergo lysis, followup with possible angioplasty, stent and/or atherectomy. Risks, benefits and alternative treatment options were discussed with the patient. ANESTHESIA: Local with sedation with 4 mg Versed, 200 mcg of fentanyl, and 20 mL of 2% lidocaine. FLUORO TIME: 2.6 minutes. CONTRAST: 3 mL. SEDATION TIME: Was from 1400 hours to 1514 hours for a total of 74 minutes. HEPARIN: 7000 units. COMPLICATIONS: None. DRAINS: None. SPECIMENS: None. IMPLANTS: WALLSTENT. PROCEDURE: The patient was taken to the angiography suite, placed prone on the angiography room table, and then prepped and draped in the standard surgical fashion. A venogram was performed showing reocclusion and stenosis of the superficial femoral vein and common femoral vein and external iliac vein. The common femoral vein and superficial femoral vein underwent angioplasty and stenting with good result and the infusion catheter was again replaced for continued left lower extremity venous thrombolysis. Dressings were applied. The patient tolerated the procedure well. All instrument, sponge and needle counts were correct at the end of the case were no complications. The patient was transferred to the ICU for continued left lower extremity venous thrombolysis.
--- NOTE | 2018-05-01 07:13 | REPIR ---
DATE OF PROCEDURE: 04/22/2018 PREPROCEDURE DIAGNOSIS: Left lower extremity deep venous thrombosis (DVT), bilateral pulmonary embolus. POSTPROCEDURE DIAGNOSIS: Left lower extremity deep venous thrombosis (DVT), bilateral pulmonary embolus. PROCEDURE: Left lower extremity venogram, Mynx closure of the left lesser saphenous vein with removal of the sheath postop. SURGEON: Dr. Alethea Lino. STARCH COOKER: Angella Hopson and Kenya Sullivan. ANESTHESIA: ESTIMATED BLOOD LOSS: INDICATION: The patient is a 42-year-old male who has been undergoing left lower extremity venous thrombolysis who will undergo a venous lysis followup with possible angioplasty, stent, atherectomy or completion of the venous thrombolysis. Risks, benefits, and alternative treatment options were discussed with the patient. ANESTHESIA: Local with sedation with 1 mg Versed, 50 mcg of fentanyl and 20 mL of 2% lidocaine. FLUORO TIME: 0.6 minutes. CONTRAST: 6 mL of Isovue 300. SEDATION TIME: From 09:10 a.m. to 09:37 a.m. for a total 27 minutes. HEPARIN: 7000 units, TPA 5 mg. COMPLICATIONS: None. DRAINS: None. SPECIMENS: None. IMPLANTS: Left lesser saphenous vein venotomy closure with a Mynx closure device. PROCEDURE: The patient was taken to the angiography suite, placed prone on the angiography room table and then prepped and draped in a standard surgical fashion. A venogram was performed showing the popliteal vein, superficial femoral vein, common femoral vein, external and internal, and common iliac veins to be widely patent. The sheath was removed and a Mynx closure device used to close the arteriotomy for the venotomy in the left lesser saphenous vein with an additional 20 minutes of adjunctive pressure applied for hemostasis. Dressings were then applied. The patient tolerated the procedure well. All instrument, sponge, and needle counts were correct at the end of the case. There were no complications. Dr. Lino was present for and directed the entire case. The patient was transferred to the ICU in stable condition.
--- NOTE | 2018-05-01 07:19 | REPIR ---
DATE OF PROCEDURE: 04/18/2018 ATTENDING SURGEON: Dr. Alethea Lino LEHR OPERATOR: Kenya Herrera and Oscar Majano PREOPERATIVE DIAGNOSIS: Left lower extremity deep vein thrombosis (DVT). POSTOPERATIVE DIAGNOSIS: Left lower extremity deep vein thrombosis (DVT). PROCEDURE: Left lower extremity venous lysis followup, left lower extremity venogram, exchange infusion catheter left lower extremity venous thrombolysis. INDICATION: The patient is a 42 old male with left lower extremity DVT who has been undergoing thrombolysis with angioplasty and stenting of his left common femoral vein and superficial femoral vein. The patient has been slow to progress and has continued thrombus within the superficial femoral and common femoral vein. The patient will undergo a venous lysis followup with possible angioplasty stent and/or atherectomy. Risks, benefits, and alternative treatment options were discussed with the patient. ANESTHESIA: None. ESTIMATED BLOOD LOSS: Minimal. IV FLUIDS: 100 mL. FLUORO TIME: 0.8 minutes. CONTRAST: 14 mL. DESCRIPTION OF PROCEDURE: The patient was taken to the angiography suite, placed supine on the angiography room table and then prepped and draped in a standard surgical fashion. The infusion catheter was removed over a Bentson wire. A venogram was performed showing continued thrombus within the previously stented portion of common femoral vein and superficial femoral vein. The infusion catheter was replaced and thrombolysis continued. Dressings were then applied. The patient tolerated the procedure well. All instrument, sponge and needle counts were correct at the end of the case. There were no complications. Dr. Lino was present for and directed the entire case. The patient was transferred to the ICU for continued left lower extremity venous thrombolysis followup.
== END 2018-04-26 14:51 | disposition home or self-care (01) | DRG 182 ==
LOC: M ED 00:45 → M ED INP 03:39 → M MSPAV 13:34 → M ICU 04-09 13:08 → M PCU 04-15 15:01 → M ICU 04-15 15:05 → M MSPAV 04-23 14:08
PROVIDERS: ADMIT Internal Medicine; ATTEND Surgery Vascular Surgery
PROC: B5191ZZ Fluoroscopy of Inferior Vena Cava using Low Osmolar Contrast (ICD-10-PCS; principal; 2018-04-09)
PROC: 06H03DZ Insertion of Intraluminal Device into Inferior Vena Cava, Percutaneous Approach (ICD-10-PCS; 2018-04-09)
PROC: 05HY33Z Insertion of Infusion Device into Upper Vein, Percutaneous Approach (ICD-10-PCS; 2018-04-09)
PROC: B54NZZA Ultrasonography of Left Upper Extremity Veins, Guidance (ICD-10-PCS; 2018-04-09)
PROC: 3E03317 Introduction of Other Thrombolytic into Peripheral Vein, Percutaneous Approach (ICD-10-PCS; 2018-04-09)
PROC: B51C1ZZ Fluoroscopy of Left Lower Extremity Veins using Low Osmolar Contrast (ICD-10-PCS; 2018-04-09)
PROC: B54CZZA Ultrasonography of Left Lower Extremity Veins, Guidance (ICD-10-PCS; 2018-04-09)
PROC: B51C1ZZ Fluoroscopy of Left Lower Extremity Veins using Low Osmolar Contrast (ICD-10-PCS; 2018-04-11)
PROC: 067N3ZZ Dilation of Left Femoral Vein, Percutaneous Approach (ICD-10-PCS; 2018-04-11)
PROC: 067G3ZZ Dilation of Left External Iliac Vein, Percutaneous Approach (ICD-10-PCS; 2018-04-11)
PROC: 3E03317 Introduction of Other Thrombolytic into Peripheral Vein, Percutaneous Approach (ICD-10-PCS; 2018-04-14)
PROC: 067G3ZZ Dilation of Left External Iliac Vein, Percutaneous Approach (ICD-10-PCS; 2018-04-14)
PROC: 067N3ZZ Dilation of Left Femoral Vein, Percutaneous Approach (ICD-10-PCS; 2018-04-14)
PROC: B50CYZZ Plain Radiography of Left Lower Extremity Veins using Other Contrast (ICD-10-PCS; 2018-04-14)
PROC: 067N3DZ Dilation of Left Femoral Vein with Intraluminal Device, Percutaneous Approach (ICD-10-PCS; 2018-04-15)
PROC: B50CYZZ Plain Radiography of Left Lower Extremity Veins using Other Contrast (ICD-10-PCS; 2018-04-15)
PROC: B50CYZZ Plain Radiography of Left Lower Extremity Veins using Other Contrast (ICD-10-PCS; 2018-04-16)
PROC: B51C1ZZ Fluoroscopy of Left Lower Extremity Veins using Low Osmolar Contrast (ICD-10-PCS; 2018-04-18)
PROC: B51C1ZZ Fluoroscopy of Left Lower Extremity Veins using Low Osmolar Contrast (ICD-10-PCS; 2018-04-22)
DX: I82.412 Acute embolism and thrombosis of left femoral vein (principal); I26.99 Other pulmonary embolism without acute cor pulmonale; I82.422 Acute embolism and thrombosis of left iliac vein; E66.01 Morbid (severe) obesity due to excess calories; I87.1 Compression of vein; Z88.0 Allergy status to penicillin; Z79.899 Other long term (current) drug therapy; F17.200 Nicotine dependence, unspecified, uncomplicated; R91.8 Other nonspecific abnormal finding of lung field; B00.9 Herpesviral infection, unspecified; K59.00 Constipation, unspecified; I82.812 Embolism and thrombosis of superficial veins of left lower extremity

== ENCOUNTER → 2018-04-29 | Outpatient (CLI) | payer SELFPAY ==
[~2018-04-29] MED LIST changes: +COUM1TAB17 PO; +DOXY100T16 PO; +LOVE1INJ SC; +NICO21PAT TD; +NORCOTAB PO; +OXYC1TAB23 PO; +VALA1TAB2 PO; +VENTAER INH
[2018-04-29 19:05] LABS: INR 1.45; PROTHROMBIN TIME 17.8 SECONDS (12.1-14.4)
== END ==
LOC: M LAB 17:15
PROVIDERS: ATTEND Surgery Vascular Surgery
DX: Z86.711 Personal history of pulmonary embolism (principal)

== ENCOUNTER → 2018-05-02 | Outpatient (CLI) | payer OTHER, SELFPAY ==
[2018-05-02 10:57] LABS: INR 1.94; PROTHROMBIN TIME 22.5 SECONDS (12.1-14.4)
== END ==
LOC: M RAD 10:00
PROVIDERS: ATTEND Surgery Vascular Surgery
DX: Z86.711 Personal history of pulmonary embolism (principal); Z79.01 Long term (current) use of anticoagulants

== ENCOUNTER → 2018-05-05 | Outpatient (CLI) | payer OTHER ==
[2018-05-05 10:18] LABS: INR 2.56; PROTHROMBIN TIME 28.1 SECONDS (12.1-14.4)
== END ==
LOC: M LAB 09:14
PROVIDERS: ATTEND Family Medicine
DX: Z86.711 Personal history of pulmonary embolism (principal); Z79.01 Long term (current) use of anticoagulants

== ENCOUNTER → 2018-10-08 | Outpatient (CLI) | payer OTHER ==
[~2018-10-08] MED LIST changes: -DOXY100T16 PO; +DOXY100T27 PO; +HYDR-3715 PO; -NORCOTAB PO; -VALA1TAB2 PO; +VALA1TAB64 PO
--- NOTE | 2018-10-09 06:52 | REP ---
Clinical: Pain with history of DVT . Technique: Ferreira scale and color Doppler evaluation using linear high frequency transducer. Findings: Ultrasound examination of the right and left lower extremity deep venous structures from the common femoral vein to the popliteal vein demonstrates normal compressibility flow and wave patterns in response to respiration and augmentation. There is no evidence for deep venous thrombosis. Impression: No evidence for deep venous thrombosis to the bilateral lower extremities . Electronically Signed by Ricardo Adam MD 10/09/2018 06:43 A
== END ==
LOC: M RAD 14:35
PROVIDERS: ATTEND Surgery Vascular Surgery
DX: Z86.718 Personal history of other venous thrombosis and embolism (principal)

== ENCOUNTER → 2019-03-11 | Outpatient (REF) | payer OTHER ==
[2019-03-11 12:49] LABS: HEMATOCRIT 48.6 % (42.0-52.0); HEMOGLOBIN 15.4 g/dl (13.5-17.5); MEAN CORPUSCULAR HEMOGLOBIN 31.4 pg (27.0-33.0); MEAN CORPUSCULAR HGB CONC 31.7 g/dl (32.0-36.5); MEAN CORPUSCULAR VOLUME 99.2 fl (80.0-96.0); PLATELET COUNT, AUTOMATED 268 10^3/uL (150-450); WHITE BLOOD COUNT 10.4 10^3/uL (4.0-10.0)
[2019-03-11 13:21] LABS: ALT/SGPT 43 U/L (12-78); BILIRUBIN,TOTAL 0.6 MG/DL (0.2-1.0); BLOOD UREA NITROGEN 12 MG/DL (7-18); CALCIUM LEVEL 9.2 MG/DL (8.5-10.1); CARBON DIOXIDE LEVEL 31 MEQ/L (21-32); CHLORIDE LEVEL 102 MEQ/L (98-107); CHOLESTEROL LEVEL 211 MG/DL (<200); CHOLESTEROL RISK RATIO 4.906 (<5); CREATININE FOR GFR 0.97 MG/DL (0.70-1.30); FREE T4 0.92 NG/DL (0.76-1.46); GLOMERULAR FILTRATION RATE > 60.0 (>60); GLUCOSE, FASTING 110 MG/DL (70-100); HDL CHOLESTEROL 43 MG/DL (>40); LDL CHOLESTEROL 139 MG/DL (<100); NON-HDL-C 168 MG/DL; POTASSIUM SERUM 4.6 MEQ/L (3.5-5.1); SODIUM LEVEL 139 MEQ/L (136-145); TOTAL PROTEIN 7.7 GM/DL (6.4-8.2); TRIGLYCERIDES LEVEL 144 MG/DL (<150)
== END ==
LOC: M SFHCADAM 08:59
PROVIDERS: ATTEND Family Medicine
DX: I82.412 Acute embolism and thrombosis of left femoral vein (principal); I26.99 Other pulmonary embolism without acute cor pulmonale; E66.01 Morbid (severe) obesity due to excess calories

== ENCOUNTER → 2019-04-28 | Outpatient (CLI) | payer OTHER ==
[~2019-04-28] MED LIST changes: +VALA1TAB5 PO; -VALA1TAB64 PO
--- NOTE | 2019-04-28 10:22 | REP ---
Bilateral lower extremity deep vein duplex ultrasound: The deep veins demonstrate normal compression, normal Doppler color flow and normal Doppler waveforms with respiration augmentation from the popliteal veins to the common femoral veins bilaterally. Impression: There is no deep vein thrombus in the right or left lower extremities. Lower Extremity Venous Reflux: Positive reflux is greater than 0.5 seconds. Right Reflux Left Reflux CFV Reflux yes yes Ant. Acc. GSV Present yes no Reflux no no Greater saph/fem junction 9.8 mm no 5.7 mm yes Greater saph vein mid thigh 3.0 mm no 4.2 mm yes Greater saph vein at knee 3.7 mm no 3.6 mm no SFV PROX no yes SFV MID no yes SFV DISTAL no yes POPLITEAL VEIN no yes LSV no mm no 4.5 mm yes Impression: There is no reflux on the right. There is reflux on the left as described. The duration of reflux is as follows: Greater saphenous/femoral junction 1.4 seconds. Greater saphenous/mid thigh 1.6 seconds L SV 2.9 seconds Electronically Signed by Neto Carter MD 04/28/2019 10:13 A
== END ==
LOC: M RAD 08:42
PROVIDERS: ATTEND Physician Assistant
DX: Z86.718 Personal history of other venous thrombosis and embolism (principal)

== ENCOUNTER → 2019-06-15 | Outpatient (CLI) | payer OTHER ==
--- NOTE | 2019-06-15 10:42 | REP ---
Left lower extremity Duplex Doppler venous ultrasound: Real time compression and duplex Doppler interrogation of the left lower extremity deep venous system is performed. The left common femoral, superficial femoral and popliteal veins are fully compressible with transducer pressure and demonstrate normal spontaneous and phasic flow, without evidence of deep venous thrombosis. Impression: No evidence of deep venous thrombosis of the left lower extremity femoral popliteal venous system. There is a complex Altamirano's cyst measuring 6.0 x 2.2 x 4.2 cm. Electronically Signed by Neto Ferreira MD 06/15/2019 10:33 A
== END ==
LOC: M RAD 09:53
PROVIDERS: ATTEND Physician Assistant Medical
DX: M79.605 Pain in left leg (principal)

== ENCOUNTER 2019-09-20 08:59 | Emergency (ER) | payer OTHER ==
[~2019-09-20] VITALS: Ht 188 cm; Wt 165.7 kg
[2019-09-20] MEDS ORDERED: ASPI81TA85 PO (09:08)
[2019-09-20] MEDS ORDERED: WARF-23 PO (09:08)
[2019-09-20] MEDS ORDERED: NORCO, ANEXSIA 5/325MG TABLET (HYDROcodone/ACETAMINOPHEN) PO ONE (09:45)
[2019-09-20] MEDS ORDERED: BENZOCAINE 20% GEL 9GM TUBE (ANBESOL MAX STRENGTH) TOP ONE (09:45)
[2019-09-20] MEDS ORDERED: ISOVUE-370 76% 100ML VIAL As Ordered ONE (10:10)
[2019-09-20 10:12] LABS: BASO # 0.1 10^3/uL (0.0-0.2); BASO % 0.6 % (0.0-1.0); EOS # 0.2 10^3/uL (0.0-0.5); EOS % 2.2 % (0.0-3.0); HEMATOCRIT 46.1 % (42.0-52.0); HEMOGLOBIN 16.2 g/dl (13.5-17.5); LYMPH # 3.4 10^3/uL (1.5-5.0); LYMPH % 30.9 % (24.0-44.0); MEAN CORPUSCULAR HEMOGLOBIN 31.6 pg (27.0-33.0); MEAN CORPUSCULAR HGB CONC 35.1 g/dl (32.0-36.5); MEAN CORPUSCULAR VOLUME 89.9 fl (80.0-96.0); MONO # 0.7 10^3/uL (0.0-0.8); MONO % 6.3 % (0.0-5.0); NEUTROPHILS # 6.5 10^3/uL (1.5-8.5); NEUTROPHILS % 59.7 % (36.0-66.0); PLATELET COUNT, AUTOMATED 245 10^3/uL (150-450); RED BLOOD COUNT 5.13 10^6/uL (4.30-6.10); WHITE BLOOD COUNT 10.8 10^3/uL (4.0-10.0)
[2019-09-20 10:39] LABS: ERYTHROCYTE SEDIMENTATION RATE 10 mm/hr (0-15)
--- NOTE | 2019-09-20 11:02 | REPVR ---
PROCEDURE INFORMATION: Exam: CT Neck With Contrast Exam date and time: 09/20/2019 9:45 AM Age: 44 years old Clinical indication: Other: L lower jaw pain/swelling, R/O abscess TECHNIQUE: Imaging protocol: Computed tomography images of the neck with intravenous contrast. Radiation optimization: All CT scans at this facility use at least one of these dose optimization techniques: automated exposure control; mA and/or kV adjustment per patient size (includes targeted exams where dose is matched to clinical indication); or iterative reconstruction. Contrast material: ISOVUE 370; Contrast volume: 75 ml; Contrast route: INTRAVENOUS (IV); COMPARISON: No relevant prior studies available. FINDINGS: Brain: The imaged brain is unremarkable. Orbits: The imaged orbits show no acute abnormality. Mastoid air cells: The imaged tympanomastoid cavities are aerated. Sinuses: The imaged paranasal sinuses are normally aerated. Nasal cavity: Normal. Nasopharynx: Unremarkable. Oral Cavity: Normal. Dental: Streak artifact from dental hardware partially degrades evaluation of the oral cavity region. Oropharynx: No significant tonsillar enlargement. Hypopharynx: Unremarkable. Larynx: Normal. Retropharyngeal space: Unremarkable. Submandibular/Parotid glands: The major salivary glands appear normal. Thyroid: Normal. Lymph nodes: No lymphadenopathy. Trachea: Visualized trachea is unremarkable. Lungs: The imaged lung apices show no acute abnormality. Bones/joints: No acute abnormality. Vasculature: Aberrant retroesophageal right subclavian artery. Soft tissues: There is left cheek and submandibular skin thickening and subcutaneous fat inflammation with thickening of the underlying platysma and inflammation extending into the left buccal space with thickening of the buccal and gingival soft tissues. There is no drainable abscess within constraints of beam hardening artifact from dental hardware, although there is some fluid accumulation along the gingival-buccal margin (coronal image number 24).. There is a large dental rishabh of the adjacent left mandibular middle molar. IMPRESSION: Left facial cellulitis, possibly odontogenic in origin with dental caries involving the left mandibular middle molar. No drainable abscess although there is some fluid accumulation along the gingival-buccal margin. Electronically signed by: Isai Vasquez On 09/20/2019 11:02:31 AM
[2019-09-20] MEDS ORDERED: HumuLIN R (REGULAR) INSULIN (NovoLIN R) **100U/ML** PER UNIT SC STA ×2 (11:12→13:42)
[2019-09-20] MEDS ORDERED: NS 1,000 ML IV ONE (11:15)
[2019-09-20] MEDS ORDERED: GASTROGRAFIN SOLUTION 30ML PO SCH (11:30)
[2019-09-20 12:47] LABS: HEMOGLOBIN A1c 13.1 %
[2019-09-20 12:49] LABS: APPEARANCE, URINE CLEAR (CLEAR); BACTERIA, URINE AUTO NEGATIVE (NEGATIVE); BILIRUBIN, URINE AUTO NEGATIVE (NEGATIVE); BLOOD, URINE BLOOD NEGATIVE (NEGATIVE); COLOR, URINE YELLOW (YELLOW); GLUCOSE, URINE (UA) AUTO 3+ mg/dL (NEGATIVE); KETONE, URINE AUTO 1+ mg/dL (NEGATIVE); LEUKOCYTE ESTERASE, URINE AUTO NEGATIVE (NEGATIVE); NITRITE, URINE AUTO NEGATIVE (NEGATIVE); PROTEIN, URINE AUTO NEGATIVE (NEGATIVE); RBC, URINE AUTO 2 /HPF (0-3); SPECIFIC GRAVITY URINE AUTO 1.047 (1.002-1.035); SQUAMOUS EPITHELIAL CELL UR AU 0 /HPF (0-6); UROBILINOGEN, URINE AUTO 0.2 mg/dL (0.0-2.0); WBC, URINE AUTO 1 /HPF (0-3)
[2019-09-20] MEDS ORDERED: MORPHINE 4 MG/ML 1ML VIAL/SYRINGE (J2270) IV ONE (13:00)
[2019-09-20 13:37] VITALS: BP 139/88
[2019-09-20] MEDS ORDERED: PERC5TAB12 PO (14:01)
[2019-09-20] MEDS ORDERED: CLEO300C2 PO (14:01)
[2019-09-20] MEDS ORDERED: METF500T13 PO (14:10)
== END 2019-09-20 14:23 | disposition home or self-care (01) ==
LOC: M ED 08:59
DX: K02.9 Dental caries, unspecified (principal); K05.00 Acute gingivitis, plaque induced; L03.211 Cellulitis of face; E11.65 Type 2 diabetes mellitus with hyperglycemia; K08.89 Other specified disorders of teeth and supporting structures; Z79.82 Long term (current) use of aspirin; Z79.01 Long term (current) use of anticoagulants; Z79.84 Long term (current) use of oral hypoglycemic drugs; Z79.899 Other long term (current) drug therapy; Z88.0 Allergy status to penicillin
CPT/HCPCS: 36600; 70491; 80047; 81001; 82803; 83036; 85025; 85652; 86140; 87040; 96361; 96374; 99283; J2270; Q9967

== ENCOUNTER → 2020-01-05 | Outpatient (CLI) | payer OTHER ==
[~2020-01-05] MED LIST changes: +ASPI81TA86 PO; +CLEO300C2 PO; +METF500T13 PO; +WARF-23 PO
--- NOTE | 2020-01-05 14:34 | REP ---
INDICATION: CHRONIC ANTICOAGULATION. COMPARISON: Comparison chest x-ray August 26, 2017. TECHNIQUE: Three views... FINDINGS: There is coarse linear platelike atelectasis in the right lower lobe and right middle lobe at the right lung base. There is pleural thickening bilaterally along the lateral chest michael. Right hemidiaphragm is slightly elevated today. The previously noted left base infiltrate has cleared. The left lung is free of infiltrate or atelectasis. Heart is not enlarged. There are degenerative changes in the thoracic spine. IMPRESSION: Coarse platelike atelectasis right middle lobe and right lower lobe. Somewhat elevated right hemidiaphragm. Otherwise no acute disease.. <Electronically signed by Thomas Aguilar > 01/05/20 [id number]
== END ==
LOC: M ADAMS 11:11
PROVIDERS: ATTEND Family Medicine
DX: Z51.81 Encounter for therapeutic drug level monitoring (principal); Z79.01 Long term (current) use of anticoagulants; J98.11 Atelectasis; M51.34 Other intervertebral disc degeneration, thoracic region

== ENCOUNTER → 2020-01-05 | Outpatient (REF) | payer OTHER ==
[2020-01-05 12:55] LABS: HEMATOCRIT 49.4 % (42.0-52.0); HEMOGLOBIN 15.4 g/dl (13.5-17.5); MEAN CORPUSCULAR HEMOGLOBIN 30.6 pg (27.0-33.0); MEAN CORPUSCULAR HGB CONC 31.2 g/dl (32.0-36.5); PLATELET COUNT, AUTOMATED 285 10^3/uL (150-450); RED BLOOD COUNT 5.04 10^6/uL (4.30-6.10); WHITE BLOOD COUNT 12.7 10^3/uL (4.0-10.0)
[2020-01-05 13:28] LABS: ALBUMIN 3.9 GM/DL (3.2-5.2); ALT/SGPT 45 U/L (12-78); BILIRUBIN,TOTAL 0.7 MG/DL (0.2-1.0); BLOOD UREA NITROGEN 10 MG/DL (7-18); CARBON DIOXIDE LEVEL 34 MEQ/L (21-32); CHLORIDE LEVEL 101 MEQ/L (98-107); CHOLESTEROL LEVEL 186 MG/DL (<200); CHOLESTEROL RISK RATIO 4.325 (<5); CREATININE FOR GFR 0.92 MG/DL (0.70-1.30); GLOMERULAR FILTRATION RATE > 60.0 (>60); GLUCOSE, FASTING 133 MG/DL (70-100); HDL CHOLESTEROL 43 MG/DL (>40); LDL CHOLESTEROL 119 MG/DL (<100); NON-HDL-C 143 MG/DL; NT-PRO BNP 11 PG/ML (<125); POTASSIUM SERUM 5.1 MEQ/L (3.5-5.1); SODIUM LEVEL 139 MEQ/L (136-145); TOTAL PROTEIN 7.8 GM/DL (6.4-8.2); TRIGLYCERIDES LEVEL 119 MG/DL (<150)
== END ==
LOC: M SFHCADAM 11:06
PROVIDERS: ATTEND Family Medicine
DX: E78.2 Mixed hyperlipidemia (principal); R73.03 Prediabetes; R06.00 Dyspnea, unspecified; Z79.01 Long term (current) use of anticoagulants; Z86.718 Personal history of other venous thrombosis and embolism

== ENCOUNTER → 2020-01-07 | Outpatient (CLI) | payer OTHER ==
[~2020-01-07] MED LIST changes: +ISOVUE-370 76% 100ML VIAL As Ordered ONE
--- NOTE | 2020-01-07 08:29 | REP ---
INDICATION: PLEURAL THICKENING, VALENZUELA, NILDA PULM EMBOLISM FILE ROOM. COMPARISON: Comparison CT pulmonary angiography April 07, 2018.. TECHNIQUE: Contrast dose: 75 ML of Isovue [address] technique: Helical scanning is acquired and overlapping 1.5 mm and contiguous 3 mm axial images are reformatted. In addition, maximum intensity projection and multiplanar re-formation images are generated in sagittal and coronal imaging projections. FINDINGS: Digital preliminary sales floor manager radiograph demonstrates elevated right hemidiaphragm and platelike atelectasis in the right base. There is good opacification of the pulmonary arterial tree. An aberrant right subclavian artery is again noted. No aortic dissection or aneurysm is seen. No filling defect or vessel cutoff is seen to suggest pulmonary embolus on axial, MPR, or MIP images. There is no evidence of mediastinal or hilar mass or adenopathy. There is coarse atelectasis in the right lower lobe and right middle lobe distribution. There is some platelike atelectasis in the right upper lobe as well. No pulmonary mass lesion or nodule is appreciated. There is moderate diffuse fatty infiltration of the liver. Cholelithiasis is observed. Normal adrenal glands are visible. There is some motion artifact in the lower half of the study acquisition. No bony destructive lesion. IMPRESSION: No CT evidence of pulmonary embolus. Moderate diffuse fatty infiltration of the liver. Course multifocal platelike atelectasis right lower lobe, right middle lobe, and right upper lobe with elevation of the right hemidiaphragm. Cholelithiasis. Aberrant right subclavian artery. <Electronically signed by Thomas Aguilar > 01/07/20 [id number]
== END ==
LOC: M RAD 07:23
PROVIDERS: ATTEND Family Medicine
DX: I26.99 Other pulmonary embolism without acute cor pulmonale (principal)
CPT/HCPCS: 71275; Q9967

== ENCOUNTER → 2020-02-18 | Outpatient (REF) | payer OTHER ==
[~2020-02-18] MED LIST changes: -ISOVUE-370 76% 100ML VIAL As Ordered ONE
[2020-02-18 17:40] LABS: INR 3.81; PROTHROMBIN TIME 38.4 SECONDS (12.5-14.3)
== END ==
LOC: M SFHCADAM 15:50
PROVIDERS: ATTEND Family Medicine
DX: Z79.01 Long term (current) use of anticoagulants (principal)

== ENCOUNTER → 2020-06-21 | Outpatient (REF) | payer OTHER ==
[2020-06-21 18:09] LABS: ALBUMIN 3.3 GM/DL (3.2-5.2); ALT/SGPT 65 U/L (12-78); BILIRUBIN,TOTAL 0.5 MG/DL (0.2-1.0); BLOOD UREA NITROGEN 10 MG/DL (7-18); CALCIUM LEVEL 9.6 MG/DL (8.5-10.1); CARBON DIOXIDE LEVEL 34 MEQ/L (21-32); CHLORIDE LEVEL 99 MEQ/L (98-107); CHOLESTEROL LEVEL 205 MG/DL (<200); CREATININE FOR GFR 0.72 MG/DL (0.70-1.30); GLOMERULAR FILTRATION RATE > 60.0 (>60); GLUCOSE, FASTING 273 MG/DL (70-100); HDL CHOLESTEROL 41 MG/DL (>40); LDL CHOLESTEROL 129 MG/DL (<100); NON-HDL-C 164 MG/DL; POTASSIUM SERUM 4.4 MEQ/L (3.5-5.1); SODIUM LEVEL 137 MEQ/L (136-145); TOTAL PROTEIN 6.9 GM/DL (6.4-8.2); TRIGLYCERIDES LEVEL 175 MG/DL (<150)
[2020-06-21 18:14] LABS: HEMATOCRIT 45.7 % (42.0-52.0); HEMOGLOBIN 15.2 g/dl (13.5-17.5); MEAN CORPUSCULAR HEMOGLOBIN 32.1 pg (27.0-33.0); MEAN CORPUSCULAR HGB CONC 33.3 g/dl (32.0-36.5); MEAN CORPUSCULAR VOLUME 96.4 fl (80.0-96.0); PLATELET COUNT, AUTOMATED 281 10^3/uL (150-450); RED BLOOD COUNT 4.74 10^6/uL (4.30-6.10); WHITE BLOOD COUNT 9.9 10^3/uL (4.0-10.0)
[2020-06-21 20:09] LABS: HEMOGLOBIN A1c > 14.0 %
== END ==
LOC: M SFHCADAM 12:10
PROVIDERS: ATTEND Family Medicine
DX: E11.65 Type 2 diabetes mellitus with hyperglycemia (principal); K76.0 Fatty (change of) liver, not elsewhere classified; E78.2 Mixed hyperlipidemia; Z79.01 Long term (current) use of anticoagulants; Z86.718 Personal history of other venous thrombosis and embolism

== ENCOUNTER → 2020-10-14 | Outpatient (REF) | payer OTHER ==
[2020-10-14 18:12] LABS: HEMOGLOBIN 15.7 g/dl (13.5-17.5); MEAN CORPUSCULAR HEMOGLOBIN 31.5 pg (27.0-33.0); MEAN CORPUSCULAR HGB CONC 32.7 g/dl (32.0-36.5); MEAN CORPUSCULAR VOLUME 96.2 fl (80.0-96.0); PLATELET COUNT, AUTOMATED 276 10^3/uL (150-450); RED BLOOD COUNT 4.99 10^6/uL (4.30-6.10); WHITE BLOOD COUNT 13.2 10^3/uL (4.0-10.0)
[2020-10-14 18:37] LABS: ALBUMIN 3.6 GM/DL (3.2-5.2); ALT/SGPT 34 U/L (12-78); BILIRUBIN,TOTAL 0.4 MG/DL (0.2-1.0); BLOOD UREA NITROGEN 13 MG/DL (7-18); CALCIUM LEVEL 9.3 MG/DL (8.5-10.1); CARBON DIOXIDE LEVEL 35 MEQ/L (21-32); CHLORIDE LEVEL 102 MEQ/L (98-107); CHOLESTEROL LEVEL 195 MG/DL (<200); CHOLESTEROL RISK RATIO 4.534 (<5); GLOMERULAR FILTRATION RATE > 60.0 (>60); GLUCOSE, FASTING 133 MG/DL (70-100); HDL CHOLESTEROL 43 MG/DL (>40); LDL CHOLESTEROL 122 MG/DL (<100); NON-HDL-C 152 MG/DL; SODIUM LEVEL 142 MEQ/L (136-145); TOTAL PROTEIN 7.6 GM/DL (6.4-8.2); TRIGLYCERIDES LEVEL 148 MG/DL (<150)
[2020-10-14 18:50] LABS: HEMOGLOBIN A1c 7.7 %
== END ==
LOC: M SFHCADAM 15:34
PROVIDERS: ATTEND Family Medicine
DX: E11.65 Type 2 diabetes mellitus with hyperglycemia (principal); K76.0 Fatty (change of) liver, not elsewhere classified; E78.2 Mixed hyperlipidemia; Z79.01 Long term (current) use of anticoagulants; Z86.718 Personal history of other venous thrombosis and embolism

== ENCOUNTER 2020-11-27 16:32 | Emergency (ER) | payer OTHER ==
[~2020-11-27] VITALS: Ht 188 cm; Wt 167.3 kg
[2020-11-27] MEDS ORDERED: GLIM4TAB5 (16:42)
[2020-11-27] MEDS ORDERED: ELIQ5TAB (16:42)
[2020-11-27] MEDS ORDERED: CHLO125TA (16:42)
[2020-11-27] MEDS ORDERED: cefTRIAXone SOD 1 GM in D5W MINI-BAG PLUS 50 ML IV ONE (18:45)
[2020-11-27 19:27] LABS: BASO % 0.4 % (0.0-1.0); EOS # 0.4 10^3/uL (0.0-0.5); EOS % 3.6 % (0.0-3.0); HEMATOCRIT 49.4 % (42.0-52.0); HEMOGLOBIN 16.5 g/dl (13.5-17.5); LYMPH # 2.9 10^3/uL (1.5-5.0); LYMPH % 25.1 % (24.0-44.0); MEAN CORPUSCULAR HEMOGLOBIN 31.8 pg (27.0-33.0); MEAN CORPUSCULAR HGB CONC 33.4 g/dl (32.0-36.5); MEAN CORPUSCULAR VOLUME 95.2 fl (80.0-96.0); MONO % 8.8 % (2.0-8.0); NEUTROPHILS % 61.8 % (36.0-66.0); PLATELET COUNT, AUTOMATED 244 10^3/uL (150-450); RED BLOOD COUNT 5.19 10^6/uL (4.30-6.10); WHITE BLOOD COUNT 11.3 10^3/uL (4.0-10.0)
[2020-11-27 19:45] LABS: ERYTHROCYTE SEDIMENTATION RATE 3 mm/hr (0-15)
--- NOTE | 2020-11-27 20:05 | REP ---
INDICATION: erythema, warmth, r/o dvt. COMPARISON: None. TECHNIQUE: Multiple ultrasonographic images of the deep venous structures of the right lower extremity were obtained from the inguinal ligament to the ankle. Venous compression techniques, color doppler imaging, and augmentation techniques were also obtained where appropriate. As per the ACR guidelines the anterior tibial vein can not be effectively evaluated. Only compression techniques in the calf on the peroneal and posterior tibial veins was attempted/performed. FINDINGS: There is no abnormal echogenic material seen within any of the visualized deep venous structures that would suggest acute thrombosis. Coaptation is unremarkable throughout. Doppler interrogation shows an expected response to respiratory variability and augmentation in the thigh. Compression techniques in the calf were unobtainable. The color flow images show what appears to be a normal vascular pattern throughout the thigh. IMPRESSION: There is no ultrasonographic evidence of deep venous thrombosis involving any of the visualized deep venous structures of the right lower extremity as described above. Due to technical parameters calf vein DVT can not be ruled out. <Electronically signed by Rakesh Lozoya > 11/27/202000
[2020-11-27] MEDS ORDERED: CLEO300C2 PO (20:16)
[2020-11-27] MEDS ORDERED: CLINDAMYCIN 150MG CAPSULE PO ONE (20:20)
[2020-11-27 21:11] VITALS: BP 124/76
== END 2020-11-27 21:13 | disposition home or self-care (01) ==
LOC: M ED 16:32
DX: L03.115 Cellulitis of right lower limb (principal); E11.9 Type 2 diabetes mellitus without complications; Z79.84 Long term (current) use of oral hypoglycemic drugs; Z86.79 Personal history of other diseases of the circulatory system; Z79.01 Long term (current) use of anticoagulants; Z88.0 Allergy status to penicillin
CPT/HCPCS: 80047; 83605; 85025; 85652; 86140; 93971; 96365; 99284; J0696

== ENCOUNTER 2022-03-11 14:17 | Emergency (ER) | payer OTHER ==
[~2022-03-11] VITALS: Ht 188 cm; Wt 167.7 kg
[~2022-03-11 14:17] MED LIST changes: +CHLO125TA; +ELIQ5TAB; +GLIM4TAB5
[2022-03-11 14:18] VITALS: BP 126/83
[2022-03-11] MEDS ORDERED: BASA100I (14:39)
[2022-03-11] MEDS ORDERED: VALA1TAB5 (14:39)
== END 2022-03-11 17:42 | disposition left against medical advice (07) ==
LOC: M ED 14:17
DX: Z53.21 Procedure and treatment not carried out due to patient leaving prior to being seen by health care provider (principal)

== ENCOUNTER → 2022-05-31 | Outpatient (REF) | payer OTHER ==
[~2022-05-31] MED LIST changes: +BASA100I; +VALA1TAB5
[2022-05-31 16:32] LABS: HEMATOCRIT 52.5 % (42.0-52.0); HEMOGLOBIN 17.4 g/dl (13.5-17.5); MEAN CORPUSCULAR HEMOGLOBIN 31.6 pg (27.0-33.0); MEAN CORPUSCULAR HGB CONC 33.1 g/dl (32.0-36.5); MEAN CORPUSCULAR VOLUME 95.3 fl (80.0-96.0); PLATELET COUNT, AUTOMATED 245 10^3/uL (150-450); RED BLOOD COUNT 5.51 10^6/uL (4.30-6.10); WHITE BLOOD COUNT 13.2 10^3/uL (4.0-10.0)
[2022-05-31 16:39] LABS: HEMOGLOBIN A1c 11.9 % (4.0-6.0)
[2022-05-31 16:51] LABS: MAU/CREAT RATIO 9.8 MCG/MG (0.0-30.0)
[2022-05-31 16:55] LABS: ALBUMIN 3.7 G/DL (3.2-5.2); ALKALINE PHOSPHATASE 114 U/L (46-116); ALT/SGPT 33 U/L (7.0-40); AST/SGOT 24 U/L (<34); BLOOD UREA NITROGEN 13 MG/DL (9-23); CALCIUM LEVEL 9.2 MG/DL (8.5-10.1); CARBON DIOXIDE LEVEL 36 MMOL/L (20-31); CHLORIDE LEVEL 94 MMOL/L (98-107); CHOLESTEROL LEVEL 182 MG/DL (<200); CHOLESTEROL RISK RATIO 4.67 (<5); CREATININE FOR GFR 0.72 MG/DL (0.70-1.30); FREE T4 1.01 NG/DL (0.89-1.76); GLOMERULAR FILTRATION RATE > 60.0 (>60); GLUCOSE, FASTING 233 MG/DL (60-100); HDL CHOLESTEROL 38.9 MG/DL (>40); LDL CHOLESTEROL 121.9 MG/DL (<100); NON-HDL-C 143.1 MG/DL; POTASSIUM SERUM 3.9 MMOL/L (3.5-5.1); SODIUM LEVEL 135 MMOL/L (136-145); THYROID STIMULATING HORMONE 1.753 uIU/ML (0.55-4.78); TOTAL PROTEIN 7.7 G/DL (5.7-8.2); TRIGLYCERIDES LEVEL 106 MG/DL (<150)
== END ==
LOC: M SFHCADAM 13:45
PROVIDERS: ATTEND Family Medicine
DX: E11.65 Type 2 diabetes mellitus with hyperglycemia (principal); E78.2 Mixed hyperlipidemia; Z79.01 Long term (current) use of anticoagulants; Z86.718 Personal history of other venous thrombosis and embolism

== ENCOUNTER → 2022-08-29 | Outpatient (REF) | payer OTHER ==
[2022-08-29 16:41] LABS: BLOOD UREA NITROGEN 15 MG/DL (9-23); CALCIUM LEVEL 10.1 MG/DL (8.5-10.1); CARBON DIOXIDE LEVEL 33 MMOL/L (20-31); CHLORIDE LEVEL 98 MMOL/L (98-107); CREATININE FOR GFR 0.87 MG/DL (0.70-1.30); GLOMERULAR FILTRATION RATE > 60.0 (>60); GLUCOSE, FASTING 167 MG/DL (60-100); POTASSIUM SERUM 3.8 MMOL/L (3.5-5.1); SODIUM LEVEL 137 MMOL/L (136-145)
[2022-08-29 16:48] LABS: HEMOGLOBIN A1c 9.3 % (4.0-6.0)
== END ==
LOC: M SFHCADAM 14:45
PROVIDERS: ATTEND Family Medicine
DX: E11.65 Type 2 diabetes mellitus with hyperglycemia (principal)

== ENCOUNTER → 2023-06-07 | Outpatient (REF) | payer OTHER ==
[2023-06-07 19:41] LABS: BLOOD UREA NITROGEN 14 MG/DL (9-23); CALCIUM LEVEL 9.6 MG/DL (8.5-10.1); CARBON DIOXIDE LEVEL 37 MMOL/L (20-31); CHLORIDE LEVEL 93 MMOL/L (98-107); CREATININE FOR GFR 0.72 MG/DL (0.70-1.30); GLOMERULAR FILTRATION RATE > 60.0 (>60); GLUCOSE, FASTING 474 MG/DL (60-100); SODIUM LEVEL 130 MMOL/L (136-145)
[2023-06-07 20:19] LABS: HEMOGLOBIN A1c 13.2 % (4.0-6.0)
== END ==
LOC: M SFHCADAM 14:31
PROVIDERS: ATTEND Family Medicine
DX: E11.65 Type 2 diabetes mellitus with hyperglycemia (principal)

== ENCOUNTER → 2023-12-27 | Outpatient (REF) | payer OTHER ==
[2023-12-27 19:11] LABS: BLOOD UREA NITROGEN 16 MG/DL (9-23); CALCIUM LEVEL 9.5 MG/DL (8.5-10.1); CARBON DIOXIDE LEVEL 35 MMOL/L (20-31); CHLORIDE LEVEL 102 MMOL/L (98-107); CREATININE FOR GFR 0.84 MG/DL (0.70-1.30); GLOMERULAR FILTRATION RATE > 60.0 (>60); GLUCOSE, FASTING 67 MG/DL (60-100); POTASSIUM SERUM 4.2 MMOL/L (3.5-5.1); SODIUM LEVEL 140 MMOL/L (136-145)
[2023-12-27 19:38] LABS: HEMOGLOBIN A1c 6.2 % (4.0-6.0)
== END ==
LOC: M SFHCADAM 15:05
PROVIDERS: ATTEND Family Medicine
DX: E11.65 Type 2 diabetes mellitus with hyperglycemia (principal)

== ENCOUNTER → 2024-02-19 | Outpatient (CLI) | payer OTHER | LOC: M WHC 12:03 | PROVIDERS: ATTEND Family Medicine | DX: R10.11 Right upper quadrant pain (principal); M54.6 Pain in thoracic spine; Z53.9 Procedure and treatment not carried out, unspecified reason ==

== ENCOUNTER → 2024-05-11 | Outpatient (CLI) | payer OTHER | LOC: M RAD 06:23 | PROVIDERS: ATTEND Family Medicine | DX: R10.11 Right upper quadrant pain (principal) ==

== ENCOUNTER → 2024-05-22 | Outpatient (REF) | payer OTHER ==
[2024-05-22 14:11] LABS: HEMATOCRIT 47.6 % (42.0-52.0); HEMOGLOBIN 16.5 g/dl (13.5-17.5); MEAN CORPUSCULAR HEMOGLOBIN 33.3 pg (27.0-33.0); MEAN CORPUSCULAR HGB CONC 34.7 g/dl (32.0-36.5); PLATELET COUNT, AUTOMATED 251 10^3/uL (150-450); RED BLOOD COUNT 4.96 10^6/uL (4.30-6.10); WHITE BLOOD COUNT 12.5 10^3/uL (4.0-10.0)
[2024-05-22 14:26] LABS: HEMOGLOBIN A1c 6.2 % (4.0-6.0)
[2024-05-22 14:38] LABS: ALBUMIN 3.9 G/DL (3.2-5.2); ALKALINE PHOSPHATASE 88 U/L (40-129); ALT/SGPT 16 U/L (7.0-40); AST/SGOT 13 U/L (<34); BILIRUBIN,TOTAL 1.1 MG/DL (0.3-1.2); BLOOD UREA NITROGEN 12 MG/DL (9-23); CALCIUM LEVEL 8.7 MG/DL (8.5-10.1); CARBON DIOXIDE LEVEL 31 MMOL/L (20-31); CHLORIDE LEVEL 100 MMOL/L (98-107); CHOLESTEROL LEVEL 185 MG/DL (<200); CHOLESTEROL RISK RATIO 4.68 (<5); CREATININE FOR GFR 0.76 MG/DL (0.70-1.30); GLOMERULAR FILTRATION RATE > 60.0 (>60); GLUCOSE, FASTING 100 MG/DL (60-100); HDL CHOLESTEROL 39.5 MG/DL (>40); LDL CHOLESTEROL 116.7 MG/DL (<100); NON-HDL-C 145.5 MG/DL; SODIUM LEVEL 138 MMOL/L (136-145); TOTAL PROTEIN 7.5 G/DL (5.7-8.2); TRIGLYCERIDES LEVEL 144 MG/DL (<150)
== END ==
LOC: M SFHCADAM 10:42
PROVIDERS: ATTEND Family Medicine
DX: I26.99 Other pulmonary embolism without acute cor pulmonale (principal); E11.65 Type 2 diabetes mellitus with hyperglycemia; K76.0 Fatty (change of) liver, not elsewhere classified

== ENCOUNTER → 2024-09-04 | Outpatient (CLI) | payer OTHER ==
[2024-09-04 09:30] LABS: ESTIMATED AVERAGE GLUCOSE 154.0 MG/DL (60-110)
[2024-09-04 10:16] LABS: CALCIUM LEVEL 8.9 MG/DL (8.5-10.1); CARBON DIOXIDE LEVEL 31 MMOL/L (20-31); CHLORIDE LEVEL 99 MMOL/L (98-107); CHOLESTEROL LEVEL 120 MG/DL (<200); CHOLESTEROL RISK RATIO 3.46 (<5); CREATININE FOR GFR 0.85 MG/DL (0.70-1.30); GLOMERULAR FILTRATION RATE > 90.0 (>60); LDL CHOLESTEROL 70.4 MG/DL (<100); NON-HDL-C 85.4 MG/DL; POTASSIUM SERUM 3.8 MMOL/L (3.5-5.1); SODIUM LEVEL 139 MMOL/L (136-145); TRIGLYCERIDES LEVEL 75 MG/DL (<150)
== END ==
LOC: M LAB 08:42
PROVIDERS: ATTEND Family Medicine
DX: E11.65 Type 2 diabetes mellitus with hyperglycemia (principal); E78.2 Mixed hyperlipidemia

== ENCOUNTER 2024-12-10 11:01 | Day surgery (SDC) | payer OTHER ==
[~2024-12-10] VITALS: Ht 188 cm; Wt 143.8 kg
[~2024-12-10 11:01] MED LIST changes: +ATOR1TAB21 PO; -BASA100I; +BASA100I SQ; -CHLO125TA; +CHLO125TA PO; -ELIQ5TAB; -GLIM4TAB5; +GLIM4TAB5 PO; +SEMA2PEN; -VALA1TAB5
[2024-12-10] MEDS ORDERED: LIDOCAINE 2% 100 MG/5 ML SDV (FOR ANES.) As Ordered ONE (12:46)
[2024-12-10 13:01] VITALS: TEMP 98.4
[2024-12-10 13:11] VITALS: BP 136/64; O2SAT 97
== END 2024-12-10 13:17 | disposition home or self-care (01) ==
LOC: M OPP 11:01
PROVIDERS: ATTEND Surgery
DX: Z12.11 Encounter for screening for malignant neoplasm of colon (principal); K57.30 Diverticulosis of large intestine without perforation or abscess without bleeding; K64.8 Other hemorrhoids; Z88.0 Allergy status to penicillin; Z79.01 Long term (current) use of anticoagulants; Z79.85 Long-term (current) use of injectable non-insulin antidiabetic drugs; Z79.899 Other long term (current) drug therapy